=== PATIENT | male | born 1975 | race African-American/Black ===

== ENCOUNTER 2020-11-24 13:47 | Emergency (ER) | payer MEDICAID, SELFPAY ==
[2020-11-24 13:48] VITALS: BP 138/75; PULSE 90; RESP 16; TEMP 36.4; O2SAT 99; BMI 30.7
[2020-11-24] MEDS: Ondansetron ODT 4 MG Tablet PO (14:39)
[2020-11-24] MEDS: Ondansetron 4 MG/2 ML Vial IV (14:41)
[2020-11-24 14:43] LABS: Absolute Lymphocyte Count 1.14 X10^3/uL (0.83-4.51); Absolute Neutrophil Count 5.7 X10^3/uL (2.0-7.7); Basophil# 0.02 X10^3/uL; Basophil% 0.3 % (0-1); Hematocrit 41.4 % (40-54); Hemoglobin 14.4 g/dL (13.0-16.5); Lymphocyte # 1.14 X10^3/ul (0.83-4.51); Lymphocyte % 15.7 % (19-41); Mean Corp Hgb Conc 34.8 g/dL (32-36); Mean Corpuscular Hgb 32.3 pg (27.0-32.0); Mean Corpuscular Volume 92.8 fL (80-94); Mean Platelet Vol. 9.9 fl (6.2-12.0); Monocyte# 0.33 X10^3/uL; Monocyte% 4.6 % (0-10); NRBC Flagged by Analyzer 0 % (0-5); Neutrophil # 5.73 X10^3/uL (2.7-7.7); Platelet Count 257 K/mm3 (150-450); RBC Distribution Width CV 14.7 % (11.6-14.6); RBC Distribution Width SD 50.1 fl (35.1-43.9); Red Blood Count 4.46 M/mm3 (4.6-6.2); White Blood Count 7.3 K/mm3 (4.4-11.0)
--- NOTE | 2020-11-24 14:51 | EKG12_ITS ---
Test Reason : ABD PAIN Blood Pressure : / mmHG Vent. Rate : 062 BPM Atrial Rate : 062 BPM P-R Int : 162 ms QRS Dur : 096 ms QT Int : 420 ms P-R-T Axes : 009 016 -03 degrees QTc Int : 426 ms Normal sinus rhythm Normal ECG Confirmed by LIUDMILA GODOY, SEBLE ([id number]), supervising editor news reel EDWAR LOBO ([id number]) on 11/27/2020 1:32:48 PM Referred By: PL Confirmed By:SHONA NUR MD
--- NOTE | 2020-11-24 14:52 | EDS_ITS ---
HPI HPI - GI History of Present Illness Chief Complaint: Abd Pain Informant: patient and spouse/S.O. Narrative Narrative: Patient presents with primarily upper abdominal pain. He states that the pain is minimal. However, he keeps having problems with nausea and vomiting. He is moving his bowels and has passing gas. He does not have diarrhea. He has never had blood in the stool or vomited blood. He states it started after he came back from a green party last night. He did have several drinks. He cannot think of any foods he had that bothered him. He does not know if anyone else got ill. He felt fine when he went there. Nothing really makes his symptoms better or worse. He has tried to drink some fluids. Sometimes they stay down sometimes they do not. He does not have any dyspnea chest pain pressure or palpitations. Past medical history: Viral myocarditis suspected. Medications include Coumadin and multiple others. Patient does not know what medications he takes otherwise. No known drug allergies other than an intolerance to heparin. He does not know what this reaction was. Surgery is placement of a implantable defibrillator. No abdominal surgery Social does drink alcohol. [facility] Medical History (Updated 11/24/20 @ 19:[address] 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-sided heart failure Home Medications atorvastatin 40 mg PO DAILY 11/24/20 [History Last Taken Unknown] carvedilol 9.175 mg PO BID 11/24/20 [History Last Taken Unknown] digoxin 125 mcg PO DAILY 11/24/20 [History Last Taken Unknown] ferrous sulfate 325 mg PO DAILY 11/24/20 [History Last Taken Unknown] furosemide 20 mg PO DAILY 11/24/20 [History Last Taken Unknown] isosorbide dinitrate 10 mg PO DAILY 11/24/20 [History Last Taken Unknown] magnesium oxide 40 mg PO DAILY 11/24/20 [History Last Taken Unknown] ondansetron 4 mg PO TID PRN 3 Days #9 tab 11/24/20 [Rx Last Taken Unknown] promethazine 25 mg PO TID PRN #9 tab 11/24/20 [Rx Last Taken Unknown] sacubitril-valsartan [Entresto] 1 tab PO BID 11/24/20 [History Last Taken Unknown] spironolactone 25 mg PO DAILY 11/24/20 [History Last Taken Unknown] warfarin 7.5 mg PO DAILY 11/24/20 [History Last Taken Unknown] Allergy/AdvReac Type Severity Reaction Status Date / Time pollen extracts Allergy Shortness Verified 11/24/20 13:48 of breath Surgical History (Updated 11/24/20 @ 17:00 by Kevin Rachel) Hx of tonsillectomy Social History Smoking Status: Former smoker ROS ROS ED Constitutional Constitutional ED: Denies chills or fever(s) Cardiovascular Cardiovascular: Denies chest pain, palpitations or racing heartbeat Respiratory/Chest Respiratory/Chest: Denies cough, dyspnea or dyspnea on exertion Gastrointestinal Gastrointestinal: Reports abdominal pain, nausea and vomiting; Denies constipa tion, diarrhea or melena Genitourinary Genitourinary ED: Denies dysuria or hematuria Musculoskeletal Musculoskeletal: Denies back pain Integumentary Denies rash Neurologic Neurologic: Denies headache(s) or weakness Endocrine Endocrinology: Denies polydipsia or polyuria Hematologic/Lymphatic Hematologic/Lymphatic: Denies easy bruising Allergic/Immunologic Allergic/Immunologic ED: Denies urticaria EXAM Physical Exam Const Vital Signs: 11/24/20 13:48 Temperature 97.6 F L Temperature Source Temporal Pulse Rate 90 Respiratory Rate 16 Blood Pressure 138/75 H Blood Pressure Mean 96 Pulse Ox 99 Oxygen Delivery Method Room Air Positive well nourished and well developed General Appearance ED: well developed and NAD HEENT Reports moist mucous membranes normocephalic and atraumatic Eyes EOMs intact bilaterally Neck supple Resp normal respiratory effort and clear to auscultation bilaterally Auscultation: Negative for rales Cardio regular rate and regular rhythm GI non-distended and no masses GI Narrative: Patient has a no real objective indication of tenderness. Bowel sounds are slightly reduced from normal. Auscultation: hypoactive bowel sounds Palpation: soft Back/Spine no CVA tenderness Neuro Sensorium / Orientation: alert Psych mental status grossly normal Skin Lesions: no lesions Rashes: no rashes MDM MDM MDM Narrative Medical decision making narrative: Blood work shows normal white count hemoglobin. Creatinine is mildly elevated. Alk phos is just slightly elevated but he does not have tenderness noted notably at the right upper quadrant. INR is therapeutic at 3.0. Patient was still having some nausea. I have added Phenergan. Is he still having symptoms, has complex medical history, is on Coumadin I have done a CT of his abdomen. He does not feel as though he can drink. Because his creatinine is mildly elevated I am going to avoid contrast. I am concerned about giving IV fluids to this patient with his significant heart disease. Especially when he does not know what his ejection fraction or medications are. Patient CT showed findings more consistent with enteritis. I went back to talk to the patient. He was feeling better though. He has drank a little bit of water and had some ice cubes. His nausea has significantly decreased. His pain is almost gone. He feels much better. He thinks this is likely from eating and drinking things at the green party last night. He would like to go home. I think this is reasonable. We will write him for both Zofran and Phenergan so he has options. If he develops recurrence of pain, vomiting or any other findings are features I have encouraged him to come back. Lab Data Attestation: I reviewed the patient's lab results. Labs: Laboratory Results - last 24 hr 11/24/20 11/24/20 11/24/20 14:35 14:35 15:20 WBC 7.3 RBC 4.46 L Hgb 14.4 Hct 41.4 MCV 92.8 MCH 32.3 H MCHC 34.8 RDW Std Deviation 50.1 H RDW Coeff of John 14.7 H Plt Count 257 MPV 9.9 Immature Gran % (Auto) 0.400 Neut % (Auto) 79.0 H Lymph % (Auto) 15.7 L [place] % (Auto) 4.6 Eos % (Auto) 0.0 Baso % (Auto) 0.3 Absolute Neuts (auto) 5.7 Absolute Lymphs (auto) 1.14 Nucleated RBC % 0 PT INR Sodium Cancelled 135 L Potassium Cancelled 4.5 Chloride Cancelled 102 Carbon Dioxide Cancelled 24.0 Anion Gap Cancelled 9 BUN Cancelled 14 Creatinine Cancelled 1.41 H Estim Creat Clear Calc Cancelled 66.87 Est GFR (MDRD) Af Amer Cancelled 69 Est GFR (MDRD) Non-Af Cancelled 57 L BUN/Creatinine Ratio Cancelled 9.9 L Glucose Cancelled 94 Calcium Cancelled 9.4 Total Bilirubin 0.80 AST 26 ALT 40 Alkaline Phosphatase 133 H Troponin I High Sens 9 Total Protein 8.0 Albumin 4.3 Globulin 3.7 Albumin/Globulin Ratio 1.2 Lipase 173 Urine Color Urine Clarity Urine pH Ur Specific [place] Urine Protein Urine Glucose (UA) Urine Ketones Urine Occult Blood Urine Nitrite Urine Bilirubin Urine Urobilinogen Ur Leukocyte Esterase Urine RBC Urine WBC Ur Squamous Epith Cells Amorphous Sediment Urine Bacteria Urine Mucus 11/24/20 11/24/20 15:30 17:31 WBC RBC Hgb Hct MCV MCH MCHC RDW Std Deviation RDW Coeff of John Plt Count MPV Immature Gran % (Auto) Neut % (Auto) Lymph % (Auto) [place] % (Auto) Eos % (Auto) Baso % (Auto) Absolute Neuts (auto) Absolute Lymphs (auto) Nucleated RBC % PT 30.3 H INR 3.0 Sodium Potassium Chloride Carbon Dioxide Anion Gap BUN Creatinine Estim Creat Clear Calc Est GFR (MDRD) Af Amer Est GFR (MDRD) Non-Af BUN/Creatinine Ratio Glucose Calcium Total Bilirubin AST ALT Alkaline Phosphatase Troponin I High Sens Total Protein Albumin Globulin Albumin/Globulin Ratio Lipase Urine Color Yellow Urine Clarity Clear Urine pH 5.0 Ur Specific [place] 1.025 Urine Protein 30 H Urine Glucose (UA) Normal Urine Ketones 150 A* Urine Occult Blood 25 H Urine Nitrite Negative Urine Bilirubin Negative Urine Urobilinogen Normal Ur Leukocyte Esterase Negative Urine RBC 0-5 SEEN Urine WBC 0 SEEN Ur Squamous Epith Cells 5-10 SEEN Amorphous Sediment 3+ URATE Urine Bacteria 0 SEEN Urine Mucus 0 SEEN Radiography Diagnostic Testing: Radiology Impression Abdomen/Pelvis CT 11/24/20 16:14 IMPRESSION: Nondistended fluid-filled small bowel loops and subtle submucosal thickening majority of the colon suggests diffuse enteritis. There is associated induration of the mesenteric fat. No suspicious solid organ abnormality No free intraperitoneal fluid, air, or suspicious adenopathy Electronically Signed: Chun Valenzuela MD at 17:29 EDT , Service support , EKG Initial EKG: Comments: EKG done due to low cardiac history and upper abdominal discomfort. EKG read by me shows a normal sinus rhythm with overall rate of 62. No acute ST elevation or depression. No ectopy. MA interval, QRS duration and QTc are normal. Discharge Plan Triage Chief Complaint: Abd Pain ED Provider: Dedrick Perez Dx/Rx/DC Orders Clinical Impression: Nausea & vomiting Instructions: ED Vomiting (Adult), ED Abdominal Pain Unkn Cause Male... Prescriptions: New ondansetron 4 mg tablet,disintegrating 4 mg PO TID PRN (Reason: nausea and vomiting) 3 Days Qty: 9 RF: 0 promethazine 25 mg tablet 25 mg PO TID PRN (Reason: nausea and vomiting) Qty: 9 RF: 0 No Action isosorbide dinitrate 10 mg tablet 10 mg PO DAILY RF: 0 atorvastatin 40 mg tablet 40 mg PO DAILY RF: 0 carvedilol 6.25 mg tablet 9.175 mg PO BID RF: 0 spironolactone 25 mg tablet 25 mg PO DAILY RF: 0 magnesium oxide 400 mg (241.3 mg magnesium) tablet 40 mg PO DAILY RF: 0 ferrous sulfate 325 mg (65 mg iron) tablet 325 mg PO DAILY RF: 0 warfarin 5 mg tablet 7.5 mg PO DAILY RF: 0 digoxin 125 mcg (0.125 mg) tablet 125 mcg PO DAILY RF: 0 furosemide 20 mg tablet 20 mg PO DAILY RF: 0 Entresto 97-103 mg tablet 1 tab PO BID RF: 0 Primary Care Provider: Care Physician,No Primary Referrals: Cheri Gonzalez MD [STAFF PHYSICIAN] - 1-2 Days if not improving Care Physician,No Primary [Primary Care Provider] - Disposition Disposition: Home, Self Care
[2020-11-24 15:51] LABS: ALB/GLOB Ratio 1.2 RATIO (0.9-2.4); AST(SGOT) 26 U/L (15-37); Alanine Aminotransfer ALT/SGPT 40 U/L (16-61); Albumin, Serum 4.3 g/dL (3.2-5.0); Alkaline Phosphatase 133 U/L (45-117); Anion Gap 9 (5-15); BUN 14 mg/dL (7-18); BUN/Creat Ratio 9.9 RATIO (10-20); Calcium,Total 9.4 mg/dL (8.5-10.1); Chloride 102 mmol/L (98-107); Creatinine, Serum 1.41 mg/dL (0.70-1.30); EST Glomerular Filtration Rate 57 mL/min (>60); Est Glom Filt Rate - Afr Amer 69 mL/min (>60); Estimated Creatinine Clearance 66.87 ml/min; Globulin 3.7 g/dL (2.2-4.2); Glucose 94 mg/dL (74-106); Lipase 173 U/L (73-393); Potassium 4.5 mmol/L (3.5-5.1); Sodium Level 135 mmol/L (136-145); Troponin-I HS 9 pg/mL (3.0-78.0)
[2020-11-24 16:01] LABS: Prothrombin Time (Protime)PT. 30.3 SECONDS (11.7-14.9)
--- NOTE | 2020-11-24 16:14 | CT_ITS ---
STUDY: CT ABDOMEN AND PELVIS WITHOUT CONTRAST REASON FOR EXAM: Male, 45 years old. Diffuse abdominal pain RADIATION DOSAGE (If Supplied By Facility): CTDIvol = ( 10.62 ) mGy, DLP = ( 524.35 ) mGycm TECHNIQUE: Transaxial images were obtained from the dome of the diaphragm to the symphysis pubis without oral contrast, and without intravenous contrast. Sagittal and coronal images were reconstructed. Individualized dose optimization techniques were used for this CT. COMPARISON: None. FINDINGS: The visualized lung bases are unremarkable. The visualized portions of the heart are within normal limits. Normal liver. Normal gallbladder and extrahepatic biliary system. Normal spleen. Normal pancreas. Normal bilateral adrenal glands. Normal right kidney. Normal left kidney. Normal visualized stomach. Nondistended fluid-filled small bowel loops and a submucosal thickening in the majority of the colon suggests a diffuse enteritis. Scattered colonic diverticula without CT evidence of acute diverticulitis. There is nonspecific induration of the mesenteric fat. The appendix is not visualized. Normal abdominal aorta. Normal inferior vena cava. Normal retroperitoneum. Normal urinary bladder. There is some type of generator in the subcutaneous tissue in the left abdomen. No complications noted CT/Abdomen/Pelvis without Cont IMPRESSION: Nondistended fluid-filled small bowel loops and subtle submucosal thickening majority of the colon suggests diffuse enteritis. There is associated induration of the mesenteric fat. No suspicious solid organ abnormality No free intraperitoneal fluid, air, or suspicious adenopathy Electronically Signed: Chun Valenzuela MD at 17:29 EDT , Service support ,
[2020-11-24] MEDS: proMETHazine 25 MG/ML Syringe 12.5 MG IM (16:53)
[2020-11-24 17:41] LABS: Bacteria 0 SEEN /hpf (None Seen); Mucous, Urine 0 SEEN /hpf (<or=2+); White Blood Cells 0 SEEN /hpf (0-5)
[2020-11-24 17:44] LABS: Color, Urine Yellow (Yellow); Glucose, Dipstick Normal (Normal); Leukocyte Esterase-Dipstick Negative /ul (Negative); Nitrite-Dipstick Negative (Negative); Occult Blood-Urine 25 /ul (Negative); Protein-Dipstick 30 mg/dl (Negative); Specific Gravity, Urine 1.025 (1.002-1.030); Urine Bilirubin Dipstick Negative (Negative); Urine Clarity Clear (Clear); Urine Urobilinogen Normal (Normal)
[2020-11-24 17:49] LABS: Ketone-Dipstick 150 mg/dl (Negative)
[2020-11-24 17:51] LABS: Amorphous Sediment 3+ URATE; Red Blood Cells-Urine 0-5 SEEN /hpf (0-5); Squamous Epithelial Cells - UA 5-10 SEEN /hpf (0-5)
[2020-11-24 19:54] VITALS: BP 138/93; PULSE 95; RESP 15; O2SAT 97
[2020-11-24 20:04] VITALS: BP 138/93; PULSE 95; RESP 15; O2SAT 97
== END 2020-11-24 20:05 | disposition home or self-care (01) ==
PROVIDERS: Emergency Provider Emergency Medicine
DX: R11.2 Nausea with vomiting, unspecified (principal); Z95.810 Presence of automatic (implantable) cardiac defibrillator; Z87.891 Personal history of nicotine dependence; Z79.899 Other long term (current) drug therapy; Z79.01 Long term (current) use of anticoagulants
CPT/HCPCS: 74176; 80053; 81001; 83690; 84484; 85025; 85610; 93005; 96372; 96374; 99284; A4216; J2405

== ENCOUNTER 2025-01-24 18:49 | Emergency (ER) | payer MEDICAID, MEDICARE, SELFPAY ==
[2025-01-24 18:52] VITALS: BP 145/95; PULSE 83; RESP 18; TEMP 36.2; O2SAT 95; BMI 33.4
--- OUTSIDE RECORDS SUMMARY | 2025-01-24 20:08 | XMS RPT_ITS | CCD ---
Author Organization [facility] Care Team Providers Care Director Of Outreach Name Role Phone Maine Eiran Unavailable Unavailable None, No PCP Unavailable Unavailable [place] Z Unavailable Unavailable [facility] Unavailabl e Unavailable None, No PCP Unavailable Unavailable Unavailable Unavailable PHYSICIAN, NONE Primary Care Physician Unavailab NATE Shah DO Primary Care Physician NATE CARRINGTON DO Attending Unavailable NATE CARRINGTON DO Primary Care Unavailable BALJIT EDMONDS MD Attending Unavailable NATE CARRINGTON DO Primary Care Unavailable NATE CARRINGTON DO Attending Unavailable NATE CARRINGTON DO Primary Care Unavailable MARY JANE HWANG Attending Unavailmonico CARRINGTON DO NATE E Primary Care Unavailable BALJIT EDMONDS MD Attending Unavailable NATE CARRINGTON DO Primary Care Unavailable NATE CARRINGTON DO Attending Unavailable NATE CARRINGTON DO Primary Care Unavailable BALJIT EDMONDS MD Attending Unavailable NATE CARRINGTON DO Primary Care Unavailable NATE CARRINGTON DO Primary Care Unavailable BALJIT EDMONDS MD Attending Unavailable ZEB RODRIGUEZ NATE Arvin Primary Care Unavailable BALJIT EDMONDS MD Attending Unavailable BALJIT EDMONDS MD Attending Unavailable ZEB RODRIGUEZ NATE Arvin Primary Care Unavailable ZEB RODRIGUEZ NATE E Primary Care Unavailable JESUS CHAO MD Attending Unavail able ZEB RODRIGUEZ NATE Arvin Primary Care Unavailable KRYSTEN MCADAMS MD Attending Unavailable ZEB RODRIGUEZ NATE E Primary Care Unavailable ZEB RODRIGUEZ NATE Arvin Attending Unavailable BALJIT EDMONDS MD Attending Unavailable ZEB RODRIGUEZ NATE Arvin Primary Care Unavailable FLORESITA INMAN MD Attending Unavailable ZEB RODRIGUEZ NATE E Primary Care Unavailable Allergies Allergy Classification Reported Allergen(s) Allergy Type Date of Onset Reaction(s) Facility (16 sources) heparin; Translations: [heparin] Drug Allergy Low Platelet [facility] (16 sources) prasugrel; Translations: [prasugrel] Drug Allergy [facility] Medications Current Medications Medication Drug Class(es) Dates Sig (Normalized) Sig (Original) acetaminophen 325 mg oral capsule (20 sources) Start: 06-21-2021 acetaminophen 325 mg oral capsule Dose : 325 mg = 1 cap(s), Oral, q4h, PRN as needed for pain, # 20 cap(s), 0 Refill(s) Start Date: 06/21/21 Status: Ordered Medication Dispense Status: Completed Quantity: 20.0 Unit: cap(s) Total Allowed Fills: 1 Fills Dispensed: 0 Start: 09-12-2020 take 1-2 tablets by mouth every four hours as needed Acetaminophen 325 MG Oral Tablet TAKE 1 TO 2 TABLETS EVERY 4 HOURS NEEDED Quantity: 0 Refills: 0 Ordered: 12-Sep-2020 DO Start : 12-Sep-2020 Active apixaban 5 mg oral tablet (9 sources) Factor Xa Inhibitor Start: 06-07-2024 Eliquis 5 mg oral tablet Dose : 5 mg = 1 tab(s), Oral, BID, # 180 tab(s), 3 Refill(s), Pharmacy: [facility], 177, cm, 12/27/22 9:01:00 EDT, Height, 115.7, kg, 01/28/24 10:51:00 EDT, Dosing Weight Start Date: 06/07/24 Status: Ordered Medication Dispense Status: Completed Quantity: 180.0 Unit: tab(s) Total Allowed Fills: 4 Fills Dispensed: 0 Indications: Unspecified atrial fibrillation; Start: 02-21-2022 Eliquis 5 mg o ral tablet Dose : 5 mg = 1 tab(s), Oral, BID, # 180 tab(s), 3 Refill(s), Pharmacy: [facility], 177, cm, 02/21/22 10:01:00 EST, Height, 101.6, kg, 02/21/22 10:01:00 EST, Dosing Weight Start Date: 02/21/22 Status: Ordered atorvastatin 40 mg oral tablet (20 sources) HMG-CoA Reductase Inhibitor Start: 07-26-2024 take 1 tablet by mouth once daily atorvastatin 40 mg oral tablet 1 tab(s), Oral, qDay, # 90 tab(s), 3 Refill(s), Pharmacy: [facility], 177, cm, 12/27/22 9:01:00 EDT, Height, kg, 01/28/24 10:51:00 EDT, Dosing Weight Start Date: 07/26/24 Status: Ordered Medication Dispense Status: Completed Quantity: 90.0 Unit: tab(s) Total Allowed Fills: 4 Fills Dispensed: 0 Start: 03-25-2022 take 1 tablet by ximena th once daily atorvastatin 40 mg oral tablet 1 tab(s), Oral, qDay, # 90 tab(s), 3 Refill(s), Pharmacy: [facility], 177, cm, 02/21/22 10:01:00 EST, Height, kg, 02/21/22 10:01:00 EST, Dosing Weight Start Date: 03/25/22 Status: Ordered Start: 11-17-2019 take 1 tablet by [facility] once daily atorvastatin 40 mg oral tablet 1 tab(s), Oral, qDay, # 90 tab(s), 5 Refill(s), Pharmacy: [id number], 177.8, cm, 06/21/21 10:30:00 EDT, Height, kg, 06/21/21 10:30:00 EDT, Dosing Weight Start Date: 07/16/21 Status: Ordered azelastine hydrochloride 0.137 mg/actuat metered dose nasal spray (8 sources) Histamine-1 Receptor Antagonist Start: 08-09-2024 azelastine 137 mcg/inh (0.1%) nasal spray Dose = 2 spray(s), Intranasal, BID, # 30 mL, 4 Refill(s), Pharmacy: [facility], 177, cm, 08/09/24 15:03:00 EDT, Height, kg, 08/09/24 15:03:00 EDT, Dosing Weight Start Date: 08/09/24 Status: Ordered Medication Dispense Status: Completed Quantity: 30.0 Unit: mL Total Allowed Fills: 5 Fills Dispensed: 0 Start: 09-19-2022 azelastine 137 mcg/inh (0.1%) nasal spray Dose = 2 spray(s), Intranasal, BID, # 30 mL, 4 Refill(s), [id number] 177, cm, 09/19/22 11:13:00 EDT, Height Start Date: 09/19/22 Status: Ordered carvedilol 25 mg oral tablet (20 sources) alpha-Adrenergic Tonya, beta-Adrenergic Tonya Start: 06-07-2024 Coreg 25 mg oral tablet Dose : 25 mg = 1 tab(s), Oral, BIDM, # 180 tab(s), 3 Refill(s), Pharmacy: [facility], 177, cm, 12/27/22 9:01:00 EDT, Height, kg, 01/28/24 10:51:00 EDT, Dosing Weight Start Date: 06/07/24 Status: Ordered Medication Dispense Status: Completed Quantity: 180.0 Unit: tab(s) Total Allowed Fills: 4 Fills Dispensed: 0 Start: 12-27-2022 Coreg 25 mg or al tablet Dose : 25 mg = 1 tab(s), Oral, BIDM, # 180 tab(s), 8 Refill(s), Pharmacy: [facility], 177, cm, 12/27/22 9:01:00 EDT, Height, kg, 12/27/22 9:01:00 EDT, Dosing Weight Start Date: 12/27/22 Status: Ordered Start: 11-28-2021 take 1.5 tablets by mouth twice daily carvedilol 12.5 mg oral tablet 1.5 tab(s), Oral, BID, # 270 tab(s), 6 Refill(s), Pharmacy: [facility]/pharmacy #[id number], 177.8, cm, 11/28/21 9:11:00 EDT, Height, kg, 11/28/21 9:11:00 EDT, Dosing Weight Start Date: 11/28/21 Status: Ordered Start: 04-19-2020 take 1 tablet by ximena th twice daily Carvedilol 12.5 MG Oral Tablet Take 1 tablet twice daily Quantity: 0 Refills: 0 Ordered: 20-Feb-2021 DO Start : 19-Apr-2020 Active Start: 04-19-2020 take 1 tablet by ximena th twice daily Carvedilol 3.125 MG Oral Tablet Take 1 tablet twice daily Quantity: 0 Refills: 0 Ordered: 15-May-2020 DO Start : 19-Apr-2020 Active dapagliflozin 10 mg oral tablet (20 sources) Sodium-Glucose Cotransporter 2 Inhibitor Start: 07-26-2024 Farxiga 10 mg oral tablet Dose : 10 mg = 1 tab(s), Oral, qDay, # 90 tab(s), 3 Refill(s), Pharmacy: [facility], 177, cm, 12/27/22 9:01:00 EDT, Height, kg, 01/28/24 10:51:00 EDT, Dosing Weight Start Date: 07/26/24 Status: Ordered Medication Dispense Status: Completed Quantity: 90.0 Unit: tab(s) Total Allowed Fills: 4 Fills Dispensed: 0 Start: 04-30-2022 Farxiga 10 mg oral tablet Dose : 10 mg = 1 tab(s), Oral, qDay, # 90 tab(s), 11 Refill(s), Pharmacy: [facility], 177, cm, 04/16/22 10:43:00 EST, Height, kg, 04/16/22 10:43:00 EST, Dosing Weight Start Date: 04/30/22 Status: Ordered Start: 11-28-2021 Farxiga 10 mg oral tablet Dose : 10 mg = 1 tab(s), Oral, qDay, # 90 tab(s), 11 Refill(s), Pharmacy: [facility]/pharmacy #[id number], 177.8, cm, 11/28/21 9:11:00 EDT, Height Start Date: 11/28/21 Status: Ordered Start: 02-20-2021 take 1 tablet by ximena th once daily Farxiga 10 MG Oral Tablet Take 1 tablet daily Quantity: 30 Refills: 11 Ordered: 20-Feb-2021 Shi [place] MD Start : 20-Feb-2021 Active digoxin 0.125 mg oral tablet (20 sources) Cardiac Glycoside Start: 10-12-2020 take 1 tablet by mouth once daily digoxin 125 mcg (0.125 mg) oral tablet See Instructions, TAKE 1 TABLET BY MOUTH EVERY DAY, # 90 tab(s), 6 Refill(s), Pharmacy: [facility]/pharmacy #[id number], 177.8, cm, 08/29/20 11:11:00 EDT, Height, kg, 08/29/20 11:11:00 EDT, Dosing Weight Start Date: 10/12/20 Status: Ordered Start: 08-16-2019 take 1 tablet by ximena th once daily Digoxin 125 MCG Oral Tablet TAKE 1 TABLET BY MOUTH EVERY DAY Quantity: 30 Refills: 0 Ordered: 16-Aug-2019 DO Start : 16-Aug-2019 Active empagliflozin 10 mg oral tablet (3 sources) Sodium-Glucose Cotransporter 2 Inhibitor Start: 03-23-2021 Jardiance 10 mg oral tablet Dose : 10 mg = 1 tab(s), Oral, qAM, # 30 tab(s), 3 Refill(s), Pharmacy: [facility]/pharmacy #[id number], 177.8, cm, 12/08/20 10:31:00 EDT, Height, kg, 12/08/20 10:31:00 EDT, Dosing Weight Start Date: 03/23/21 Status: Ordered ferrous sulfate 325 mg delayed release oral tablet (20 sources) Start: 01-22-2025 ferrous sulfat e 325 mg (65 mg elemental iron) oral delayed release tablet Dose : 325 mg = 1 tab(s), Oral, TID, # 270 tab(s), 1 Refill(s), Pharmacy: [facility], 177.8, cm, 01/11/25 14:33:00 EDT, Height, kg, 01/11/25 14:33:00 EDT, Dosing Weight Start Date: 01/22/25 Status: Ordered Medication Dispense Status: Completed Quantity: 270.0 Unit: tab(s) Total Allowed Fills: 2 Fills Dispensed: 0 Start: 10-06-2024 ferrous sulfat e 325 mg (65 mg elemental iron) oral delayed release tablet Dose : 325 mg = 1 tab(s), Oral, TID, # 270 tab(s), 0 Refill(s), Pharmacy: [facility], 177, cm, 10/01/24 15:49:00 EDT, Height, kg, 10/01/24 15:49:00 EDT, Dosing Weight Start Date: 10/06/24 Status: Ordered Medication Dispense Status: Completed Quantity: 270.0 Unit: tab(s) Total Allowed Fills: 1 Fills Dispensed: 0 Start: 02-13-2022 ferrous sulfat e 325 mg (65 mg elemental iron) oral tablet Dose : 325 mg = 1 tab(s), Oral, TID, # 270 tab(s), 3 Refill(s), Pharmacy: [facility], 177, cm, 01/25/22 10:03:00 EDT, Height, kg, 01/25/22 10:03:00 EDT, Dosing Weight Start Date: 02/13/22 Status: Ordered Start: 08-22-2019 take 1 tablet by ximena th three times daily Ferrous Sulfate 325 (65 Fe) MG Oral Tablet TAKE 1 TABLET BY MOUTH THREE TIMES A DAY Quantity: 90 Refills: 0 Ordered: 22-Aug-2019 DO Start : 22-Aug-2019 Active fexofenadine hydrochloride 180 mg oral tablet (8 sources) Histamine-1 Receptor Antagonist Start: 08-09-2024 fexofenadine 180 mg oral tablet Dose : 180 mg = 1 tab(s), Oral, Daily, # 100 tab(s), 3 Refill(s), Pharmacy: [facility], Nasal congestion Environmental allergies, 177, cm, 08/09/24 15:03:00 EDT, Height, kg, 08/09/24 15:03:00 EDT, Dosing Weight Start Date: 08/09/24 Status: Ordered Medication Dispense Status: Completed Quantity: 100.0 Unit: tab(s) Total Allowed Fills: 4 Fills Dispensed: 0 Indications: Other allergy status, other than to drugs and biological substances; Nasal congestion; Start: 08-09-2022 fexofenadine 1 80 mg oral tablet Dose : 180 mg = 1 tab(s), Oral, Daily, # 100 tab(s), 3 Refill(s), Pharmacy: [facility]/pharmacy #[id number], Nasal congestion Environmental allergies, 177, cm, 08/09/22 16:29:00 EDT, Height Start Date: 08/09/22 Status: Ordered fluticasone propionate 0.05 mg/actuat metered dose nasal spray (11 sources) Corticosteroid Start: 08-09-2024 take 1 dose nasal route once daily in the morning Flonase 50 mcg/inh nasal spray Dose = 2 spray(s), Nostril, each, qAM, # 16 gram(s), 6 Refill(s), Pharmacy: [facility], 177, cm, 08/09/24 15:03:00 EDT, Height, kg, 08/09/24 15:03:00 EDT, Dosing Weight Start Date: 08/09/24 Status: Ordered Medication Dispense Status: Completed Quantity: 16.0 Unit: g Total Allowed Fills: 7 Fills Dispensed: 0 Start: 09-19-2022 take 1 dose nasal ro unga once daily in the morning Flonase 50 mcg/inh nasal spray Dose = 2 spray(s), Nostril, each, qAM, # 16 gram(s), 6 Refill(s), [id number] 177, cm, 09/19/22 11:13:00 EDT, Height Start Date: 09/19/22 Status: Ordered Start: 06-07-2022 take 1 dose nasal ro unga twice daily Flonase 50 mcg/inh nasal spray Dose = 1 spray(s), Nostril, each, BID, # 16 gram(s), 0 Refill(s), [id number], Rhinitis medicamentosa, 177, cm, 06/07/22 15:13:00 EST, Height Start Date: 06/07/22 Status: Ordered furosemide 20 mg oral tablet (20 sources) Loop Diuretic Start: 06-07-2024 furosemide 20 mg oral tablet Dose : 20 mg = 1 tab(s), Oral, qDay, # 90 tab(s), 3 Refill(s), Pharmacy: [facility], 177, cm, 12/27/22 9:01:00 EDT, Height, kg, 01/28/24 10:51:00 EDT, Dosing Weight Start Date: 06/07/24 Status: Ordered Medication Dispense Status: Completed Quantity: 90.0 Unit: tab(s) Total Allowed Fills: 4 Fills Dispensed: 0 Start: 12-16-2022 take 1 tablet by ximena th once daily as needed furosemide 20 mg oral tablet See Instructions, TAKE 1 TABLET BY MOUTH EVERY DAY NEEDED FOR WEIGHT GAIN, # 90 tab(s), 3 Refill(s), Pharmacy: [facility], 177, cm, 09/19/22 11:13:00 EDT, Height, kg, 09/19/22 11:13:00 EDT, Dosing Weight Start Date: 12/16/22 Status: Ordered Start: 11-28-2021 take 1 tablet by ximena th once daily as needed furosemide 20 mg oral tablet See Instructions, TAKE 1 TABLET BY MOUTH EVERY DAY NEEDED FOR WEIGHT GAIN, # 90 tab(s), 5 Refill(s), Pharmacy: [facility]/pharmacy #[id number], 177.8, cm, 11/28/21 9:11:00 EDT, Height, kg, 11/28/21 9:11:00 EDT, Dosing Weight Start Date: 11/28/21 Status: Ordered Start: 08-22-2019 take 1 tablet by ximena th once daily as needed Furosemide 20 MG Oral Tablet TAKE 1 TABLET BY MOUTH DAILY NEEDED Quantity: 30 Refills: 0 Ordered: 22-Aug-2019 DO Start : 22-Aug-2019 Active hydrALAZINE hydrochloride 25 mg oral tablet (20 sources) Arteriolar Vasodilator Start: 11-21-2020 take 2 tablets by mouth three times daily hydrALAZINE 25 mg oral tablet See Instructions, TAKE 2 TABLETS BY MOUTH 3 TIMES A DAY, # 540 tab(s), 3 Refill(s), Pharmacy: [id number], 177.8, cm, 08/29/20 11:11:00 EDT, Height, kg, 08/29/20 11:11:00 EDT, Dosing Weight Start Date: 11/21/20 Status: Ordered Start: 10-12-2019 take 1 tablet by ximena three times daily hydrALAZINE HCl - 25 MG Oral Tablet TAKE 1 TABLET 3 times daily Quantity: 0 Refills: 0 Ordered: 12-Oct-2019 DO Start : 12-Oct-2019 Active isosorbide dinitrate 10 mg oral tablet (20 sources) Nitrate Vasodilator Start: 08-28-2022 take 1 tablet by mouth once daily isosorbide dinitrate 10 mg oral tablet 1 tab(s), Oral, qDay, # 30 tab(s), 3 Refill(s), Pharmacy: [facility], 177, cm, 08/09/22 16:29:00 EDT, Height, kg, 08/09/22 16:29:00 EDT, Dosing Weight Start Date: 08/28/22 Status: Ordered Start: 11-20-2021 take 1 tablet by ximena th once daily isosorbide dinitrate 10 mg oral tablet 1 tab(s), Oral, qDay, # 30 tab(s), 6 Refill(s), Pharmacy: [id number], 177, cm, 10/18/21 14:59:00 EDT, Height, kg, 10/18/21 14:59:00 EDT, Dosing Weight Start Date: 11/20/21 Status: Ordered Start: 04-10-2021 take 1 tablet by ximena once daily isosorbide dinitrate 10 mg oral tablet See Instructions, TAKE 1 TABLET BY MOUTH EVERY DAY, # 30 tab(s), 6 Refill(s), Pharmacy: [id number], 177.8, cm, 12/08/20 10:31:00 EDT, Height, kg, 12/08/20 10:31:00 EDT, Dosing Weight Start Date: 04/10/21 Status: Ordered Start: 09-18-2020 take 1 tablet by ximena once daily isosorbide dinitrate 10 mg oral tablet See Instructions, TAKE 1 TABLET BY MOUTH EVERY DAY, # 30 tab(s), 6 Refill(s), Pharmacy: [id number], 177.8, cm, 08/29/20 11:11:00 EDT, Height, kg, 08/29/20 11:11:00 EDT, Dosing Weight Start Date: 09/18/20 Status: Ordered Start: 11-17-2019 take 1 tablet by ximena three times daily Isosorbide Dinitrate 10 MG Oral Tablet TAKE 1 TABLET 3 times daily Quantity: 0 Refills: 0 Ordered: 17-Nov-2019 DO Start : 17-Nov-2019 Active loperamide hydrochloride 2 mg oral tablet (5 sources) Opioid Agonist Start: 10-01-2024 take 1 tablet by mouth once Imodium A-D 2 mg oral tablet Dose : 2 mg = 1 tab(s), Oral, q6hr, Take 40 min before meals. Not to exceed 8 capsules, or 16 mg, in 24 hours, # 100 tab(s), 0 Refill(s), Pharmacy: [facility]/pharmacy #[id number], IBS -diarrhea, 177, cm, 10/01/24 15:49:00 EDT, Height, kg, 10/01/24 15:49:00 EDT, Dosing Weight Start Date: 10/01/24 Status: Ordered Medication Dispense Status: Completed Quantity: 100.0 Unit: tab(s) Total Allowed Fills: 1 Fills Dispensed: 0 Indications: Irritable bowel syndrome, unspecified; magnesium glycinate 100 mg oral tablet (1 source) Start: 01-11-2025 magnesium glyc inate 100 mg oral capsule Dose : 400 mg = 4 cap(s), Oral, qHS, # 120 cap(s), 1 Refill(s), Pharmacy: [facility], Irritable bowel syndrome with diarrhea Hypomagnesemia, 177.8, cm, 01/11/25 14:33:00 EDT, Height, kg, 01/11/25 14:33:00 EDT, Dosing Weight Start Date: 01/11/25 Status: Ordered Medication Dispense Status: Completed Quantity: 120.0 Unit: cap(s) Total Allowed Fills: 2 Fills Dispensed: 0 Indications: Irritable bowel syndrome with diarrhea; Hypomagnesemia; magnesium oxide 400 mg oral tablet (20 sources) Start: 02-13-2022 End: 02-04-2099 take 1 tablet by mouth once daily magnesium oxide 400 mg oral tablet See Instructions, 1 tab(s) Oral qDay 30 day(s), # 90 tab(s), 3 Refill(s), Pharmacy: [facility], 177.8, cm, 10/22/24 11:52:00 EDT, Height, kg, 10/22/24 11:52:00 EDT, Dosing Weight Start Date: 11/18/24 Status: Ordered Medication Dispense Status: Completed Quantity: 90.0 Unit: tab(s) Total Allowed Fills: 4 Fills Dispensed: 0 Start: 08-22-2019 End: 04-15-2021 take 1 tablet by mouth once daily Magnesium Oxide 400 MG Oral Tablet TAKE 1 TABLET BY MOUTH EVERY DAY Quantity: 30 Refills: 0 Ordered: 22-Aug-2019 DO Start : 22-Aug-2019 Active montelukast 10 mg oral tablet (8 sources) Leukotriene Receptor Antagonist Start: 08-09-2022 montelukast 10 mg or al tablet Dose : 10 mg = 1 tab(s), Oral, qDay, call for refills if working well!, # 90 tab(s), 0 Refill(s), Pharmacy: [facility]/pharmacy #[id number], 177, cm, 08/09/22 16:29:00 EDT, Height Start Date: 08/09/22 Status: Ordered Medication Dispense Status: Completed Quantity: 90.0 Unit: tab(s) Total Allowed Fills: 1 Fills Dispensed: 0 ondansetron 4 mg disintegrating oral tablet (8 sources) Serotonin-3 Receptor Antagonist Start: 01-11-2025 End: 01-31-2025 ondansetron 4 mg oral tablet, disintegrating Dose : 4 mg = 1 tab(s), Oral, q6h, PRN Nausea/Vomiting, # 20 tab(s), 0 Refill(s), 01/28/25 4:05:00 PM EDT Start Date: 01/23/25 Stop Date: 01/28/25 Status: Ordered Medication Dispense Status: Completed Quantity: 20.0 Unit: tab(s) Total Allowed Fills: 1 Fills Dispensed: 0 Start: 10-18-2024 End: 10-29-2024 take 1 tablet by mouth every six hours as needed for nausea Zofran ODT use ondansetron oral tablet, disintegrating Dose : 4 mg =, Oral, q6h, PRN as needed for nausea/vomiting, # 12 tab(s), 0 Refill(s) Start Date: 10/18/24 Stop Date: 10/21/24 Status: Ordered Medication Dispense Status: Completed Quantity: 12.0 Unit: tab(s) Total Allowed Fills: 1 Fills Dispensed: 0 rifAXIMin 550 mg oral tablet (6 sources) Rifamycin Antibacterial Start: 01-11-2025 End: 01-25-2025 Xifaxan 550 mg oral tablet Dose : 550 mg = 1 tab(s), Oral, TID, # 42 tab(s), 0 Refill(s), Pharmacy: [facility], Irritable bowel syndrome with diarrhea, 177.8, cm, 01/11/25 14:33:00 EDT, Height, kg, 01/11/25 14:33:00 EDT, Dosing Weight Start Date: 01/11/25 Stop Date: 01/25/25 Status: Ordered Medication Dispense Status: Completed Quantity: 42.0 Unit: tab(s) Total Allowed Fills: 1 Fills Dispensed: 0 Indications: Irritable bowel syndrome with diarrhea; Start: 10-01-2024 End: 10-15-2024 Xifaxan 550 mg oral tablet D ose : 550 mg = 1 tab(s), Oral, TID, # 42 tab(s), 0 Refill(s), Pharmacy: [facility], IBS -diarrhea, 177, cm, 10/01/24 15:49:00 EDT, Height, kg, 10/01/24 15:49:00 EDT, Dosing Weight Start Date: 10/01/24 Stop Date: 10/15/24 Status: Ordered Medication Dispense Status: Completed Quantity: 42.0 Unit: tab(s) Total Allowed Fills: 1 Fills Dispensed: 0 Indications: Irritable bowel syndrome, unspecified; sacubitril 97 mg / valsartan 103 mg oral tablet (20 sources) Angiotensin 2 Receptor Tonya Start: 11-18-2024 take 1 tablet by mouth twice daily Entresto 97 mg-103 mg oral tablet Dose = 1 tab(s), Oral, BID, # 180 tab(s), 3 Refill(s), Pharmacy: [facility], 177.8, cm, 10/22/24 11:52:00 EDT, Height, kg, 10/22/24 11:52:00 EDT, Dosing Weight Start Date: 11/18/24 Status: Ordered Medication Dispense Status: Completed Quantity: 180.0 Unit: tab(s) Total Allowed Fills: 4 Fills Dispensed: 0 Start: 12-25-2023 take 1 tablet by ximena th twice daily Entresto 97 mg-103 mg oral tablet Dose = 1 tab(s), Oral, BID, # 180 tab(s), 3 Refill(s), Pharmacy: [facility], 177, cm, 12/27/22 9:01:00 EDT, Height, kg, 12/27/22 9:01:00 EDT, Dosing Weight Start Date: 12/25/23 Status: Ordered Quantity: 180.0 Unit: tab(s) Repeat number: 4 Start: 12-16-2022 take 1 tablet by ximena th twice daily Entresto 97 mg-103 mg oral tablet Dose = 1 tab(s), Oral, BID, # 180 tab(s), 3 Refill(s), Pharmacy: [facility], 177, cm, 09/19/22 11:13:00 EDT, Height, kg, 09/19/22 11:13:00 EDT, Dosing Weight Start Date: 12/16/22 Status: Ordered Start: 11-28-2021 take 1 tablet by ximena th twice daily Entresto 97 mg-103 mg oral tablet Dose = 1 tab(s), Oral, BID, # 180 tab(s), 11 Refill(s), Pharmacy: [facility]/pharmacy #[id number], 177.8, cm, 11/28/21 9:11:00 EDT, Height, kg, 11/28/21 9:11:00 EDT, Dosing Weight Start Date: 11/28/21 Status: Ordered Start: 08-25-2019 take 1 tablet by ximena twice daily Entresto 97-103 MG Oral Tablet Take 1 tablet twice daily Quantity: 0 Refills: 0 Ordered: 25-Aug-2019 DO Start : 25-Aug-2019 Active spironolactone 25 mg oral tablet (20 sources) Aldosterone Antagonist Start: 06-07-2024 take 1 tablet by mouth once daily spironolactone 25 mg oral tablet 1 tab(s), Oral, qDay, # 90 tab(s), 3 Refill(s), Pharmacy: [facility], 177, cm, 12/27/22 9:01:00 EDT, Height, kg, 01/28/24 10:51:00 EDT, Dosing Weight Start Date: 06/07/24 Status: Ordered Medication Dispense Status: Completed Quantity: 90.0 Unit: tab(s) Total Allowed Fills: 4 Fills Dispensed: 0 Start: 02-08-2022 take 1 tablet by ximena th once daily spironolactone 25 mg oral tablet 1 tab(s), Oral, qDay, # 90 tab(s), 2 Refill(s), Pharmacy: [facility]/pharmacy #[id number], 177, cm, 01/25/22 10:03:00 EDT, Height, kg, 01/25/22 10:03:00 EDT, Dosing Weight Start Date: 02/08/22 Status: Ordered Start: 08-22-2019 take 1 tablet by ximena once daily Spironolactone 25 MG Oral Tablet TAKE 1 TABLET BY MOUTH EVERY DAY Quantity: 30 Refills: 0 Ordered: 22-Aug-2019 DO Start : 22-Aug-2019 Active sulfamethoxazole 800 mg / trimethoprim 160 mg oral tablet (1 source) Dihydrofolate Reductase Inhibitor Antibacterial, Sulfonamide Antimicrobial Start: 01-23-2025 End: 01-30-2025 take 1 tablet by mouth twice daily Bactrim DS 800 mg-160 mg oral tablet Dose = 1 tab(s), Oral, BID, X 7 day(s), # 14 tab(s), 0 Refill(s), 105.8 Start Date: 01/23/25 Stop Date: 01/30/25 Status: Ordered Medication Dispense Status: Completed Quantity: 14.0 Unit: tab(s) Total Allowed Fills: 1 Fills Dispensed: 0 Vitamin D3 50 mcg (2000 intl units) oral tablet (1 source) Start: 01-11-2025 take 1 tablet by mouth once, then take 1 tablet by mouth once daily Vitamin D3 50 mcg (2000 intl units) oral tablet Dose : 50 mcg = 1 tab(s), Oral, Daily, # 100 tab(s), 3 Refill(s), Pharmacy: [facility], Vitamin D insufficiency, 177.8, cm, 01/11/25 14:33:00 EDT, Height, kg, 01/11/25 14:33:00 EDT, Dosing Weight Start Date: 01/11/25 Status: Ordered Medication Dispense Status: Completed Quantity: 100.0 Unit: tab(s) Total Allowed Fills: 4 Fills Dispensed: 0 Indications: Vitamin D deficiency, unspecified; warfarin sodium 5 mg oral tablet (20 sources) Vitamin K Antagonist Start: 05-18-2021 warfarin 5 mg oral tablet Dose : 5 mg = 1 tab(s), Oral, qDay, # 90 tab(s), 5 Refill(s), Pharmacy: [facility]/pharmacy #[id number], 177.8, cm, 05/18/21 11:12:00 EST, Height, kg, 05/18/21 11:12:00 EST, Dosing Weight Start Date: 05/18/21 Status: Ordered Start: 01-19-2020 warfarin 7.5 m g oral tablet Dose : 7.5 mg = 1 tab(s), Oral, /Fri/Fri, 0 Refill(s) Start Date: 01/19/20 Status: Ordered Start: 11-17-2019 take 1.5 tablets by mouth once daily Warfarin Sodium 5 MG Oral Tablet TAKE 1.5 TABLETS BY MOUTH ONCE A DAY OR DIRECTED BY THE [facility]. Quantity: 135 Refills: 1 Ordered: 15-Aug-2021 Shi Grove MD Start : 17-Nov-2019 Active Start: 11-17-2019 warfarin 5 mg oral tablet Dose : 5 mg = 1 tab(s), Oral, Friday & Friday, 0 Refill(s) Start Date: 01/19/20 Status: Ordered Completed/Discontinued Medications Medication Drug Class(es) Dates Sig (Normalized) Sig (Original) aspirin 81 mg delayed release oral tablet (1 source) Platelet Aggregation Inhibitor, Nonsteroidal Anti-inflammatory Drug Aspirin 81 MG Oral Tablet Delayed Release Refills: 0 Active clotrimazole 10 mg/ml topical cream (9 sources) Azole Antifungal Start: 10-01-2024 End: 11-12-2024 apply 1 dose topically twice daily clotrimazole 1% topical cream Apply 1 giles, Topical, BID, Tinea Cruris, # 30 gram(s), 2 Refill(s), Pharmacy: [facility]/pharmacy #[id number], Cream, 177, cm, 10/01/24 15:49:00 EDT, Height, 108.2, kg, 10/01/24 15:49:00 EDT, Dosing Weight Start Date: 10/01/24 Stop Date: 11/12/24 Status: Ordered Medication Dispense Status: Completed Quantity: 30.0 Unit: g Total Allowed Fills: 3 Fills Dispensed: 0 Indications: Tinea cruris; Start: 02-21-2022 End: 03-07-2022 clotrimazole 1% topical crea m Apply 1 giles, Topical, BID, Tinea Cruris, # 30 gram(s), 0 Refill(s), Pharmacy: [facility]/pharmacy #[id number], Cream, 177, cm, 02/21/22 10:01:00 EST, Height, 101.6 Start Date: 02/21/22 Stop Date: 03/07/22 Status: Ordered dicyclomine hydrochloride 20 mg oral tablet (10 sources) Anticholinergic Start: 10-01-2024 End: 10-21-2024 dicyclomine 20 mg oral tablet Dose : 20 mg = 1 tab(s), Oral, QID, PRN As needed for abdominal discomfort, # 12 tab(s), 0 Refill(s) Start Date: 10/18/24 Stop Date: 10/21/24 Status: Ordered Medication Dispense Status: Completed Quantity: 12.0 Unit: tab(s) Total Allowed Fills: 1 Fills Dispensed: 0 promethazine hydrochloride 25 mg oral tablet (2 sources) Phenothiazine Start: 11-28-2020 End: 12-01-2020 promethazine 25 mg oral tablet Dose : 25 mg = 1 tab(s), Oral, q6h, # 12 tab(s), 0 Refill(s), Enteritis Start Date: 11/28/20 Stop Date: 12/01/20 Status: Ordered Start: 11-28-2020 End: 12-01-2020 promethazine 25 mg rectal contreras ppository Dose : 25 mg = 1 supp, Rectal, q6h, # 12 supp, 0 Refill(s), Enteritis Start Date: 11/28/20 Stop Date: 12/01/20 Status: Ordered rivaroxaban 15 mg oral tablet (1 source) Factor Xa Inhibitor Start: 08-22-2019 take 1 tablet by mouth twice daily at mealtime Xarelto 15 MG Oral Tablet TAKE 1 TABLET BY MOUTH TWICE A DAY WITH MEALS Quantity: 42 Refills: 0 Start : 22-Aug-2019 Active traMADol hydrochloride 50 mg oral tablet (20 sources) Opioid Agonist Start: 09-12-2020 End: 05-01-2021 take 1 tablet by mouth every six hours as needed for pain Ultram 50 MG Oral Tablet TAKE 1 TABLET EVERY 6 HOURS NEEDED FOR PAIN Quantity: 0 Refills: 0 Ordered: 12-Sep-2020 DO Start : 12-Sep-2020 Active Problems Active Problems Problem Classification Problem Date Documented Da te Episodic/Chronic Abdominal pain (9 sources) Lower abdominal pain; Translations: [Lower abdominal pain, unspecified] Onset: Episodic Cardiac dysrhythmias (20 sources) Paroxysmal atrial fibrillation; Translations: [Premature atrial contraction] 04-12-2021 Chronic Cardiac dysrhythmias (16 sources) Sinus tachycardia 09-01-2019 Episodic Coagulation and hemorrhagic disorders (20 sources) Heparin-induced thrombocytopenia; 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)] 12-10-2019 Chronic Coma; stupor; and brain damage (1 source) Drowsy; Translations: [Somnolence] Onset: 2 Episodic Conduction disorders (16 sources) Automatic implantable cardiac defibrillator in situ 12-08-2020 Chronic Congestive heart failure; nonhypertensive (20 sources) Heart failure with reduced ejection fraction; Translations: [Systolic heart failure, unspecified] Onset: 2 Chronic Coronary atherosclerosis and other heart disease (3 sources) Exercise-induced angina 12-10-2024 Chronic Diabetes mellitus without complication (5 sources) Type 2 diabetes mellitus 08-09-2024 Chronic Heart valve disorders (7 sources) Mitral valve regurgitation 09-01-2019 Chronic Nausea and vomiting (6 sources) Vomiting; Translations: [Vomiting, unspecified] Onset: 5 Episodic Nutritional deficiencies (1 source) Vitamin D deficiency 01-11-2025 Chronic Other aftercare (8 sources) Long-term current use of anticoagulant 05-10-2022 Episodic Other circulatory disease (15 sources) Low blood pressure 04-12-2021 Episodic Other diseases of kidney and ureters (1 source) Disorder of kidney and/or ureter; Translations: [Disorder of kidney and ureter, unspecified] Episodic Other gastrointestinal disorders (4 sources) Irritable bowel syndrome 10-01-2024 Chronic Other gastrointestinal disorders (1 source) Irritable bowel syndrome with diarrhea 01-11-2025 Chronic Other gastrointestinal disorders (5 sources) Diarrhea and vomiting 10-18-2024 Episodic Other nervous system disorders (3 sources) Carpal tunnel syndrome 12-10-2024 Chronic Other nutritional; endocrine; and metabolic disorders (1 source) Obesity; Translations: [Obesity, unspecified] Onset: 2 Chronic Other nutritional; endocrine; and metabolic disorders (5 sources) Severe obesity 08-09-2024 Chronic Other nutritional; endocrine; and metabolic disorders (1 source) Hypomagnesemia 01-11-2025 Chronic Other screening for suspected conditions (not mental disorders or infectious disease) (9 sources) Abnormal renal function 11-21-2021 Episodic Other skin disorders (9 sources) Hyperhidrosis 11-21-2021 Episodic Other upper respiratory disease (8 sources) Rhinitis 09-19-2022 Chronic Joanie-; endo-; and myocarditis; cardiomyopathy (except that caused by tuberculosis or sexually transmitted disease) (20 sources) Nonischemic congestive cardiomyopathy; Translations: [Other primary cardiomyopathies] Chronic Phlebitis; thrombophlebitis and thromboembolism (20 sources) Deep venous thrombosis; Translations: [Acute venous embolism and thrombosis of unspecified deep vessels of lower extremity] 08-25-2019 Episodic Pulmonary heart disease (20 sources) Pulmonary embolism; Translations: [Other pulmonary embolism and infarction] 08-25-2019 Episodic Screening and history of mental health and substance abuse codes (16 sources) Ex-smoker 10-15-2019 Episodic Skin and subcutaneous tissue infections (3 sources) Abscess of skin and/or subcutaneous tissue; Translations: [Cutaneous abscess, unspecified] Onset: 5 Episodic Sprains and strains (1 source) Sprain of foot; Translations: [Unspecified sprain of left foot, initial encounter] Onset: 2 Episodic Thyroid disorders (20 sources) Non-toxic multinodular goiter; Translations: [Nontoxic multinodular goiter] Chronic Unclassified (5 sources) Hypercoagulable state due to atrial fibrillation 08-09-2024 Past or Other Problems Problem Classification Problem Date Documented Da te Episodic/Chronic Unclassified (2 sources) Patient encounter status; Translations: [Encounter for pre-transplant evaluation for heart transplant] NEGATED: Highlighted row has not occurred!Residual codes; unclassified (20 sources) Disease Episodic Results Test Name Value Interpretation Reference Range Facility .Auto Diffon 01-23-2025 Basophil, Absolute 0.1 10 3/mcL Normal 0.0-0.3 [facility] Comment on above: Performed By: #### C DINORA PEREZ ANEU, MDW, BMP, GFR #### [address] [address] Basophils/100 WBC (Bld) 0.7 % Normal 0.0-2.[address] [facility] Comment on above: Performed By: #### C DINORA PEREZ ANEU, MDW, BMP, GFR #### [address] [address] Eosinophil, Absolute 0.0 10 3/mcL Normal 0.0-0.[address] [facility] Comment on above: Performed By: #### C BC, ADABBE, ANEU, MDW, BMP, GFR #### [address] [address] Eosinophils/100 WBC (Bld) 0.3 % Normal 0.0-6.[address] [facility] Comment on above: Performed By: #### C BC, ADIFF, ANEU, MDW, BMP, GFR #### [address] [address] Lymphocyte, Absolute 1.7 10 3/mcL Normal 0.9-4.[address] [facility] Comment on above: Performed By: #### C BC, ADABBE, ANEU, MDW, BMP, GFR #### [address] [address] Lymphocytes/100 WBC (Bld) 19.3 % Low 20.0-40.[address] [facility] Comment on above: Performed By: #### C BC, ADABBE, ANEU, MDW, BMP, GFR #### [address] [address] Monocyte, Absolute 0.8 10 3/mcL Normal 0.1-1.4 [facility] Comment on above: Performed By: #### C BC, ADIFF, ANEU, MDW, BMP, GFR #### [address] [address] Monocytes/100 WBC (Bld) 9.4 % Normal 2.0-13.[address] [facility] Comment on above: Performed By: #### C BC, ADIFF, ANEU, MDW, BMP, GFR #### [address] [address] Neutrophils/100 WBC (Bld) 70.3 % Normal 50.0-75.[address] [facility] Comment on above: Performed By: #### C BC, ADIFF, ANEU, MDW, BMP, GFR #### [address] [address] .GFRon 01-23-2025 Estimated Glomerular Filtration Rate 87 ml/min/1.73sqm Normal [facility] Comment on above: Result Comment: Stages of Chronic Kidney Disease (CKD) Stage Description eGFR(ml/min/1.73 sq.m.) CKD 1 Normal kidney function or >=90 normal kindney function with possible kidney damage (ex. Proteinuria) CKD 2 Kidney damage with mild loss 60-89 of kidney function CKD 3a Mild to moderate loss of kidney 45-59 function CKD 3b Moderate to severe loss of 30-44 of kindey function CKD 4 Severe loss of kidney function 15-29 CKD 5 Kidney failure <15 Note: (go live 2024) the eGFR calculation was updated to the 2020 CKD-EPI creatinine equation without a race factor to calculate the eGFR results. Performed By: #### C DINORA PEREZ ANEU, MDW, BMP, GFR #### [place] [address] .MDWon 01-23-2025 Monocyte Distribution Width 16.72 Normal 0.00-20.00 [facility] Comment on above: Result Comment: For ED adult patients suspected of sepsis, MDW<=20.0 does not rule out sepsis or risk of sepsis Performed By: #### C DINORA PEREZ ANEU, STEW, BMP, GFR #### [place] [address] .NEUABSon 01-23-2025 Neutrophil, Absolute 6.0 10 3/mcL Normal 2.3-8.[address] [facility] Comment on above: Performed By: #### C DINORA PEREZ ANEU, MDW, BMP, GFR #### [place] [address] BMPon 01-23-2025 BUN/Creatinine Ratio 7.7 ratio Low 10.0-22.[address] [facility] Comment on above: Performed By: #### C DINORA PEREZ ANEU, MDW, BMP, GFR #### [place] [address] Calcium [Mass/Vol] 10.5 mg/dL High 8.7-10.4 [facility] Comment on above: Performed By: #### C DINORA PEREZ ANEU, W, BMP, GFR #### [address] [address] Chloride [Moles/Vol] 96 mmol/L Low 98-[address] [facility] Comment on above: Performed By: #### C DINORA PEREZ ANEU, W, BMP, GFR #### [address] [address] CO2 [Moles/Vol] 23 mmol/L Normal 22-32 [facility] Comment on above: Performed By: #### C BC, DINORA, JADON, W, BMP, GFR #### [address] [address] Creatinine [Mass/Vol] 1.04 mg/dL Normal 0.60-1.[address] [facility] Comment on above: Result Comment: Test ing performed on [employer] analyzer using enzymatic creatinine methodology. Performed By: #### C CHRIS, DINORA, JADON, W, BMP, GFR #### [address] [address] Electrolyte Balance 13.0 mEq/L Normal 4.0-15.0 [facility] Comment on above: Performed By: #### C CHRIS, DINORA, JADON, W, BMP, GFR #### [address] [address] Glucose [Mass/Vol] 148 mg/dL High 70-110 [facility] Comment on above: Performed By: #### C BC, DINORA, JADON, MDW, BMP, GFR #### [address] [address] Potassium [Moles/Vol] 3.5 mmol/L Normal 3.5-5.[address] [facility] Comment on above: Performed By: #### C BC, DINORA, JADON, MDW, BMP, GFR #### [address] [address] Sodium [Moles/Vol] 132 mmol/L Low 136-145 [facility] Comment on above: Performed By: #### C BC, DINORA, JADON, MDW, BMP, GFR #### [address] [address] Urea nitrogen [Mass/Vol] 8.0 mg/dL Normal 8.0-22.[address] [facility] Comment on above: Performed By: #### C BC, DINORA, JADON, MDW, BMP, GFR #### [address] [address] CBCon 01-23-2025 Erythrocyte distribution width (RBC) [Ratio] 14.1 % Normal 11.5-15.[address] [facility] Comment on above: Performed By: #### C BC, DINORA, ANEU, MDW, BMP, GFR #### [place] [address] Hematocrit (Bld) [Volume fraction] 47.1 % Normal 40.0-52.0 [facility] Comment on above: Performed By: #### C BC, DINORA, ANEU, MDW, BMP, GFR #### [place] [id number] Hgb 16.3 G/dL Normal 13.0-17.5 [facility] Comment on above: Performed By: #### C BC, DINORA, ANEU, MDW, BMP, GFR #### [place] [id number] MCH (RBC) [Entitic mass] 32.6 pg Normal 27.0-33.[address] [facility] Comment on above: Performed By: #### C BC, DINORA, ANEU, MDW, BMP, GFR #### [place] [id number] MCHC 34.5 G/dL Normal 32.0-36.0 [facility] Comment on above: Performed By: #### C BC, DINORA, ANEU, MDW, BMP, GFR #### [place] [id number] MCV (RBC) [Entitic vol] 94.7 fL Normal 81.0-100.[address] [facility] Comment on above: Performed By: #### C BC, DINORA, ANEU, MDW, BMP, GFR #### [place] [id number] Platelet 266 10 3/mcL Normal 150-450 [facility] Comment on above: Performed By: #### C DINORA PEREZ ANEU, MDW, BMP, GFR #### [address] [address] Platelet mean volume (Bld) [Entitic vol] 8.4 fL Normal 6.4-10.[address] [facility] Comment on above: Performed By: #### C DINORA PEREZ ANEU, MDW, BMP, GFR #### [place] [address] RBC 4.98 10 6/mcL Normal 4.50-6.00 [facility] Comment on above: Performed By: #### C DINORA PEREZ ANEU, MDW, BMP, GFR #### [address] [address] WBC 8.6 10 3/mcL Normal 4.5-10.8 [facility] Comment on above: Performed By: #### C DINORA PEREZ ANEU, MDW, BMP, GFR #### [place] [address] LABORATORYOrdered By: SYSTEM SYSTEM on 01-23-2025 Basophils (Bld) [#/Vol] 0.1 103/mcL Normal 0.0 - 0.3 10^3/mcL Workflow SS Basophils/100 WBC (Bld) 0.7 % Normal 0.0 - 2.5 % Workflow SS Calcium [Mass/Vol] 10.5 mg/dL High 8.7 - 10. 4 mg/dL ADM SS Chloride [Moles/Vol] 96 mmol/L Low 98 - 110 mEq/L ADM SS CO2 [Moles/Vol] 23 mmol/L Normal 22 - 32 mEq/L ADM SS Creatinine [Mass/Vol] 1.04 mg/dL Normal 0.60 - 1.40 mg/dL ADM SS Comment on above: Interpretive Data: T esting performed on [employer] analyzer using enzymatic creatinine methodology. Electrolyte Balance 13.0 mEq/L Normal 4.0 - 15 .0 mEq/L ADM SS Eosinophils (Bld) [#/Vol] 0.0 103/mcL Normal 0.0 - 0.7 10^3/mcL AH Workflow SS Eosinophils/100 WBC (Bld) 0.3 % Normal 0.0 - 6.0 % AH Workflow SS Erythrocyte distribution width (RBC) [Ratio] 14.1 % Normal 11.5 - 15.5 % AH Workflow SS GLOMERULAR FILTRATION RATE/1.73 SQ M.PREDICTED:ARVRAT: PT:SER/PLAS/BLD:QN: CREATININE-BASED FORMULA (CKD-EPI 2020) 87 ml/min/1.73sqm Invalid Interpretation Code ADM SS Comment on above: Interpretive Data: Stages of Chronic Kidney Disease (CKD) Stage Description eGFR(ml/min/1.73 sq.m.) CKD 1 Normal kidney function or >=90 normal kindney function with possible kidney damage (ex. Proteinuria) CKD 2 Kidney damage with mild loss 60-89 of kidney function CKD 3a Mild to moderate loss of kidney 45-59 function CKD 3b Moderate to severe loss of 30-44 of kindey function CKD 4 Severe loss of kidney function 15-29 CKD 5 Kidney failure <15 Note: (go live 2024) the eGFR calculation was updated to the 2020 CKD-EPI creatinine equation without a race factor to calculate the eGFR results. Glucose [Mass/Vol] 148 mg/dL High 70 - 110 mg/dL ADM SS Hematocrit (Bld) [Volume fraction] 47.1 % Normal 40.0 - 52.0 % AH Workflow SS Hemoglobin (Bld) [Mass/Vol] 16.3 G/dL Normal 13.0 - 17.5 G/dL AH Workflow SS Lymphocytes (Bld) [#/Vol] 1.7 103/mcL Normal 0.9 - 4.3 10^3/mcL AH Workflow SS Lymphocytes/100 WBC (Bld) 19.3 % Low 20.0 - 40.0 % AH Workflow SS MCH (RBC) [Entitic mass] 32.6 pg Normal 27.0 - 33.0 pg AH Workflow SS MCHC 34.5 G/dL Normal 32.0 - 36.0 G/dL AH Workflow SS MCV (RBC) [Entitic vol] 94.7 fL Normal 81.0 - 100.0 fL AH Workflow SS Monocyte distribution width Auto (Bld) [Entitic vol] 16.72 1 Normal 0.00 - 20.00 Workflow SS Comment on above: Result Comment: For ED adult patients suspected of sepsis, MDW<=20.0 does not rule out sepsis or risk of sepsis Monocytes (Bld) [#/Vol] 0.8 103/mcL Normal 0.1 - 1.4 10^3/mcL AH Workflow SS Monocytes/100 WBC (Bld) 9.4 % Normal 2.0 - 13.0 % AH Workflow SS Neutrophils (Bld) [#/Vol] 6.0 103/mcL Normal 2.3 - 8.1 10^3/mcL AH Workflow SS Neutrophils/100 WBC (Bld) 70.3 % Normal 50.0 - 75.0 % AH Workflow SS Platelet mean volume (Bld) [Entitic vol] 8.4 fL Normal 6.4 - 10.5 fL AH Workflow SS Platelets (Bld) [#/Vol] 266 103/mcL Normal 150 - 450 10^3/mcL AH Workflow SS Potassium [Moles/Vol] 3.5 mmol/L Normal 3.5 - 5.0 mEq/L AH ADM SS RBC (Bld) [#/Vol] 4.98 106/mcL Normal 4.50 - 6.00 10^6/mcL AH Workflow SS Sodium [Moles/Vol] 132 mmol/L Low 136 - 145 mEq/L AH ADM SS Urea nitrogen [Mass/Vol] 8.0 mg/dL Normal 8.0 - 22.0 mg/dL AH ADM SS Urea nitrogen/Creatinine [Mass ratio] 7.7 ratio Low 10.0 - 22.0 ratio AH ADM SS WBC (Bld) [#/Vol] 8.6 103/mcL Normal 4.5 - 10.8 10^3/mcL AH Workflow SS XR CHEST 1 VIEWon 01-23-2025 XR CHEST 1 VIEW ORIGINAL HISTORY: Chest pain COMPARISON: 28 November 2020 FINDINGS: An electronic device is unchanged. The lungs are clear. The pulmonary vasculature is unremarkable in appearance. IMPRESSION: Clear lungs. Interpreted by: Nasim Titus MD Preliminary Report By: Nasim Titus MD Electronically signed By Nasim Titus MD Dictated Date: 01/23/2025 3:46:09 PM Prelim Date: 01/23/2025 3:46:39 PM Sign Date: 01/23/2025 3:46:39 PM Ordering Provider: FLORESITA INMAN [facility] [id number] 12-31-2024 Vitamin B6 Lvl 5.5 UG/L Normal 3.4-65.2 [facility] Comment on above: Result Comment: This test was developed and its performance characteristics determined by [facility]. It has not been cleared or approved by the Food and Drug Administration. Deficiency: <3.4 Marginal: 3.4 - 5.1 Adequate: >5.1 Performed At: [address] [id number] Azam Sol MD Ph:[phone] Performed By: #### P SA, [id number], VIDH, FERR, MG, [id number], FES #### [address] [address] #### FOL #### [place] [address] B1WBon 12-28-2024 Vitamin B1 Whl Bld 97.7 nmol/L Normal 66.5-200.0 [facility] Comment on above: Result Comment: This test was developed and its performance characteristics determined by [facility]. It has not been cleared or approved by the Food and Drug Administration. Performed At: [address] [id number] Azam Sol MD Ph:[phone] Performed By: #### P SA, [id number], VIDH, FERR, MG, [id number], FES #### [address] [address] #### FOL #### [place] [address] .Auto Diffon 12-22-2024 Basophil, Absolute 0.1 10 3/mcL Normal 0.0-0.3 [facility] Comment on above: Performed By: #### P SA, [id number], VIDH, FERR, MG, [id number], FES #### [address] [address] #### FOL #### [place] [address] Basophils/100 WBC (Bld) 1.1 % Normal 0.0-2.5 [facility] Comment on above: Performed By: #### P SA, [id number], VIDH, FERR, MG, [id number], FES #### [place] [address] #### FOL #### [address] [address] Eosinophil, Absolute 0.1 10 3/mcL Normal 0.0-0.7 [facility] Comment on above: Performed By: #### P SA, [id number], VIDH, FERR, MG, [id number], FES #### [place] [address] #### FOL #### [address] [address] Eosinophils/100 WBC (Bld) 1.7 % Normal 0.0-6.0 [facility] Comment on above: Performed By: #### P SA, [id number], VIDH, FERR, MG, 459449, FES #### [place] [address] #### FOL #### [address] [address] Lymphocyte, Absolute 1.5 10 3/mcL Normal 0.9-4.3 [facility] Comment on above: Performed By: #### P SA, [id number], VIDH, FERR, MG, 400775, FES #### [place] [address] #### FOL #### [address] [address] Lymphocytes/100 WBC (Bld) 23.2 % Normal 20.0-40.0 [facility] Comment on above: Performed By: #### P SA, [id number], VIDH, FERR, MG, 319651, FES #### [place] [address] #### FOL #### [address] [address] Monocyte, Absolute 0.5 10 3/mcL Normal 0.1-1.4 [facility] Comment on above: Performed By: #### P SA, [id number], VIDH, FERR, MG, [id number], FES #### [address] [address] #### FOL #### [address] [address] Monocytes/100 WBC (Bld) 8.1 % Normal 2.0-13.0 [facility] Comment on above: Performed By: #### P SA, [id number], VIDH, FERR, MG, [id number], FES #### [address] [address] #### FOL #### [address] [address] Neutrophils/100 WBC (Bld) 65.9 % Normal 50.0-75.0 [facility] Comment on above: Performed By: #### P SA, [id number], VIDH, FERR, MG, 426737, FES #### [address] [address] #### FOL #### [place] [id number] .GFRon 12-22-2024 Estimated Glomerular Filtration Rate 79 ml/min/1.73sqm Normal [facility] Comment on above: Result Comment: Stages of Chronic Kidney Disease (CKD) Stage Description eGFR(ml/min/1.73 sq.m.) CKD 1 Normal kidney function or >=90 normal kindney function with possible kidney damage (ex. Proteinuria) CKD 2 Kidney damage with mild loss 60-89 of kidney function CKD 3a Mild to moderate loss of kidney 45-59 function CKD 3b Moderate to severe loss of 30-44 of kindey function CKD 4 Severe loss of kidney function 15-29 CKD 5 Kidney failure <15 Note: (go live 2024) the eGFR calculation was updated to the 2020 CKD-EPI creatinine equation without a race factor to calculate the eGFR results. Performed By: #### P SA, [id number], VIDH, FERR, MG, [id number], FES #### [address] [address] #### FOL #### [address] [address] .NEUABSon 12-22-2024 Neutrophil, Absolute 4.4 10 3/mcL Normal 2.3-8.1 [facility] Comment on above: Performed By: #### P SA, [id number], VIDH, FERR, MG, 958335, FES #### [address] [address] #### FOL #### [facility] [address] [place] [address] CBCon 12-22-2024 Erythrocyte distribution width (RBC) [Ratio] 14.8 % Normal 11.5-15.5 [facility] Comment on above: Performed By: #### C MP, CBC, GFR, PBNP, ANEU, ADIFF #### [address] [address] Hematocrit (Bld) [Volume fraction] 41.8 % Normal 40.0-52.0 [facility] Comment on above: Performed By: #### C MP, CBC, GFR, PBNP, ANEU, ADIFF #### [address] [address] Hgb 14.4 G/dL Normal 13.0-17.5 [facility] Comment on above: Performed By: #### C MP, CBC, GFR, PBNP, ANEU, ADIFF #### [address] [address] MCH (RBC) [Entitic mass] 33.0 pg Normal 27.0-33.0 [facility] Comment on above: Performed By: #### C MP, CBC, GFR, PBNP, ANEU, ADIFF #### [address] [address] MCHC 34.5 G/dL Normal 32.0-36.0 [facility] Comment on above: Performed By: #### C MP, CBC, GFR, PBNP, ANEU, ADIFF #### [address] [address] MCV (RBC) [Entitic vol] 95.6 fL Normal 81.0-100.0 [facility] Comment on above: Performed By: #### C MP, CBC, GFR, PBNP, ANEU, ADIFF #### [address] [address] Platelet 220 10 3/mcL Normal 150-450 [facility] Comment on above: Performed By: #### C MP, CBC, GFR, PBNP, ANEU, ADIFF #### [address] [address] Platelet mean volume (Bld) [Entitic vol] 9.0 fL Normal 6.4-10.5 [facility] Comment on above: Performed By: #### C MP, CBC, GFR, PBNP, ANEU, ADIFF #### [address] [address] RBC 4.37 10 6/mcL Low 4.50-6.00 [facility] Comment on above: Performed By: #### C MP, CBC, GFR, PBNP, ANEU, ADIFF #### [address] [address] WBC 6.6 10 3/mcL Normal 4.5-10.8 [facility] Comment on above: Performed By: #### C MP, CBC, GFR, PBNP, ANEU, ADIFF #### [address] [address] CMPon 12-22-2024 Albumin Level 3.6 G/dL Normal 3.5-5.0 [facility] Comment on above: Performed By: #### P SA, [id number], VIDH, FERR, MG, 824580, FES #### [address] [address] #### FOL #### [address] [address] Albumin/Globulin [Mass ratio] 0.9 {ratio} Low 1.1-2.5 [facility] Comment on above: Performed By: #### P SA, [id number], VIDH, FERR, MG, 177439, FES #### [place] [address] #### FOL #### [place] [address] ALP [Catalytic activity/Vol] 164 U/L High 40-135 [facility] Comment on above: Performed By: #### P SA, 392308, VIDH, FERR, MG, 349290, FES #### [place] [address] #### FOL #### [place] [address] ALT [Catalytic activity/Vol] 54 U/L Normal 16-63 [facility] Comment on above: Performed By: #### P SA, 799101, VIDH, FERR, MG, 747924, FES #### [place] [address] #### FOL #### [place] [address] AST [Catalytic activity/Vol] 29 U/L Normal 10-40 [facility] Comment on above: Performed By: #### P SA, 504688, VIDH, FERR, MG, 241688, FES #### [place] [address] #### FOL #### [place] [address] Bili Total 0.9 mg/dL Normal 0.2-1.0 [facility] Comment on above: Result Comment: Use of this assay is not recommended for patients undergoing treatment with eltrombopag due to the potential for falsely elevated results. Performed By: #### P SA, 860851, VIDH, FERR, MG, 875412, FES #### [place] [address] #### FOL #### [place] [address] BUN/Creatinine Ratio 12 ratio Normal 7-27 [facility] Comment on above: Performed By: #### P SA, 199847, VIDH, FERR, MG, 330499, FES #### [place] [address] #### FOL #### [place] [address] Calcium [Mass/Vol] 9.1 mg/dL Normal 8.4-10.2 [facility] Comment on above: Performed By: #### P SA, 362470, VIDH, FERR, MG, 285522, FES #### [place] [address] #### FOL #### [place] [address] Chloride [Moles/Vol] 101 mmol/L Normal 98-107 [facility] Comment on above: Performed By: #### P SA, 362966, VIDH, FERR, MG, 921055, FES #### [place] [address] #### FOL #### [place] [address] CO2 [Moles/Vol] 28 mmol/L Normal 22-29 [facility] Comment on above: Performed By: #### P SA, 114075, VIDH, FERR, MG, 301193, FES #### [place] [address] #### FOL #### [place] [address] Creatinine [Mass/Vol] 1.13 mg/dL Normal 0.67-1.17 [facility] Comment on above: Performed By: #### P SA, 207538, VIDH, FERR, MG, 620831, FES #### [place] [address] #### FOL #### [place] [address] Electrolyte Balance 8.0 mEq/L Normal 4.0-15.0 [facility] Comment on above: Performed By: #### P SA, 969635, VIDH, FERR, MG, 923059, FES #### [place] [address] #### FOL #### [address] [address] Globulin 4.0 G/dL Normal 2.7-4.4 [facility] Comment on above: Performed By: #### P SA, 278236, VIDH, FERR, MG, 998882, FES #### [place] [address] #### FOL #### [place] [address] Glucose [Mass/Vol] 125 mg/dL High 70-105 [facility] Comment on above: Performed By: #### P SA, 851912, VIDH, FERR, MG, 419091, FES #### [place] [address] #### FOL #### [place] [address] Potassium [Moles/Vol] 3.8 mmol/L Normal 3.5-5.1 [facility] Comment on above: Performed By: #### P SA, 191359, VIDH, FERR, MG, 486783, FES #### [place] [address] #### FOL #### [place] [address] Sodium [Moles/Vol] 137 mmol/L Normal 136-145 [facility] Comment on above: Performed By: #### P SA, 161369, VIDH, FERR, MG, 918279, FES #### [place] [address] #### FOL #### [place] [id number] Total Protein 7.6 G/dL Normal 6.4-8.2 [facility] Comment on above: Performed By: #### P SA, 034097, VIDH, FERR, MG, 800445, FES #### [place] [address] #### FOL #### [address] [address] Urea nitrogen [Mass/Vol] 14 mg/dL Normal 7-18 [facility] Comment on above: Performed By: #### P SA, 275793, VIDH, FERR, MG, 435476, FES #### [address] [address] #### FOL #### [address] [address] Karen 12-22-2024 Ferritin [Mass/Vol] 360.0 ng/mL Normal 26.0-388.0 [facility] Comment on above: Performed By: #### P SA, 282604, VIDH, FERR, MG, 159443, FES #### [address] [address] #### FOL #### [id number] [place] [address] 12-22-2024 Iron [Mass/Vol] 73 ug/dL Normal 65-175 [facility] Comment on above: Performed By: #### P SA, 246422, VIDH, FERR, MG, 922870, FES #### [address] [address] #### FOL #### [address] [address] Iron Sat 27 % Normal [facility] Comment on above: Performed By: #### P SA, 670648, VIDH, FERR, MG, 760502, FES #### [address] [address] #### FOL #### [address] [address] TIBC 272 mcg/dL Normal 250-450 [facility] Comment on above: Performed By: #### P SA, 637520, VIDH, FERR, MG, 895633, FES #### [address] [address] #### FOL #### [id number] [place] [address] 12-22-2024 Folate 11.68 ng/mL Normal 5.38-24.00 [facility] Comment on above: Performed By: #### P SA, [id number], VICATHIE, JONATHAN, MG, 767968, FES #### [facility] [address] [place], [place] [address] #### FOL #### [facility] [address] [place] [address] LABORATORYOrdered By: SYSTEM SYSTEM on 12-22-2024 25-hydroxyvitamin D3 [Mass/Vol] 17.7 ng/mL Invalid Interpretation Code AO ADM SS Comment on above: Interpretive Data: I nterpretive Values Based on Total 25(OH) Vitamin D: Deficient <20 ng/mL Insufficient 20 - <30 ng/mL Sufficient 30-100 ng/mL Albumin BCP dye [Mass/Vol] 3.6 G/dL Normal 3.5 - 5.0 G/dL AO ADM SS Albumin/Globulin [Mass ratio] 0.9 {ratio} Low 1.1 - 2.5 ratio AO ADM SS ALP [Catalytic activity/Vol] 164 U/L High 40 - 135 U/L AO ADM SS ALT With P-5'-P [Catalytic activity/Vol] 54 U/L Normal 16 - 63 U/L AO ADM SS AST With P-5'-P [Catalytic activity/Vol] 29 U/L Normal 10 - 40 U/L AO ADM SS Basophils (Bld) [#/Vol] 0.1 103/mcL Normal 0.0 - 0.3 10^3/mcL AO Workflow SS Basophils/100 WBC (Bld) 1.1 % Normal 0.0 - 2.5 % AO Workflow SS Bilirubin [Mass/Vol] 0.9 mg/dL Normal 0.2 - 1.0 mg/dL AO ADM SS Comment on above: Interpretive Data: U se of this assay is not recommended for patients undergoing treatment with eltrombopag due to the potential for falsely elevated results. Calcium [Mass/Vol] 9.1 mg/dL Normal 8.4 - 10. 2 mg/dL AO ADM SS Chloride [Moles/Vol] 101 mmol/L Normal 98 - 107 mmol/L AO ADM SS CO2 [Moles/Vol] 28 mmol/L Normal 22 - 29 mmol/L AO ADM SS Creatinine [Mass/Vol] 1.13 mg/dL Normal 0.67 - 1.17 mg/dL AO ADM SS Electrolyte Balance 8.0 mEq/L Normal 4.0 - 15 .0 mEq/L AO ADM SS Eosinophil, Absolute 0.1 103/mcL Normal 0.0 - 0.7 10^3/mcL AO Workflow SS Eosinophils/100 WBC (Bld) 1.7 % Normal 0.0 - 6.0 % AO Workflow SS Erythrocyte distribution width (RBC) [Ratio] 14.8 % Normal 11.5 - 15.5 % AO Workflow SS Estimated Glomerular Filtration Rate 79 ml/min/1.73sqm Invalid Interpretation Code AO Chemistry S Comment on above: Interpretive Data: Stages of Chronic Kidney Disease (CKD) Stage Description eGFR(ml/min/1.73 sq.m.) CKD 1 Normal kidney function or >=90 normal kindney function with possible kidney damage (ex. Proteinuria) CKD 2 Kidney damage with mild loss 60-89 of kidney function CKD 3a Mild to moderate loss of kidney 45-59 function CKD 3b Moderate to severe loss of 30-44 of kindey function CKD 4 Severe loss of kidney function 15-29 CKD 5 Kidney failure <15 Note: (go live 2024) the eGFR calculation was updated to the 2020 CKD-EPI creatinine equation without a race factor to calculate the eGFR results. Ferritin [Mass/Vol] 360.0 ng/mL Normal 26.0 - 388.0 ng/mL AO ADM SS Folate [Mass/Vol] 11.68 ng/mL Normal 5.38 - 24.00 ng/mL AH ADM SS Globulin 4.0 G/dL Normal 2.7 - 4.4 G/dL AO ADM SS Glucose [Mass/Vol] 125 mg/dL High 70 - 105 mg/dL AO ADM SS Hematocrit (Bld) [Volume fraction] 41.8 % Normal 40.0 - 52.0 % AO Workflow SS Hemoglobin (Bld) [Mass/Vol] 14.4 G/dL Normal 13.0 - 17.5 G/dL AO Workflow SS Iron [Mass/Vol] 73 ug/dL Normal 65 - 175 mcg/dL AO ADM SS Iron binding capacity [Mass/Vol] 272 mcg/dL Normal 250 - 450 mcg/dL AO ADM SS Iron Sat 27 % Invalid Interpretation Code AO ADM SS Lymphocytes (Bld) [#/Vol] 1.5 103/mcL Normal 0.9 - 4.3 10^3/mcL AO Workflow SS Lymphocytes/100 WBC (Bld) 23.2 % Normal 20.0 - 40.0 % AO Workflow SS Magnesium [Mass/Vol] 1.6 mg/dL Low 1.8 - 2.4 mg/dL AO ADM SS MCH (RBC) [Entitic mass] 33.0 pg Normal 27.0 - 33.0 pg AO Workflow SS MCHC 34.5 G/dL Normal 32.0 - 36.0 G/dL AO Workflow SS MCV (RBC) [Entitic vol] 95.6 fL Normal 81.0 - 100.0 fL AO Workflow SS Monocytes (Bld) [#/Vol] 0.5 103/mcL Normal 0.1 - 1.4 10^3/mcL AO Workflow SS Monocytes/100 WBC (Bld) 8.1 % Normal 2.0 - 13.0 % AO Workflow SS Natriuretic peptide.B prohormone N-Terminal [Mass/Vol] 117 pg/mL Normal 0 - 125 pg/mL AO ADM SS Comment on above: Interpretive Data: N T-proBNP results of less than 300 pg/mL effectively rules out acute congestive heart failure with 99% negative predictive value. Neutrophils (Bld) [#/Vol] 4.4 103/mcL Normal 2.3 - 8.1 10^3/mcL AO Workflow SS Neutrophils/100 WBC (Bld) 65.9 % Normal 50.0 - 75.0 % AO Workflow SS Platelet mean volume (Bld) [Entitic vol] 9.0 fL Normal 6.4 - 10.5 fL AO Workflow SS Platelets (Bld) [#/Vol] 220 103/mcL Normal 150 - 450 10^3/mcL AO Workflow SS Potassium [Moles/Vol] 3.8 mmol/L Normal 3.5 - 5.1 mmol/L AO ADM SS Prostate specific Ag [Mass/Vol] 0.50 ng/mL Normal 0.00 - 4.00 ng/mL AO ADM SS Protein [Mass/Vol] 7.6 G/dL Normal 6.4 - 8.2 G/dL AO ADM SS RBC (Bld) [#/Vol] 4.37 106/mcL Low 4.50 - 6.00 10^6/mcL AO Workflow SS Sodium [Moles/Vol] 137 mmol/L Normal 136 - 145 mmol/L AO ADM SS Urea nitrogen [Mass/Vol] 14 mg/dL Normal 7 - 18 mg/dL AO ADM SS Urea nitrogen/Creatinine [Mass ratio] 12 ratio Normal 7 - 27 ratio AO ADM SS WBC (Bld) [#/Vol] 6.6 103/mcL Normal 4.5 - 10.8 10^3/mcL AO Workflow SS MGon 12-22-2024 Magnesium [Mass/Vol] 1.6 mg/dL Low 1.8-2.4 [facility] Comment on above: Performed By: #### P SA, 197831, VIDH, FERR, MG, 164914, FES #### [place] [address] #### FOL #### [place] [address] PBNPon 12-22-2024 Natriuretic peptide B (Bld) [Mass/Vol] 117 pg/mL Normal 0-125 [facility] Comment on above: Result Comment: NT-p roBNP results of less than 300 pg/mL effectively rules out acute congestive heart failure with 99% negative predictive value. Performed By: #### P SA, 301492, VIDH, FERR, MG, 795861, FES #### [place] [address] #### FOL #### [place] [address] PSAon 12-22-2024 Prostate Specific Antigen 0.50 ng/mL Normal 0.00-4.00 [facility] Comment on above: Performed By: #### P SA, 982595, VIDH, FERR, MG, 392789, FES #### [place] [address] #### FOL #### [place] [address] VIDHon 12-22-2024 Vit. D 25-Hydroxy 17.7 ng/mL Normal [facility] Comment on above: Result Comment: Inte rpretive Values Based on Total 25(OH) Vitamin D: Deficient <20 ng/mL Insufficient 20 - <30 ng/mL Sufficient 30-100 ng/mL Performed By: #### P SA, [id number], VIDH, FERR, MG, 249810, FES #### [place] [address] #### FOL #### [address] [address] .Auto Diffon 10-22-2024 Basophil, Absolute 0.1 10 3/mcL Normal 0.0-0.3 [facility] Comment on above: Performed By: #### P SA, 320398, VIDH, FERR, MG, 598042, FES #### [place] [address] #### FOL #### [place] [address] Basophils/100 WBC (Bld) 1.0 % Normal 0.0-2.5 [facility] Comment on above: Performed By: #### P SA, 700931, VIDH, FERR, MG, 500151, FES #### [place] [address] #### FOL #### [place] [address] Eosinophil, Absolute 0.1 10 3/mcL Normal 0.0-0.7 [facility] Comment on above: Performed By: #### P SA, 731182, VIDH, FERR, MG, 129870, FES #### [place] [address] #### FOL #### [place] [address] Eosinophils/100 WBC (Bld) 1.0 % Normal 0.0-6.0 [facility] Comment on above: Performed By: #### P SA, 348639, VIDH, FERR, MG, 303072, FES #### [place] [address] #### FOL #### [place] [address] Lymphocyte, Absolute 1.7 10 3/mcL Normal 0.9-4.3 [facility] Comment on above: Performed By: #### P SA, 740369, VIDH, FERR, MG, 403665, FES #### [address] [address] #### FOL #### [address] [address] Lymphocytes/100 WBC (Bld) 24.5 % Normal 20.0-40.0 [facility] Comment on above: Performed By: #### P SA, 740036, VIDH, FERR, MG, 834426, FES #### [place] [address] #### FOL #### [address] [address] Monocyte, Absolute 0.8 10 3/mcL Normal 0.1-1.4 [facility] Comment on above: Performed By: #### P SA, 025484, VIDH, FERR, MG, 989718, FES #### [place] [address] #### FOL #### [address] [address] Monocytes/100 WBC (Bld) 11.6 % Normal 2.0-13.0 [facility] Comment on above: Performed By: #### P SA, 311076, VIDH, FERR, MG, 029818, FES #### [place] [address] #### FOL #### [address] [address] Neutrophils/100 WBC (Bld) 61.9 % Normal 50.0-75.0 [facility] Comment on above: Performed By: #### P SA, 246021, VIDH, FERR, MG, 688181, FES #### [place] [address] #### FOL #### [address] [address] .GFRon 10-22-2024 Estimated Glomerular Filtration Rate 75 ml/min/1.73sqm Normal [facility] Comment on above: Result Comment: Stages of Chronic Kidney Disease (CKD) Stage Description eGFR(ml/min/1.73 sq.m.) CKD 1 Normal kidney function or >=90 normal kindney function with possible kidney damage (ex. Proteinuria) CKD 2 Kidney damage with mild loss 60-89 of kidney function CKD 3a Mild to moderate loss of kidney 45-59 function CKD 3b Moderate to severe loss of 30-44 of kindey function CKD 4 Severe loss of kidney function 15-29 CKD 5 Kidney failure <15 Note: (go live 2024) the eGFR calculation was updated to the 2020 CKD-EPI creatinine equation without a race factor to calculate the eGFR results. Performed By: #### P SA, 361444, VIDH, FERR, MG, 082900, FES #### [place] [address] #### FOL #### [place] [address] .MDWon 10-22-2024 Monocyte Distribution Width 18.34 Normal 0.00-20.00 [facility] Comment on above: Result Comment: For ED adult patients suspected of sepsis, MDW<=20.0 does not rule out sepsis or risk of sepsis Performed By: #### P SA, 939964, VIDH, FERR, MG, 452770, FES #### [address] [address] #### FOL #### [place] [address] .NEUABSon 10-22-2024 Neutrophil, Absolute 4.4 10 3/mcL Normal 2.3-8.1 [facility] Comment on above: Performed By: #### P SA, 405802, VIDH, FERR, MG, 189538, FES #### [place] [address] #### FOL #### [place] [address] CBCon 10-22-2024 Erythrocyte distribution width (RBC) [Ratio] 14.9 % Normal 11.5-15.5 [facility] Comment on above: Performed By: #### P SA, 143557, VIDH, FERR, MG, 921958, FES #### [place] [address] #### FOL #### [address] [address] Hematocrit (Bld) [Volume fraction] 45.9 % Normal 40.0-52.0 [facility] Comment on above: Performed By: #### P SA, 262253, VIDH, FERR, MG, 352592, FES #### [place] [address] #### FOL #### [place] [address] Hgb 15.7 G/dL Normal 13.0-17.5 [facility] Comment on above: Performed By: #### P SA, 276640, VIDH, FERR, MG, 716341, FES #### [place] [address] #### FOL #### [place] [address] MCH (RBC) [Entitic mass] 32.8 pg Normal 27.0-33.0 [facility] Comment on above: Performed By: #### P SA, 209259, VIDH, FERR, MG, 925291, FES #### [place] [address] #### FOL #### [place] [address] MCHC 34.1 G/dL Normal 32.0-36.0 [facility] Comment on above: Performed By: #### P SA, 138926, VIDH, FERR, MG, 432801, FES #### [place] [address] #### FOL #### [place] [address] MCV (RBC) [Entitic vol] 96.2 fL Normal 81.0-100.0 [facility] Comment on above: Performed By: #### P SA, 614790, VIDH, FERR, MG, 605405, FES #### [place] [address] #### FOL #### [address] [address] Platelet 244 10 3/mcL Normal 150-450 [facility] Comment on above: Performed By: #### P SA, 886986, VIDH, FERR, MG, 949143, FES #### [place] [address] #### FOL #### [place] [address] Platelet mean volume (Bld) [Entitic vol] 7.9 fL Normal 6.4-10.5 [facility] Comment on above: Performed By: #### P SA, 805887, VIDH, FERR, MG, 283105, FES #### [place] [address] #### FOL #### [place] [address] RBC 4.77 10 6/mcL Normal 4.50-6.00 [facility] Comment on above: Performed By: #### P SA, 246768, VIDH, FERR, MG, 496763, FES #### [place] [address] #### FOL #### [place] [address] WBC 7.0 10 3/mcL Normal 4.5-10.8 [facility] Comment on above: Performed By: #### P SA, 540678, VIDH, FERR, MG, 556159, FES #### [place] [address] #### FOL #### [place] [address] CMPon 10-22-2024 Albumin Level 4.0 G/dL Normal 3.5-5.0 [facility] Comment on above: Performed By: #### P SA, 487537, VIDH, FERR, MG, 240443, FES #### [place] [address] #### FOL #### [place] [address] Albumin/Globulin [Mass ratio] 1.0 {ratio} Low 1.1-2.5 [facility] Comment on above: Performed By: #### P SA, 967626, VIDH, FERR, MG, 139170, FES #### [place] [address] #### FOL #### [place] [address] ALP [Catalytic activity/Vol] 146 U/L High 40-135 [facility] Comment on above: Performed By: #### P SA, 706989, VIDH, FERR, MG, 265192, FES #### [place] [address] #### FOL #### [place] [address] ALT [Catalytic activity/Vol] 41 U/L Normal 16-63 [facility] Comment on above: Performed By: #### P SA, 943925, VIDH, FERR, MG, 541229, FES #### [place] [address] #### FOL #### [place] [address] AST [Catalytic activity/Vol] 25 U/L Normal 10-40 [facility] Comment on above: Performed By: #### P SA, 012900, VIDH, FERR, MG, 992075, FES #### [place] [address] #### FOL #### [place] [address] Bili Total 0.8 mg/dL Normal 0.2-1.0 [facility] Comment on above: Result Comment: Use of this assay is not recommended for patients undergoing treatment with eltrombopag due to the potential for falsely elevated results. Performed By: #### P SA, 410062, VIDH, FERR, MG, 528319, FES #### [place] [address] #### FOL #### [address] [address] BUN/Creatinine Ratio 12 ratio Normal 7-27 [facility] Comment on above: Performed By: #### P SA, 489771, VIDH, FERR, MG, 352776, FES #### [place] [address] #### FOL #### [place] [address] Calcium [Mass/Vol] 9.2 mg/dL Normal 8.4-10.2 [facility] Comment on above: Performed By: #### P SA, 773494, VIDH, FERR, MG, 297560, FES #### [place] [address] #### FOL #### [place] [address] Chloride [Moles/Vol] 99 mmol/L Normal 98-107 [facility] Comment on above: Performed By: #### P SA, 115371, VIDH, FERR, MG, 220004, FES #### [place] [address] #### FOL #### [place] [address] CO2 [Moles/Vol] 27 mmol/L Normal 22-29 [facility] Comment on above: Performed By: #### P SA, 195025, VIDH, FERR, MG, 963067, FES #### [place] [address] #### FOL #### [place] [address] Creatinine [Mass/Vol] 1.18 mg/dL High 0.67-1.17 [facility] Comment on above: Performed By: #### P SA, 636768, VIDH, FERR, MG, 796315, FES #### [place] [address] #### FOL #### [place] [address] Electrolyte Balance 11.0 mEq/L Normal 4.0-15.0 [facility] Comment on above: Performed By: #### P SA, 361438, VIDH, FERR, MG, 985346, FES #### [place] [address] #### FOL #### [place] [address] Globulin 4.0 G/dL Normal 2.7-4.4 [facility] Comment on above: Performed By: #### P SA, 892508, VIDH, FERR, MG, 513235, FES #### [place] [address] #### FOL #### [place] [address] Glucose [Mass/Vol] 149 mg/dL High 70-105 [facility] Comment on above: Performed By: #### P SA, 456734, VIDH, FERR, MG, 406160, FES #### [place] [address] #### FOL #### [place] [address] Potassium [Moles/Vol] 4.0 mmol/L Normal 3.5-5.1 [facility] Comment on above: Performed By: #### P SA, 799137, VIDH, FERR, MG, 509086, FES #### [place] [address] #### FOL #### [place] [address] Sodium [Moles/Vol] 137 mmol/L Normal 136-145 [facility] Comment on above: Performed By: #### P SA, 401560, VIDH, FERR, MG, 033172, FES #### [address] [address] #### FOL #### [place] [address] Total Protein 8.0 G/dL Normal 6.4-8.2 [facility] Comment on above: Performed By: #### P SA, 215829, VIDH, FERR, MG, 957121, FES #### [place] [address] #### FOL #### [place] [address] Urea nitrogen [Mass/Vol] 14 mg/dL Normal 7-18 [facility] Comment on above: Performed By: #### P SA, 387484, VIDH, FERR, MG, 308029, FES #### [place] [address] #### FOL #### [place] [address] LABORATORYOrdered By: SYSTEM SYSTEM on 10-22-2024 Albumin BCP dye [Mass/Vol] 4.0 G/dL Normal 3.5 - 5.0 G/dL AO ADM SS Albumin/Globulin [Mass ratio] 1.0 {ratio} Low 1.1 - 2.5 ratio AO ADM SS ALP [Catalytic activity/Vol] 146 U/L High 40 - 135 U/L AO ADM SS ALT With P-5'-P [Catalytic activity/Vol] 41 U/L Normal 16 - 63 U/L AO ADM SS AST With P-5'-P [Catalytic activity/Vol] 25 U/L Normal 10 - 40 U/L AO ADM SS Basophils (Bld) [#/Vol] 0.1 103/mcL Normal 0.0 - 0.3 10^3/mcL AO Workflow SS Basophils/100 WBC (Bld) 1.0 % Normal 0.0 - 2.5 % AO Workflow SS Bilirubin [Mass/Vol] 0.8 mg/dL Normal 0.2 - 1.0 mg/dL AO ADM SS Comment on above: Interpretive Data: U se of this assay is not recommended for patients undergoing treatment with eltrombopag due to the potential for falsely elevated results. Calcium [Mass/Vol] 9.2 mg/dL Normal 8.4 - 10. 2 mg/dL AO ADM SS Chloride [Moles/Vol] 99 mmol/L Normal 98 - 107 mmol/L AO ADM SS CO2 [Moles/Vol] 27 mmol/L Normal 22 - 29 mmol/L AO ADM SS Creatinine [Mass/Vol] 1.18 mg/dL High 0.67 - 1.17 mg/dL AO ADM SS Electrolyte Balance 11.0 mEq/L Normal 4.0 - 15 .0 mEq/L AO ADM SS Eosinophil, Absolute 0.1 103/mcL Normal 0.0 - 0.7 10^3/mcL AO Workflow SS Eosinophils/100 WBC (Bld) 1.0 % Normal 0.0 - 6.0 % AO Workflow SS Erythrocyte distribution width (RBC) [Ratio] 14.9 % Normal 11.5 - 15.5 % AO Workflow SS Estimated Glomerular Filtration Rate 75 ml/min/1.73sqm Invalid Interpretation Code AO Chemistry S Comment on above: Interpretive Data: Stages of Chronic Kidney Disease (CKD) Stage Description eGFR(ml/min/1.73 sq.m.) CKD 1 Normal kidney function or >=90 normal kindney function with possible kidney damage (ex. Proteinuria) CKD 2 Kidney damage with mild loss 60-89 of kidney function CKD 3a Mild to moderate loss of kidney 45-59 function CKD 3b Moderate to severe loss of 30-44 of kindey function CKD 4 Severe loss of kidney function 15-29 CKD 5 Kidney failure <15 Note: (go live 2024) the eGFR calculation was updated to the 2020 CKD-EPI creatinine equation without a race factor to calculate the eGFR results. Globulin 4.0 G/dL Normal 2.7 - 4.4 G/dL AO ADM SS Glucose [Mass/Vol] 149 mg/dL High 70 - 105 mg/dL AO ADM SS Hematocrit (Bld) [Volume fraction] 45.9 % Normal 40.0 - 52.0 % AO Workflow SS Hemoglobin (Bld) [Mass/Vol] 15.7 G/dL Normal 13.0 - 17.5 G/dL AO Workflow SS Lymphocytes (Bld) [#/Vol] 1.7 103/mcL Normal 0.9 - 4.3 10^3/mcL AO Workflow SS Lymphocytes/100 WBC (Bld) 24.5 % Normal 20.0 - 40.0 % AO Workflow SS MCH (RBC) [Entitic mass] 32.8 pg Normal 27.0 - 33.0 pg AO Workflow SS MCHC 34.1 G/dL Normal 32.0 - 36.0 G/dL AO Workflow SS MCV (RBC) [Entitic vol] 96.2 fL Normal 81.0 - 100.0 fL AO Workflow SS Monocyte distribution width Auto (Bld) [Entitic vol] 18.34 1 Normal 0.00 - 20.00 AO Workflow SS Comment on above: Result Comment: For ED adult patients suspected of sepsis, MDW<=20.0 does not rule out sepsis or risk of sepsis Monocytes (Bld) [#/Vol] 0.8 103/mcL Normal 0.1 - 1.4 10^3/mcL AO Workflow SS Monocytes/100 WBC (Bld) 11.6 % Normal 2.0 - 13.0 % AO Workflow SS Neutrophils (Bld) [#/Vol] 4.4 103/mcL Normal 2.3 - 8.1 10^3/mcL AO Workflow SS Neutrophils/100 WBC (Bld) 61.9 % Normal 50.0 - 75.0 % AO Workflow SS Platelet mean volume (Bld) [Entitic vol] 7.9 fL Normal 6.4 - 10.5 fL AO Workflow SS Platelets (Bld) [#/Vol] 244 103/mcL Normal 150 - 450 10^3/mcL AO Workflow SS Potassium [Moles/Vol] 4.0 mmol/L Normal 3.5 - 5.1 mmol/L AO ADM SS Protein [Mass/Vol] 8.0 G/dL Normal 6.4 - 8.2 G/dL AO ADM SS RBC (Bld) [#/Vol] 4.77 106/mcL Normal 4.50 - 6.00 10^6/mcL AO Workflow SS Sodium [Moles/Vol] 137 mmol/L Normal 136 - 145 mmol/L AO ADM SS Urea nitrogen [Mass/Vol] 14 mg/dL Normal 7 - 18 mg/dL AO ADM SS Urea nitrogen/Creatinine [Mass ratio] 12 ratio Normal 7 - 27 ratio AO ADM SS WBC (Bld) [#/Vol] 7.0 103/mcL Normal 4.5 - 10.8 10^3/mcL AO Workflow SS .Auto Diffon 10-18-2024 Basophil, Absolute 0.0 10 3/mcL Normal 0.0-0.3 [facility] Comment on above: Performed By: #### P SA, [id number], VIDH, FERR, MG, 943301, FES #### [address] [address] #### FOL #### [address] [address] Basophils/100 WBC (Bld) 0.7 % Normal 0.0-2.5 [facility] Comment on above: Performed By: #### P SA, [id number], VIDH, FERR, MG, 038235, FES #### [place] [address] #### FOL #### [address] [address] Eosinophil, Absolute 0.1 10 3/mcL Normal 0.0-0.7 [facility] Comment on above: Performed By: #### P SA, [id number], VIDH, FERR, MG, 061819, FES #### [place] [address] #### FOL #### [address] [address] Eosinophils/100 WBC (Bld) 1.8 % Normal 0.0-6.0 [facility] Comment on above: Performed By: #### P SA, 332161, VIDH, FERR, MG, 234116, FES #### [place] [address] #### FOL #### [address] [address] Lymphocyte, Absolute 1.4 10 3/mcL Normal 0.9-4.3 [facility] Comment on above: Performed By: #### P SA, [id number], VIDH, FERR, MG, 351437, FES #### [address] [address] #### FOL #### [address] [address] Lymphocytes/100 WBC (Bld) 19.9 % Low 20.0-40.0 [facility] Comment on above: Performed By: #### P SA, 815981, VIDH, FERR, MG, 306369, FES #### [address] [address] #### FOL #### [address] [address] Monocyte, Absolute 0.5 10 3/mcL Normal 0.1-1.4 [facility] Comment on above: Performed By: #### P SA, 078138, VIDH, FERR, MG, 555419, FES #### [place] [address] #### FOL #### [place] [address] Monocytes/100 WBC (Bld) 7.9 % Normal 2.0-13.0 [facility] Comment on above: Performed By: #### P SA, 161573, VIDH, FERR, MG, 116601, FES #### [address] [address] #### FOL #### [place] [address] Neutrophils/100 WBC (Bld) 69.7 % Normal 50.0-75.0 [facility] Comment on above: Performed By: #### P SA, 102355, VIDH, FERR, MG, 413648, FES #### [place] [address] #### FOL #### [place] [address] .GFRon 10-18-2024 Estimated Glomerular Filtration Rate 79 ml/min/1.73sqm Normal [facility] Comment on above: Result Comment: Stages of Chronic Kidney Disease (CKD) Stage Description eGFR(ml/min/1.73 sq.m.) CKD 1 Normal kidney function or >=90 normal kindney function with possible kidney damage (ex. Proteinuria) CKD 2 Kidney damage with mild loss 60-89 of kidney function CKD 3a Mild to moderate loss of kidney 45-59 function CKD 3b Moderate to severe loss of 30-44 of kindey function CKD 4 Severe loss of kidney function 15-29 CKD 5 Kidney failure <15 Note: (go live 2024) the eGFR calculation was updated to the 2020 CKD-EPI creatinine equation without a race factor to calculate the eGFR results. Performed By: #### P SA, [id number], VIDH, FERR, MG, 208743, FES #### [place] [address] #### FOL #### [place] [address] .MDWon 10-18-2024 Monocyte Distribution Width 18.08 Normal 0.00-20.00 [facility] Comment on above: Result Comment: For ED adult patients suspected of sepsis, MDW<=20.0 does not rule out sepsis or risk of sepsis Performed By: #### P SA, [id number], VIDH, FERR, MG, 790570, FES #### [place] [address] #### FOL #### [place] [address] .NEUABSon 10-18-2024 Neutrophil, Absolute 4.8 10 3/mcL Normal 2.3-8.1 [facility] Comment on above: Performed By: #### P SA, 315646, VIDH, FERR, MG, 266579, FES #### [place] [address] #### FOL #### [place] [address] BMPon 10-18-2024 Calcium [Mass/Vol] 9.6 mg/dL Normal 8.4-10.2 [facility] Comment on above: Performed By: #### P SA, 750492, VIDH, FERR, MG, 307532, FES #### [place] [address] #### FOL #### [place] [address] BUN/Creatinine Ratio 7 ratio Normal 7-27 [facility] Comment on above: Performed By: #### P SA, 072719, VIDH, FERR, MG, 421295, FES #### [place] [address] #### FOL #### [address] [address] Chloride [Moles/Vol] 100 mmol/L Normal 98-107 [facility] Comment on above: Performed By: #### P SA, 399032, VIDH, FERR, MG, 911424, FES #### [place] [address] #### FOL #### [address] [address] CO2 [Moles/Vol] 31 mmol/L High 22-29 [facility] Comment on above: Performed By: #### P SA, 083210, VIDH, FERR, MG, 546758, FES #### [place] [address] #### FOL #### [place] [address] Creatinine [Mass/Vol] 1.13 mg/dL Normal 0.67-1.17 [facility] Comment on above: Performed By: #### P SA, [id number], VIDH, FERR, MG, 605711, FES #### [place] [address] #### FOL #### [place] [address] Electrolyte Balance 7.0 mEq/L Normal 4.0-15.0 [facility] Comment on above: Performed By: #### P SA, 818837, VIDH, FERR, MG, 876026, FES #### [place] [address] #### FOL #### [place] [id number] Glucose [Mass/Vol] 136 mg/dL High 70-105 [facility] Comment on above: Performed By: #### P SA, 140301, VIDH, FERR, MG, 463228, FES #### [place] [address] #### FOL #### [place] [address] Potassium [Moles/Vol] 4.2 mmol/L Normal 3.5-5.1 [facility] Comment on above: Performed By: #### P SA, 044259, VIDH, FERR, MG, 499913, FES #### [place] [address] #### FOL #### [place] [address] Sodium [Moles/Vol] 138 mmol/L Normal 136-145 [facility] Comment on above: Performed By: #### P SA, 413352, VIDH, FERR, MG, 797642, FES #### [place] [address] #### FOL #### [place] [address] Urea nitrogen [Mass/Vol] 8 mg/dL Normal 7-18 [facility] Comment on above: Performed By: #### P SA, 523230, VIDH, FERR, MG, 865557, FES #### [place] [address] #### FOL #### [address] 10[address]18-2024 Erythrocyte distribution width (RBC) [Ratio] 15.3 % Normal 11.5-15.5 [facility] Comment on above: Performed By: #### P SA, 074420, VIDH, FERR, MG, 057115, FES #### [place] [address] #### FOL #### [place] [address] Hematocrit (Bld) [Volume fraction] 42.1 % Normal 40.0-52.0 [facility] Comment on above: Performed By: #### P SA, 852572, VIDH, FERR, MG, 698953, FES #### [place] [address] #### FOL #### [place] [address] Hgb 14.5 G/dL Normal 13.0-17.5 [facility] Comment on above: Performed By: #### P SA, 627408, VIDH, FERR, MG, 011172, FES #### [place] [address] #### FOL #### [place] [address] MCH (RBC) [Entitic mass] 33.1 pg High 27.0-33.0 [facility] Comment on above: Performed By: #### P SA, 960094, VIDH, FERR, MG, 822977, FES #### [place] [address] #### FOL #### [place] [address] MCHC 34.4 G/dL Normal 32.0-36.0 [facility] Comment on above: Performed By: #### P SA, 868466, VIDH, FERR, MG, 184907, FES #### [place] [address] #### FOL #### [place] [address] MCV (RBC) [Entitic vol] 96.2 fL Normal 81.0-100.0 [facility] Comment on above: Performed By: #### P SA, 650601, VIDH, FERR, MG, 803133, FES #### [place] [address] #### FOL #### [place] [address] Platelet 224 10 3/mcL Normal 150-450 [facility] Comment on above: Performed By: #### P SA, 788244, VIDH, FERR, MG, 303490, FES #### [address] [address] #### FOL #### [place] [address] Platelet mean volume (Bld) [Entitic vol] 8.1 fL Normal 6.4-10.5 [facility] Comment on above: Performed By: #### P SA, 192059, VIDH, FERR, MG, 996283, FES #### [place] [address] #### FOL #### [place] [address] RBC 4.38 10 6/mcL Low 4.50-6.00 [facility] Comment on above: Performed By: #### P SA, 397745, VIDH, FERR, MG, 959461, FES #### [place] [address] #### FOL #### [place] [address] WBC 6.8 10 3/mcL Normal 4.5-10.8 [facility] Comment on above: Performed By: #### P SA, 412967, VIDH, FERR, MG, 566856, FES #### [place] [address] #### FOL #### [place] [address] CT ABD/PELVIS W/ IV CONTRAST ONLYon 10-18-2024 CT ABD/PELVIS W/ IV CONTRAST ONLY ORIGINAL EXAMINATION: CT OF THE ABDOMEN AND PELVIS WITH CONTRAST10/18/2024 2:21 pm TECHNIQUE: CT of the abdomen and pelvis was performed with the administration of intravenous contrast. Multiplanar reformatted images are provided for review. Automated exposure control, iterative reconstruction, and/or weight based adjustment of the mA/kV was utilized to reduce the radiation dose to as low as reasonably achievable. COMPARISON: None HISTORY: ORDERING SYSTEM PROVIDED HISTORY: Reason for Exam: Abdominal pain, acute, nonlocalized. no hx of cancer. Abdominal pain, acute, nonlocalized FINDINGS: The included lung bases are clear. There is no visible pleural or pericardial effusion. The heart is normal in size. Subcentimeter hepatic cysts noted. The spleen, adrenal glands, and pancreas are within normal limits. No filling defects seen in the gallbladder. The kidneys enhance symmetrically. A small hiatal hernia noted. The large and small bowel demonstrate no obstruction. Scattered colonic diverticula noted. No free intraperitoneal fluid or gas is identified. The aorta is normal in caliber. There is mild atherosclerosis of the larger arteries. There is no lymphadenopathy. No filling defects seen in the urinary bladder. There is no fracture or aggressive osseous lesion. Degenerative changes are present in the spine. Small fat containing hernia noted near the umbilicus. A a partially visualized precordial defibrillator seen. IMPRESSION: 1. No acute inflammatory changes 2. Small hiatal hernia. 3. Diverticulosis. No evidence of diverticulitis. 4. Subcentimeter hepatic cysts. 5. Small fat-containing umbilical hernia. Interpreted by: Eyad Wang MD Preliminary Report By: Eyad Wang MD Electronically signed By Eyad Wang MD Dictated Date: 10/18/2024 2:35:08 PM Prelim Date: 10/18/2024 2:42:29 PM Sign Date: 10/18/2024 2:42:29 PM Ordering Provider: KRYSTEN Jernigan [facility] LABORATORYOrdered By: Adrian Mcclellan on 10-18-2024 Appearance (U) Clear (10/18/24 2:16 PM) Normal Clear AO Auto Urine SS Bilirubin Ql (U) Negative (10/18/24 2:16 PM) Normal Negative AO Auto Urine SS Color (U) Yellow (10/18/24 2:16 PM) Normal AO Auto Urine SS Glucose Test strip (U) [Mass/Vol] >=1000 mg/dL Invalid Interpretation Code Negative AO Auto Urine SS Hemoglobin Auto test strip (U) [Mass/Vol] Negative (10/18/24 2:16 PM) Normal Negative AO Auto Urine SS Ketones Ql (U) Negative Normal Negative AO Auto Ur ine SS UA Leuk Est Negative (10/18/24 2:16 PM) Normal Negative AO Auto Urine SS UA Nitrite Negative (10/18/24 2:16 PM) Normal Negative AO Auto Urine SS UA pH 6.5 (10/18/24 2:16 PM) Normal 5.0 - 8.0 AO Auto Urine SS UA Protein Negative Normal Negative AO Auto Urine SS UA Spec Grav 1.015 (10/18/24 2:16 PM) Normal 1.015-1.02 5 AO Auto Urine SS UA Specimen Type Void (10/18/24 2:16 PM) Normal AO Auto Urine SS UA Urobilinogen 0.2 E.U./dL Normal 0.2-1.0 AO Auto Urine SS LABORATORYOrdered By: SYSTEM SYSTEM on 10-18-2024 Calcium [Mass/Vol] 9.6 mg/dL Normal 8.4 - 10. 2 mg/dL AO ADM SS Chloride [Moles/Vol] 100 mmol/L Normal 98 - 107 mmol/L AO ADM SS CO2 [Moles/Vol] 31 mmol/L High 22 - 29 mmol/L AO ADM SS Creatinine [Mass/Vol] 1.13 mg/dL Normal 0.67 - 1.17 mg/dL AO ADM SS Electrolyte Balance 7.0 mEq/L Normal 4.0 - 15 .0 mEq/L AO ADM SS Estimated Glomerular Filtration Rate 79 ml/min/1.73sqm Invalid Interpretation Code AO Chemistry S Comment on above: Interpretive Data: Stages of Chronic Kidney Disease (CKD) Stage Description eGFR(ml/min/1.73 sq.m.) CKD 1 Normal kidney function or >=90 normal kindney function with possible kidney damage (ex. Proteinuria) CKD 2 Kidney damage with mild loss 60-89 of kidney function CKD 3a Mild to moderate loss of kidney 45-59 function CKD 3b Moderate to severe loss of 30-44 of kindey function CKD 4 Severe loss of kidney function 15-29 CKD 5 Kidney failure <15 Note: (go live 2024) the eGFR calculation was updated to the 2020 CKD-EPI creatinine equation without a race factor to calculate the eGFR results. Glucose [Mass/Vol] 136 mg/dL High 70 - 105 mg/dL AO ADM SS Lipase [Catalytic activity/Vol] 19 U/L Normal 16 - 77 U/L AO ADM SS Potassium [Moles/Vol] 4.2 mmol/L Normal 3.5 - 5.1 mmol/L AO ADM SS Sodium [Moles/Vol] 138 mmol/L Normal 136 - 145 mmol/L AO ADM SS Urea nitrogen [Mass/Vol] 8 mg/dL Normal 7 - 18 mg/dL AO ADM SS Urea nitrogen/Creatinine [Mass ratio] 7 ratio Normal 7 - 27 ratio AO ADM SS Basophils (Bld) [#/Vol] 0.0 103/mcL Normal 0.0 - 0.3 10^3/mcL AO Workflow SS Basophils/100 WBC (Bld) 0.7 % Normal 0.0 - 2.5 % AO Workflow SS Eosinophil, Absolute 0.1 103/mcL Normal 0.0 - 0.7 10^3/mcL AO Workflow SS Eosinophils/100 WBC (Bld) 1.8 % Normal 0.0 - 6.0 % AO Workflow SS Erythrocyte distribution width (RBC) [Ratio] 15.3 % Normal 11.5 - 15.5 % AO Workflow SS Hematocrit (Bld) [Volume fraction] 42.1 % Normal 40.0 - 52.0 % AO Workflow SS Hemoglobin (Bld) [Mass/Vol] 14.5 G/dL Normal 13.0 - 17.5 G/dL AO Workflow SS Lymphocytes (Bld) [#/Vol] 1.4 103/mcL Normal 0.9 - 4.3 10^3/mcL AO Workflow SS Lymphocytes/100 WBC (Bld) 19.9 % Low 20.0 - 40.0 % AO Workflow SS MCH (RBC) [Entitic mass] 33.1 pg High 27.0 - 33.0 pg AO Workflow SS MCHC 34.4 G/dL Normal 32.0 - 36.0 G/dL AO Workflow SS MCV (RBC) [Entitic vol] 96.2 fL Normal 81.0 - 100.0 fL AO Workflow SS Monocyte distribution width Auto (Bld) [Entitic vol] 18.08 1 Normal 0.00 - 20.00 AO Workflow SS Comment on above: Result Comment: For ED adult patients suspected of sepsis, MDW<=20.0 does not rule out sepsis or risk of sepsis Monocytes (Bld) [#/Vol] 0.5 103/mcL Normal 0.1 - 1.4 10^3/mcL AO Workflow SS Monocytes/100 WBC (Bld) 7.9 % Normal 2.0 - 13.0 % AO Workflow SS Neutrophils (Bld) [#/Vol] 4.8 103/mcL Normal 2.3 - 8.1 10^3/mcL AO Workflow SS Neutrophils/100 WBC (Bld) 69.7 % Normal 50.0 - 75.0 % AO Workflow SS Platelet mean volume (Bld) [Entitic vol] 8.1 fL Normal 6.4 - 10.5 fL AO Workflow SS Platelets (Bld) [#/Vol] 224 103/mcL Normal 150 - 450 10^3/mcL AO Workflow SS RBC (Bld) [#/Vol] 4.38 106/mcL Low 4.50 - 6.00 10^6/mcL AO Workflow SS WBC (Bld) [#/Vol] 6.8 103/mcL Normal 4.5 - 10.8 10^3/mcL AO Workflow SS LIPon 10-18-2024 Lipase Level 19 U/L Normal 16-77 [facility] Comment on above: Performed By: #### P SA, [id number], VIDH, FERR, MG, 128207, FES #### [place] [address] #### FOL #### [address] 10-18-2024 Color (U) Yellow Normal [facility] Comment on above: Performed By: #### U A #### [address] [address] Glucose (U) [Mass/Vol] mg/dL Abnormal Negative [facility] Comment on above: Performed By: #### U A #### [address] [address] Ketones Ql (U) Negative Normal Negative [facility] Comment on above: Performed By: #### U A #### [address] [address] UA Appear Clear Normal Clear [facility] Comment on above: Performed By: #### U A #### [place] [address] UA Blood Negative Normal Negative [facility] Comment on above: Performed By: #### U A #### [address] [address] UA Leuk Est Negative Normal Negative [facility] Comment on above: Performed By: #### U A #### [address] [address] UA Nitrite Negative Normal Negative [facility] Comment on above: Performed By: #### U A #### [address] [address] UA pH 6.5 Normal 5.0 - 8.0 [facility] Comment on above: Performed By: #### U A #### [place] [address] UA Protein Negative Normal Negative [facility] Comment on above: Performed By: #### U A #### [place] [address] UA Spec Grav 1.015 Normal 1.015-1.02 5 [facility] Comment on above: Performed By: #### U A #### [place] [address] UA Specimen Type Void Normal [facility] Comment on above: Performed By: #### U A #### [place] [address] UA Urobilinogen 0.2 E.U./dL Normal 0.2-1.0 [facility] Comment on above: Performed By: #### U A #### [place] [address] Urobilinogen (U) [Mass/Vol] Negative Normal Negative [facility] Comment on above: Performed By: #### U A #### [address] [address] .Auto Diffon 06-18-2024 Basophil, Absolute 0.1 10 3/mcL Normal 0.0-0.2 [facility] Comment on above: Performed By: #### P SA, [id number], VIDH, FERR, MG, 767780, FES #### [place] [address] #### FOL #### [facility] [address] [place] [address] Basophils/100 WBC (Bld) 1.1 % Normal 0.0-2.5 [facility] Comment on above: Performed By: #### P SA, 479684, VIDH, FERR, MG, 499656, FES #### [address] [address] #### FOL #### [address] [address] Eosinophil, Absolute 0.1 10 3/mcL Normal 0.0-0.7 [facility] Comment on above: Performed By: #### P SA, 155385, VIDH, FERR, MG, 234247, FES #### [address] [address] #### FOL #### [address] [address] Eosinophils/100 WBC (Bld) 2.4 % Normal 0.0-7.0 [facility] Comment on above: Performed By: #### P SA, 341377, VIDH, FERR, MG, 124589, FES #### [address] [address] #### FOL #### [address] [address] Lymphocyte, Absolute 1.6 10 3/mcL Normal 0.9-4.3 [facility] Comment on above: Performed By: #### P SA, 159641, VIDH, FERR, MG, 557641, FES #### [place] [address] #### FOL #### [address] [address] Lymphocytes/100 WBC (Bld) 30.9 % Normal 20.0-40.0 [facility] Comment on above: Performed By: #### P SA, 680404, VIDH, FERR, MG, 294988, FES #### [address] [address] #### FOL #### [address] [address] Monocyte, Absolute 0.6 10 3/mcL Normal 0.1-1.4 [facility] Comment on above: Performed By: #### P SA, 266100, VIDH, FERR, MG, 010110, FES #### [address] [address] #### FOL #### [address] [address] Monocytes/100 WBC (Bld) 11.2 % Normal 2.0-13.0 [facility] Comment on above: Performed By: #### P SA, 095879, VIDH, FERR, MG, 493146, FES #### [address] [address] #### FOL #### [address] [address] Neutrophils/100 WBC (Bld) 54.4 % Normal 50.0-75.0 [facility] Comment on above: Performed By: #### P SA, 486535, VIDH, FERR, MG, 227912, FES #### [address] [address] #### FOL #### [address] [address] .GFRon 06-18-2024 Estimated Glomerular Filtration Rate 63 ml/min/1.73sqm Normal [facility] Comment on above: Result Comment: Stages of Chronic Kidney Disease (CKD) Stage Description eGFR(ml/min/1.73 sq.m.) CKD 1 Normal kidney function or >=90 normal kindney function with possible kidney damage (ex. Proteinuria) CKD 2 Kidney damage with mild loss 60-89 of kidney function CKD 3a Mild to moderate loss of kidney 45-59 function CKD 3b Moderate to severe loss of 30-44 of kindey function CKD 4 Severe loss of kidney function 15-29 CKD 5 Kidney failure <15 Note: (go live 2024) the eGFR calculation was updated to the 2020 CKD-EPI creatinine equation without a race factor to calculate the eGFR results. Performed By: #### P SA, 480472, VIDH, FERR, MG, 548828, FES #### [place] [address] #### FOL #### [address] [address] .NEUABSon 06-18-2024 Neutrophil, Absolute 2.9 10 3/mcL Normal 2.3-8.1 [facility] Comment on above: Performed By: #### P SA, 784147, VIDH, FERR, MG, 749801, FES #### [place] [address] #### FOL #### [place] [address] CBCon 06-18-2024 Erythrocyte distribution width (RBC) [Ratio] 15.0 % Normal 11.5-15.5 [facility] Comment on above: Performed By: #### P SA, 910821, VIDH, FERR, MG, 999767, FES #### [place] [address] #### FOL #### [place] [address] Hematocrit (Bld) [Volume fraction] 42.7 % Normal 40.0-52.0 [facility] Comment on above: Performed By: #### P SA, 741827, VIDH, FERR, MG, 867325, FES #### [place] [address] #### FOL #### [place] [address] Hgb 14.8 G/dL Normal 13.0-17.5 [facility] Comment on above: Performed By: #### P SA, 962556, VIDH, FERR, MG, 948980, FES #### [place] [address] #### FOL #### [place] [address] MCH (RBC) [Entitic mass] 33.6 pg High 27.0-33.0 [facility] Comment on above: Performed By: #### P SA, 493774, VIDH, FERR, MG, 233802, FES #### [place] [address] #### FOL #### [place] [address] MCHC 34.6 G/dL Normal 32.0-36.0 [facility] Comment on above: Performed By: #### P SA, 971381, VIDH, FERR, MG, 146859, FES #### [place] [address] #### FOL #### [place] [address] MCV (RBC) [Entitic vol] 97.1 fL Normal 81.0-100.0 [facility] Comment on above: Performed By: #### P SA, 578742, VIDH, FERR, MG, 718990, FES #### [place] [address] #### FOL #### [place] [address] Platelet 254 10 3/mcL Normal 150-450 [facility] Comment on above: Performed By: #### P SA, 612554, VIDH, FERR, MG, 983008, FES #### [place] [address] #### FOL #### [place] [address] Platelet mean volume (Bld) [Entitic vol] 8.5 fL Normal 6.4-10.5 [facility] Comment on above: Performed By: #### P SA, 539313, VIDH, FERR, MG, 543363, FES #### [place] [address] #### FOL #### [place] [address] RBC 4.40 10 6/mcL Low 4.50-6.00 [facility] Comment on above: Performed By: #### P SA, 947924, VIDH, FERR, MG, 497600, FES #### [address] [address] #### FOL #### [place] [address] WBC 5.3 10 3/mcL Normal 4.5-10.8 [facility] Comment on above: Performed By: #### P SA, 458665, VIDH, FERR, MG, 391578, FES #### [place] [address] #### FOL #### [place] [address] CMPon 06-18-2024 Albumin Level 4.1 G/dL Normal 3.5-5.0 [facility] Comment on above: Performed By: #### P SA, 982300, VIDH, FERR, MG, 991211, FES #### [place] [address] #### FOL #### [place] [address] Albumin/Globulin [Mass ratio] 1.1 {ratio} Normal 1.1-2.5 [facility] Comment on above: Performed By: #### P SA, 775368, VIDH, FERR, MG, 294896, FES #### [place] [address] #### FOL #### [place] [address] ALP [Catalytic activity/Vol] 167 U/L High 40-135 [facility] Comment on above: Performed By: #### P SA, 266630, VIDH, FERR, MG, 719736, FES #### [place] [address] #### FOL #### [place] [address] ALT [Catalytic activity/Vol] 39 U/L Normal 16-63 [facility] Comment on above: Performed By: #### P SA, 385677, VIDH, FERR, MG, 005086, FES #### [place] [address] #### FOL #### [place] [address] AST [Catalytic activity/Vol] 29 U/L Normal 10-40 [facility] Comment on above: Performed By: #### P SA, 828316, VIDH, FERR, MG, 032528, FES #### [place] [address] #### FOL #### [place] [address] Bili Total 0.8 mg/dL Normal 0.2-1.0 [facility] Comment on above: Result Comment: Use of this assay is not recommended for patients undergoing treatment with eltrombopag due to the potential for falsely elevated results. Performed By: #### P SA, 360435, VIDH, FERR, MG, 863368, FES #### [place] [address] #### FOL #### [place] [address] BUN/Creatinine Ratio 5 ratio Low 7-27 [facility] Comment on above: Performed By: #### P SA, 064292, VIDH, FERR, MG, 697615, FES #### [place] [address] #### FOL #### [place] [address] Calcium [Mass/Vol] 9.1 mg/dL Normal 8.4-10.2 [facility] Comment on above: Performed By: #### P SA, [id number], VIDH, FERR, MG, 215825, FES #### [place] [address] #### FOL #### [place] [address] Chloride [Moles/Vol] 98 mmol/L Normal 98-107 [facility] Comment on above: Performed By: #### P SA, [id number], VIDH, FERR, MG, [id number], FES #### [place] [address] #### FOL #### [place] [address] CO2 [Moles/Vol] 33 mmol/L High 22-29 [facility] Comment on above: Performed By: #### P SA, [id number], VIDH, FERR, MG, [id number], FES #### [place] [address] #### FOL #### [place] [address] Creatinine [Mass/Vol] 1.36 mg/dL High 0.70-1.30 [facility] Comment on above: Result Comment: Test ing performed on Siemens Dimension EXL analyzer using a modified kinetic Nettie technique. Performed By: #### P SA, [id number], VIDH, FERR, MG, [id number], FES #### [place] [address] #### FOL #### [place] [address] Electrolyte Balance 5.0 mEq/L Normal 4.0-15.0 [facility] Comment on above: Performed By: #### P SA, [id number], VIDH, FERR, MG, 540505, FES #### [place] [address] #### FOL #### [place] [place] [address] Globulin 3.8 G/dL Normal 1.5-3.8 [facility] Comment on above: Performed By: #### P SA, [id number], VIDH, FERR, MG, [id number], FES #### [place] [address] #### FOL #### [place] [address] Glucose [Mass/Vol] 202 mg/dL High 70-105 [facility] Comment on above: Performed By: #### P SA, [id number], VIDH, FERR, MG, [id number], FES #### [place] [address] #### FOL #### [place] [address] Potassium [Moles/Vol] 3.8 mmol/L Normal 3.5-5.1 [facility] Comment on above: Performed By: #### P SA, [id number], VIDH, FERR, MG, 887829, FES #### [place] [address] #### FOL #### [place] [address] Sodium [Moles/Vol] 136 mmol/L Normal 136-145 [facility] Comment on above: Performed By: #### P SA, [id number], VIDH, FERR, MG, 700555, FES #### [place] [address] #### FOL #### [place] [address] Total Protein 7.9 G/dL Normal 6.4-8.2 [facility] Comment on above: Performed By: #### P SA, [id number], VIDH, FERR, MG, 445311, FES #### [place] [address] #### FOL #### [place] [address] Urea nitrogen [Mass/Vol] 7 mg/dL Normal 7-18 [facility] Comment on above: Performed By: #### P SA, [id number], VIDH, FERR, MG, 341145, FES #### [place] [address] #### FOL #### [place] [address] LIPIDon 06-18-2024 Cholesterol [Mass/Vol] 119 mg/dL Normal 0-200 [facility] Comment on above: Result Comment: Chol esterol Reference Interval: Less than 200 Desirable 200-239 Borderline high risk 240 and above High risk Performed By: #### P SA, [id number], VIDH, FERR, MG, 664621, FES #### [place] [address] #### FOL #### [address] [address] Cholesterol in HDL [Mass/Vol] 37 mg/dL Low 40-60 [facility] Comment on above: Performed By: #### P SA, [id number], VIDH, FERR, MG, 349915, FES #### [place] [address] #### FOL #### [place] [address] Cholesterol in LDL [Mass/Vol] 55 mg/dL Normal 0-130 [facility] Comment on above: Performed By: #### P SA, [id number], VIDH, FERR, MG, 560468, FES #### [place] [address] #### FOL #### [place] [address] Triglyceride [Mass/Vol] 137 mg/dL Normal 0-150 [facility] Comment on above: Result Comment: Trig lyceride Reference Interval: Less than 150 Normal 150-199 Borderline high risk 200-499 High risk 500 or higher Very high risk Performed By: #### P SA, [id number], VIDH, FERR, MG, 732836, FES #### [place] [address] #### FOL #### [address] [address] PBNPon 06-18-2024 Natriuretic peptide B (Bld) [Mass/Vol] 53 pg/mL Normal 0-125 [facility] Comment on above: Result Comment: NT-p roBNP results of less than 300 pg/mL effectively rules out acute congestive heart failure with 99% negative predictive value. Performed By: #### P SA, [id number], VIDH, FERR, MG, 141127, FES #### [place] [id number] #### FOL #### [address] [address] Direct LDLon 11-29-2022 LDL Cholesterol Direct 62 mg/dL Normal <100 [facility] ([place]) Comment on above: Result Comment: <100 mg/dL, Optimal 100-129 mg/dL, Near optimal/above optimal 130-159 mg/dL, Borderline high 160-189 mg/dL, High >189 mg/dL, Very high Secondary prevention optimal LDL Cholesterol levels are recommended to be < 70 mg/dL Performed By: [place] [address] Technology Lab Teacher: Chester Marshall III, M.D. CLIA#: [id number] Performed By: #### F T4, VIDH, LIPID, CMP, TSH, PSA, CBC, ADIFF, ANEU, GFR #### [place] [address] #### LDLDCT #### [facility] [address] [place], [place] [address] VLDL Cholesterol See Below Normal [facility] ([place]) Comment on above: Result Comment: Test not indicated. Performed By: [place] [address] Technology Lab Teacher: Chester Marshall III, M.D. CLIA#: [id number] Performed By: #### F T4, VIDH, LIPID, CMP, TSH, PSA, CBC, ADIFF, ANEU, GFR #### [place] [address] #### LDLDCT #### [facility] [address] [place], [place] [address] .Auto Diffon 11-28-2022 Basophil, Absolute 0.0 10 3/mcL Normal 0.0-0.2 [facility] ([place]) Comment on above: Performed By: #### F T4, VIDH, LIPID, CMP, TSH, PSA, CBC, ADIFF, ANEU, GFR #### [place] [address] #### LDLDCT #### [facility] [address] [place], [place] [address] Basophils/100 WBC (Bld) 1.1 % Normal 0.0-2.5 [facility] ([place]) Comment on above: Performed By: #### F T4, VIDH, LIPID, CMP, TSH, PSA, CBC, ADIFF, ANEU, GFR #### [place] [address] #### LDLDCT #### [facility] [address] [place], [place] [address] Eosinophil, Absolute 0.3 10 3/mcL Normal 0.0-0.4 [facility] ([place]) Comment on above: Performed By: #### F T4, VIDH, LIPID, CMP, TSH, PSA, CBC, ADIFF, ANEU, GFR #### [place] [address] #### LDLDCT #### [facility] [address] [place], [place] [address] Eosinophils/100 WBC (Bld) 6.5 % Normal 0.0-7.0 [facility] ([place]) Comment on above: Performed By: #### F T4, VIDH, LIPID, CMP, TSH, PSA, CBC, ADIFF, ANEU, GFR #### [place] [address] #### LDLDCT #### [facility] [address] [place], [place] [address] Lymphocyte, Absolute 1.3 10 3/mcL Normal 0.8-3.9 [facility] ([place]) Comment on above: Performed By: #### F T4, VIDH, LIPID, CMP, TSH, PSA, CBC, ADIFF, ANEU, GFR #### [place] [address] #### LDLDCT #### [facility] [address] [place], [place] [address] Lymphocytes/100 WBC (Bld) 30.1 % Normal 10.0-50.0 [facility] ([place]) Comment on above: Performed By: #### F T4, VIDH, LIPID, CMP, TSH, PSA, CBC, ADIFF, ANEU, GFR #### [facility] [address] [place], [place] [address] #### LDLDCT #### [facility] [address] [place], [place] [address] Monocyte, Absolute 0.5 10 3/mcL Normal 0.2-1.0 [facility] ([place]) Comment on above: Performed By: #### F T4, VIDH, LIPID, CMP, TSH, PSA, CBC, ADIFF, ANEU, GFR #### [place] [address] #### LDLDCT #### [facility] [address] [place], [place] [address] Monocytes/100 WBC (Bld) 10.9 % Normal 1.7-13.0 [facility] ([place]) Comment on above: Performed By: #### F T4, VIDH, LIPID, CMP, TSH, PSA, CBC, ADIFF, ANEU, GFR #### [place] [address] #### LDLDCT #### [facility] [address] [place], [place] [address] Neutrophils/100 WBC (Bld) 51.4 % Normal 37.0-80.0 [facility] ([place]) Comment on above: Performed By: #### F T4, VIDH, LIPID, CMP, TSH, PSA, CBC, ADIFF, ANEU, GFR #### [place] [address] #### LDLDCT #### [facility] [address] [place], [place] [address] .GFRon 11-28-2022 GFR 65 ml/min/1.73sqm Normal [facility] ([place]) Comment on above: Result Comment: GFR Population mean for , Non- Americans Ages 20-29 = 116 mL/min/1.73 sq.m. Ages 30-39 = 107 mL/min/1.73 sq.m. Ages 40-49 = 99 mL/min/1.73 sq.m. Ages 50-59 = 93 mL/min/1.73 sq.m. Ages 60-69 = 85 mL/min/1.73 sq.m. Ages 70+ = 75 mL/min/1.73 sq.m. Chronic Kidney Disease: Less than 60 mL/min/1.73 square meters End Stage Renal Disease: Less than 15 mL/min/1.73 square meters Performed By: #### F T4, VIDH, LIPID, CMP, TSH, PSA, CBC, ADIFF, ANEU, GFR #### [place] [address] #### LDLDCT #### [facility] [address] [place], [place] [address] GFR Non- 53 ml/min/1.73sqm Normal [facility] ([place]) Comment on above: Result Comment: GFR Population mean for , Non- Americans Ages 20-29 = 116 mL/min/1.73 sq.m. Ages 30-39 = 107 mL/min/1.73 sq.m. Ages 40-49 = 99 mL/min/1.73 sq.m. Ages 50-59 = 93 mL/min/1.73 sq.m. Ages 60-69 = 85 mL/min/1.73 sq.m. Ages 70+ = 75 mL/min/1.73 sq.m. Chronic Kidney Disease: Less than 60 mL/min/1.73 square meters End Stage Renal Disease: Less than 15 mL/min/1.73 square meters Performed By: #### F T4, VIDH, LIPID, CMP, TSH, PSA, CBC, ADIFF, ANEU, GFR #### [place] [address] #### LDLDCT #### [facility] [address] [place], [place] [address] .NEUABSon 11-28-2022 Neutrophil, Absolute 2.2 10 3/mcL Low 2.9-6.2 [facility] ([place]) Comment on above: Performed By: #### F T4, VIDH, LIPID, CMP, TSH, PSA, CBC, ADIFF, ANEU, GFR #### [place] [address] #### LDLDCT #### [facility] [address] [place], [place] [address] CBCon 11-28-2022 Erythrocyte distribution width (RBC) [Ratio] 14.8 % High 11.5-14.5 [facility] ([place]) Comment on above: Performed By: #### F T4, VIDH, LIPID, CMP, TSH, PSA, CBC, ADIFF, ANEU, GFR #### [place] [address] #### LDLDCT #### [facility] [address] [place], [place] [address] Hematocrit (Bld) [Volume fraction] 41.2 % Low 42.0-52.0 [facility] ([place]) Comment on above: Performed By: #### F T4, VIDH, LIPID, CMP, TSH, PSA, CBC, ADIFF, ANEU, GFR #### [place] [address] #### LDLDCT #### [facility] [address] [place] [id number] Hgb 13.8 G/dL Low 14.0-18.0 [facility] ([place]) Comment on above: Performed By: #### F T4, VIDH, LIPID, CMP, TSH, PSA, CBC, ADIFF, ANEU, GFR #### [place] [address] #### LDLDCT #### [facility] [address] [place], [place] [address] MCH (RBC) [Entitic mass] 32.9 pg High 27.0-31.2 [facility] ([place]) Comment on above: Performed By: #### F T4, VIDH, LIPID, CMP, TSH, PSA, CBC, ADIFF, ANEU, GFR #### [place] [address] #### LDLDCT #### [facility] [address] [place], [place] [address] MCHC 33.6 G/dL Normal 31.8-35.4 [facility] ([place] Comment on above: Performed By: #### F T4, VIDH, LIPID, CMP, TSH, PSA, CBC, ADIFF, ANEU, GFR #### [place] [address] #### LDLDCT #### [facility] [address] [place], [place] [address] MCV (RBC) [Entitic vol] 97.8 fL High 80.0-94.0 [facility] ([place]) Comment on above: Performed By: #### F T4, VIDH, LIPID, CMP, TSH, PSA, CBC, ADIFF, ANEU, GFR #### [place] [address] #### LDLDCT #### [facility] [address] [place], [place] [address] Platelet 205 10 3/mcL Normal 130-400 [facility] ([place]) Comment on above: Performed By: #### F T4, VIDH, LIPID, CMP, TSH, PSA, CBC, ADIFF, ANEU, GFR #### [place] [address] #### LDLDCT #### [facility] [address] [place], [place] [address] Platelet mean volume (Bld) [Entitic vol] 9.0 fL Normal 7.4-10.4 [facility] ([place]) Comment on above: Performed By: #### F T4, VIDH, LIPID, CMP, TSH, PSA, CBC, ADIFF, ANEU, GFR #### [place] [address] #### LDLDCT #### [facility] [address] [place], [place] [address] RBC 4.21 10 6/mcL Normal 4.04-6.13 [facility] ([place]) Comment on above: Performed By: #### F T4, VIDH, LIPID, CMP, TSH, PSA, CBC, ADIFF, ANEU, GFR #### [place] [address] #### LDLDCT #### [facility] [address] [place], [place] [address] WBC 4.3 10 3/mcL Low 4.6-10.8 [facility] ([place]) Comment on above: Performed By: #### F T4, VIDH, LIPID, CMP, TSH, PSA, CBC, ADIFF, ANEU, GFR #### [place] [address] #### LDLDCT #### [facility] [address] [place], [place] [address] CMPon 11-28-2022 Albumin Level 3.8 G/dL Normal 3.5-5.0 [facility] ([place] Comment on above: Performed By: #### F T4, VIDH, LIPID, CMP, TSH, PSA, CBC, ADIFF, ANEU, GFR #### [place] [address] #### LDLDCT #### [facility] [address] [place], [place] [address] Albumin/Globulin [Mass ratio] 1.1 {ratio} Normal 1.1-2.5 [facility] ([place]) Comment on above: Performed By: #### F T4, VIDH, LIPID, CMP, TSH, PSA, CBC, ADIFF, ANEU, GFR #### [place] [address] #### LDLDCT #### [facility] [address] [place], [place] [address] ALP [Catalytic activity/Vol] 130 U/L Normal 40-135 [facility] ([place]) Comment on above: Performed By: #### F T4, VIDH, LIPID, CMP, TSH, PSA, CBC, ADIFF, ANEU, GFR #### [place] [address] #### LDLDCT #### [facility] [address] [place], [place] [address] ALT [Catalytic activity/Vol] 44 U/L Normal 16-63 [facility] ([place] Comment on above: Performed By: #### F T4, VIDH, LIPID, CMP, TSH, PSA, CBC, ADIFF, ANEU, GFR #### [place] [address] #### LDLDCT #### [facility] [address] [place], [place] [address] AST [Catalytic activity/Vol] 28 U/L Normal 10-40 [facility] ([place]) Comment on above: Performed By: #### F T4, VIDH, LIPID, CMP, TSH, PSA, CBC, ADIFF, ANEU, GFR #### [place] [address] #### LDLDCT #### [facility] [address] [place], [place] [address] Bili Total 0.8 mg/dL Normal 0.2-1.0 [facility] ([place]) Comment on above: Result Comment: Use of this assay is not recommended for patients undergoing treatment with eltrombopag due to the potential for falsely elevated results. Performed By: #### F T4, VIDH, LIPID, CMP, TSH, PSA, CBC, ADIFF, ANEU, GFR #### [place] [address] #### LDLDCT #### [facility] [address] [place], [place] [address] BUN/Creatinine Ratio 9 ratio Normal 7-27 [facility] ([place] Comment on above: Performed By: #### F T4, VIDH, LIPID, CMP, TSH, PSA, CBC, ADIFF, ANEU, GFR #### [place] [address] #### LDLDCT #### [facility] [address] [place], [place] [address] Calcium [Mass/Vol] 8.8 mg/dL Normal 8.4-10.2 [facility] ([place]) Comment on above: Performed By: #### F T4, VIDH, LIPID, CMP, TSH, PSA, CBC, ADIFF, ANEU, GFR #### [place] [address] #### LDLDCT #### [facility] [address] [place], [place] [address] Chloride [Moles/Vol] 100 mmol/L Normal 98-107 [facility] ([place]) Comment on above: Performed By: #### F T4, VIDH, LIPID, CMP, TSH, PSA, CBC, ADIFF, ANEU, GFR #### [place] [address] #### LDLDCT #### [facility] [address] [place], [place] [address] CO2 [Moles/Vol] 27 mmol/L Normal 22-29 [facility] ([place]) Comment on above: Performed By: #### F T4, VIDH, LIPID, CMP, TSH, PSA, CBC, ADIFF, ANEU, GFR #### [place] [address] #### LDLDCT #### [facility] [address] [place], [place] [address] Creatinine [Mass/Vol] 1.41 mg/dL High 0.70-1.30 [facility] ([place]) Comment on above: Performed By: #### F T4, VIDH, LIPID, CMP, TSH, PSA, CBC, ADIFF, ANEU, GFR #### [place] [address] #### LDLDCT #### [facility] [address] [place], [place] [address] Electrolyte Balance 12.0 mEq/L Normal 4.0-15.0 [facility] ([place]) Comment on above: Performed By: #### F T4, VIDH, LIPID, CMP, TSH, PSA, CBC, ADIFF, ANEU, GFR #### [place] [address] #### LDLDCT #### [facility] [address] [place], [place] [address] Globulin 3.5 G/dL Normal [facility] ([place]) Comment on above: Performed By: #### F T4, VIDH, LIPID, CMP, TSH, PSA, CBC, ADIFF, ANEU, GFR #### [place] [address] #### LDLDCT #### [facility] [address] [place], [place] [address] Glucose [Mass/Vol] 123 mg/dL High 70-105 [facility] ([place]) Comment on above: Performed By: #### F T4, VIDH, LIPID, CMP, TSH, PSA, CBC, ADIFF, ANEU, GFR #### [place] [address] #### LDLDCT #### [facility] [address] [place], [place] [address] Potassium [Moles/Vol] 4.4 mmol/L Normal 3.5-5.1 [facility] ([place]) Comment on above: Performed By: #### F T4, VIDH, LIPID, CMP, TSH, PSA, CBC, ADIFF, ANEU, GFR #### [place] [address] #### LDLDCT #### [facility] [address] [place] [address] Sodium [Moles/Vol] 139 mmol/L Normal 136-145 [facility] ([place]) Comment on above: Performed By: #### F T4, VIDH, LIPID, CMP, TSH, PSA, CBC, ADIFF, ANEU, GFR #### [place] [address] #### LDLDCT #### [facility] [address] [place] [address] Total Protein 7.3 G/dL Normal 6.4-8.2 [facility] ([place]) Comment on above: Performed By: #### F T4, VIDH, LIPID, CMP, TSH, PSA, CBC, ADIFF, ANEU, GFR #### [place] [address] #### LDLDCT #### [facility] [address] [place], [place] [address] Urea nitrogen [Mass/Vol] 12 mg/dL Normal 7-18 [facility] ([place]) Comment on above: Performed By: #### F T4, VIDH, LIPID, CMP, TSH, PSA, CBC, ADIFF, ANEU, GFR #### [place] [address] #### LDLDCT #### [facility] [address] [place], [place] [address] FT4on 11-28-2022 Free T4 [Mass/Vol] 1.15 ng/dL Normal 0.76-1.46 [facility] ([place]) Comment on above: Performed By: #### F T4, VIDH, LIPID, CMP, TSH, PSA, CBC, ADIFF, ANEU, GFR #### [place] [address] #### LDLDCT #### [facility] [address] [place], [place] [address] HFPon 11-28-2022 Bili Indirect 0.6 mg/dL Normal [facility] ([place] Comment on above: Performed By: #### F T4, VIDH, LIPID, CMP, TSH, PSA, CBC, ADIFF, ANEU, GFR #### [place] [address] #### LDLDCT #### [facility] [address] [place], [place] [address] Albumin Level 3.8 G/dL Normal 3.5-5.0 [facility] ([place]) Comment on above: Performed By: #### F T4, VIDH, LIPID, CMP, TSH, PSA, CBC, ADIFF, ANEU, GFR #### [place] [address] #### LDLDCT #### [facility] [address] [place], [place] [address] Albumin/Globulin [Mass ratio] 1.1 {ratio} Normal 1.1-2.5 [facility] ([place]) Comment on above: Performed By: #### F T4, VIDH, LIPID, CMP, TSH, PSA, CBC, ADIFF, ANEU, GFR #### [place] [address] #### LDLDCT #### [facility] [address] [place], [place] [address] ALP [Catalytic activity/Vol] 130 U/L Normal 40-135 [facility] ([place]) Comment on above: Performed By: #### F T4, VIDH, LIPID, CMP, TSH, PSA, CBC, ADIFF, ANEU, GFR #### [place] [address] #### LDLDCT #### [facility] [address] [place], [place] [address] ALT [Catalytic activity/Vol] 45 U/L Normal 16-63 [facility] ([place]) Comment on above: Performed By: #### F T4, VIDH, LIPID, CMP, TSH, PSA, CBC, ADIFF, ANEU, GFR #### [place] [address] #### LDLDCT #### [facility] [address] [place], [place] [address] AST [Catalytic activity/Vol] 29 U/L Normal 10-40 [facility] ([place]) Comment on above: Performed By: #### F T4, VIDH, LIPID, CMP, TSH, PSA, CBC, ADIFF, ANEU, GFR #### [place] [address] #### LDLDCT #### [facility] [address] [place], [place] [address] Bili Direct 0.2 mg/dL Normal 0.0-0.2 [facility] ([place]) Comment on above: Result Comment: Use of this assay is not recommended for patients undergoing treatment with eltrombopag due to the potential for falsely elevated results. Performed By: #### F T4, VIDH, LIPID, CMP, TSH, PSA, CBC, ADIFF, ANEU, GFR #### [place] [address] #### LDLDCT #### [facility] [address] [place], [place] [address] Bili Total 0.8 mg/dL Normal 0.2-1.0 [facility] ([place]) Comment on above: Result Comment: Use of this assay is not recommended for patients undergoing treatment with eltrombopag due to the potential for falsely elevated results. Performed By: #### F T4, VIDH, LIPID, CMP, TSH, PSA, CBC, ADIFF, ANEU, GFR #### [address] [address] #### LDLDCT #### [facility] [address] [place], [place] [address] Globulin 3.6 G/dL Normal [facility] ([place]) Comment on above: Performed By: #### F T4, VIDH, LIPID, CMP, TSH, PSA, CBC, ADIFF, ANEU, GFR #### [address] [address] #### LDLDCT #### [facility] [address] [place], [place] [address] Total Protein 7.4 G/dL Normal 6.4-8.2 [facility] ([place]) Comment on above: Performed By: #### F T4, VIDH, LIPID, CMP, TSH, PSA, CBC, ADIFF, ANEU, GFR #### [place] [address] #### LDLDCT #### [facility] [address] [place], [place] [address] LABORATORYOrdered By: Yvette Cummins on 11-28-2022 Albumin DL <= 20 mg/L (U) [Mass/Vol] 416 mcg/dL Invalid Interpretation Code AO ADM SS Albumin/Creatinine DL <= 20 mg/L (U) [Mass ratio] 5 mcg/mg Invalid Interpretation Code 0 - 30 mcg/mg AO ADM SS Creatinine (U) [Mass/Vol] 80.7 mg/dL Invalid Interpretation Code 39.0 - 259.0 mg/dL AO ADM SS Cholesterol [Mass/Vol] 108 mg/dL Invalid Interpretation Code 0 - 200 mg/dL AO ADM SS Comment on above: Interpretive Data: C holesterol Reference Interval: Less than 200 Desirable 200-239 Borderline high risk 240 and above High risk Cholesterol in HDL [Mass/Vol] 38 mg/dL Invalid Interpretation Code 40 - 60 mg/dL AO ADM SS Cholesterol in LDL [Mass/Vol] 50 mg/dL Invalid Interpretation Code 0 - 130 mg/dL AO ADM SS Triglyceride [Mass/Vol] 102 mg/dL Invalid Interpretation Code 0 - 150 mg/dL AO ADM SS Comment on above: Interpretive Data: T riglyceride Reference Interval: Less than 150 Normal 150-199 Borderline high risk 200-499 High risk 500 or higher Very high risk LABORATORYOrdered By: SYSTEM SYSTEM on 11-28-2022 25-hydroxyvitamin D3 [Mass/Vol] 14.0 ng/mL Invalid Interpretation Code AO ADM SS Comment on above: Interpretive Data: I nterpretive Values Based on Total 25(OH) Vitamin D: Deficient <20 ng/mL Insufficient 20 - <30 ng/mL Sufficient 30-100 ng/mL Albumin BCP dye [Mass/Vol] 3.8 G/dL Invalid Interpretation Code 3.5 - 5.0 G/dL AO ADM SS Albumin/Globulin [Mass ratio] 1.1 {ratio} Invalid Interpretation Code 1.1 - 2.5 ratio AO ADM SS ALP [Catalytic activity/Vol] 130 U/L Invalid Interpretation Code 40 - 135 U/L AO ADM SS ALT With P-5'-P [Catalytic activity/Vol] 44 U/L Invalid Interpretation Code 16 - 63 U/L AO ADM SS AST With P-5'-P [Catalytic activity/Vol] 28 U/L Invalid Interpretation Code 10 - 40 U/L AO ADM SS Basophil, Absolute 0.0 103/mcL Invalid Interpretation Code 0.0 - 0.2 10^3/mcL AO Workflow SS Basophils/100 WBC (Bld) 1.1 % Invalid Interpretation Code 0.0 - 2.5 % AO Workflow SS Bilirubin [Mass/Vol] 0.8 mg/dL Invalid Interpretation Code 0.2 - 1.0 mg/dL AO ADM SS Comment on above: Interpretive Data: U se of this assay is not recommended for patients undergoing treatment with eltrombopag due to the potential for falsely elevated results. Calcium [Mass/Vol] 8.8 mg/dL Invalid Interpretation Code 8.4 - 10.2 mg/dL AO ADM SS Chloride [Moles/Vol] 100 mmol/L Invalid Interpretation Code 98 - 107 mmol/L AO ADM SS CO2 [Moles/Vol] 27 mmol/L Invalid Interpretation Code 22 - 29 mmol/L AO ADM SS Creatinine [Mass/Vol] 1.41 mg/dL Invalid Interpretation Code 0.70 - 1.30 mg/dL AO ADM SS Electrolyte Balance 12.0 mEq/L Invalid Interpretation Code 4.0 - 15.0 mEq/L AO ADM SS Eosinophil, Absolute 0.3 103/mcL Invalid Interpretation Code 0.0 - 0.4 10^3/mcL AO Workflow SS Eosinophils/100 WBC (Bld) 6.5 % Invalid Interpretation Code 0.0 - 7.0 % AO Workflow SS Erythrocyte distribution width (RBC) [Ratio] 14.8 % Invalid Interpretation Code 11.5 - 14.5 % AO Workflow SS Free T4 [Mass/Vol] 1.15 ng/dL Invalid Interpretation Code 0.76 - 1.46 ng/dL AO ADM SS GFR/1.73 sq M.predicted among blacks MDRD (S/P/Bld) [Vol rate/Area] 65 ml/min/1.73sqm Invalid Interpretation Code AO Chemistry S Comment on above: Interpretive Data: GFR Population mean for , Non- Americans Ages 20-29 = 116 mL/min/1.73 sq.m. Ages 30-39 = 107 mL/min/1.73 sq.m. Ages 40-49 = 99 mL/min/1.73 sq.m. Ages 50-59 = 93 mL/min/1.73 sq.m. Ages 60-69 = 85 mL/min/1.73 sq.m. Ages 70+ = 75 mL/min/1.73 sq.m. Chronic Kidney Disease: Less than 60 mL/min/1.73 square meters End Stage Renal Disease: Less than 15 mL/min/1.73 square meters GFR/1.73 sq M.predicted among non-blacks MDRD (S/P/Bld) [Vol rate/Area] 53 ml/min/1.73sqm Invalid Interpretation Code AO Chemistry S Comment on above: Interpretive Data: GFR Population mean for , Non- Americans Ages 20-29 = 116 mL/min/1.73 sq.m. Ages 30-39 = 107 mL/min/1.73 sq.m. Ages 40-49 = 99 mL/min/1.73 sq.m. Ages 50-59 = 93 mL/min/1.73 sq.m. Ages 60-69 = 85 mL/min/1.73 sq.m. Ages 70+ = 75 mL/min/1.73 sq.m. Chronic Kidney Disease: Less than 60 mL/min/1.73 square meters End Stage Renal Disease: Less than 15 mL/min/1.73 square meters Globulin 3.5 G/dL Invalid Interpretation Code AO ADM SS Glucose [Mass/Vol] 123 mg/dL Invalid Interpretation Code 70 - 105 mg/dL AO ADM SS Hematocrit (Bld) [Volume fraction] 41.2 % Invalid Interpretation Code 42.0 - 52.0 % AO Workflow SS Hemoglobin (Bld) [Mass/Vol] 13.8 G/dL Invalid Interpretation Code 14.0 - 18.0 G/dL AO Workflow SS Lymphocyte, Absolute 1.3 103/mcL Invalid Interpretation Code 0.8 - 3.9 10^3/mcL AO Workflow SS Lymphocytes/100 WBC (Bld) 30.1 % Invalid Interpretation Code 10.0 - 50.0 % AO Workflow SS MCH (RBC) [Entitic mass] 32.9 pg Invalid Interpretation Code 27.0 - 31.2 pg AO Workflow SS MCHC 33.6 G/dL Invalid Interpretation Code 31.8 - 35.4 G/dL AO Workflow SS MCV (RBC) [Entitic vol] 97.8 fL Invalid Interpretation Code 80.0 - 94.0 fL AO Workflow SS Monocyte, Absolute 0.5 103/mcL Invalid Interpretation Code 0.2 - 1.0 10^3/mcL AO Workflow SS Monocytes/100 WBC (Bld) 10.9 % Invalid Interpretation Code 1.7 - 13.0 % AO Workflow SS Neutrophil, Absolute 2.2 103/mcL Invalid Interpretation Code 2.9 - 6.2 10^3/mcL AO Workflow SS Neutrophils/100 WBC (Bld) 51.4 % Invalid Interpretation Code 37.0 - 80.0 % AO Workflow SS Platelet mean volume (Bld) [Entitic vol] 9.0 fL Invalid Interpretation Code 7.4 - 10.4 fL AO Workflow SS Platelets (Bld) [#/Vol] 205 103/mcL Invalid Interpretation Code 130 - 400 10^3/mcL AO Workflow SS Potassium [Moles/Vol] 4.4 mmol/L Invalid Interpretation Code 3.5 - 5.1 mmol/L AO ADM SS Prostate specific Ag [Mass/Vol] 0.53 ng/mL Invalid Interpretation Code 0.00 - 4.00 ng/mL AO ADM SS Protein [Mass/Vol] 7.3 G/dL Invalid Interpretation Code 6.4 - 8.2 G/dL AO ADM SS RBC (Bld) [#/Vol] 4.21 106/mcL Invalid Interpretation Code 4.04 - 6.13 10^6/mcL AO Workflow SS Sodium [Moles/Vol] 139 mmol/L Invalid Interpretation Code 136 - 145 mmol/L AO ADM SS TSH Qn 1.00 m[IU]/L Invalid Interpretation Code 0.36 - 3.74 mcIU/mL AO ADM SS Urea nitrogen [Mass/Vol] 12 mg/dL Invalid Interpretation Code 7 - 18 mg/dL AO ADM SS Urea nitrogen/Creatinine [Mass ratio] 9 ratio Invalid Interpretation Code 7 - 27 ratio AO ADM SS WBC (Bld) [#/Vol] 4.3 103/mcL Invalid Interpretation Code 4.6 - 10.8 10^3/mcL AO Workflow SS LIPIDon 11-28-2022 Cholesterol [Mass/Vol] 108 mg/dL Normal 0-200 [facility] ([place] Comment on above: Result Comment: Chol esterol Reference Interval: Less than 200 Desirable 200-239 Borderline high risk 240 and above High risk Performed By: #### F T4, VIDH, LIPID, CMP, TSH, PSA, CBC, ADIFF, ANEU, GFR #### [place] [address] #### LDLDCT #### [facility] [address] [place], [place] [address] Cholesterol in HDL [Mass/Vol] 38 mg/dL Low 40-60 [facility] ([place] Comment on above: Performed By: #### F T4, VIDH, LIPID, CMP, TSH, PSA, CBC, ADIFF, ANEU, GFR #### [place] [address] #### LDLDCT #### [facility] [address] [place], [place] [address] Cholesterol in LDL [Mass/Vol] 50 mg/dL Normal 0-130 [facility] ([place] Comment on above: Performed By: #### F T4, VIDH, LIPID, CMP, TSH, PSA, CBC, ADIFF, ANEU, GFR #### [place] [address] #### LDLDCT #### [facility] [address] [place], [place] [address] Triglyceride [Mass/Vol] 102 mg/dL Normal 0-150 [facility] ([place]) Comment on above: Result Comment: Trig lyceride Reference Interval: Less than 150 Normal 150-199 Borderline high risk 200-499 High risk 500 or higher Very high risk Performed By: #### F T4, VIDH, LIPID, CMP, TSH, PSA, CBC, ADIFF, ANEU, GFR #### [place] [address] #### LDLDCT #### [facility] [address] [place], [place] [address] MALBRon 11-28-2022 U Creatinine 80.7 mg/dL Normal 39.0-259.0 [facility] ([place]) Comment on above: Performed By: #### F T4, VIDH, LIPID, CMP, TSH, PSA, CBC, ADIFF, ANEU, GFR #### [place] [address] #### LDLDCT #### [facility] [address] [place], [place] [address] U Microalb 416 mcg/dL Normal [facility] ([place] Comment on above: Performed By: #### F T4, VIDH, LIPID, CMP, TSH, PSA, CBC, ADIFF, ANEU, GFR #### [place] [address] #### LDLDCT #### [facility] [address] [place], [place] [address] U Ratio Alb/Cre 5 mcg/mg Normal 0-30 [facility] ([place]) Comment on above: Performed By: #### F T4, VIDH, LIPID, CMP, TSH, PSA, CBC, ADIFF, ANEU, GFR #### [place] [address] #### LDLDCT #### [facility] [address] [place], [place] [address] PBNPon 11-28-2022 Natriuretic peptide B (Bld) [Mass/Vol] 55 pg/mL Normal 0-125 [facility] ([place]) Comment on above: Result Comment: NT-p roBNP results of less than 300 pg/mL effectively rules out acute congestive heart failure with 99% negative predictive value. Performed By: #### F T4, VIDH, LIPID, CMP, TSH, PSA, CBC, ADIFF, ANEU, GFR #### [place] [address] #### LDLDCT #### [facility] [address] [place], [place] [address] PSAon 11-28-2022 Prostate Specific Antigen 0.53 ng/mL Normal 0.00-4.00 [facility] ([place] Comment on above: Performed By: #### F T4, VIDH, LIPID, CMP, TSH, PSA, CBC, ADIFF, ANEU, GFR #### [place] [address] #### LDLDCT #### [facility] [address] [place], [place] [address] TSHon 11-28-2022 TSH Qn 1.00 m[IU]/L Normal 0.36-3.74 [facility] ([place]) Comment on above: Performed By: #### F T4, VIDH, LIPID, CMP, TSH, PSA, CBC, ADIFF, ANEU, GFR #### [place] [address] #### LDLDCT #### [facility] [address] [place] [address] VIDHon 11-28-2022 Vit. D 25-Hydroxy 14.0 ng/mL Normal [facility] ([place] Comment on above: Result Comment: Inte rpretive Values Based on Total 25(OH) Vitamin D: Deficient <20 ng/mL Insufficient 20 - <30 ng/mL Sufficient 30-100 ng/mL Performed By: #### F T4, VIDH, LIPID, CMP, TSH, PSA, CBC, ADIFF, ANEU, GFR #### [place] [address] #### LDLDCT #### [facility] [address] [place], [place] [address] .GFRon 03-08-2022 GFR 73 ml/min/1.73sqm Normal [facility] ([place]) Comment on above: Result Comment: GFR Population mean for , Non- Americans Ages 20-29 = 116 mL/min/1.73 sq.m. Ages 30-39 = 107 mL/min/1.73 sq.m. Ages 40-49 = 99 mL/min/1.73 sq.m. Ages 50-59 = 93 mL/min/1.73 sq.m. Ages 60-69 = 85 mL/min/1.73 sq.m. Ages 70+ = 75 mL/min/1.73 sq.m. Chronic Kidney Disease: Less than 60 mL/min/1.73 square meters End Stage Renal Disease: Less than 15 mL/min/1.73 square meters Performed By: #### F T4, VIDH, LIPID, CMP, TSH, PSA, CBC, ADIFF, ANEU, GFR #### [address] [address] #### LDLDCT #### [facility] [address] [place], [place] [address] GFR Non- 60 ml/min/1.73sqm Normal [facility] ([place]) Comment on above: Result Comment: GFR Population mean for , Non- Americans Ages 20-29 = 116 mL/min/1.73 sq.m. Ages 30-39 = 107 mL/min/1.73 sq.m. Ages 40-49 = 99 mL/min/1.73 sq.m. Ages 50-59 = 93 mL/min/1.73 sq.m. Ages 60-69 = 85 mL/min/1.73 sq.m. Ages 70+ = 75 mL/min/1.73 sq.m. Chronic Kidney Disease: Less than 60 mL/min/1.73 square meters End Stage Renal Disease: Less than 15 mL/min/1.73 square meters Performed By: #### F T4, VIDH, LIPID, CMP, TSH, PSA, CBC, ADIFF, ANEU, GFR #### [address] [address] #### LDLDCT #### [facility] [address] [place], [place] [address] [facility]-2022 BUN/Creatinine Ratio 11 ratio Normal 10-31 [facility] ([place] Comment on above: Performed By: #### F T4, VIDH, LIPID, CMP, TSH, PSA, CBC, ADIFF, ANEU, GFR #### [place] [address] #### LDLDCT #### [facility] [address] [place], [place] [address] Calcium [Mass/Vol] 9.6 mg/dL Normal 8.4-10.2 [facility] ([place]) Comment on above: Performed By: #### F T4, VIDH, LIPID, CMP, TSH, PSA, CBC, ADIFF, ANEU, GFR #### [place] [address] #### LDLDCT #### [facility] [address] [place], [place] [address] Chloride [Moles/Vol] 102 mmol/L Normal 98-107 [facility] ([place] Comment on above: Performed By: #### F T4, VIDH, LIPID, CMP, TSH, PSA, CBC, ADIFF, ANEU, GFR #### [place] [address] #### LDLDCT #### [facility] [address] [place], [place] [address] CO2 [Moles/Vol] 31 mmol/L High 22-29 [facility] ([place] Comment on above: Performed By: #### F T4, VIDH, LIPID, CMP, TSH, PSA, CBC, ADIFF, ANEU, GFR #### [place] [address] #### LDLDCT #### [facility] [address] [place], [place] [address] Creatinine [Mass/Vol] 1.28 mg/dL Normal 0.70-1.30 [facility] ([place]) Comment on above: Performed By: #### F T4, VIDH, LIPID, CMP, TSH, PSA, CBC, ADIFF, ANEU, GFR #### [place] [address] #### LDLDCT #### [facility] [address] [place], [place] [address] Electrolyte Balance 8.0 mEq/L Normal 4.0-15.0 [facility] ([place]) Comment on above: Performed By: #### F T4, VIDH, LIPID, CMP, TSH, PSA, CBC, ADIFF, ANEU, GFR #### [place] [address] #### LDLDCT #### [facility] [address] [place], [place] [address] Glucose [Mass/Vol] 156 mg/dL High 70-105 [facility] ([place] Comment on above: Performed By: #### F T4, VIDH, LIPID, CMP, TSH, PSA, CBC, ADIFF, ANEU, GFR #### [place] [address] #### LDLDCT #### [facility] [address] [place] [address] Potassium [Moles/Vol] 4.0 mmol/L Normal 3.5-5.1 [facility] ([place]) Comment on above: Performed By: #### F T4, VIDH, LIPID, CMP, TSH, PSA, CBC, ADIFF, ANEU, GFR #### [place] [address] #### LDLDCT #### [facility] [address] [place], [place] [address] Sodium [Moles/Vol] 141 mmol/L Normal 136-145 [facility] ([place] Comment on above: Performed By: #### F T4, VIDH, LIPID, CMP, TSH, PSA, CBC, ADIFF, ANEU, GFR #### [place] [address] #### LDLDCT #### [facility] [address] [place], [place] [address] Urea nitrogen [Mass/Vol] 14 mg/dL Normal 7-18 [facility] ([place] Comment on above: Performed By: #### F T4, VIDH, LIPID, CMP, TSH, PSA, CBC, ADIFF, ANEU, GFR #### [facility] [address] [place] [address] #### LDLDCT #### [facility] [address] [place], [place] [address] LABORATORYOrdered By: Teresa Elder on 03-08-2022 Calcium [Mass/Vol] 9.6 mg/dL Invalid Interpretation Code 8.4 - 10.2 mg/dL AO ADM SS Chloride [Moles/Vol] 102 mmol/L Invalid Interpretation Code 98 - 107 mmol/L AO ADM SS CO2 [Moles/Vol] 31 mmol/L Invalid Interpretation Code 22 - 29 mmol/L AO ADM SS Creatinine [Mass/Vol] 1.28 mg/dL Invalid Interpretation Code 0.70 - 1.30 mg/dL AO ADM SS Electrolyte Balance 8.0 mEq/L Invalid Interpretation Code 4.0 - 15.0 mEq/L AO ADM SS Glucose [Mass/Vol] 156 mg/dL Invalid Interpretation Code 70 - 105 mg/dL AO ADM SS Potassium [Moles/Vol] 4.0 mmol/L Invalid Interpretation Code 3.5 - 5.1 mmol/L AO ADM SS Sodium [Moles/Vol] 141 mmol/L Invalid Interpretation Code 136 - 145 mmol/L AO ADM SS Urea nitrogen [Mass/Vol] 14 mg/dL Invalid Interpretation Code 7 - 18 mg/dL AO ADM SS Urea nitrogen/Creatinine [Mass ratio] 11 ratio Invalid Interpretation Code 7 - 27 ratio AO ADM SS LABORATORYOrdered By: SYSTEM SYSTEM on 03-08-2022 GFR 73 ml/min/1.73sqm Invalid Interpretation Code AO Chemistry S GFR Non- 60 ml/min/1.73sqm Invalid Interpretation Code AO Chemistry S Anticoagulation Monitoring S michellon 11-23-2021 Anticoagulation Monitoring Service Today's INR [id number] IO INR2.1 Target INR range2-3 SourceAMS History of Present Illness Patient identification verified with 2 patient identifiers. Anticoagulation Monitoring Service: [facility]. Enrollment/Re-enrollment date: October 03, 2022. The patient is being seen as a follow-up for anticoagulation monitoring. Patient had CBC on November 06, 2019: HANDH 15.6/45.8 Patient referred to [facility] by Eddie Whitlock MD Target INR 2-3. Monitoring practitioner Shi Grove MD. Date Warfarin Begun: October 31, 2019. INR monitoring is per [facility] protocol. 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 The patient is currently taking warfarin Tablet strength and color: 5 mg(Manati) Interval History: Patient was last seen: November 07, 2021. Previous INR was 2.7. Incoming total weekly dose 40 mg. Today's Clinic INR: [facility] INR 2.1. Since last visit, the patient reports no bleeding. The patient did not experience clinically relevant bleeding. The patient did not experience other minor bleeding. Since last visit, the patient has not experienced a thrombotic event. The patient reports no change in medication. He reports no change in alcohol consumption. He reports no change in Vitamin K consumption. The patient has taken Warfarin as directed. Management: The patient's INR is within target range. Will maintain dose. Next follow up appointment in 4 week(s). Outgoing total weekly dose 40 mg. Patient instructed to call in interim with questions, concerns and changes. Discussion/Summary You are currently taking Warfarin. Your tablet strength and color: 5 mg(Manati) Next Appointment: Tuesday, December 21, 2021. Time: 11: 15 am. Location: [facility], . Your INR today is within range . You will continue to take your dose as instructed above. Visit information Please call in interim with questions, concerns and changes. Do tell your provider when you get sick, hurt, or get a cut that will not stop bleeding. If you have any bleeding, trauma, falls and/or other medical concerns, call your doctor or seek medical attention right away. Results/Data Coumadin Printed in Appendix #1 below. *Diagnosis/Problems 1. DVT (deep venous thrombosis) (453.40) (I82.409) Signatures Electronically signed by : Tere Hernandez R.N.; Nov 23 2021 11:18AM EST (Author) Appendix #1 Coumadin Patient: SEBLE MALONE; : 1975; [id number] [id number] 02:[id number] 02:[id number] 11:[id number] 12:02PM IO PT/INR PT + INR, Plasma PT/INR (POC) Recorded INR Coagulation Screen Current Dose New Dose Recheck in Patient Notified Comments IO [id number] PT, INR Target INR [id number] Normal [facility] Today's INRon 11-23-2021 Today's INR 2-3 Anticoagulati on [facility] Work Phone: Today's INR [facility] Anticoagulati on [facility] Work Phone: Anticoagulation Monitoring S erviceon 11-07-2021 Anticoagulation Monitoring Service Today's INR [id number] IO INR2.7 Target INR range2-3 SourceAMS History of Present Illness Patient identification verified with 2 patient identifiers. Anticoagulation Monitoring Service: [facility]. Enrollment/Re-enrollment date: October 03, 2022. The patient is being seen as a follow-up for anticoagulation monitoring. Patient had CBC on November 06, 2019: HANDH 15.6/45.8 Patient referred to [facility] by Eddie Whitlock MD Target INR 2-3. Monitoring practitioner Shi Grove MD. Date Warfarin Begun: October 31, 2019. INR monitoring is per [facility] protocol. 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 The patient is currently taking warfarin Tablet strength and color: 5 mg(Manati) Interval History: Patient was last seen: October 31, 2021. Previous INR was 1.8. TWD of warfarin was maintained at time of last appointment. Incoming total weekly dose 40 mg. Today's Clinic INR: [facility] INR 2.7. Since last visit, the patient reports no bleeding. The patient did not experience clinically relevant bleeding. The patient did not experience other minor bleeding. Since last visit, the patient has not experienced a thrombotic event. The patient reports no change in medication. He reports no change in alcohol consumption. He reports no change in Vitamin K consumption. The patient has taken Warfarin as directed. Management: The patient's INR is within target range. Will maintain dose. Next follow up appointment in 2 week(s). Outgoing total weekly dose 40 mg. Patient instructed to call in interim with questions, concerns and changes. Discussion/Summary You are currently taking Warfarin. Your tablet strength and color: 5 mg(Manati) Next Appointment: Tuesday, November 23, 2021. Time: 11: 15 am. Location: [facility], . Your INR today is within range . You will continue to take your dose as instructed above. Visit information Please call in interim with questions, concerns and changes. Do tell your provider when you get sick, hurt, or get a cut that will not stop bleeding. If you have any bleeding, trauma, falls and/or other medical concerns, call your doctor or seek medical attention right away. Results/Data Coumadin Printed in Appendix #1 below. *Diagnosis/Problems 1. 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 DVT (deep venous thrombosis) (453.40) (I82.409) Signatures Electronically signed by : Chen Lutz R.N.; Nov 07 2021 2:16PM EST (Author) Appendix #1 Coumadin Patient: SEBLE MALONE; : 1975; [id number] [id number] 02:[id number] 11:[id number] 12:[id number] 11:22AM IO PT/INR PT + INR, Plasma PT/INR (POC) Recorded INR Coagulation Screen Current Dose New Dose Recheck in Patient Notified Comments IO [id number] PT, INR Target INR [id number] Normal [facility] Today's INRon 11-07-2021 Today's INR [facility] Anticoagulati on [facility] Work Phone: Today's INR 2-3 Anticoagulati on [facility] Work Phone: Anticoagulation Monitoring S erviceon 10-31-2021 Anticoagulation Monitoring Service Today's INR [id number] IO INR1.8 Target INR range2-3 [facility] History of Present Illness Patient identification verified with 2 patient identifiers. Anticoagulation Monitoring Service: [facility]. Enrollment/Re-enrollment date: October 03, 2022. The patient is being seen as a follow-up for anticoagulation monitoring. Patient had CBC on November 06, 2019: HANDH 15.6/45.8 Patient referred to [facility] by Eddie Whitlock MD Target INR 2-3. Monitoring practitioner Shi Grove MD. Date Warfarin Begun: October 31, 2019. INR monitoring is per [facility] protocol. 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 The patient is currently taking warfarin Tablet strength and color: 5 mg(Manati) Interval History: Patient was last seen: September 28, 2021. Previous INR was 2.5. Incoming total weekly dose 40 mg. Today's Clinic INR: [facility] INR 1.8. Since last visit, the patient reports no bleeding. The patient did not experience clinically relevant bleeding. The patient did not experience other minor bleeding. Since last visit, the patient has not experienced a thrombotic event. The patient reports no change in medication. He reports no change in alcohol consumption. He reports no change in Vitamin K consumption. The patient did not take Warfarin as directed. He reports a dose was missed since last visit. Patient reports that he is unsure as to whether or not he took his dose of warfarin two evenings ago; this could be contributing to depression in INR. Management: The patient's INR is subtherapeutic. Will maintain dose. Next follow up appointment in 1 week(s). Outgoing total weekly dose 40 mg. Patient instructed to call in interim with questions, concerns and changes. Patient educated on signs of bleeding/clotting. Patient educated on compliance with dosing, follow up appointments, and prescribed plan of care. Discussion/Summary You are currently taking Warfarin. Your tablet strength and color: 5 mg(Manati) Next Appointment: Sunday, November 07, 2021. Time: 2: 15 pm. Location: [facility], . Your INR today is lower than your target range, you may be at risk for forming blood clots. Maintain your dose as you were taking it. Visit information Please call in interim with questions, concerns and changes. Do tell your provider when you get sick, hurt, or get a cut that will not stop bleeding. It is important to check your INR on a regular basis and keep your appointments. Knowing your INR number is the only way of knowing if you're taking the amount of warfarin that is correct for you. If you have any bleeding, trauma, falls and/or other medical concerns, call your doctor or seek medical attention right away. Results/Data Coumadin Printed in Appendix #1 below. *Diagnosis/Problems 1. 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 DVT (deep venous thrombosis) (453.40) (I82.409) Signatures Electronically signed by : Chen Lutz R.N.; Oct 31 2021 2:47PM EST (Author) Appendix #1 Coumadin Patient: SEBLE MALONE; : 1975; [id number] 02:[id number] 11:[id number] 12:[id number] 11:[id number] 11:27AM IO PT/INR PT + INR, Plasma PT/INR (POC) Recorded INR Coagulation Screen Current Dose New Dose Recheck in Patient Notified Comments IO [id number] PT, INR Target INR [id number] Normal [facility] Today's INRon 10-31-2021 Today's INR [facility] Anticoagulati on [facility] Work Phone: Today's INR 2-3 Anticoagulati on [facility] Work Phone: Anticoagulation Monitoring S erviceon 10-26-2021 Anticoagulation Monitoring Service No report was sent Normal [facility] Anticoagulation Monitoring S erviceon 09-28-2021 Anticoagulation Monitoring Service Today's INR [id number] IO INR2.5 Target INR range2-3 [facility] History of Present Illness Patient identification verified with 2 patient identifiers. Anticoagulation Monitoring Service: [facility]. Enrollment/Re-enrollment date: October 13, 2021. Re-enrollment fax was sent to Shi Grove MD The patient is being seen as a follow-up for anticoagulation monitoring. Patient had CBC on November 06, 2019: HANDH 15.6/45.8 Patient referred to [facility] by Eddie Whitlock MD Target INR 2-3. Monitoring practitioner Shi Grove MD. Date Warfarin Begun: October 31, 2019. INR monitoring is per [facility] protocol. 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 The patient is currently taking warfarin Tablet strength and color: 5 mg(Manati) Interval History: Patient was last seen: August 24, 2021. Previous INR was 2.5. Incoming total weekly dose 40 mg. Today's Clinic INR: [facility] INR 2.5. Since last visit, the patient reports no bleeding. The patient did not experience clinically relevant bleeding. The patient did not experience other minor bleeding. Since last visit, the patient has not experienced a thrombotic event. The patient reports no change in medication. He reports no change in alcohol consumption. He reports no change in Vitamin K consumption. The patient has taken Warfarin as directed. Management: The patient's INR is within target range. Will maintain dose. Next follow up appointment in 4 week(s). Outgoing total weekly dose 40 mg. Patient instructed to call in interim with questions, concerns and changes. Patient educated on signs of bleeding/clotting. Discussion/Summary You are currently taking Warfarin. Your tablet strength and color: 5 mg(Manati) Next Appointment: Tuesday, October 26, 2021. Time: 11: 30 am. Location: [facility], [address] [place] [address]. Your INR today is within range . You will continue to take your dose as instructed above. Visit information Please call in interim with questions, concerns and changes. Do tell your provider when you get sick, hurt, or get a cut that will not stop bleeding. It is important to check your INR on a regular basis and keep your appointments. Knowing your INR number is the only way of knowing if you're taking the amount of warfarin that is correct for you. If you have any bleeding, trauma, falls and/or other medical concerns, call your doctor or seek medical attention right away. Results/Data Coumadin Printed in Appendix #1 below. *Diagnosis/Problems 1. 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 DVT (deep venous thrombosis) (453.40) (I82.409) Signatures Electronically signed by : Chen Lutz R.N.; Sep 28 2021 11:49AM EST (Author) Appendix #1 Coumadin Patient: SEBLE MALONE; : 1975; [id number] [id number] 12:[id number] 11:[id number] 11:[id number] 11:02AM IO PT/INR PT + INR, Plasma PT/INR (POC) Recorded INR Coagulation Screen Current Dose New Dose Recheck in Patient Notified Comments IO INR2.52.52.42.62.5 PT, INR Target INR [id number] Normal [facility] LABORATORYOrdered By: Yvette Cummins on 09-28-2021 Albumin BCP dye [Mass/Vol] 4.0 G/dL Invalid Interpretation Code 3.5 - 5.0 G/dL AO ADM SS Albumin/Globulin [Mass ratio] 1.2 {ratio} Invalid Interpretation Code 1.1 - 2.5 ratio AO ADM SS ALP [Catalytic activity/Vol] 137 U/L Invalid Interpretation Code 40 - 135 U/L AO ADM SS ALT With P-5'-P [Catalytic activity/Vol] 37 U/L Invalid Interpretation Code 16 - 63 U/L AO ADM SS AST With P-5'-P [Catalytic activity/Vol] 25 U/L Invalid Interpretation Code 10 - 40 U/L AO ADM SS Bilirubin [Mass/Vol] 0.8 mg/dL Invalid Interpretation Code 0.2 - 1.0 mg/dL AO ADM SS Calcium [Mass/Vol] 8.9 mg/dL Invalid Interpretation Code 8.4 - 10.2 mg/dL AO ADM SS Chloride [Moles/Vol] 101 mmol/L Invalid Interpretation Code 98 - 107 mmol/L AO ADM SS CO2 [Moles/Vol] 27 mmol/L Invalid Interpretation Code 22 - 29 mmol/L AO ADM SS Creatinine [Mass/Vol] 1.25 mg/dL Invalid Interpretation Code 0.70 - 1.30 mg/dL AO ADM SS Electrolyte Balance 9.0 mEq/L Invalid Interpretation Code 4.0 - 15.0 mEq/L AO ADM SS Globulin 3.2 G/dL Invalid Interpretation Code AO ADM SS Glucose [Mass/Vol] 101 mg/dL Invalid Interpretation Code 70 - 105 mg/dL AO ADM SS Lactate [Moles/Vol] 1.1 mmol/L Invalid Interpretation Code 0.4 - 2.0 mmol/L AO ADM SS Potassium [Moles/Vol] 3.8 mmol/L Invalid Interpretation Code 3.5 - 5.1 mmol/L AO ADM SS Protein [Mass/Vol] 7.2 G/dL Invalid Interpretation Code 6.4 - 8.2 G/dL AO ADM SS Sodium [Moles/Vol] 137 mmol/L Invalid Interpretation Code 136 - 145 mmol/L AO ADM SS Urea nitrogen [Mass/Vol] 14 mg/dL Invalid Interpretation Code 7 - 18 mg/dL AO ADM SS Urea nitrogen/Creatinine [Mass ratio] 11 ratio Invalid Interpretation Code 7 - 27 ratio AO ADM SS LABORATORYOrdered By: SYSTEM SYSTEM on 09-28-2021 GFR 75 ml/min/1.73sqm Invalid Interpretation Code AO Chemistry S GFR Non- 62 ml/min/1.73sqm Invalid Interpretation Code AO Chemistry S Today's INRon 09-28-2021 Today's INR AMS Anticoagulati on Monitoring [facility] Work Phone: Today's INR 2-3 Anticoagulati on Monitoring [facility] Work Phone: Anticoagulation Monitoring S erviceon 09-20-2021 Anticoagulation Monitoring Service No report was sent Normal Touchwo rks LABORATORYOrdered By: SYSTEM SYSTEM on 09-07-2021 Basophils (Bld) [#/Vol] 0.1 103/mcL Invalid Interpretation Code 0.0 - 0.3 10^3/mcL AH Workflow SS Basophils/100 WBC (Bld) 1.2 % Invalid Interpretation Code 0.0 - 2.5 % AH Workflow SS Eosinophil, Absolute 0.2 103/mcL Invalid Interpretation Code 0.0 - 0.7 10^3/mcL AH Workflow SS Eosinophils/100 WBC (Bld) 4.5 % Invalid Interpretation Code 0.0 - 6.0 % AH Workflow SS Erythrocyte distribution width (RBC) [Ratio] 15.3 % Invalid Interpretation Code 11.5 - 15.5 % AH Workflow SS Hematocrit (Bld) [Volume fraction] 40.2 % Invalid Interpretation Code 40.0 - 52.0 % AH Workflow SS Hgb 13.4 G/dL Invalid Interpretation Code 13.0 - 17.5 G/dL AH Workflow SS Lymphocyte, Absolute 1.5 103/mcL Invalid Interpretation Code 0.9 - 4.3 10^3/mcL AH Workflow SS Lymphocytes/100 WBC (Bld) 34.3 % Invalid Interpretation Code 20.0 - 40.0 % AH Workflow SS MCH (RBC) [Entitic mass] 33.0 pg Invalid Interpretation Code 27.0 - 33.0 pg AH Workflow SS MCHC 33.4 G/dL Invalid Interpretation Code 32.0 - 36.0 G/dL AH Workflow SS MCV (RBC) [Entitic vol] 98.8 fL Invalid Interpretation Code 81.0 - 100.0 fL AH Workflow SS Monocyte distribution width Auto (Bld) [Entitic vol] Not Performed 1 *NA* (09/07/21 10:10 AM) Invalid Interpretation Code 0.00 - 20.00 Hematology S Comment on above: Result Comment: MDW testing performed only on adult ER patients between the ages of 18-89 years. Monocyte, Absolute 0.4 103/mcL Invalid Interpretation Code 0.1 - 1.4 10^3/mcL AH Workflow SS Monocytes/100 WBC (Bld) 8.4 % Invalid Interpretation Code 2.0 - 13.0 % AH Workflow SS Neutrophil, Absolute 2.3 103/mcL Invalid Interpretation Code 2.3 - 8.1 10^3/mcL AH Workflow SS Neutrophils/100 WBC (Bld) 51.6 % Invalid Interpretation Code 50.0 - 75.0 % AH Workflow SS Platelet 208 103/mcL Invalid Interpretation Code 150 - 450 10^3/mcL AH Workflow SS Platelet mean volume (Bld) [Entitic vol] 8.1 fL Invalid Interpretation Code 6.4 - 10.5 fL AH Workflow SS RBC 4.07 106/mcL Invalid Interpretation Code 4.50 - 6.00 10^6/mcL AH Workflow SS WBC 4.4 103/mcL Invalid Interpretation Code 4.5 - 10.8 10^3/mcL AH Workflow SS Office Visit (Cardiology)on 08-28-2021 Follow-up visit Diagnoses/Problems Assessed HFrEF (heart failure with reduced ejection fraction) (428.20) (I50.20) Cardiomyopathy, dilated, nonischemic (425.4) (I42.0) Patient Instructions To reach Dr. Grove's office please call [phone] ([facility]). . Call [phone] to schedule an appointment. You may also contact the HF RNs at [email or web address] (Please include your name and date of ) Thank you for coming to your appointment today. If you have any questions or need cardiac medication refills, please call the Heart Failure Office at [phone] option [phone]. You may also contact the HF RNs at [email or web address] 1. Dr. Grove is in contact with your doctor at [facility] and testing includes: Echocardiogram, Stress Test, and Blood work 2. Please contact our office if you are having trouble at [facility] getting testing completed. Chief Complaint SEBLE MALONE is being seen for a 5 month follow-up of heart failure and a routine medication evaluation. History of Present Illness 45 year old male here for heart failure follow-up. PM/SHx: NICM, DVT, HIT, PE Social Hx: Former smoker quit 6 months ago, denies ETOH, illicit drug use Family Hx: Mother- CHF Interval Hx: Currently denies chest pain, palpitations, shortness of breath, orthopnea, PND. No edema noted in BLE. Patient denies headaches, dizziness or recent falls. Paitent states dyspnea on exertion when walking up his apartment stairs. Hospitalizations: Last hospitalization in October 2019 for advanced therapies workout. Medication adherence: Take as prescribed Diet adherence: Follows regular diet Exercise: Workout 1 hour at the gym 3-4 times a week, and walks. 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) Pulmonary embolism (415.19) (I26.99) Past Medical History Problems DVT (deep venous thrombosis) (453.40) (I82.409) History of Encounter for pre-transplant evaluation for heart transplant (V72.83) (Z01.818) Resolved Date: 20 Feb 2021 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) Current Meds Medication NameInstruction Acetaminophen 325 MG Oral TabletTAKE 1 TO 2 TABLETS EVERY 4 HOURS NEEDED Atorvastatin Calcium 40 MG Oral TabletTAKE 1 TABLET Bedtime Carvedilol 12.5 MG Oral TabletTake 1 tablet twice daily Digoxin 125 MCG Oral TabletTAKE 1 TABLET BY MOUTH EVERY DAY Entresto 97-103 MG Oral TabletTake 1 tablet twice daily Farxiga 10 MG Oral TabletTake 1 tablet daily Ferrous Sulfate 325 (65 Fe) MG Oral TabletTAKE 1 TABLET BY MOUTH THREE TIMES A DAY Furosemide 20 MG Oral TabletTAKE 1 TABLET BY MOUTH DAILY NEEDED hydrALAZINE HCl - 25 MG Oral TabletTAKE 1 TABLET 3 times daily Isosorbide Dinitrate 10 MG Oral TabletTAKE 1 TABLET 3 times daily Magnesium Oxide 400 MG Oral TabletTAKE 1 TABLET BY MOUTH EVERY DAY Spironolactone 25 MG Oral TabletTAKE 1 TABLET BY MOUTH EVERY DAY Ultram 50 MG Oral TabletTAKE 1 TABLET EVERY 6 HOURS NEEDED FOR PAIN Warfarin Sodium 5 MG Oral TabletTAKE 1.5 TABLETS BY MOUTH ONCE A DAY OR DIRECTED BY THE COUMADIN CLINIC. Allergies NoKnown No Known Allergies Updated By: Christy Swartz; 11/18/2019 8:28:06 AM Family History Mother Family history of cardiac pacemaker (V17.49) (Z82.49) Social History Problems Does not use illicit drugs (V49.89) (Z78.9) Former smoker (V15.82) (Z87.891) Started smoking Black AND Milds around age 16 - 18 (socially). Quit May 2019. No alcohol use Review of Systems Constitutional: as noted in HPI. Cardiovascular: as noted in HPI. Respiratory: as noted in HPI. Neurological: as noted in HPI. Vitals Vital Signs Recorded: [id number] 01:37PM Ixsunmikdvk19.2 F Heart Rate73 Pfruddbp473, RUE, Sitting Muelxdory82, RUE, Sitting Blood Pressure Cuff SizeLarge Height5 ft 10 in Anwgks975 lb 6 oz BMI Oqvunrpfxs71.05 kg/m2 BSA Calculated2.19 Tobacco Useb) No Fall Screeninga) No falls within the last year O2 Zhypwwhjeo84 Physical Exam No JVD RRR No LE edema Impressions 45 year old AA man, from [facility]. 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 He has not been hospitalized since I last saw him. He is describing HUBBARD several times per week, and dyspnea when leaning down. He looks euvolemic today, but bendopnea testing is positive on my exam. Medical history: -- Tobacco and marijuana smoker -- last use August 2019, has had clean tox screens monthly from [facility] -- +HIT (+PF4) -- Modest iron deficiency anemia -- Bilateral PEs (08/2019) on warfarin Cardiac history: -- Non-ischemic cardiomyopathy, suspi (more content not included)... Normal Soundl.ly Tobacco Screening.on 022 Fall risk assessment a) No falls within the last year [facility] [address] Work Phone: Tobacco use status [facility] b) No [facility] [address] Work Phone: Tobacco Screening. Large MG-[facility] [address] Work Phone: Anticoagulation Monitoring S shanice 08-24-2021 Anticoagulation Monitoring Service Today's INR [id number] IO INR2.5 Target INR range2-3 SourceAMS History of Present Illness Patient identification verified with 2 patient identifiers. Anticoagulation Monitoring Service: [facility]. Enrollment/Re-enrollment date: October 13, 2021. The patient is being seen as a follow-up for anticoagulation monitoring. Patient had CBC on November 06, 2019: HANDH 15.6/45.8 Patient referred to [facility] by Eddie Whitlock MD Target INR 2-3. Monitoring practitioner Shi Grove MD. Date Warfarin Begun: October 31, 2019. INR monitoring is per [facility] protocol. 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 The patient is currently taking warfarin Tablet strength and color: 5 mg(Manati) Interval History: Patient was last seen: August 10, 2021. Previous INR was 2.4. Incoming total weekly dose 40 mg. Today's Clinic INR: [facility] INR 2.5. Since last visit, the patient reports no bleeding. The patient did not experience clinically relevant bleeding. The patient did not experience other minor bleeding. Since last visit, the patient has not experienced a thrombotic event. The patient reports no change in medication. He reports no change in alcohol consumption. He reports no change in Vitamin K consumption. The patient has taken Warfarin as directed. Management: The patient's INR is within target range. Will maintain dose. Next follow up appointment in 4 week(s). Outgoing total weekly dose 40 mg. Patient instructed to call in interim with questions, concerns and changes. Patient educated on signs of bleeding/clotting. Patient educated on compliance with dosing, follow up appointments, and prescribed plan of care. Discussion/Summary You are currently taking Warfarin. Your tablet strength and color: 5 mg(Manati) Next Appointment: September. Time: 11: 30 am. Location: [facility], . Your INR today is within range . You will continue to take your dose as instructed above. Visit information Please call in interim with questions, concerns and changes. Do tell your provider when you get sick, hurt, or get a cut that will not stop bleeding. It is important to check your INR on a regular basis and keep your appointments. Knowing your INR number is the only way of knowing if you're taking the amount of warfarin that is correct for you. If you have any bleeding, trauma, falls and/or other medical concerns, call your doctor or seek medical attention right away. Results/Data Coumadin Printed in Appendix #1 below. *Diagnosis/Problems 1. 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 DVT (deep venous thrombosis) (453.40) (I82.409) Signatures Electronically signed by : Chen Lutz R.N.; Aug 24 2021 12:04PM EST (Author) Appendix #1 Coumadin Patient: SEBLE MALONE; : 1975; [id number] 12:[id number] 11:[id number] 11:[id number] 11:[id number] 03:33PM IO PT/INR PT + INR, Plasma PT/INR (POC) Recorded INR Coagulation Screen Current Dose New Dose Recheck in Patient Notified Comments IO [id number] PT, INR Target INR [id number] Normal Touchworks Today's INRon 08-24-2021 Today's INR AMS Anticoagulati on [facility] Work Phone: Today's INR 2-3 [facility]tico[facility] Monitoring S erviceon 08-22-2021 Anticoagulation Monitoring Service No report was sent Normal Touchwo rks Anticoagulation Monitoring S erviceon 08-10-2021 Anticoagulation Monitoring Service Today's INR [id number] IO INR2.4 Target INR range2-3 SourceAMS History of Present Illness Patient identification verified with 2 patient identifiers. Anticoagulation Monitoring Service: [facility]. Enrollment/Re-enrollment date: October 12, 2023. The patient is being seen as a follow-up for anticoagulation monitoring. Patient had CBC on November 06, 2019: HANDH 15.6/45.8 Patient referred to [facility] by Eddie Whitlock MD Target INR 2-3. Monitoring practitioner Shi Grove MD. Date Warfarin Begun: October 31, 2019. INR monitoring is per [facility] protocol. 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 The patient is currently taking warfarin Tablet strength and color: 5 mg(Manati) Interval History: Patient was last seen: July 27, 2021. Previous INR was 2.6. Incoming total weekly dose 40 mg. Today's Clinic INR: [facility] INR 2.4. Since last visit, the patient reports no bleeding. The patient did not experience clinically relevant bleeding. The patient did not experience other minor bleeding. Since last visit, the patient has not experienced a thrombotic event. The patient reports no change in medication. He reports no change in alcohol consumption. He reports no change in Vitamin K consumption. The patient has taken Warfarin as directed. Management: The patient's INR is within target range. Will maintain dose. Next follow up appointment in 2 week(s). Outgoing total weekly dose 40 mg. Patient instructed to call in interim with questions, concerns and changes. Discussion/Summary You are currently taking Warfarin. Your tablet strength and color: 5 mg(Manati) Next Appointment: Tuesday, August 24, 2021. Time: 11: 30 am. Location: [facility], . Your INR today is within range . You will continue to take your dose as instructed above. Visit information Please call in interim with questions, concerns and changes. Do tell your provider when you get sick, hurt, or get a cut that will not stop bleeding. If you have any bleeding, trauma, falls and/or other medical concerns, call your doctor or seek medical attention right away. Results/Data Coumadin Printed in Appendix #1 below. *Diagnosis/Problems 1. 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 DVT (deep venous thrombosis) (453.40) (I82.409) Signatures Electronically signed by : Chen Lutz R.N.; Aug 10 2021 11:25AM EST (Author) Appendix #1 Coumadin Patient: SEBLE MALONE; : 1975; [id number] 11:[id number] 11:[id number] 11:[id number] 03:[id number] 11:33AM IO PT/INR PT + INR, Plasma PT/INR (POC) Recorded INR Coagulation Screen Current Dose New Dose Recheck in Patient Notified Comments IO [id number] PT, INR Target INR [id number] Normal Soundl.ly Today's INRon 08-10-2021 Today's INR AMS Anticoagulati on [facility] Work Phone: Today's INR 2-3 Anticoagulati on [facility] Work Phone: Anticoagulation Monitoring S erviceon 07-27-2021 Anticoagulation Monitoring Service Today's INR [id number] IO INR2.6 Target INR range2-3 SourceAMS History of Present Illness Patient identification verified with 2 patient identifiers. Anticoagulation Monitoring Service: [facility]. Enrollment/Re-enrollment date: October 12, 2023. The patient is being seen as a follow-up for anticoagulation monitoring. Patient had CBC on November 06, 2019: HANDH 15.6/45.8 Patient referred to [facility] by Eddie Whitlock MD Target INR 2-3. Monitoring practitioner Shi Grove MD. Date Warfarin Begun: October 31, 2019. INR monitoring is per [facility] protocol. 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 The patient is currently taking warfarin Tablet strength and color: 5 mg(Manati) Interval History: Patient was last seen: July 20, 2021. Previous INR was 1.9. Incoming total weekly dose 40 mg. Today's Clinic INR: [facility] INR 2.6. Since last visit, the patient reports no bleeding. The patient did not experience clinically relevant bleeding. The patient did not experience other minor bleeding. Since last visit, the patient has not experienced a thrombotic event. The patient reports a change in medication. The patient stopped or started OTC and/or herbal medication. Patient reports that he has been taking OTC allergy medications and Tylenol PM. He reports no change in alcohol consumption. He reports no change in Vitamin K consumption. The patient has taken Warfarin as directed. Management: The patient's INR is within target range. Will maintain dose. Next follow up appointment in 2 week(s). Outgoing total weekly dose 40 mg. Patient instructed to call in interim with questions, concerns and changes. Patient educated on interactions between medications and warfarin. Patient educated on affects of alcohol consumption while taking warfarin. Patient educated on signs of bleeding/clotting. Patient educated on compliance with dosing, follow up appointments, and prescribed plan of care. Discussion/Summary You are currently taking Warfarin. Your tablet strength and color: 5 mg(Manati) Next Appointment: August 10, 2021. Time: 11: 15 am. Location: [facility], . Your INR today is within range . You will continue to take your dose as instructed above. Visit information Please call in interim with questions, concerns and changes. Do tell your provider when you get sick, hurt, or get a cut that will not stop bleeding. Taking a new medication may change your INR. Please inform your provider of any medication changes. Your INR may change because of how much alcohol you drink. It is important to check your INR on a regular basis and keep your appointments. Knowing your INR number is the only way of knowing if you're taking the amount of warfarin that is correct for you. If you have any bleeding, trauma, falls and/or other medical concerns, call your doctor or seek medical attention right away. Results/Data Coumadin Printed in Appendix #1 below. *Diagnosis/Problems 1. DVT (deep venous thrombosis) (453.40) (I82.409) Signatures Electronically signed by : Nate Modi R.N.; Jul 27 2021 11:30AM EST (Author) Appendix #1 Coumadin Patient: SEBLE MALONE; : 1975; [id number] 11:[id number] 11:[id number] 03:[id number] 11:[id number] 11:[id number] 08:18AM IO PT/INR PT + INR, Plasma PT/INR (POC) Recorded INR Coagulation Screen Current Dose New Dose Recheck in Patient Notified Comments IO INR2.62.51.91.55 PT, INR2.3 Target INR [id number] Normal Touchworks Today's INRon 07-27-2021 Today's INR [facility]MS Anticoagulati on [facility] Work Phone: Today's INR 2-3 Anticoagulati on [facility] Work Phone: Anticoagulation Monitoring S erviceon 07-20-2021 Anticoagulation Monitoring Service Today's INR [id number] IO INR2.5 Target INR range2-3 SourceAdditional Facility History of Present Illness Patient identification verified with 2 patient identifiers. Anticoagulation Monitoring Service: [facility]. Enrollment/Re-enrollment date: October 12, 2023. The patient is being seen as a follow-up for anticoagulation monitoring. Patient had CBC on November 06, 2019: HANDH 15.6/45.8 Patient referred to [facility] by Eddie Whitlock MD Target INR 2-3. Monitoring practitioner Shi Grove MD. Date Warfarin Begun: October 31, 2019. INR monitoring is per [facility] protocol. 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 The patient is currently taking warfarin Tablet strength and color: 5 mg(Manati) Interval History: Patient was last seen: July 11, 2021. Previous INR was 1.9. Incoming total weekly dose 40 mg. Today's Clinic INR: [facility] INR 2.5. Since last visit, the patient reports no bleeding. The patient did not experience clinically relevant bleeding. The patient did not experience other minor bleeding. Since last visit, the patient has not experienced a thrombotic event. The patient reports a change in medication. The patient stopped or started OTC and/or herbal medication. Patient reports that he has been taking OTC allergy medications and Tylenol PM. He reports no change in alcohol consumption. He reports no change in Vitamin K consumption. The patient has taken Warfarin as directed. Management: The patient's INR is within target range. Will maintain dose. Next follow up appointment in 1 week(s). Outgoing total weekly dose 40 mg. Patient instructed to call in interim with questions, concerns and changes. Patient educated on interactions between medications and warfarin. Patient educated on affects of alcohol consumption while taking warfarin. Patient educated on signs of bleeding/clotting. Patient educated on compliance with dosing, follow up appointments, and prescribed plan of care. Discussion/Summary You are currently taking Warfarin. Your tablet strength and color: 5 mg(Manati) Next Appointment: July 27, 2021. Time: 11: 15 am. Location: [facility], . Visit information Please call in interim with questions, concerns and changes. Do tell your provider when you get sick, hurt, or get a cut that will not stop bleeding. Taking a new medication may change your INR. Please inform your provider of any medication changes. Your INR may change because of how much alcohol you drink. It is important to check your INR on a regular basis and keep your appointments. Knowing your INR number is the only way of knowing if you're taking the amount of warfarin that is correct for you. If you have any bleeding, trauma, falls and/or other medical concerns, call your doctor or seek medical attention right away. Results/Data Coumadin Printed in Appendix #1 below. *Diagnosis/Problems 1. DVT (deep venous thrombosis) (453.40) (I82.409) Signatures Electronically signed by : Nate Modi R.N.; Jul 20 2021 11:06AM EST (Author) Electronically signed by : Nate Modi R.N.; Jul 20 2021 11:08AM EST (Author) Appendix #1 Coumadin Patient: SEBLE MALONE; : 1975; [id number] 11:[id number] 03:[id number] 11:[id number] 11:[id number] 11:09AM IO PT/INR PT + INR, Plasma PT/INR (POC) Recorded INR Coagulation Screen Current Dose New Dose Recheck in Patient Notified Comments IO INR2.51.91.553 PT, INR Target INR [id number] Normal Touchworks Today's INRon 07-20-2021 Today's INR Additional Facility Anti coagulation [facility] Work Phone: Today's INR 2-3 Anticoagulati on [facility] Work Phone: Anticoagulation Monitoring S liameon 07-11-2021 Anticoagulation Monitoring Service Today's INR [id number] IO INR1.9 Target INR range2-3 SourceAMS History of Present Illness Patient identification verified with 2 patient identifiers. Anticoagulation Monitoring Service: [facility]. Enrollment/Re-enrollment date: October 12, 2023. The patient is being seen as a follow-up for anticoagulation monitoring. Patient had CBC on November 06, 2019: HANDH 15.6/45.8 Patient referred to [facility] by Eddie Whitlock MD Target INR 2-3. Monitoring practitioner Shi Grove MD. Date Warfarin Begun: October 31, 2019. INR monitoring is per [facility] protocol. 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 The patient is currently taking warfarin Tablet strength and color: 5 mg(Manati) Interval History: Patient was last seen: July 06, 2021. Previous INR was 1.5. Incoming total weekly dose 37.5 mg. Today's Clinic INR: [facility] INR 1.9. Since last visit, the patient reports no bleeding. The patient did not experience clinically relevant bleeding. The patient did not experience other minor bleeding. Since last visit, the patient has not experienced a thrombotic event. The patient reports a change in medication. The patient stopped or started OTC and/or herbal medication. Patient reports that he has been taking OTC allergy medications and Tylenol PM. He reports no change in alcohol consumption. He reports no change in Vitamin K consumption. The patient has taken Warfarin as directed. See above notations. Management: The patient's INR is subtherapeutic. Will increase dose per protocol by approximately 5%. Next follow up appointment in 1 week(s). Outgoing total weekly dose 40 mg. Patient instructed to call in interim with questions, concerns and changes. Patient educated on interactions between medications and warfarin. Patient educated on affects of alcohol consumption while taking warfarin. Patient educated on signs of bleeding/clotting. Patient educated on compliance with dosing, follow up appointments, and prescribed plan of care. Discussion/Summary You are currently taking Warfarin. Your tablet strength and color: 5 mg(Manati) Next Appointment: July 20, 2021. Time: 11: 00 am. Location: [facility], . Your INR today is lower than your target range, you may be at risk for forming blood clots. Change your dosing as instructed above. Visit information Please call in interim with questions, concerns and changes. Do tell your provider when you get sick, hurt, or get a cut that will not stop bleeding. Taking a new medication may change your INR. Please inform your provider of any medication changes. Your INR may change because of how much alcohol you drink. It is important to check your INR on a regular basis and keep your appointments. Knowing your INR number is the only way of knowing if you're taking the amount of warfarin that is correct for you. If you have any bleeding, trauma, falls and/or other medical concerns, call your doctor or seek medical attention right away. Results/Data Coumadin Printed in Appendix #1 below. *Diagnosis/Problems 1. DVT (deep venous thrombosis) (453.40) (I82.409) Signatures Electronically signed by : Nate Modi R.N.; Jul 11 2021 3:40PM EST (Author) Electronically signed by : Nate Modi R.N.; Jul 11 2021 3:41PM EST (Author) Appendix #1 Coumadin Patient: SEBLE MALONE; : 1975; [id number] 03:[id number] 11:[id number] 11:[id number] 11:[id number] 11:28AM IO PT/INR PT + INR, Plasma PT/INR (POC) Recorded INR Coagulation Screen Current Dose New Dose Recheck in Patient Notified Comments IO INR1.91.5532.3 PT, INR Target INR [id number] Normal Soundl.ly Today's INRon 07-11-2021 Today's INR AMS Anticoagulati on [facility] Work Phone: Today's INR 2-[facility]: [facility] S shanice 07-06-2021 Anticoagulation Monitoring Service Today's INR [id number] IO INR1.5 Target INR range2-3 SourceAMS History of Present Illness Patient identification verified with 2 patient identifiers. Anticoagulation Monitoring Service: [facility]. Enrollment/Re-enrollment date: October 12, 2023. The patient is being seen as a follow-up for anticoagulation monitoring. Patient had CBC on November 06, 2019: [facility] 15.6/45.8 Patient referred to [facility] by Eddie Whitlock MD Target INR 2-3. Monitoring practitioner Shi Grove MD. Date Warfarin Begun: October 31, 2019. INR monitoring is per [facility] protocol. 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 The patient is currently taking warfarin Tablet strength and color: 5 mg(Manati) Interval History: Patient was last seen: July 03, 2021. Previous INR was 5. Two doses of warfarin were held and TWD was maintained at time of last appointment per orders received directly from Dr. Grove. Incoming total weekly dose 37.5 mg. Today's Clinic INR: [facility] INR 1.5. Since last visit, the patient reports no bleeding. The patient did not experience clinically relevant bleeding. The patient did not experience other minor bleeding. Since last visit, the patient has not experienced a thrombotic event. The patient reports a change in medication. The patient stopped or started OTC and/or herbal medication. Patient reports that he has been taking OTC allergy medications and Tylenol PM. He reports a change in alcohol consumption. Previously supratherapeutic INR thought to be results of alcohol consumption on evening prior to POCT appointment. He reports no change in Vitamin K consumption. The patient has taken Warfarin as directed. See above notations. Management: The patient's INR is subtherapeutic. Will maintain dose. Next follow up appointment in 3-5 day(s). Outgoing total weekly dose 37.5 mg. Patient instructed to call in interim with questions, concerns and changes. Patient educated on interactions between medications and warfarin. Patient educated on affects of alcohol consumption while taking warfarin. Patient educated on signs of bleeding/clotting. Patient educated on compliance with dosing, follow up appointments, and prescribed plan of care. Discussion/Summary You are currently taking Warfarin. Your tablet strength and color: 5 mg(Manati) Next Appointment: Sunday, July 11, 2021. Time: 3: 30 pm. Location: [facility], . Your INR today is lower than your target range, you may be at risk for forming blood clots. Maintain your dose as you were taking it. Visit information Please call in interim with questions, concerns and changes. Do tell your provider when you get sick, hurt, or get a cut that will not stop bleeding. Taking a new medication may change your INR. Please inform your provider of any medication changes. Your INR may change because of how much alcohol you drink. It is important to check your INR on a regular basis and keep your appointments. Knowing your INR number is the only way of knowing if you're taking the amount of warfarin that is correct for you. If you have any bleeding, trauma, falls and/or other medical concerns, call your doctor or seek medical attention right away. Results/Data Coumadin Printed in Appendix #1 below. *Diagnosis/Problems 1. DVT (deep venous thrombosis) (453.40) (I82.409) Signatures Electronically signed by : Chen Lutz R.N.; Jul 06 2021 11:36AM EST (Author) Appendix #1 Coumadin Patient: SEBLE MALONE; : 1975; [id number] 11:[id number] 11:[id number] 11:[id number] 11:[id number] 11:05AM IO PT/INR PT + INR, Plasma PT/INR (POC) Recorded INR Coagulation Screen Current Dose New Dose Recheck in Patient Notified Comments IO [id number] PT, INR Target INR -56-24-32-32-3 Normal Touchworks Today's INRon 07-06-2021 Today's INR AMS Anticoagulati on [facility] Work Phone: Today's INR 2-3 Anticoagulati on [facility] Work Phone: Anticoagulation Monitoring S erviceon 07-03-2021 Anticoagulation Monitoring Service Today's INR [id number] IO INR5 Target INR range2-3 SourceAMS History of Present Illness Patient identification verified with 2 patient identifiers. Anticoagulation Monitoring Service: [facility]. Enrollment/Re-enrollment date: October 11, 2021. The patient is being seen as a follow-up for anticoagulation monitoring. Patient had CBC on November 06, 2019: [facility] 15.6/45.8 Patient referred to [facility] by Eddie Whitlock MD Target INR 2-3. Monitoring practitioner Shi Grove MD. Date Warfarin Begun: October 31, 2019. INR monitoring is per [facility] protocol. 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 The patient is currently taking warfarin Tablet strength and color: 5 mg(Manati) Interval History: Patient was last seen: June 19, 2021. Previous INR was 3. Incoming total weekly dose 37.5 mg. Today's Clinic INR: [facility] INR 5.0. Since last visit, the patient reports no bleeding. The patient did not experience clinically relevant bleeding. The patient did not experience other minor bleeding. Since last visit, the patient has not experienced a thrombotic event. The patient reports no change in medication. He reports a change in alcohol consumption. Pt had mixed drinks last night. He stated he typically does not drink alcohol during the week. He reports no change in Vitamin K consumption. The patient has taken Warfarin as directed. Management: The patient's INR is supratherapeutic. The INR is greater than 5, Dr. Grove was contacted and discussed plan. Hold 2 doses. Will maintain current dose. Dr. Grove notified of INR result via [employer]. He agrees with dosing and POC. Next follow up appointment in 3 day(s). Outgoing total weekly dose 37.5 mg. Patient instructed to call in interim with questions, concerns and changes. Patient educated on interactions between medications and warfarin. Patient educated on signs of bleeding/clotting. Discussion/Summary You are currently taking Warfarin. Your tablet strength and color: 5 mg(Manati) Next Appointment: July 06, 2021. Time: 11: 15 am. Location: [facility], . Your INR today is higher than your target range, you may be at risk for bleeding. Please hold Coumadin/Warfarin dose(s) for 2 day(s). Maintain your dose as you were taking it. Visit information Please call in interim with questions, concerns and changes. Do tell your provider when you get sick, hurt, or get a cut that will not stop bleeding. Taking a new medication may change your INR. Please inform your provider of any medication changes. If you have any bleeding, trauma, falls and/or other medical concerns, call your doctor or seek medical attention right away. Results/Data Coumadin Printed in Appendix #1 below. *Diagnosis/Problems 1. 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 DVT (deep venous thrombosis) (453.40) (I82.409) Signatures Electronically signed by : Sheri Avitia R.N.; Jul 03 2021 11:31AM EST (Author) Appendix #1 Coumadin Patient: SEBLE MALONE; : 1975; [id number] 11:[id number] 11:[id number] 11:[id number] 11:[id number] 11:23AM IO PT/INR PT + INR, Plasma PT/INR (POC) Recorded INR Coagulation Screen Current Dose New Dose Recheck in Patient Notified Comments IO [id number] PT, INR Target INR -50-18-32-32-3 Normal Touchapstrata Today's INRon 07-03-2021 Today's INR 2-3 [facility] Work Phone: Today's INR AMS [facility] Work Phone: Anticoagulation Monitoring S erviceon 06-19-2021 Anticoagulation Monitoring Service Today's INR [id number] IO INR3 Target INR range2-3 SourceAMS History of Present Illness Patient identification verified with 2 patient identifiers. Anticoagulation Monitoring Service: [facility]. Enrollment/Re-enrollment date: October 11, 2021. The patient is being seen as a follow-up for anticoagulation monitoring. Patient had CBC on November 06, 2019: [facility] 15.6/45.8 Patient referred to [facility] by Eddie Whitlock MD Target INR 2-3. Monitoring practitioner Shi Grove MD. Date Warfarin Begun: October 31, 2019. INR monitoring is per [facility] protocol. 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 The patient is currently taking warfarin Tablet strength and color: 5 mg(Manati) Interval History: Patient was last seen: June 05, 2021. Previous INR was 2.3. Incoming total weekly dose 37.5 mg. Today's Clinic INR: [facility] INR 3. Since last visit, the patient reports no bleeding. The patient did not experience clinically relevant bleeding. The patient did not experience other minor bleeding. Since last visit, the patient has not experienced a thrombotic event. The patient reports no change in medication. He reports no change in alcohol consumption. He reports no change in Vitamin K consumption. The patient has taken Warfarin as directed. Management: The patient's INR is within target range. Will maintain dose. Next follow up appointment in 2 week(s). Outgoing total weekly dose 37.5 mg. Patient instructed to call in interim with questions, concerns and changes. Patient educated on interactions between medications and warfarin. Patient educated on signs of bleeding/clotting. Discussion/Summary You are currently taking Warfarin. Your tablet strength and color: 5 mg(Manati) Next Appointment: July 03, 2021. Time: 11: 15 am. Location: [facility], . Your INR today is within range . You will continue to take your dose as instructed above. Visit information Please call in interim with questions, concerns and changes. Do tell your provider when you get sick, hurt, or get a cut that will not stop bleeding. Taking a new medication may change your INR. Please inform your provider of any medication changes. If you have any bleeding, trauma, falls and/or other medical concerns, call your doctor or seek medical attention right away. Results/Data Coumadin Printed in Appendix #1 below. *Diagnosis/Problems 1. DVT (deep venous thrombosis) (453.40) (I82.409) Signatures Electronically signed by : Nate Modi R.N.; Jun 19 2021 11:13AM EST (Author) Appendix #1 Coumadin Patient: SEBLE MALONE; : 1975; [id number] 11:[id number] 11:[id number] 11:[id number] 11:[id number] 11:05AM IO PT/INR PT + INR, Plasma PT/INR (POC) Recorded INR Coagulation Screen Current Dose New Dose Recheck in Patient Notified Comments IO INR32.32.91.84 PT, INR Target INR [id number] Normal Touchworks Today's INRon 06-19-2021 Today's INR AMS Anticoagulati on [facility] Work Phone: Today's INR 2-3 Anticoagulati on [facility] Work Phone: Anticoagulation Monitoring S erviceon 06-05-2021 Anticoagulation Monitoring Service Today's INR [id number] IO INR2.3 Target INR range2-3 SourceAMS History of Present Illness Patient identification verified with 2 patient identifiers. Anticoagulation Monitoring Service: [facility]. Enrollment/Re-enrollment date: October 11, 2021. The patient is being seen as a follow-up for anticoagulation monitoring. Patient had CBC on November 06, 2019: [facility] 15.6/45.8 Patient referred to [facility] by Eddie Whitlock MD Target INR 2-3. Monitoring practitioner Shi Grove MD. Date Warfarin Begun: October 31, 2019. INR monitoring is per [facility] protocol. 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 The patient is currently taking warfarin Tablet strength and color: 5 mg(Manati) Interval History: Patient was last seen: May 29, 2021. Previous INR was 2.9. Incoming total weekly dose 37.5 mg. Today's Clinic INR: [facility] INR 2.3. Since last visit, the patient reports no bleeding. The patient did not experience clinically relevant bleeding. The patient did not experience other minor bleeding. Since last visit, the patient has not experienced a thrombotic event. The patient reports no change in medication. He reports no change in alcohol consumption. He reports no change in Vitamin K consumption. The patient has taken Warfarin as directed. Management: The patient's INR is within target range. Will maintain dose. Next follow up appointment in 2 week(s). Outgoing total weekly dose 37.5 mg. Patient instructed to call in interim with questions, concerns and changes. Patient educated on interactions between medications and warfarin. Patient educated on signs of bleeding/clotting. Discussion/Summary You are currently taking Warfarin. Your tablet strength and color: 5 mg(Manati) Next Appointment: Saturday, June 19, 2021. Time: 11: 00 am. Location: [facility], . Your INR today is within range . You will continue to take your dose as instructed above. Visit information Please call in interim with questions, concerns and changes. Do tell your provider when you get sick, hurt, or get a cut that will not stop bleeding. Taking a new medication may change your INR. Please inform your provider of any medication changes. If you have any bleeding, trauma, falls and/or other medical concerns, call your doctor or seek medical attention right away. Results/Data Coumadin Printed in Appendix #1 below. *Diagnosis/Problems 1. DVT (deep venous thrombosis) (453.40) (I82.409) Signatures Electronically signed by : Tere Hernandez R.N.; Jun 05 2021 11:30AM EST (Author) Appendix #1 Coumadin Patient: SEBLE MALONE; : 1975; [id number] 11:[id number] 11:[id number] 11:[id number] 11:[id number] 11:16AM IO PT/INR PT + INR, Plasma PT/INR (POC) Recorded INR Coagulation Screen Current Dose New Dose Recheck in Patient Notified Comments IO INR2.32.91.842.8 PT, INR Target INR -14-99-32-32-3 Normal Soundl.ly Today's INRon 06-05-2021 Today's INR 2-3 Anticoagulati on [facility] Work Phone: Today's INR AMS Anticoagulati on [facility] Work Phone: Anticoagulation Monitoring S erviceon 05-29-2021 Anticoagulation Monitoring Service Today's INR [id number] IO INR2.9 Target INR range2-3 SourceAMS History of Present Illness Patient identification verified with 2 patient identifiers. Anticoagulation Monitoring Service: [facility]. Enrollment/Re-enrollment date: October 11, 2021. The patient is being seen as a follow-up for anticoagulation monitoring. Patient had CBC on November 06, 2019: [facility] 15.6/45.8 Patient referred to [facility] by Eddie Whitlock MD Target INR 2-3. Monitoring practitioner Shi Grove MD. Date Warfarin Begun: October 31, 2019. INR monitoring is per [facility] protocol. 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 The patient is currently taking warfarin Tablet strength and color: 5 mg(Manati) Interval History: Patient was last seen: May 22, 2021. Previous INR was 1.8. Incoming total weekly dose 37.5 mg. Today's Clinic INR: [facility] INR 2.9. Since last visit, the patient reports no bleeding. The patient did not experience clinically relevant bleeding. The patient did not experience other minor bleeding. Since last visit, the patient has not experienced a thrombotic event. The patient reports no change in medication. Pt started taking Farxiga this past week 2weeks ago. He reports no change in alcohol consumption. He reports no change in Vitamin K consumption. The patient has taken Warfarin as directed. Management: The patient's INR is within target range. Will maintain dose. Next follow up appointment in 1 week(s). Outgoing total weekly dose 37.5 mg. Patient instructed to call in interim with questions, concerns and changes. Patient educated on interactions between medications and warfarin. Patient educated on signs of bleeding/clotting. Discussion/Summary You are currently taking Warfarin. Your tablet strength and color: 5 mg(Manati) Next Appointment: June 05, 2021. Time: 11: 15 am. Location: [facility], . Your INR today is within range . You will continue to take your dose as instructed above. Visit information Please call in interim with questions, concerns and changes. Do tell your provider when you get sick, hurt, or get a cut that will not stop bleeding. Taking a new medication may change your INR. Please inform your provider of any medication changes. If you have any bleeding, trauma, falls and/or other medical concerns, call your doctor or seek medical attention right away. Results/Data Coumadin Printed in Appendix #1 below. *Diagnosis/Problems 1. Cardiomyopathy, dilated, nonischemic (425.4) (I42.0) Signatures Electronically signed by : Nate Modi R.N.; May 29 2021 11:07AM EST (Author) Appendix #1 Coumadin Patient: SEBLE MALONE; : 1975; [id number] 11:[id number] 11:[id number] 11:[id number] 11:[id number] 10:18AM IO PT/INR PT + INR, Plasma PT/INR (POC) Recorded INR Coagulation Screen Current Dose New Dose Recheck in Patient Notified Comments IO INR2.91.842.82.4 PT, INR Target INR [id number] Normal Touchworks Today's INRon 05-29-2021 Today's INR AMS Anticoagulati on [facility] Work Phone: Today's INR 2-3 Anticoagulati on [facility] Work Phone: Anticoagulation Monitoring S erviceon 05-22-2021 Anticoagulation Monitoring Service Today's INR [id number] IO INR1.8 Target INR range2-3 SourceAMS History of Present Illness Patient identification verified with 2 patient identifiers. Anticoagulation Monitoring Service: [facility]. Enrollment/Re-enrollment date: October 11, 2021. The patient is being seen as a follow-up for anticoagulation monitoring. Patient had CBC on November 06, 2019: [facility] 15.6/45.8 Patient referred to [facility] by Eddie Whitlock MD Target INR 2-3. Monitoring practitioner Shi Grove MD. Date Warfarin Begun: October 31, 2019. INR monitoring is per [facility] protocol. 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 The patient is currently taking warfarin Tablet strength and color: 5 mg(Manati) Interval History: Patient was last seen: May 15, 2021. Previous INR was 4. Incoming total weekly dose 35 mg. Today's Clinic INR: [facility] INR 1.8. Since last visit, the patient reports no bleeding. The patient did not experience clinically relevant bleeding. The patient did not experience other minor bleeding. Since last visit, the patient has not experienced a thrombotic event. The patient reports no change in medication. Pt started taking Farxiga this past week. He reports no change in alcohol consumption. He reports no change in Vitamin K consumption. The patient has taken Warfarin as directed. Management: The patient's INR is subtherapeutic. Will increase dose per protocol by approximately 5%. Next follow up appointment in 1 week(s). Outgoing total weekly dose 37.5 mg. Patient instructed to call in interim with questions, concerns and changes. Patient educated on interactions between medications and warfarin. Patient educated on signs of bleeding/clotting. Discussion/Summary You are currently taking Warfarin. Your tablet strength and color: 5 mg(Manati) Next Appointment: Saturday, May 29, 2021. Time: 11: 00 am. Location: [facility], . Your INR today is lower than your target range, you may be at risk for forming blood clots. Change your dosing as instructed above. Visit information Please call in interim with questions, concerns and changes. Do tell your provider when you get sick, hurt, or get a cut that will not stop bleeding. Taking a new medication may change your INR. Please inform your provider of any medication changes. If you have any bleeding, trauma, falls and/or other medical concerns, call your doctor or seek medical attention right away. Results/Data Coumadin Printed in Appendix #1 below. *Diagnosis/Problems 1. DVT (deep venous thrombosis) (453.40) (I82.409) Signatures Electronically signed by : Tere Hernandez R.N.; May 22 2021 11:28AM EST (Author) Appendix #1 Coumadin Patient: SEBLE MALONE; : 1975; [id number] 11:[id number] 11:[id number] 11:[id number] 10:[id number] 09:33AM IO PT/INR PT + INR, Plasma PT/INR (POC) Recorded INR Coagulation Screen Current Dose New Dose Recheck in Patient Notified Comments IO INR1.842.82.41.8 PT, INR Target INR [id number] Normal Touchworks Today's INRon 05-22-2021 Today's INR 2-3 Anticoagulati on [facility] Work Phone: Today's INR AMS [facility] Monitoring S shanice 05-15-2021 Anticoagulation Monitoring Service Today's INR [id number] IO INR4 Target INR range2-3 SourceAMS History of Present Illness Patient identification verified with 2 patient identifiers. Anticoagulation Monitoring Service: [facility]. Enrollment/Re-enrollment date: October 11, 2021. The patient is being seen as a follow-up for anticoagulation monitoring. Patient had CBC on November 06, 2019: HANDH 15.6/45.8 Patient referred to [facility] by Eddie Whitlock MD Target INR 2-3. Monitoring practitioner Shi Grove MD. Date Warfarin Begun: October 31, 2019. INR monitoring is per [facility] protocol. 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 The patient is currently taking warfarin Tablet strength and color: 5 mg(Manati) Interval History: Patient was last seen: April 27, 2021. Previous INR was 2.8. Incoming total weekly dose 37.5 mg. Today's Clinic INR: [facility] INR 4.0. Since last visit, the patient reports no bleeding. The patient did not experience clinically relevant bleeding. The patient did not experience other minor bleeding. Since last visit, the patient has not experienced a thrombotic event. The patient reports a change in medication. Pt started taking Farxiga this past week. He reports no change in alcohol consumption. He reports no change in Vitamin K consumption. Pt states his salad intake has decreased this past week. The patient has taken Warfarin as directed. Management: The patient's INR is supratherapeutic. Hold 2 doses. Will decrease dose per protocol by approximately Next follow up appointment in 2 week(s). Outgoing total weekly dose 37.5 mg. Patient instructed to call in interim with questions, concerns and changes. Patient educated on interactions between medications and warfarin. Patient educated on signs of bleeding/clotting. Discussion/Summary You are currently taking Warfarin. Your tablet strength and color: 5 mg(Manati) Next Appointment: May 22, 2021. Time: 11: 00 am. Location: [facility], . Your INR today is higher than your target range, you may be at risk for bleeding. Please hold Coumadin/Warfarin dose(s) for 2 day(s). Change your dosing as instructed above. Visit information Please call in interim with questions, concerns and changes. Do tell your provider when you get sick, hurt, or get a cut that will not stop bleeding. Taking a new medication may change your INR. Please inform your provider of any medication changes. If you have any bleeding, trauma, falls and/or other medical concerns, call your doctor or seek medical attention right away. Results/Data Coumadin Printed in Appendix #1 below. *Diagnosis/Problems 1. DVT (deep venous thrombosis) (453.40) (I82.409) Signatures Electronically signed by : Nate Modi R.N.; May 15 2021 11:17AM EST (Author) Appendix #1 Coumadin Patient: ESBLE MALONE; : 1975; [id number] 11:[id number] 11:[id number] 10:[id number] 09:[id number] 01:30PM IO PT/INR PT + INR, Plasma PT/INR (POC) Recorded INR Coagulation Screen Current Dose New Dose Recheck in Patient Notified Comments IO INR42.82.41.84.2 PT, INR Target INR [id number] Normal Touchworks Today's INRon 05-15-2021 Today's INR AMS Anticoagulati on Monitoring Service[facility] Work Phone: Today's INR 2-3 Anticoagulati on [facility] Work Phone: Anticoagulation Monitoring S erviceon 04-27-2021 Anticoagulation Monitoring Service Today's INR [id number] IO INR2.8 Target INR range2-3 SourceAMS History of Present Illness Patient identification verified with 2 patient identifiers. Anticoagulation Monitoring Service: [facility]. Enrollment/Re-enrollment date: October 11, 2021. The patient is being seen as a follow-up for anticoagulation monitoring. Patient had CBC on November 06, 2019: HANDH 15.6/45.8 Patient referred to [facility] by Eddie Whitlock MD Target INR 2-3. Monitoring practitioner Shi Grove MD. Date Warfarin Begun: October 31, 2019. INR monitoring is per [facility] protocol. 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 The patient is currently taking warfarin Tablet strength and color: 5 mg(Manati) Interval History: Patient was last seen: April 17, 2021. Previous INR was 2.4. Incoming total weekly dose 37.5 mg. Today's Clinic INR: [facility] INR 2.8. Since last visit, the patient reports no bleeding. The patient did not experience clinically relevant bleeding. The patient did not experience other minor bleeding. Since last visit, the patient has not experienced a thrombotic event. The patient reports a change in medication. Patient reports that he will begin taking Farxiga 10mg/daily; He has not yet heard back doctor when he should start. He reports no change in alcohol consumption. He reports no change in Vitamin K consumption. The patient has taken Warfarin as directed. Management: The patient's INR is within target range. Will maintain dose. Next follow up appointment in 2 week(s). Outgoing total weekly dose 37.5 mg. Patient instructed to call in interim with questions, concerns and changes. Patient educated on interactions between medications and warfarin. Patient educated on signs of bleeding/clotting. Discussion/Summary You are currently taking Warfarin. Your tablet strength and color: 5 mg(Manati) Next Appointment: May 15, 2021. Time: 11: 00 am. Location: [facility], . Your INR today is within range . You will continue to take your dose as instructed above. Visit information Please call in interim with questions, concerns and changes. Do tell your provider when you get sick, hurt, or get a cut that will not stop bleeding. Taking a new medication may change your INR. Please inform your provider of any medication changes. If you have any bleeding, trauma, falls and/or other medical concerns, call your doctor or seek medical attention right away. Results/Data Coumadin Printed in Appendix #1 below. *Diagnosis/Problems 1. DVT (deep venous thrombosis) (453.40) (I82.409) Signatures Electronically signed by : Sheri Avitia R.N.; Apr 27 2021 11:21AM EST (Author) Appendix #1 Coumadin Patient: SEBLE MALONE; : 1975; [id number] 11:[id number] 10:[id number] 09:[id number] 01:[id number] 11:09AM IO PT/INR PT + INR, Plasma PT/INR (POC) Recorded INR Coagulation Screen Current Dose New Dose Recheck in Patient Notified Comments IO INR2.82.41.84.23.1 PT, INR Target INR -[id number] Normal Touchworks Today's INRon 04-27-2021 Today's INR 2-3 Anticoagulati on Monitoring [facility] Work Phone: Today's INR AMS Anticoagulati on [facility] Work Phone: Anticoagulation Monitoring S erviceon 04-17-2021 Anticoagulation Monitoring Service Today's INR [id number] IO INR2.4 Target INR range2-3 SourceAMS History of Present Illness Patient identification verified with 2 patient identifiers. Anticoagulation Monitoring Service: [facility]. Enrollment/Re-enrollment date: October 13, 2021. The patient is being seen as a follow-up for anticoagulation monitoring. Patient had CBC on November 06, 2019: HANDH 15.6/45.8 Patient referred to [facility] by Eddie Whitlock MD Target INR 2-3. Monitoring practitioner Shi Grove MD. Date Warfarin Begun: October 31, 2019. INR monitoring is per [facility] protocol. 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 The patient is currently taking warfarin Tablet strength and color: 5 mg(Manati) Interval History: Patient was last seen: June 09, 2021. Previous INR was 1.8. TWD of warfarin was maintained at time of last appointment. Incoming total weekly dose 37.5 mg. Today's Clinic INR: [facility] INR 2.4. Since last visit, the patient reports no bleeding. The patient did not experience clinically relevant bleeding. The patient did not experience other minor bleeding. Since last visit, the patient has not experienced a thrombotic event. The patient reports a change in medication. Patient reports that he will begin taking Farxiga 10mg/daily sometime this week; patient reports that he just received this medication and will be reaching out to his physician to discuss when to start. He reports no change in alcohol consumption. He reports no change in Vitamin K consumption. The patient has taken Warfarin as directed. Management: The patient's INR is within target range. Will maintain dose. Next follow up appointment in 7-10 day(s). Outgoing total weekly dose 37.5 mg. Patient instructed to call in interim with questions, concerns and changes. Patient educated on interactions between medications and warfarin. Patient educated on signs of bleeding/clotting. Discussion/Summary You are currently taking Warfarin. Your tablet strength and color: 5 mg(Manati) Next Appointment: Tuesday, April 27, 2021. Time: 11: 15 am. Location: [facility], . Your INR today is within range . You will continue to take your dose as instructed above. Visit information Please call in interim with questions, concerns and changes. Do tell your provider when you get sick, hurt, or get a cut that will not stop bleeding. Taking a new medication may change your INR. Please inform your provider of any medication changes. If you have any bleeding, trauma, falls and/or other medical concerns, call your doctor or seek medical attention right away. Results/Data Coumadin Printed in Appendix #1 below. *Diagnosis/Problems 1. Pulmonary embolism (415.19) (I26.99) 2. 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 DVT (deep venous thrombosis) (453.40) (I82.409) Signatures Electronically signed by : Chen Lutz R.N.; Apr 17 2021 10:24AM EST (Author) Appendix #1 Coumadin Patient: SEBLE MALONE; : 1975; [id number] 10:[id number] 09:[id number] 01:[id number] 11:[id number] 02:04PM IO PT/INR PT + INR, Plasma PT/INR (POC) Recorded INR Coagulation Screen Current Dose New Dose Recheck in Patient Notified Comments IO INR2.41.84.23.13 PT, INR Target INR [id number] Normal Soundl.ly Today's INRon 04-17-2021 Today's INR AMS Anticoagulati on Monitoring [facility] [employer] Phone: Today's INR 2-3 Anticoagulati on [facility] Work Phone: Anticoagulation Monitoring S shanice 04-11-2021 Anticoagulation Monitoring Service Today's INR 11Apr2021 IO INR1.8 Target INR range2-3 SourceAMS History of Present Illness Patient identification verified with 2 patient identifiers. Anticoagulation Monitoring Service: [facility]. Enrollment/Re-enrollment date: October 13, 2021. The patient is being seen as a follow-up for anticoagulation monitoring. Patient had CBC on November 06, 2019: HANDH 15.6/45.8 Patient referred to [facility] by Eddie Whitlock MD Target INR 2-3. Monitoring practitioner Shi Grove MD. Date Warfarin Begun: October 31, 2019. INR monitoring is per [facility] protocol. 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 The patient is currently taking warfarin Tablet strength and color: 5 mg(Manati) Interval History: Patient was last seen: April 03, 2021. Previous INR was 4.2. Two doses of warfarin were held and TWD was reduced at time of last appointment. Incoming total weekly dose 37.5 mg. Today's Clinic INR: [facility] INR 1.8. Since last visit, the patient reports no bleeding. The patient did not experience clinically relevant bleeding. The patient did not experience other minor bleeding. Since last visit, the patient has not experienced a thrombotic event. The patient reports no change in medication. He reports no change in alcohol consumption. He reports no change in Vitamin K consumption. The patient has taken Warfarin as directed. Patient has taken six doses of warfarin since resuming therapy s/p dose hold for recently supratherapeutic INR. Management: The patient's INR is subtherapeutic. Will maintain dose. Next follow up appointment in 1 week(s). Outgoing total weekly dose 37.5 mg. Patient instructed to call in interim with questions, concerns and changes. Patient educated on signs of bleeding/clotting. Discussion/Summary You are currently taking Warfarin. Your tablet strength and color: 5 mg(Manati) Next Appointment: Saturday, April 17, 2021. Time: 10: 15 am. Location: [facility], . Your INR today is lower than your target range, you may be at risk for forming blood clots. Maintain your dose as you were taking it. Visit information Please call in interim with questions, concerns and changes. Do tell your provider when you get sick, hurt, or get a cut that will not stop bleeding. If you have any bleeding, trauma, falls and/or other medical concerns, call your doctor or seek medical attention right away. Results/Data Coumadin Printed in Appendix #1 below. *Diagnosis/Problems 1. 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 DVT (deep venous thrombosis) (453.40) (I82.409) Signatures Electronically signed by : Chen Lutz R.N.; Apr 11 2021 9:36AM EST (Author) Appendix #1 Coumadin Patient: SEBLE MALONE; : 1975; [id number] 09:[id number] 01:[id number] 11:[id number] 02:[id number] 11:20AM IO PT/INR PT + INR, Plasma PT/INR (POC) Recorded INR Coagulation Screen Current Dose New Dose Recheck in Patient Notified Comments IO INR1.84.23.132.8 PT, INR Target INR -23-41-32-32-3 Normal Soundl.ly Today's INRon 04-11-2021 Today's INR AMS Anticoagulati on [facility] Work Phone: Today's INR 2-3 Anticoagulati on [facility] Work Phone: Anticoagulation Monitoring S erviceon 04-10-2021 Anticoagulation Monitoring Service No report was sent Normal Touchwo rks Anticoagulation Monitoring S erviceon 04-03-2021 Anticoagulation Monitoring Service Today's INR [id number] IO INR4.2 Target INR range2-3 SourceAMS History of Present Illness Patient identification verified with 2 patient identifiers. Anticoagulation Monitoring Service: [facility]. Enrollment/Re-enrollment date: October 13, 2021. The patient is being seen as a follow-up for anticoagulation monitoring. Patient had CBC on November 06, 2019: HANDH 15.6/45.8 Patient referred to [facility] by Eddie Whitlock MD Target INR 2-3. Monitoring practitioner Shi Grove MD. Date Warfarin Begun: October 31, 2019. INR monitoring is per [facility] protocol. 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 The patient is currently taking warfarin Tablet strength and color: 5 mg(Manati) Interval History: Patient was last seen: March 21, 2021. Previous INR was 3.1. TWD of warfarin was maintained at time of last appointment. Incoming total weekly dose 42.5 mg. Today's Clinic INR: [facility] INR 4.2. Since last visit, the patient reports no bleeding. The patient did not experience clinically relevant bleeding. The patient did not experience other minor bleeding. Since last visit, the patient has not experienced a thrombotic event. The patient reports a change in medication. The patient stopped or started OTC and/or herbal medication. Patient reports that he has been taking ibuprofen/PRN; advised patient to switch to acetaminophen. He reports no change in alcohol consumption. He reports no change in Vitamin K consumption. The patient has taken Warfarin as directed. Management: The patient's INR is supratherapeutic. Hold 2 doses. Will decrease dose per protocol by approximately 15%. Next follow up appointment in 1 week(s). Outgoing total weekly dose 37.5 mg. Patient instructed to call in interim with questions, concerns and changes. Patient educated on interactions between medications and warfarin. Patient educated on signs of bleeding/clotting. Patient educated on compliance with dosing, follow up appointments, and prescribed plan of care. Discussion/Summary You are currently taking Warfarin. Your tablet strength and color: 5 mg(Manati) Please do not take any warfarin today, Friday, April 03, 2021, or tomorrow, Friday, April 04, 2021. Next Appointment: Saturday, April 10, 2021. Time: 11: 00 am. Location: [facility], . Your INR today is higher than your target range, you may be at risk for bleeding. Please hold Coumadin/Warfarin dose(s) for 2 day(s). Change your dosing as instructed above. Visit information Please call in interim with questions, concerns and changes. Do tell your provider when you get sick, hurt, or get a cut that will not stop bleeding. Taking a new medication may change your INR. Please inform your provider of any medication changes. It is important to check your INR on a regular basis and keep your appointments. Knowing your INR number is the only way of knowing if you're taking the amount of warfarin that is correct for you. If you have any bleeding, trauma, falls and/or other medical concerns, call your doctor or seek medical attention right away. Results/Data Coumadin Printed in Appendix #1 below. *Diagnosis/Problems 1. Pulmonary embolism (415.19) (I26.99) 2. 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 DVT (deep venous thrombosis) (453.40) (I82.409) Signatures Electronically signed by : Chen Lutz R.N.; Apr 03 2021 1:35PM EST (Author) Appendix #1 Coumadin Patient: SEBLE MALONE; : 1975; [id number] 01:[id number] 11:[id number] 02:[id number] 11:[id number] 11:57AM IO PT/INR PT + INR, Plasma PT/INR (POC) Recorded INR Coagulation Screen Current Dose New Dose Recheck in Patient Notified Comments IO INR4.23.132.83.1 PT, INR Target INR [id number] Normal Soundl.ly Today's INRon 04-03-2021 Today's INR AMS Anticoagulati on Monitoring [facility] Work Phone: Today's INR 2-3 Anticoagulati on [facility] Work Phone: Anticoagulation Monitoring S erviceon 03-21-2021 Anticoagulation Monitoring Service Today's INR [id number] IO INR3.1 Target INR range2-3 SourceAMS History of Present Illness Patient identification verified with 2 patient identifiers. Anticoagulation Monitoring Service: [facility]. Enrollment/Re-enrollment date: October 13, 2021. The patient is being seen as a follow-up for anticoagulation monitoring. Target INR 2-3. Monitoring practitioner Shi Grove MD. Date Warfarin Begun: October 31, 2019. INR monitoring is per [facility] protocol. 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 The patient is currently taking warfarin Tablet strength and color: 5 mg(Manati) Interval History: Patient was last seen: February 21, 2021. Previous INR was 3.0. Incoming total weekly dose 42.5 mg. Today's Clinic INR: [facility] INR 3.1. Since last visit, the patient reports no bleeding. The patient did not experience clinically relevant bleeding. The patient did not experience other minor bleeding. Since last visit, the patient has not experienced a thrombotic event. The patient reports no change in medication. He reports no change in alcohol consumption. He reports changes in Vitamin K consumption. LESS BUT WILL RETURN TO USUAL CONSUMPTION. The patient has taken Warfarin as directed. Management: The patient's INR is supratherapeutic. Will maintain current dose. The patient is not currently being bridged. Next follow up appointment in 1 week(s). Outgoing total weekly dose 42.5 mg. Patient instructed to call in interim with questions, concerns and changes. Discussion/Summary You are currently taking Warfarin. Your tablet strength and color: 5 mg(Manati) Next Appointment: Sunday, April 04, 2021. Time: 10: 30 am. Location: [facility], . Your INR today is higher than your target range, you may be at risk for bleeding. Maintain your dose as you were taking it. Visit information Please call in interim with questions, concerns and changes. Do tell your provider when you get sick, hurt, or get a cut that will not stop bleeding. If you have any bleeding, trauma, falls and/or other medical concerns, call your doctor or seek medical attention right away. Results/Data Coumadin Printed in Appendix #1 below. *Diagnosis/Problems 1. DVT (deep venous thrombosis) (453.40) (I82.409) Signatures Electronically signed by : Mary Jane Jeffers R.N.; Mar 21 2021 11:14AM EST (Author) Appendix #1 Coumadin Patient: SEBLE MALONE; : 1975; [id number] 11:[id number] 02:[id number] 11:[id number] 11:[id number] 11:22AM IO PT/INR PT + INR, Plasma PT/INR (POC) Recorded INR Coagulation Screen Current Dose New Dose Recheck in Patient Notified Comments IO INR3.132.83.12.4 PT, INR Target INR -52-66-32-32-3 Normal Touchworks Today's INRon 03-21-2021 Today's INR AMS Anticoagulati on Monitoring [facility] Work Phone: Today's INR 2-3 Anticoagulati on [facility] Work Phone: Anticoagulation Monitoring S erviceon 02-21-2021 Anticoagulation Monitoring Service Today's INR 21Feb2021 IO INR3 Target INR range2-3 SourceAMS History of Present Illness Patient identification verified with 2 patient identifiers. Anticoagulation Monitoring Service: [facility]. Enrollment/Re-enrollment date: October 13, 2021. The patient is being seen as a follow-up for anticoagulation monitoring. Target INR 2-3. Monitoring practitioner Shi Grove MD. Date Warfarin Begun: October 31, 2019. INR monitoring is per [facility] protocol. 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 The patient is currently taking warfarin Tablet strength and color: 5 mg(Manati) Interval History: Patient was last seen: January 23, 2021. Previous INR was 2.8. Incoming total weekly dose 42.5 mg. Today's Clinic INR: [facility] INR 3. Since last visit, the patient reports no bleeding. The patient did not experience clinically relevant bleeding. The patient did not experience other minor bleeding. Since last visit, the patient has not experienced a thrombotic event. The patient reports no change in medication. He reports no change in alcohol consumption. He reports no change in Vitamin K consumption. The patient has taken Warfarin as directed. Management: The patient's INR is within target range. Will maintain dose. The patient is not currently being bridged. Next follow up appointment in 4 week(s). Outgoing total weekly dose 42.5 mg. Patient instructed to call in interim with questions, concerns and changes. Discussion/Summary You are currently taking Warfarin. Your tablet strength and color: 5 mg(Manati) Next Appointment: Sunday, March 21, 2021. Time: 11: 15 am. Location: [facility], . Your INR today is within range . You will continue to take your dose as instructed above. Visit information Please call in interim with questions, concerns and changes. Do tell your provider when you get sick, hurt, or get a cut that will not stop bleeding. If you have any bleeding, trauma, falls and/or other medical concerns, call your doctor or seek medical attention right away. Results/Data Coumadin Printed in Appendix #1 below. *Diagnosis/Problems 1. DVT (deep venous thrombosis) (453.40) (I82.409) Signatures Electronically signed by : Inessa Lewis R.N.; Feb 21 2021 2:07PM EST (Author) Appendix #1 Coumadin Patient: SEBLE MALONE; : 1975; [id number] 02:[id number] 11:[id number] 11:[id number] 11:[id number] 11:01AM IO PT/INR PT + INR, Plasma PT/INR (POC) Recorded INR Coagulation Screen Current Dose New Dose Recheck in Patient Notified Comments IO INR32.83.12.42.8 PT, INR Target INR [id number] Normal [facility] Touchworks Today's INRon 02-21-2021 Today's INR 2-3 Anticoagulati on Monitoring Service[facility] Work Phone: Today's INR AMS [facility]: Office Visit (Cardiology)on 02-20-2021 Follow-up visit Diagnoses/Problems Assessed HFrEF (heart failure with reduced ejection fraction) (428.20) (I50.20) Cardiomyopathy, dilated, nonischemic (425.4) (I42.0) Orders HFrEF (heart failure with reduced ejection fraction) Start: Farxiga 10 MG Oral Tablet; Take 1 tablet daily Cardiac Rehab Referral Evaluation and Treatment Evaluate AND Treat Status: Active - Retrospective By Protocol Authorization Requested for: 20Feb2021 Agreement : I agree to have my patient participate in the phase III outpatient cardiac rehabilitation program after completion of the phase II program. Consent : I consent to have my patient participate in the cardiac rehabilitation program. I will continue regular medical care of my patient throughout his/her participation in the program. Individualized Treatment Plan and Exercise Prescription : Defer the patients ITP and exercise prescription to be developed by the staff for your review and approval I authorize the Cardiac Rehabilitation Department to : Current lab values are helpful in order to assess the lipid status and individualize diet therapy. A venous blood sample will be drawn and lipids analyzed at the laboratory I authorize the Cardiac Rehabilitation Department to : Schedule a symptom limited graded exercise test with 12 lead ECG prior to starting cardiac rehabilitation and at discharge, if needed. Patient Instructions To reach Dr. Grove's office please call [phone] ([facility]). . Call [phone] to schedule an appointment. You may also contact the HF RNs at (Please include your name and date of ) To find out where to receive Covid Vaccination please visit [email or web address] 1. Start Farxiga 10mg Daily 2. Schedule locally for Cardiac Rehab 3. Follow-up 6 months. 4. Schedule appointment with Dr. Edmonds in 1-2 weeks to discuss how you are feeling on Farxiga. Chief Complaint SEBLE MALONE is being seen for a 5 month follow-up of heart failure and a routine medication evaluation. History of Present Illness 45 year old male here for heart failure follow-up. PM/SHx: NICM, DVT, HIT, PE Social Hx: Former smoker quit 6 months ago, denies ETOH, illicit drug use Family Hx: Mother- CHF Interval Hx: denies fatigue, chest pain, palpitations, shortness of breath, dyspnea on exertion, orthopnea, PND. No edema noted in BLE. Denies headaches, dizziness, falls. Hospitalizations: Last hospitalization in October 2019 for advanced therapies workout. Medication adherence: Take as prescribed Diet adherence: Follows regular diet Exercise: Workout 1 hour at the gym 3-4 times a week, and walks. 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) Current Meds Medication NameInstruction Acetaminophen 325 MG Oral TabletTAKE 1 TO 2 TABLETS EVERY 4 HOURS NEEDED Atorvastatin Calcium 40 MG Oral TabletTAKE 1 TABLET Bedtime Carvedilol 12.5 MG Oral TabletTake 1 tablet twice daily Digoxin 125 MCG Oral TabletTAKE 1 TABLET BY MOUTH EVERY DAY Entresto 97-103 MG Oral TabletTake 1 tablet twice daily Ferrous Sulfate 325 (65 Fe) MG Oral TabletTAKE 1 TABLET BY MOUTH THREE TIMES A DAY Furosemide 20 MG Oral TabletTAKE 1 TABLET BY MOUTH DAILY NEEDED hydrALAZINE HCl - 25 MG Oral TabletTAKE 1 TABLET 3 times daily Isosorbide Dinitrate 10 MG Oral TabletTAKE 1 TABLET 3 times daily Magnesium Oxide 400 MG Oral TabletTAKE 1 TABLET BY MOUTH EVERY DAY Spironolactone 25 MG Oral TabletTAKE 1 TABLET BY MOUTH EVERY DAY Ultram 50 MG Oral TabletTAKE 1 TABLET EVERY 6 HOURS NEEDED FOR PAIN Warfarin Sodium 5 MG Oral TabletTAKE 1.5 TABLETS BY MOUTH ONCE A DAY OR DIRECTED BY THE COUMADIN CLINIC. Allergies NoKnown No Known Allergies Updated By: Christy Swartz; 11/18/2019 8:28:06 AM Family History Mother Family history of cardiac pacemaker (V17.49) (Z82.49) Social History Problems Does not use illicit drugs (V49.89) (Z78.9) Former smoker (V15.82) (Z87.891) Started smoking Black AND Milds around age 16 - 18 (socially). Quit May 2019. No alcohol use Review of Systems Constitutional: as noted in HPI. Cardiovascular: as noted in HPI. Respiratory: as noted in HPI. Neurological: as noted in HPI. Vitals Vital Signs Recorded: 20Feb2021 01:34PM Temper (more content not included)... Normal Sound[employer]ly Tobacco Screening.on 021 Fall risk assessment a) No falls within the last year [facility] Work Phone: Tobacco use status [facility] b) No [facility] Work Phone: Anticoagulation Monitoring S shanice 01-23-2021 Anticoagulation Monitoring Service Today's INR [id number] IO INR2.8 Target INR range2-3 SourceAMS History of Present Illness Patient identification verified with 2 patient identifiers. Anticoagulation Monitoring Service: [facility]. Enrollment/Re-enrollment date: October 13, 2021. The patient is being seen as a follow-up for anticoagulation monitoring. Target INR 2-3. Monitoring practitioner Shi Grove MD. Date Warfarin Begun: October 31, 2019. INR monitoring is per [facility] protocol. 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 The patient is currently taking warfarin Tablet strength and color: 5 mg(Manati) Interval History: Patient was last seen: January 16, 2021. Previous INR was 3.1. Incoming total weekly dose 42.5 mg. Today's Clinic INR: [facility] INR 2.8. Since last visit, the patient reports no bleeding. The patient did not experience clinically relevant bleeding. The patient did not experience other minor bleeding. Since last visit, the patient has not experienced a thrombotic event. The patient reports no change in medication. He reports no change in alcohol consumption. He reports no change in Vitamin K consumption. The patient has taken Warfarin as directed. Management: The patient's INR is within target range. Will maintain dose. The patient is not currently being bridged. Next follow up appointment in 4 week(s). Outgoing total weekly dose 42.5 mg. Patient instructed to call in interim with questions, concerns and changes. Patient educated on interactions between medications and warfarin. Patient educated on dietary consistency in vitamin k consumption. Patient educated on affects of alcohol consumption while taking warfarin. Patient educated on signs of bleeding/clotting. Patient educated on compliance with dosing, follow up appointments, and prescribed plan of care. Discussion/Summary You are currently taking Warfarin. Your tablet strength and color: 5 mg(Manati) Next Appointment: February 20, 2021. Time: 11: 00 am. Location: [facility], . Your INR today is within range . You will continue to take your dose as instructed above. Visit information Please call in interim with questions, concerns and changes. Do tell your provider when you get sick, hurt, or get a cut that will not stop bleeding. Taking a new medication may change your INR. Please inform your provider of any medication changes. Your INR may change because of how much Vitamin K you eat. Your INR may change because of how much alcohol you drink. It is important to check your INR on a regular basis and keep your appointments. Knowing your INR number is the only way of knowing if you're taking the amount of warfarin that is correct for you. If you have any bleeding, trauma, falls and/or other medical concerns, call your doctor or seek medical attention right away. Results/Data Coumadin Printed in Appendix #1 below. *Diagnosis/Problems 1. Pulmonary embolism (415.19) (I26.99) 2. DVT (deep venous thrombosis) (453.40) (I82.409) Signatures Electronically signed by : Shawna Martell R.N.; Jan 23 2021 11:26AM EST (Author) Appendix #1 Coumadin Patient: SEBLE MALONE; : 1975; [id number] 11:[id number] 11:[id number] 11:[id number] 11:[id number] 10:[id number] 08:18AM IO PT/INR PT + INR, Plasma PT/INR (POC) Recorded INR Coagulation Screen Current Dose New Dose Recheck in Patient Notified Comments IO INR2.83.12.42.82.6 PT, INR2.3 Target INR [id number] Normal Touchworks Today's INRon 01-23-2021 Today's INR 2-3 [facility] [address] [place] Work Phone: Today's INR [facility] [address] [address] [place] Work Phone: Anticoagulation Monitoring S erviceon 01-16-2021 Anticoagulation Monitoring Service Today's INR [id number] IO INR3.1 Target INR range2-3 SourceAMS History of Present Illness Patient identification verified with 2 patient identifiers. Anticoagulation Monitoring Service: [facility]. Enrollment/Re-enrollment date: October 13, 2021. The patient is being seen as a follow-up for anticoagulation monitoring. Patient had CBC on November 06, 2019: [facility] 15.6/45.8 Patient referred to [facility] by Eddie Whitlock MD Target INR 2-3. Monitoring practitioner Shi Grove MD. Date Warfarin Begun: October 31, 2019. INR monitoring is per [facility] protocol. 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 The patient is currently taking warfarin Tablet strength and color: 5 mg(Manati) Interval History: Patient was last seen: December 15, 2020. Previous INR was 2.4. Incoming total weekly dose 42.5 mg. Today's Clinic INR: [facility] INR 3.1. Since last visit, the patient reports no bleeding. The patient did not experience clinically relevant bleeding. The patient did not experience other minor bleeding. Since last visit, the patient has not experienced a thrombotic event. The patient reports no change in medication. He reports no change in alcohol consumption. He reports no change in Vitamin K consumption. The patient did not take Warfarin as directed. He took an extra tablet by mistake. PT TOOK 7.5MG ON A 5MG DAY. Management: The patient's INR is supratherapeutic. Will maintain current dose. Next follow up appointment in 1 week(s). IF THERAPEUTIC AT NEXT VISIT PT MAY RTC IN 4 WEEKS. Outgoing total weekly dose 42.5 mg. Patient instructed to call in interim with questions, concerns and changes. Patient educated on compliance with dosing, follow up appointments, and prescribed plan of care. Discussion/Summary You are currently taking Warfarin. Your tablet strength and color: 5 mg(Manati) Next Appointment: Saturday, January 23, 2021. Time: 11: 00 am. Location: [facility], . Your INR today is higher than your target range, you may be at risk for bleeding. Maintain your dose as you were taking it. Visit information Please call in interim with questions, concerns and changes. Do tell your provider when you get sick, hurt, or get a cut that will not stop bleeding. If you have any bleeding, trauma, falls and/or other medical concerns, call your doctor or seek medical attention right away. Results/Data Coumadin Printed in Appendix #1 below. *Diagnosis/Problems 1. Pulmonary embolism (415.19) (I26.99) 2. DVT (deep venous thrombosis) (453.40) (I82.409) Signatures Electronically signed by : Devorah Burgos R.N.; Jan 16 2021 12:02PM EST (Author) Appendix #1 Coumadin Patient: SEBLE MALONE; : 1975; [id number] 11:[id number] 11:[id number] 11:[id number] 10:[id number] 10:[id number] 08:18AM IO PT/INR PT + INR, Plasma PT/INR (POC) Recorded INR Coagulation Screen Current Dose New Dose Recheck in Patient Notified Comments IO INR3.12.42.82.62 PT, INR2.3 Target INR [id number] Normal [employer] Today's INRon 01-16-2021 Today's INR [facility] Anticoagulati on [facility] Work Phone: Today's INR 2-3 Anticoagulati on [facility] Work Phone: Anticoagulation Monitoring S erviceon 12-15-2020 Anticoagulation Monitoring Service Today's INR [id number] IO INR2.4 Target INR range2-3 SourceAMS History of Present Illness Patient identification verified with 2 patient identifiers. Anticoagulation Monitoring Service: [facility]. Enrollment/Re-enrollment date: October 13, 2021. The patient is being seen as a follow-up for anticoagulation monitoring. Patient had CBC on November 06, 2019: HANDH 15.6/45.8 Patient referred to [facility] by Eddie Whitlock MD Target INR 2-3. Monitoring practitioner Shi Grove MD. Date Warfarin Begun: October 31, 2019. INR monitoring is per [facility] protocol. 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 The patient is currently taking warfarin Tablet strength and color: 5 mg(Manati) Interval History: Patient was last seen: November 10, 2020. Previous INR was 2.8. Incoming total weekly dose 42.5 mg. Today's Clinic INR: [facility] INR 2.4. Since last visit, the patient reports no bleeding. The patient did not experience clinically relevant bleeding. The patient did not experience other minor bleeding. Since last visit, the patient has not experienced a thrombotic event. Patient was evaluated at the end of November at the [facility] for nausea and vomiting and dehydration. Patient reports that he was given a PRN anti-nausea medication and discharged home. Patient states that several days later patient was re-evaluated in [facility] for same symptoms and give IV hydration and discharged home. The patient reports a change in medication. Patient reports that his dose of Coreg was doubled approximately 10 days ago. He reports no change in alcohol consumption. He reports no change in Vitamin K consumption. The patient has taken Warfarin as directed. Management: The patient's INR is within target range. Will maintain dose. Next follow up appointment in 4 week(s). Outgoing total weekly dose 42.5 mg. Patient instructed to call in interim with questions, concerns and changes. Patient educated on interactions between medications and warfarin. Patient educated on signs of bleeding/clotting. Patient educated on compliance with dosing, follow up appointments, and prescribed plan of care. Discussion/Summary You are currently taking Warfarin. Your tablet strength and color: 5 mg(Manati) Next Appointment: Tuesday, January 12, 2021. Time: 11: 15 am. Location: [facility], . Your INR today is within range . You will continue to take your dose as instructed above. Visit information Please call in interim with questions, concerns and changes. Do tell your provider when you get sick, hurt, or get a cut that will not stop bleeding. Taking a new medication may change your INR. Please inform your provider of any medication changes. It is important to check your INR on a regular basis and keep your appointments. Knowing your INR number is the only way of knowing if you're taking the amount of warfarin that is correct for you. If you have any bleeding, trauma, falls and/or other medical concerns, call your doctor or seek medical attention right away. Results/Data Coumadin Printed in Appendix #1 below. *Diagnosis/Problems 1. 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 DVT (deep venous thrombosis) (453.40) (I82.409) Signatures Electronically signed by : Chen Lutz R.N.; Dec 15 2020 11:29AM EST (Author) Appendix #1 Coumadin Patient: SEBLE MALONE; : 1975; [id number] 11:[id number] 11:[id number] 10:[id number] 10:08PH57Itq4056 10:52AM IO PT/INR PT + INR, Plasma PT/INR (POC) Recorded INR Coagulation Screen Current Dose New Dose Recheck in Patient Notified Comments IO INR2.42.82.622.9 PT, INR Target INR [id number] Normal [facility] Touchworks Today's INRon 12-15-2020 Today's INR [facility] Anticoagulati on [facility] Work Phone: Today's INR 2-3 Anticoagulati on [facility] Work Phone: 12 Lead EKGon 11-24-2020 12 Lead EKG [facility] Cardiovascular Services [address] [place] [address] 12 Lead EKG 11/24/20 1458 MR#: [id number] Acct: [id number] Name: JESSIE MALONE Rep #: [id number] : 1975 45 From: Minna Ornelas MD Attending Dr: Status: DEP ER Ordering Dr: Dedrick Perez MD Date: 11/24/20 Location: ED Sex: M AA Admitted: Test Reason : ABD PAIN Blood Pressure : / mmHG Vent. Rate : 062 BPM Atrial Rate : 062 BPM P-R Int : 162 ms QRS Dur : 096 ms QT Int : 420 ms P-R-T Axes : 009 016 -03 degrees QTc Int : 426 ms Normal sinus rhythm Normal ECG Confirmed by LIUDMILA GODOY, SEBLE ([id number]), art editor EDWAR LOBO ([id number]) on 11/27/2020 1:32:48 PM Referred By: PL Confirmed By:SHONA ORNELAS MD 11/27/20 1332 Date Minna Ornelas MD CC: Dr. Dedrick Perez MD; No Primary Care Physician Signed Normal [facility] Abdomen/Pelvis without Conto n 11-24-2020 Abdomen/Pelvis without Cont [facility] Imaging Services [address] [place] [address] Abdomen/Pelvis without Cont MR#: [id number] Acct: [id number] Name: JESSIE MALONE Rep #: [id number] : 1975 M 45 From: Monster Valenzuela MD PCP: Care Physician,No Primary Status: REG ER Study: Abdomen/Pelvis without Cont Date of Exam: 11/06 Exam# [id number] Ordering Dr: Dedrick Perez MD STUDY: CT ABDOMEN AND PELVIS WITHOUT CONTRAST REASON FOR EXAM: Male, 45 years old. Diffuse abdominal pain RADIATION DOSAGE (If Supplied By Facility): CTDIvol = ( 10.62 ) mGy, DLP = ( 524.35 ) mGycm TECHNIQUE: Transaxial images were obtained from the dome of the diaphragm to the symphysis pubis without oral contrast, and without intravenous contrast. Sagittal and coronal images were reconstructed. Individualized dose optimization techniques were used for this CT. COMPARISON: None. FINDINGS: The visualized lung bases are unremarkable. The visualized portions of the heart are within normal limits. Normal liver. Normal gallbladder and extrahepatic biliary system. Normal spleen. Normal pancreas. Normal bilateral adrenal glands. Normal right kidney. Normal left kidney. Normal visualized stomach. Nondistended fluid-filled small bowel loops and a submucosal thickening in the majority of the colon suggests a diffuse enteritis. Scattered colonic diverticula without CT evidence of acute diverticulitis. There is nonspecific induration of the mesenteric fat. The appendix is not visualized. Normal abdominal aorta. Normal inferior vena cava. Normal retroperitoneum. Normal urinary bladder. There is some type of generator in the subcutaneous tissue in the left abdomen. No complications noted CT/Abdomen/Pelvis without Cont IMPRESSION: Nondistended fluid-filled small bowel loops and subtle submucosal thickening majority of the colon suggests diffuse enteritis. There is associated induration of the mesenteric fat. No suspicious solid organ abnormality No free intraperitoneal fluid, air, or suspicious adenopathy Electronically Signed: Chun Valenzuela MD at 17:29 EDT , Service support , CC: Dr. Dedrick Perez MD; No Primary Care Physician Manager Storage: Signed Normal [facility] Basic Metabolic Profile (BMP )on 11-24-2020 BUN Normal 10-22 [facility] Comment on above: Result Comment: This specimen has been REJECTED due to Laboratory criteria: Hemolyzed. ED STAFF has been notified of need of recollection. 11/24/201457 Be Alexander Performed By: #### L 100.0100, L500.2500 #### [facility] Laboratory [address] [place], [address] Order Comment: REDRA W. PREVIOUS SPECIMEN REJECTED DUE TO SPECIMEN BEING HEMOLYZED. 11/24/201457 Be Alexander. Result Comment: DUPL ICATE ORDER. SEE C234 Performed By: #### L 500.2500 #### [facility] [address] [place], [address] BUN/CRE Normal - [facility] Comment on above: Result Comment: This specimen has been REJECTED due to Laboratory criteria: Hemolyzed. ED STAFF has been notified of need of recollection. 11/24/201457 Be Alexander Performed By: #### L 100.0100, L500.2500 #### [facility] [address] [place], [address] Order Comment: REDRA W. PREVIOUS SPECIMEN REJECTED DUE TO SPECIMEN BEING HEMOLYZED. 11/24/208 Be R Stoner. Result Comment: DUPL ICATE ORDER. SEE C234 Performed By: #### L 500.2500 #### [facility] [address] [place], [address] CA,Total Normal 8.5-10.1 [facility] Comment on above: Result Comment: This specimen has been REJECTED due to Laboratory criteria: Hemolyzed. ED STAFF has been notified of need of recollection. 11/24/201457 Be R Stoner Performed By: #### L 100.0100, L500.2500 #### [facility] [address] [place], [address] Order Comment: REDRA W. PREVIOUS SPECIMEN REJECTED DUE TO SPECIMEN BEING HEMOLYZED. 11/24/20 1458 Be R Stoner. Result Comment: DUPL ICATE ORDER. SEE C234 Performed By: #### L 500.2500 #### [facility] [address] [place], [address] CL Normal 98-107 [facility] Comment on above: Result Comment: This specimen has been REJECTED due to Laboratory criteria: Hemolyzed. ED STAFF has been notified of need of recollection. 11/24/201457 Be R Stoner Performed By: #### L 100.0100, L500.2500 #### [facility] [address] [place], [address] Order Comment: REDRA W. PREVIOUS SPECIMEN REJECTED DUE TO SPECIMEN BEING HEMOLYZED. 11/24/20 1458 Be R Stoner. Result Comment: DUPL ICATE ORDER. SEE C234 Performed By: #### L 500.2500 #### [facility] [address] [place], [address] CO2 Normal 21.0-32.0 [facility] Comment on above: Result Comment: This specimen has been REJECTED due to Laboratory criteria: Hemolyzed. ED STAFF has been notified of need of recollection. 11/24/20 1458 Be R Stoner Performed By: #### L 100.0100, L500.2500 #### [facility] [address] [place], [address] Order Comment: REDRA W. PREVIOUS SPECIMEN REJECTED DUE TO SPECIMEN BEING HEMOLYZED. 11/24/20 1458 Be R Stoner. Result Comment: DUPL ICATE ORDER. SEE C234 Performed By: #### L 500.2500 #### [facility] [address] [place], [address] CREAT,SERUM Normal 0.70-1.30 [facility] Comment on above: Result Comment: This specimen has been REJECTED due to Laboratory criteria: Hemolyzed. ED STAFF has been notified of need of recollection. 11/24/201457 Be R Stoner Performed By: #### L 100.0100, L500.2500 #### [facility] [place], [address] Order Comment: REDRA W. PREVIOUS SPECIMEN REJECTED DUE TO SPECIMEN BEING HEMOLYZED. 11/24/20 1458 Be R Stoner. Result Comment: DUPL ICATE ORDER. SEE C234 Performed By: #### L 500.2500 #### [facility] [place], [address] EST GFR Normal >60 [facility] Comment on above: Result Comment: This specimen has been REJECTED due to Laboratory criteria: Hemolyzed. ED STAFF has been notified of need of recollection. 11/24/208 Be R Stoner Performed By: #### L 100.0100, L500.2500 #### [facility] [address] [place], [address] Order Comment: REDRA W. PREVIOUS SPECIMEN REJECTED DUE TO SPECIMEN BEING HEMOLYZED. 11/24/20 1458 Be R Stoner. Result Comment: DUPL ICATE ORDER. SEE C234 Performed By: #### L 500.2500 #### [facility] [address] [place], [address] EST GFR - AA Normal >60 [facility] Comment on above: Result Comment: This specimen has been REJECTED due to Laboratory criteria: Hemolyzed. ED STAFF has been notified of need of recollection. 11/24/20 1458 Be R Stoner Performed By: #### L 100.0100, L500.2500 #### [facility] [address] [place], [address] Order Comment: REDRA W. PREVIOUS SPECIMEN REJECTED DUE TO SPECIMEN BEING HEMOLYZED. 11/24/20 1458 Be R Stoner. Result Comment: DUPL ICATE ORDER. SEE C234 Performed By: #### L 500.2500 #### [facility] [address] [place], [address] GAP Normal 5-15 [facility] Comment on above: Result Comment: This specimen has been REJECTED due to Laboratory criteria: Hemolyzed. ED STAFF has been notified of need of recollection. 11/24/20 1458 Be R Stoner Performed By: #### L 100.0100, L500.2500 #### [facility] [address] [place], [address] Order Comment: REDRA W. PREVIOUS SPECIMEN REJECTED DUE TO SPECIMEN BEING HEMOLYZED. 11/24/20 1458 Be R Stoner. Result Comment: DUPL ICATE ORDER. SEE C234 Performed By: #### L 500.2500 #### [facility] [address] [place], [address] GLU Normal 74-106 [facility] Comment on above: Result Comment: This specimen has been REJECTED due to Laboratory criteria: Hemolyzed. ED STAFF has been notified of need of recollection. 11/24/20 1458 Be R Stoner Performed By: #### L 100.0100, L500.2500 #### [facility] [address] [place], [address] Order Comment: REDRA W. PREVIOUS SPECIMEN REJECTED DUE TO SPECIMEN BEING HEMOLYZED. 11/24/20 1458 Be Lunsfordr. Result Comment: DUPL ICATE ORDER. SEE C234 Performed By: #### L 500.2500 #### [facility] [address] [place], [address] Potassium Normal 3.5-5.1 [facility] Comment on above: Result Comment: This specimen has been REJECTED due to Laboratory criteria: Hemolyzed. ED STAFF has been notified of need of recollection. 11/24/208 Be Lunsfordr Performed By: #### L 100.0100, L500.2500 #### [facility] [address] [place], [address] Order Comment: REDRA W. PREVIOUS SPECIMEN REJECTED DUE TO SPECIMEN BEING HEMOLYZED. 11/24/20 1458 Be Lunsfordr. Result Comment: [facility]. SEE C234 Performed By: #### L 500.2500 #### [facility] [address] [place], [address] Basic Metabolic Profile (BMP) Normal 136-145 [facility] Comment on above: Result Comment: This specimen has been REJECTED due to Laboratory criteria: Hemolyzed. ED STAFF has been notified of need of recollection. 11/24/201457 Be Lunsfordr Performed By: #### L 100.0100, L500.2500 #### [facility] [address] [place], [address] Order Comment: REDRA W. PREVIOUS SPECIMEN REJECTED DUE TO SPECIMEN BEING HEMOLYZED. 11/24/20 1458 Be Lunsfordr. Result Comment: DUPL ICATE ORDER. SEE C234 Performed By: #### L 500.2500 #### [facility] [address] [place], [address] CBC W/Diff, Automatedon 08-2 0-2020 Absolute Lymph 1.14 X10 3/uL Normal 0.83-4.51 [facility] Comment on above: Performed By: #### L 100.0100, L500.2500 #### [facility] [address] [place], [address] Absolute Neut 5.7 X10 3/uL Normal 2.0-7.7 [facility] Comment on above: Performed By: #### L 100.0100, L500.2500 #### [facility] [address] [place], [address] Basophils/100 WBC (Bld) 0.3 % Normal 0-1 [facility] Comment on above: Performed By: #### L 100.0100, L500.2500 #### [facility] [address] [place], [address] Eosinophils/100 WBC (Bld) 0.0 % Normal 0-5 [facility] Comment on above: Performed By: #### L 100.0100, L500.2500 #### [facility] [address] [place], [address] Erythrocyte distribution width (RBC) [Ratio] 14.7 % High 11.6-14.6 [facility] Comment on above: Performed By: #### L 100.0100, L500.2500 #### [facility] [address] [place], [address] Hematocrit (Bld) [Volume fraction] 41.4 % Normal 40-54 [facility] Comment on above: Performed By: #### L 100.0100, L500.2500 #### [facility] [address] [place], [address] Hemoglobin (Bld) [Mass/Vol] 14.4 g/dL Normal 13.0-16.5 [facility] Comment on above: Performed By: #### L 100.0100, L500.2500 #### [facility] [address] [place], [address] IG% 0.400 Normal 0.0-0.9 [facility] Comment on above: Result Comment: IG% - Immature Granulocytes (promyelocytes, myelocytes and metamyelocytes) > 1% indicates that a LEFT SHIFT is Present. Performed By: #### L 100.0100, L500.2500 #### [facility] [address] [place], [address] Lymphocytes/100 WBC (Bld) 15.7 % Low 19-41 [facility] Comment on above: Performed By: #### L 100.0100, L500.2500 #### [facility] [address] [place], [address] MCH (RBC) [Entitic mass] 32.3 pg High 27.0-32.0 [facility] Comment on above: Performed By: #### L 100.0100, L500.2500 #### [facility] [address] [place], [address] MCHC (RBC) [Mass/Vol] 34.8 g/dL Normal 32-36 [facility] Comment on above: Performed By: #### L 100.0100, L500.2500 #### [facility] [address] [place], [address] MCV (RBC) [Entitic vol] 92.8 fL Normal 80-94 [facility] Comment on above: Performed By: #### L 100.0100, L500.2500 #### [facility] [address] [place], [address] Monocytes/100 WBC (Bld) 4.6 % Normal 0-10 [facility] Comment on above: Performed By: #### L 100.0100, L500.2500 #### [facility] [address] [place], [address] Neutrophils/100 WBC (Bld) 79.0 % High 47-70 [facility] Comment on above: Performed By: #### L 100.0100, L500.2500 #### [facility] [address] [place], [address] Nucleated RBC (Bld) [#/Vol] 0 10*3/uL Normal 0-5 [facility] Comment on above: Performed By: #### L 100.0100, L500.2500 #### [facility] [address] [place], [address] Platelet mean volume (Bld) [Entitic vol] 9.9 fL Normal 6.2-12.0 [facility] Comment on above: Performed By: #### L 100.0100, L500.2500 #### [facility] [address] [place], [address] Platelets (Bld) [#/Vol] 257 10*3/uL Normal 150-450 [facility] Comment on above: Performed By: #### L 100.0100, L500.2500 #### [facility] [address] [place], [address] RBC (Bld) [#/Vol] 4.46 10*6/uL Low 4.6-6.2 [facility] Comment on above: Performed By: #### L 100.0100, L500.2500 #### [facility] [address] [place], [address] RDW SD 50.1 fl High 35.1-43.9 [facility] Comment on above: Performed By: #### L 100.0100, L500.2500 #### [facility] [address] [place], [address] WBC (Bld) [#/Vol] 7.3 10*3/uL Normal 4.4-11.0 [facility] Comment on above: Performed By: #### L 100.0100, L500.2500 #### [facility] [address] [place], [address] Comprehensive Metabolic Prof ilon 11-24-2020 Albumin [Mass/Vol] 4.3 g/dL Normal 3.2-5.0 [facility] Comment on above: Performed By: #### L 501.2450, L500.4050, L501.4020 #### [facility] [address] [place], [address] Albumin/Globulin [Mass ratio] 1.2 {ratio} Normal 0.9-2.4 [facility] Comment on above: Performed By: #### L 501.2450, L500.4050, L501.4020 #### [facility] [address] [place], [address] ALK P 133 U/L High 45-117 [facility] Comment on above: Performed By: #### L 501.2450, L500.4050, L501.4020 #### [facility] [address] [place], [address] ALT [Catalytic activity/Vol] 40 U/L Normal 16-61 [facility] Comment on above: Performed By: #### L 501.2450, L500.4050, L501.4020 #### [facility] [address] [place], [address] AST [Catalytic activity/Vol] 26 U/L Normal 15-37 [facility] Comment on above: Result Comment: Slig ht Hemolysis, Result may be falsely increased. Performed By: #### L 501.2450, L500.4050, L501.4020 #### [facility] [address] [place], [address] Bilirubin [Mass/Vol] 0.80 mg/dL Normal 0.20-1.00 [facility] Comment on above: Result Comment: For patients on eltrombopag therapy, use of Dimension [place] TBIL is not recommended. Performed By: #### L 501.2450, L500.4050, L501.4020 #### [facility] [address] [place], [address] BUN/CRE 9.9 RATIO Low 10-20 [facility] Comment on above: Performed By: #### L 501.2450, L500.4050, L501.4020 #### [facility] [address] [place], [address] CA,Total 9.4 mg/dL Normal 8.5-10.1 [facility] Comment on above: Performed By: #### L 501.2450, L500.4050, L501.4020 #### [facility] [address] [place], [address] Chloride [Moles/Vol] 102 mmol/L Normal 98-107 [facility] Comment on above: Performed By: #### L 501.2450, L500.4050, L501.4020 #### [facility] [address] [place], [address] CO2 [Moles/Vol] 24.0 mmol/L Normal 21.0-32.0 [facility] Comment on above: Performed By: #### L 501.2450, L500.4050, L501.4020 #### [facility] [address] [place], [address] Creatinine [Mass/Vol] 1.41 mg/dL High 0.70-1.30 [facility] Comment on above: Result Comment: The validity of the calculated GFR GFRAA in patients over 70 years has not been determined. Clinical correlation is essential. Performed By: #### L 501.2450, L500.4050, L501.4020 #### [facility] [address] [place], [address] ECRCL 66.87 ml/min Normal [facility] Comment on above: Performed By: #### L 501.2450, L500.4050, L501.4020 #### [facility] [address] [place], [address] EST GFR - AA 69 mL/min Normal >60 [facility] Comment on above: Result Comment: Afri can Finnish GFR Calc Performed By: #### L 501.2450, L500.4050, L501.4020 #### [facility] [address] [place], [address] GAP 9 Normal 5-15 [facility] Comment on above: Performed By: #### L 501.2450, L500.4050, L501.4020 #### [facility] [address] [place], [address] GFR/1.73 sq M.predicted among non-blacks MDRD (S/P/Bld) [Vol rate/Area] 57 mL/min/{1.73_m2} Low >60 [facility] Comment on above: Result Comment: Non- GFR Calc Performed By: #### L 501.2450, L500.4050, L501.4020 #### [facility] [address] [place], [address] Globulin (S) [Mass/Vol] 3.7 g/dL Normal 2.2-4.2 [facility] Comment on above: Performed By: #### L 501.2450, L500.4050, L501.4020 #### [facility] [address] [place], [address] Glucose [Mass/Vol] 94 mg/dL Normal 74-106 [facility] Comment on above: Result Comment: Palak correa note revised GLUCOSE reference range effective 2017. Performed By: #### L 501.2450, L500.4050, L501.4020 #### [facility] [address] [place], [address] Potassium [Moles/Vol] 4.5 mmol/L Normal 3.5-5.1 [facility] Comment on above: Result Comment: Slig ht Hemolysis, Result may be falsely increased. Performed By: #### L 501.2450, L500.4050, L501.4020 #### [facility] [address] [place], [address] Sodium [Moles/Vol] 135 mmol/L Low 136-145 [facility] Comment on above: Performed By: #### L 501.2450, L500.4050, L501.4020 #### [facility] [address] [place], [address] T PROT 8.0 g/dL Normal 6.4-8.2 [facility] Comment on above: Performed By: #### L 501.2450, L500.4050, L501.4020 #### [facility] [address] [place], [address] Urea nitrogen [Mass/Vol] 14 mg/dL Normal 7-18 [facility] Comment on above: Performed By: #### L 501.2450, L500.4050, L501.4020 #### [facility] [address] [place], [address] Emergency Department Summary on 11-24-2020 Emergency Department Summary [facility] Medical Records Department [address] [place] [address] Emergency Department Summary 11/24/20 MR#: [id number] Acct: [id number] Name: JESSIE MALONE Rep #: [id number] : 1975 45 From: Dedrick Perez MD PCP: Care Physician,No Primary Status:REG ER Location: ED HPI HPI - GI History of Present Illness Chief Complaint: Abd Pain Informant: patient and spouse/S.O. Narrative Narrative: Patient presents with primarily upper abdominal pain. He states that the pain is minimal. However, he keeps having problems with nausea and vomiting. He is moving his bowels and has passing gas. He does not have diarrhea. He has never had blood in the stool or vomited blood. He states it started after he came back from a constitution party last night. He did have several drinks. He cannot think of any foods he had that bothered him. He does not know if anyone else got ill. He felt fine when he went there. Nothing really makes his symptoms better or worse. He has tried to drink some fluids. Sometimes they stay down sometimes they do not. He does not have any dyspnea chest pain pressure or palpitations. Past medical history: Viral myocarditis suspected. Medications include Coumadin and multiple others. Patient does not know what medications he takes otherwise. No known drug allergies other than an intolerance to heparin. He does not know what this reaction was. Surgery is placement of a implantable defibrillator. No abdominal surgery Social does drink alcohol. [facility] Medical History (Updated 11/24/20 @ 19:[address] 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 Left-sided heart failure Home Medications atorvastatin 40 mg PO DAILY 11/24/20 [History Last Taken Unknown] carvedilol 9.175 mg PO BID 11/24/20 [History Last Taken Unknown] digoxin 125 mcg PO DAILY 11/24/20 [History Last Taken Unknown] ferrous sulfate 325 mg PO DAILY 11/24/20 [History Last Taken Unknown] furosemide 20 mg PO DAILY 11/24/20 [History Last Taken Unknown] isosorbide dinitrate 10 mg PO DAILY 11/24/20 [History Last Taken Unknown] magnesium oxide 40 mg PO DAILY 11/24/20 [History Last Taken Unknown] ondansetron 4 mg PO TID PRN 3 Days #9 tab 11/24/20 [Rx Last Taken Unknown] promethazine 25 mg PO TID PRN #9 tab 11/24/20 [Rx Last Taken Unknown] sacubitril-valsartan [Entresto] 1 tab PO BID 11/24/20 [History Last Taken Unknown] spironolactone 25 mg PO DAILY 11/24/20 [History Last Taken Unknown] warfarin 7.5 mg PO DAILY 11/24/20 [History Last Taken Unknown] Allergy/AdvReac Type Severity Reaction Status Date / Time pollen extracts Allergy Shortness Verified 11/24/20 13:48 of breath Surgical History (Updated 11/24/20 @ 17:00 by Kevin Rachel) Hx of tonsillectomy Social History Smoking Status: Former smoker ROS ROS ED Constitutional Constitutional ED: Denies chills or fever(s) Cardiovascular Cardiovascular: Denies chest pain, palpitations or racing heartbeat Respiratory/Chest Respiratory/Chest: Denies cough, dyspnea or dyspnea on exertion Gastrointestinal Gastrointestinal: Reports abdominal pain, nausea and vomiting; Denies constipation, diarrhea or melena Genitourinary Genitourinary ED: Denies dysuria or hematuria Musculoskeletal Musculoskeletal: Denies back pain Integumentary Denies rash Neurologic Neurologic: Denies headache(s) or weakness Endocrine Endocrinology: Denies polydipsia or polyuria Hematologic/Lymphatic Hematologic/Lymphatic: Denies easy bruising Allergic/Immunologic Allergic/Immunologic ED: Denies urticaria EXAM Physical Exam Const Vital Signs: 11/24/20 13:48 Temperature 97.6 F L Temperature Source Temporal Pulse Rate 90 Respiratory Rate 16 Blood Pressure 138/75 H Blood Pressure Mean 96 Pulse Ox 99 Oxygen Delivery Method Room Air Positive well nourished and well developed General Appearance ED: well developed and NAD HEENT Reports moist mucous membranes normocephalic and atraumatic Eyes EOMs intact bilaterally Neck supple Resp normal respiratory effort and clear to auscultation bilaterally Auscultation: Negative for rales Cardio regular rate and regular rhythm GI non-distended and no masses GI Narrative: Patient has a no real objective indication of tenderness. Bowel sounds are slightly reduced from normal. Auscultation: hypoactive bowel sounds Palpation: soft Back/Spine no CVA tenderness Neuro Sensorium / Orientation: alert Psych mental status grossly normal Skin Lesions: no lesions Rashes: no rashes MDM MDM MDM Narrative Medical decision making narrative: Blood work shows normal white count hemoglobin. Creatinine is mildly elevated. Alk phos is just slightly elevated but he does not have tenderness noted notably at the right upper quad (more content not included)... Normal [facility] L501.4020on 11-24-2020 TROPONIN-I HS 9 pg/mL Normal 3.0-78.0 [facility] Comment on above: Performed By: #### L 100.0100, L500.2500 #### [facility] [address] [place], [address] Lipaseon 11-24-2020 Lipase [Catalytic activity/Vol] 173 U/L Normal 73-393 [facility] Comment on above: Performed By: #### L 501.2450, L500.4050, L501.4020 #### [facility] [address] [place], [address] Prothrombin Time w/INRon INR Coag (PPP) [Relative time] 3.0 {INR} Normal [facility] Comment on above: Performed By: #### L 300.3900 #### [facility] [address] [place], [address] PT Coag (PPP) [Time] 30.3 s High 11.7-14.9 [facility] Comment on above: Performed By: #### L 300.3900 #### [facility] [address] [place], [address] Urinalysis, Completeon 11-24 AMORPHOUS 3+ URATE Normal [facility] Comment on above: Order Comment: COLLE CTOR TO SPECIFY Performed By: #### L 400.0001 #### [facility] [address] [place], [address] EPI,SQUAMOUS 5-10 SEEN Normal 0-5 [facility] Comment on above: Order Comment: COLLE CTOR TO SPECIFY Performed By: #### L 400.0001 #### [facility] [address] [place], [address] RBC 0-5 SEEN Normal 0-5 [facility] Comment on above: Order Comment: COLLE CTOR TO SPECIFY Performed By: #### L 400.0001 #### [facility] [address] [place], [address] BACTERIA 0 SEEN Normal None Seen [facility] Comment on above: Order Comment: COLLE CTOR TO SPECIFY Performed By: #### L 400.0001 #### [facility] [address] [place], [address] Mucus Ql (Urine sed) 0 SEEN Normal [facility] Comment on above: Order Comment: COLLE CTOR TO SPECIFY Performed By: #### L 400.0001 #### [facility] [address] [place], [place], [id number] WBC 0 SEEN Normal 0-5 [facility] Comment on above: Order Comment: COLLE CTOR TO SPECIFY Performed By: #### L 400.0001 #### [facility] [address] [place], [place], [id number] Today's INRon 11-10-2020 Today's INR AMS Anticoagulati on [employer] Work Phone: Today's INR 2-3 Anticoagulati on [employer] Work Phone: Today's INRon 10-13-2020 Today's INR AMS Anticoagulati on [employer] Work Phone: Today's INR 2-3 Anticoagulati on [employer] Work Phone: Today's INRon 09-15-2020 Today's INR 2-3 Anticoagulati on [employer] Work Phone: Today's INR AMS Anticoagulati on [employer] Work Phone: Tobacco Screening.on 021 Fall risk assessment a) No falls within the last year [facility] [address] Work Phone: Tobacco use status CPHS b) No [facility] [address] Work Phone: Today's INRon 08-17-2020 Today's INR AMS JJ-Znvpqlgm-U [facility] [address] Work Phone: Today's INR 2-3 SX-Aawioniq-M [facility] [address] Work Phone: LABORATORYOrdered By: Varun Arias on 06-09-2020 Albumin BCP dye [Mass/Vol] 3.9 G/dL Invalid Interpretation Code 3.5 - 5.0 G/dL AO ADM SS Albumin/Globulin [Mass ratio] 1.1 {ratio} Invalid Interpretation Code 1.1 - 2.5 ratio AO ADM SS ALP [Catalytic activity/Vol] 122 U/L Invalid Interpretation Code 40 - 135 U/L AO ADM SS ALT With P-5'-P [Catalytic activity/Vol] 37 U/L Invalid Interpretation Code 16 - 63 U/L AO ADM SS AST With P-5'-P [Catalytic activity/Vol] 26 U/L Invalid Interpretation Code 10 - 40 U/L AO ADM SS Bilirubin [Mass/Vol] 0.6 mg/dL Invalid Interpretation Code 0.2 - 1.0 mg/dL AO ADM SS Calcium [Mass/Vol] 8.8 mg/dL Invalid Interpretation Code 8.4 - 10.2 mg/dL AO ADM SS Chloride [Moles/Vol] 101 mmol/L Invalid Interpretation Code 98 - 107 mmol/L AO ADM SS CO2 [Moles/Vol] 28 mmol/L Invalid Interpretation Code 22 - 29 mmol/L AO ADM SS Creatinine [Mass/Vol] 1.34 mg/dL Invalid Interpretation Code 0.70 - 1.30 mg/dL AO ADM SS Electrolyte Balance 11.0 mEq/L Invalid Interpretation Code AO ADM SS Globulin 3.6 G/dL Invalid Interpretation Code AO ADM SS Glucose [Mass/Vol] 129 mg/dL Invalid Interpretation Code 70 - 105 mg/dL AO ADM SS Potassium [Moles/Vol] 3.7 mmol/L Invalid Interpretation Code 3.5 - 5.1 mmol/L AO ADM SS Protein [Mass/Vol] 7.5 G/dL Invalid Interpretation Code 6.4 - 8.2 G/dL AO ADM SS Sodium [Moles/Vol] 140 mmol/L Invalid Interpretation Code 136 - 145 mmol/L AO ADM SS Urea nitrogen [Mass/Vol] 10 mg/dL Invalid Interpretation Code 7 - 18 mg/dL AO ADM SS Urea nitrogen/Creatinine [Mass ratio] 7 ratio Invalid Interpretation Code 7 - 27 ratio AO ADM SS LABORATORYOrdered By: IVÁN REID CONTRIBUTOR_SYSTEM on 06-09-2020 Cotinine ng/mL Invalid Interpretation Code <2ng/mL AO Sendouts SS Comment on above: Result Comment: Perf ormed By: [facility] [employer] [address] [place] [address] Technology Lab Teacher: Chester Marshall III, M.D. CLIA#: [id number] Phone#: Nicotine Lvl ng/mL Invalid Interpretation Code <2ng/mL AO Sendouts SS Comment on above: Result Comment: Perf ormed By: [place] [id number] [place] [id number] Technology Lab Teacher: Chester Marshall III, M.D. CLIA#: [id number] Phone#: Nornicotine Absent Invalid Interpretation Code AB AO Sendouts SS Comment on above: Result Comment: (NOT E) WHILE USING A TOBACCO PRODUCT: Peak Nicotine concentration: 30 ng/mL to 50 ng/mL Peak Cotinine concentration: 200 ng/mL to 800 ng/mL (Higher Cotinine values may be seen in subjects with high cytochrome P450 2D6 activity.) TOBACCO USER AFTER TWO WKS OF COMPLETE ABSTINENCE: Nicotine concentration: <2.0 ng/mL Cotinine concentration: <2.0 ng/mL NONTOBACCO USER WITH PASSIVE EXPOSURE: Nicotine concentration: <2.0 ng/mL Cotinine concentration: <8.0 ng/mL NONTOBACCO USER WITH NO PASSIVE EXPOSURE: Nicotine concentration: <2.0 ng/mL Cotinine concentration: <2.0 ng/mL The presence of nornicotine indicates tobacco or nicotine exposure while its absence does not rule out the exposure. To discriminate if a patient on nicotine replacement therapy is actively using a tobacco product, the presence of anabasine in URINE indicates recent tobacco use. Anabasine is a tobacco alkaloid not present in nicotine replacement products. This test was developed and its performance characteristics determined by [facility] [place]. It has not been cleared or approved by the FDA. [facility] is authorized under CLIA to perform high-complexity testing. This test is used for clinical purposes. It should not be regarded as investigational or for research. Performed By: [place] [id number] [place] [id number] [employer] Lab Teacher: Chester Marshall III, M.D. CLIA#: [id number] Phone#: LABORATORYOrdered By: SYSTEM SYSTEM on 06-09-2020 GFR 70 ml/min/1.73sqm Invalid Interpretation Code AO Chemistry S GFR Non- 57 ml/min/1.73sqm Invalid Interpretation Code AO Chemistry S LABORATORYOrdered By: Varun Arias on 05-12-2020 Albumin Level 4.0 G/dL Invalid Interpretation Code 3.5 - 5.0 G/dL AO Chemistry S Albumin/Globulin [Mass ratio] 1.1 {ratio} Invalid Interpretation Code 1.1 - 2.5 ratio AO Chemistry S Alk Phos 138 1 Invalid Interpretation Code 40 - 135 U/L AO Chemistry S ALT [Catalytic activity/Vol] 34 U/L Invalid Interpretation Code 16 - 63 U/L AO Chemistry S Amphetamines Screen Ql (U) Negative (05/12/20 12:46 PM) Invalid Interpretation Code AO Manual Urine SS AST [Catalytic activity/Vol] 26 U/L Invalid Interpretation Code 10 - 40 U/L AO Chemistry S Barbiturates Screen Ql (U) Negative (05/12/20 12:46 PM) Invalid Interpretation Code AO Manual Urine SS Benzodiazepines Ql (U) Negative (05/12/20 12:46 PM) Invalid Interpretation Code AO Manual Urine SS Benzoylecgonine Screen Ql (U) Negative (05/12/20 12:46 PM) Invalid Interpretation Code AO Manual Urine SS Bili Total 0.7 mg/dL Invalid Interpretation Code 0.2 - 1.0 mg/dL AO Chemistry S BUN/Creatinine Ratio 8 ratio Invalid Interpretation Code 7 - 27 ratio AO Chemistry S Calcium [Mass/Vol] 9.6 mg/dL Invalid Interpretation Code 8.4 - 10.2 mg/dL AO Chemistry S Cannabinoids tested Screen Nom (U) Negative (05/12/20 12:46 PM) Invalid Interpretation Code AO Manual Urine SS Chloride [Moles/Vol] 103 mmol/L Invalid Interpretation Code 98 - 107 mmol/L AO Chemistry S CO2 [Moles/Vol] 30 mmol/L Invalid Interpretation Code 22 - 29 mmol/L AO Chemistry S Creatinine [Mass/Vol] 1.32 mg/dL Invalid Interpretation Code 0.70 - 1.30 mg/dL AO Chemistry S Electrolyte Balance 9.0 mEq/L Invalid Interpretation Code AO Chemistry S Globulin 3.8 G/dL Invalid Interpretation Code AO Chemistry S Glucose [Mass/Vol] 103 mg/dL Invalid Interpretation Code 70 - 105 mg/dL AO Chemistry S Methadone Screen Ql (U) Negative (05/12/20 12:46 PM) Invalid Interpretation Code AO Manual Urine SS Opiates Screen Ql (U) Negative (05/12/20 12:46 PM) Invalid Interpretation Code AO Manual Urine SS Phencyclidine Ql (U) Negative (05/12/20 12:46 PM) Invalid Interpretation Code AO Manual Urine SS Potassium [Moles/Vol] 4.1 mmol/L Invalid Interpretation Code 3.5 - 5.1 mmol/L AO Chemistry S Sodium [Moles/Vol] 142 mmol/L Invalid Interpretation Code 136 - 145 mmol/L AO Chemistry S Total Protein 7.8 G/dL Invalid Interpretation Code 6.4 - 8.2 G/dL AO Chemistry S Tricyclic antidepressants Screen Ql (U) Negative (05/12/20 12:46 PM) Invalid Interpretation Code AO Manual Urine SS Urea nitrogen [Mass/Vol] 11 mg/dL Invalid Interpretation Code 7 - 18 mg/dL AO Chemistry S LABORATORYOrdered By: SYSTEM SYSTEM on 05-12-2020 GFR 71 ml/min/1.73sqm Invalid Interpretation Code AO Chemistry S GFR Non- 58 ml/min/1.73sqm Invalid Interpretation Code AO Chemistry S LABORATORYOrdered By: Yvette Cummins on 04-20-2020 Albumin BCP dye [Mass/Vol] 3.9 G/dL Invalid Interpretation Code 3.5 - 5.0 G/dL AO ADM SS Albumin/Globulin [Mass ratio] 1.1 {ratio} Invalid Interpretation Code 1.1 - 2.5 ratio AO ADM SS ALP [Catalytic activity/Vol] 124 U/L Invalid Interpretation Code 40 - 135 U/L AO ADM SS ALT With P-5'-P [Catalytic activity/Vol] 38 U/L Invalid Interpretation Code 16 - 63 U/L AO ADM SS AST With P-5'-P [Catalytic activity/Vol] 24 U/L Invalid Interpretation Code 10 - 40 U/L AO ADM SS Bilirubin [Mass/Vol] 0.5 mg/dL Invalid Interpretation Code 0.2 - 1.0 mg/dL AO ADM SS Calcium [Mass/Vol] 9.1 mg/dL Invalid Interpretation Code 8.4 - 10.2 mg/dL AO ADM SS Chloride [Moles/Vol] 104 mmol/L Invalid Interpretation Code 98 - 107 mmol/L AO ADM SS CO2 [Moles/Vol] 26 mmol/L Invalid Interpretation Code 22 - 29 mmol/L AO ADM SS Creatinine [Mass/Vol] 1.55 mg/dL Invalid Interpretation Code 0.70 - 1.30 mg/dL AO ADM SS Electrolyte Balance 11.0 mEq/L Invalid Interpretation Code AO ADM SS Globulin 3.5 G/dL Invalid Interpretation Code AO ADM SS Glucose [Mass/Vol] 139 mg/dL Invalid Interpretation Code 70 - 105 mg/dL AO ADM SS Potassium [Moles/Vol] 3.7 mmol/L Invalid Interpretation Code 3.5 - 5.1 mmol/L AO ADM SS Protein [Mass/Vol] 7.4 G/dL Invalid Interpretation Code 6.4 - 8.2 G/dL AO ADM SS Sodium [Moles/Vol] 141 mmol/L Invalid Interpretation Code 136 - 145 mmol/L AO ADM SS Urea nitrogen [Mass/Vol] 16 mg/dL Invalid Interpretation Code 7 - 18 mg/dL AO ADM SS Urea nitrogen/Creatinine [Mass ratio] 10 ratio Invalid Interpretation Code 7 - 27 ratio AO ADM SS LABORATORYOrdered By: Varun Arias on 04-20-2020 Amphetamines Screen Ql (U) Negative (04/20/20 11:34 AM) Invalid Interpretation Code AO Manual Urine SS Barbiturates Screen Ql (U) Negative (04/20/20 11:34 AM) Invalid Interpretation Code AO Manual Urine SS Benzodiazepines Ql (U) Negative (04/20/20 11:34 AM) Invalid Interpretation Code AO Manual Urine SS Benzoylecgonine Screen Ql (U) Negative (04/20/20 11:34 AM) Invalid Interpretation Code AO Manual Urine SS Cannabinoids tested Screen Nom (U) Negative (04/20/20 11:34 AM) Invalid Interpretation Code AO Manual Urine SS Methadone Screen Ql (U) Negative (04/20/20 11:34 AM) Invalid Interpretation Code AO Manual Urine SS Opiates Screen Ql (U) Negative (04/20/20 11:34 AM) Invalid Interpretation Code AO Manual Urine SS Phencyclidine Ql (U) Negative (04/20/20 11:34 AM) Invalid Interpretation Code AO Manual Urine SS Tricyclic antidepressants Screen Ql (U) Positive (04/20/20 11:34 AM) Invalid Interpretation Code AO Manual Urine SS LABORATORYOrdered By: IVÁN REID CONTRIBUTOR_SYSTEM on 04-20-2020 Cotinine ng/mL Invalid Interpretation Code <2ng/mL AO Sendouts SS Comment on above: Result Comment: Perf ormed By: [facility] [address] [place] [address] Technology Lab Teacher: Chester Marshall III, M.D. CLIA#: [id number] Phone#: Nicotine Lvl ng/mL Invalid Interpretation Code <2ng/mL AO Sendouts SS Comment on above: Result Comment: Perf ormed By: [facility] [address] [place] [id number] Technology Lab Teacher: Chester Marshall III, M.D. CLIA#: [id number] Phone#: Nornicotine Absent Invalid Interpretation Code AB AO Sendouts SS Comment on above: Result Comment: (NOT E) WHILE USING A TOBACCO PRODUCT: Peak Nicotine concentration: 30 ng/mL to 50 ng/mL Peak Cotinine concentration: 200 ng/mL to 800 ng/mL (Higher Cotinine values may be seen in subjects with high cytochrome P450 2D6 activity.) TOBACCO USER AFTER TWO WKS OF COMPLETE ABSTINENCE: Nicotine concentration: <2.0 ng/mL Cotinine concentration: <2.0 ng/mL NONTOBACCO USER WITH PASSIVE EXPOSURE: Nicotine concentration: <2.0 ng/mL Cotinine concentration: <8.0 ng/mL NONTOBACCO USER WITH NO PASSIVE EXPOSURE: Nicotine concentration: <2.0 ng/mL Cotinine concentration: <2.0 ng/mL The presence of nornicotine indicates tobacco or nicotine exposure while its absence does not rule out the exposure. To discriminate if a patient on nicotine replacement therapy is actively using a tobacco product, the presence of anabasine in URINE indicates recent tobacco use. Anabasine is a tobacco alkaloid not present in nicotine replacement products. This test was developed and its performance characteristics determined by [facility] [place]. It has not been cleared or approved by the FDA. [facility] is authorized under CLIA to perform high-complexity testing. This test is used for clinical purposes. It should not be regarded as investigational or for research. Performed By: [facility] [employer] [address] [place] [address] Technology Lab Teacher: Chester Marshall III, M.D. CLIA#: [id number] Phone#: LABORATORYOrdered By: SYSTEM SYSTEM on 04-20-2020 GFR 59 ml/min/1.73sqm Invalid Interpretation Code AO Chemistry S GFR Non- 49 ml/min/1.73sqm Invalid Interpretation Code AO Chemistry S LABORATORYOrdered By: Kami Youngblood on 03-10-2020 Amphetamines Screen Ql (U) Negative (03/10/20 11:28 AM) Invalid Interpretation Code AO Manual Urine SS Barbiturates Screen Ql (U) Negative (03/10/20 11:28 AM) Invalid Interpretation Code AO Manual Urine SS Benzodiazepines Ql (U) Negative (03/10/20 11:28 AM) Invalid Interpretation Code AO Manual Urine SS Benzoylecgonine Screen Ql (U) Negative (03/10/20 11:28 AM) Invalid Interpretation Code AO Manual Urine SS Cannabinoids tested Screen Nom (U) Negative (03/10/20 11:28 AM) Invalid Interpretation Code AO Manual Urine SS Methadone Screen Ql (U) Negative (03/10/20 11:28 AM) Invalid Interpretation Code AO Manual Urine SS Opiates Screen Ql (U) Negative (03/10/20 11:28 AM) Invalid Interpretation Code AO Manual Urine SS Phencyclidine Ql (U) Negative (03/10/20 11:28 AM) Invalid Interpretation Code AO Manual Urine SS Tricyclic antidepressants Screen Ql (U) Negative (03/10/20 11:28 AM) Invalid Interpretation Code AO Manual Urine SS LABORATORYOrdered By: IVÁN REID CONTRIBUTOR_SYSTEM on 03-10-2020 Cotinine ng/mL Invalid Interpretation Code <2ng/mL AO Sendouts SS Comment on above: Result Comment: Perf ormed By: [facility] [place] [address] Technology Lab Teacher: Chester Marshall III, M.D. CLIA#: [id number] Phone#: Nicotine Lvl ng/mL Invalid Interpretation Code <2ng/mL AO Sendouts SS Comment on above: Result Comment: Perf ormed By: [facility] [place] [address] Technology Lab Teacher: Chester Marshall III, M.D. CLIA#: [id number] Phone#: Nornicotine Absent Invalid Interpretation Code AB AO Sendouts SS Comment on above: Result Comment: (NOT E) WHILE USING A TOBACCO PRODUCT: Peak Nicotine concentration: 30 ng/mL to 50 ng/mL Peak Cotinine concentration: 200 ng/mL to 800 ng/mL (Higher Cotinine values may be seen in subjects with high cytochrome P450 2D6 activity.) TOBACCO USER AFTER TWO WKS OF COMPLETE ABSTINENCE: Nicotine concentration: <2.0 ng/mL Cotinine concentration: <2.0 ng/mL NONTOBACCO USER WITH PASSIVE EXPOSURE: Nicotine concentration: <2.0 ng/mL Cotinine concentration: <8.0 ng/mL NONTOBACCO USER WITH NO PASSIVE EXPOSURE: Nicotine concentration: <2.0 ng/mL Cotinine concentration: <2.0 ng/mL The presence of nornicotine indicates tobacco or nicotine exposure while its absence does not rule out the exposure. To discriminate if a patient on nicotine replacement therapy is actively using a tobacco product, the presence of anabasine in URINE indicates recent tobacco use. Anabasine is a tobacco alkaloid not present in nicotine replacement products. This test was developed and its performance characteristics determined by [facility] [place]. It has not been cleared or approved by the FDA. [facility] is authorized under CLIA to perform high-complexity testing. This test is used for clinical purposes. It should not be regarded as investigational or for research. Performed By: [facility] [address] [place] [address] Technology Lab Teacher: Chester Marshall III, M.D. IA#: [id number] Phone#: Clinical Event Note-IR Thyro id FNAon 02-14-2020 Clinical Event Note-IR Thyroid FNA Clinical Event: Clinical Event Note: TopicIR Thyroid FNA Details Limited ultrasound of the thyroid was performed for the purposes of procedure planning. 2 nodules were identified within the right thyroid lobe, including the previously demonstrated slightly larger thyroid nodule at the periphery the right thyroid lobe previously classified as TIRADS 4. The nodules are stable in size compared to prior thyroid ultrasound dated 10/28/2019. We discussed with the patient the risks and benefits of sampling these lesions and the likelihood of benign etiology. The patient reports he was comfortable with surveillance ultrasound examinations. Ordering provider was directly emailed with update. Electronic Signatures: Isiah Jamil (Resident)) (Signed 14-Feb-2020 17:01) Authored: Clinical Event Note Last Updated: 14-Feb-2020 17:01 by Isiah Jamil ( (Resident)) Normal [facility] Otheron 02-14-2020 Interpreted by: CLAU STOVER04/15/19 19:26MRN: [id number] Name: SEBLE MALONE STUDY:SOFT TISS H/N; 02/14/2020 1:35 pm INDICATION:FNA of 1.2 cm TIRADE 4 , pt is on anticoiagulation. COMPARISON:Thyroid ultrasound 10/28/2019 ORDERING CLINICIAN:CLEVE ESCOTO TECHNIQUE:Multiple multiplanar static quezada scale, color and spectral waveformsonographic images of the pelvis were obtained. Limited thyroidultrasound was performed. FINDINGS:Limited ultrasound of the thyroid was performed for the purposes ofprocedure planning. 2 nodules were identified within the right thyroid lobe, includingthe previously demonstrated slightly larger thyroid nodule at theperiphery the right thyroid lobe previously classified as TIRADS 4.Upon further evaluation, the posterior located nodule is consistentwith TI-RAD 2, the laterally located nodule is consistent with aTI-RAD 3. Both nodules are stable in size compared to prior thyroidultrasound dated 10/28/2019. We discussed with the patient the risks and benefits of samplingthese lesions and the high likelihood of benign etiology. The patientreports he was comfortable with surveillance ultrasound examinations. IMPRESSION:1. Limited thyroid ultrasound of the right thyroid lobe demonstratesa TI-RAD 2, and TI-RAD 3 nodules. Given the size is less than 2.5 cm,follow-up examination is suggested. I personally reviewed the images/study and I agree with the findingsas stated. This study was interpreted at [facility], [place], [place].Electronically signed by: CLAU ARVIZU 02/14/20 19:26 Normal RW-Aeeqxfmtfo-OZ C [facility] [address] [place] Work Phone: Comment on above: ORDER REVISED TO A U LTRASOUND SOFT TISSUE HEAD AND NECK BY RADIOLOGIST; Original Order Number: [id number] ULTRASOUND SOFT TISSUE HEAD AND NECKon 02-14-2020 ULTRASOUND SOFT TISSUE HEAD AND NECK Patient Name: SEBLE MALONE STUDY: SOFT TISS H/N; 02/14/2020 1:35 pm INDICATION: FNA of 1.2 cm TIRADE 4 , pt is on anticoiagulation. COMPARISON: Thyroid ultrasound 10/28/2019 ACCESSION NUMBER(S): [id number] ORDERING CLINICIAN: CLEVE ESCOTO TECHNIQUE: Multiple multiplanar static quezada scale, color and spectral waveform sonographic images of the pelvis were obtained. Limited thyroid ultrasound was performed. FINDINGS: Limited ultrasound of the thyroid was performed for the purposes of procedure planning. 2 nodules were identified within the right thyroid lobe, including the previously demonstrated slightly larger thyroid nodule at the periphery the right thyroid lobe previously classified as TIRADS 4. Upon further evaluation, the posterior located nodule is consistent with TI-RAD 2, the laterally located nodule is consistent with a TI-RAD 3. Both nodules are stable in size compared to prior thyroid ultrasound dated 10/28/2019. We discussed with the patient the risks and benefits of sampling these lesions and the high likelihood of benign etiology. The patient reports he was comfortable with surveillance ultrasound examinations. IMPRESSION: 1. Limited thyroid ultrasound of the right thyroid lobe demonstrates a TI-RAD 2, and TI-RAD 3 nodules. Given the size is less than 2.5 cm, follow-up examination is suggested. I personally reviewed the images/study and I agree with the findings as stated. This study was interpreted at [facility], [place], [place]. Electronically signed by: CLAU ARVIZU MD [facility] Digoxin Level, Serumon 08-21 Digoxin [Mass/Vol] ng/mL below low threshold See Below CJ-Wvzsvanlih-PN C [employer] Work Phone: Comment on above: Reference Range: 0.8 0 - 2.00 Ordering Provider: Itzel TELEPX1 Hematologyon 08-21-2019 Hematocrit (Bld) [Volume fraction] 38.5 % below low threshold See Below CL-Yycfjnfzqw-VD [employer] Work Phone: Comment on above: Reference Range: 41. 0 - 52.0 Ordering Provider: Teena SORIA [address]859 Hemoglobin (Bld) [Mass/Vol] 12.8 g/dL below low threshold See Below PG-Otnjzbntvb-UX C [employer] Work Phone: Comment on above: Reference Range: 13. 5 - 17.5 Ordering Provider: A RAMONAJACOB ZHENGSORIA [address]132 MCV (RBC) [Entitic vol] 88 fL 80 - 100 VX-Fufczyunmv-NR C [facility] Work Phone: Comment on above: Ordering Provider: A RAMON ZHENGARLAND [address] Platelets (Bld) [#/Vol] 114 {x10E9/L} below low threshold 150 - 450 XG-Xurvohzqnh-SW C [facility] Work Phone: Comment on above: Ordering Provider: A RAMON ZHENGARLAND [address]498 RBC (Bld) [#/Vol] 4.37 {x10E12/L} below low threshold See Below DE-Tkoqoqgimh-WA C [facility] Work Phone: Comment on above: Reference Range: 4.5 0 - 5.90 Ordering Provider: A RAMON ZHENGARLAND [address]382 WBC (Bld) [#/Vol] 0.0 {/100_WBC} 0.0-0.0 MG- Cardiology-CM C [facility] Work Phone: Comment on above: Ordering Provider: A RAMON ZHENGARLAND [address]225 WBC (Bld) [#/Vol] 5.7 {x10E9/L} 4.4 - 11.3 MG-C ardiology-CM C [facility] Work Phone: Comment on above: Ordering Provider: A RAMON SORIA 73172 Magnesium, Serumon 0 Magnesium [Mass/Vol] 1.66 mg/dL See Below LU-Vtjvmnkzcz-OB C [facility] Work Phone: Comment on above: Reference Range: 1.6 0 - 2.40 Ordering Provider: A RAMON SORIA 85328 Otheron 08-21-2019 Erythrocyte distribution width (RBC) [Ratio] 15.0 % above high threshold See Below GV-Iuihuuclix-IX C [facility] Work Phone: Comment on above: Reference Range: 11. 5 - 14.5 Ordering Provider: A RAMON ZHENGARLAND [address]604 MCHC (RBC) [Mass/Vol] 33.2 g/dL See Below DK-Zshwupylkb-QF [facility] Work Phone: Comment on above: Reference Range: 32. 0 - 36.0 Ordering Provider: A RAMON ZHENGARLAND 15914 Renal Function Panelon 08-20 Albumin BCP dye [Mass/Vol] 2.9 g/dL below low threshold 3.4 - 5.0 QZ-Hqafteqvlk-WI [facility] Work Phone: Comment on above: Ordering Provider: A RAMON ZHENGARLAND 35855 Anion gap [Moles/Vol] 13 mmol/L 10 - 20 FI-Drlpgecqhe-GS C [facility] Work Phone: Comment on above: Ordering Provider: A RAMON ZHENGARLAND 74206 Calcium [Mass/Vol] 8.5 mg/dL below low threshold 8.6 - 10.6 GZ-Nwwkaoezgx-WF C [facility] Work Phone: Comment on above: Ordering Provider: A RAMON ZHENGARLAND 17635 Chloride [Moles/Vol] 106 mmol/L 98 - 107 ZM-Lxoqkplvgv-UO C [facility] Work Phone: Comment on above: Ordering Provider: A RAMON ZHENGARLAND 18767 CO2 [Moles/Vol] 20 mmol/L below low threshold 21 - 32 ED-Ptyxlzjnyu-RR C [facility] Work Phone: Comment on above: Ordering Provider: A RAMON ZHENGARLAND 71994 Creatinine [Mass/Vol] 1.03 mg/dL See Below ID-Dcwoggefrh-GX C [facility] Work Phone: Comment on above: Reference Range: 0.5 0 - 1.30 Ordering Provider: A RAMON ZHENGARLAND 67035 Glucose [Mass/Vol] 104 mg/dL above high threshold 74 - 99 XG-Wkrunvankn-EP C [facility] Work Phone: Comment on above: Ordering Provider: A RAMON ZHENGARLAND [address]707 Phosphate [Mass/Vol] 3.8 mg/dL 2.5 - 4.9 DA-Ypsoozziwq-AL C [facility] Work Phone: Comment on above: The performance duane acteristics of phosphorus testing in heparinized plasma have been validated by the individual laboratory site where testing is performed. Testing on heparinized plasma is not approved by the FDA; however, such approval is not necessary. Ordering Provider: A RAMON SORIA 19931 Potassium [Moles/Vol] 4.0 mmol/L 3.5 - 5.3 LQ-Dfodyvokro-LF C [facility] Work Phone: Comment on above: Ordering Provider: A RAMON SORIA 64925 Sodium [Moles/Vol] 135 mmol/L below low threshold 136 - 145 SC-Pmzxxvddzk-UD C [facility] Work Phone: Comment on above: Ordering Provider: A RAMON SORIA 46367 Urea nitrogen [Mass/Vol] 14 mg/dL 6 - 23 OL-Omrixrcksn-UU C [facility] Work Phone: Comment on above: Ordering Provider: A RAMON SORIA 04443 Renal Function Panel >60 >60 LR-Bdjawkbkqb-OO C [facility] Work Phone: Comment on above: CALCULATIONS OF MARY MATED GFR ARE PERFORMED USING THE MDRD STUDY EQUATION FOR THE IDMS-TRACEABLE CREATININE METHODS. CLIN CHEM 2007;53:766-72 Ordering Provider: Teena RAMON NAIDULAND [address] Hematologyon 08-20-2019 Hematocrit (Bld) [Volume fraction] 36.4 % below low threshold See Below LN-Ovzkpvphji-CZ C [facility] Work Phone: Comment on above: Reference Range: 41. 0 - 52.0 Ordering Provider: Hardy FLANAGAN 33371 Hemoglobin (Bld) [Mass/Vol] 12.0 g/dL below low threshold See Below UF-Juwyupmoms-HK C [facility] Work Phone: Comment on above: Reference Range: 13. 5 - 17.5 Ordering Provider: Hardy FLANAGAN 12618 MCV (RBC) [Entitic vol] 88 fL 80 - 100 PH-Kkedorgonf-UD C [facility] Work Phone: Comment on above: Ordering Provider: Hardy FLANAGAN 96084 Platelets (Bld) [#/Vol] 93 {x10E9/L} below low threshold 150 - 450 BV-Acrfzfmslp-HG C [facility] Work Phone: Comment on above: Ordering Provider: Hardy FLANAGAN 12425 RBC (Bld) [#/Vol] 4.15 {x10E12/L} below low threshold See Below QK-Hmanpvpexy-MZ C [facility] Work Phone: Comment on above: Reference Range: 4.5 0 - 5.90 Ordering Provider: Hardy FLANAGAN 86327 WBC (Bld) [#/Vol] 0.0 {/100_WBC} 0.0-0.0 MG- Cardiology-CM C [facility] Work Phone: Comment on above: Ordering Provider: Hardy FLANAGAN 69583 WBC (Bld) [#/Vol] 5.9 {x10E9/L} 4.4 - 11.3 MG-C ardiology-CM C [facility] Work Phone: Comment on above: Ordering Provider: Hardy FLANAGAN 21540 Hematocrit (Bld) [Volume fraction] 29.0 % below low threshold See Below XG-Iezeyiaqfp-MB C [facility] Work Phone: Comment on above: Reference Range: 41. 0 - 52.0 Hemoglobin (Bld) [Mass/Vol] 9.9 g/dL below low threshold See Below AO-Dptirflhsf-YX C [facility] Work Phone: Comment on above: Reference Range: 13. 5 - 17.5 Hematocrit (Bld) [Volume fraction] 31.0 % below low threshold See Below XD-Dnpvlxqcsb-CJ C [facility] Work Phone: Comment on above: Reference Range: 41. 0 - 52.0 Hemoglobin (Bld) [Mass/Vol] 10.5 g/dL below low threshold See Below ID-Ejokgguuqm-GG C [facility] Work Phone: Comment on above: Reference Range: 13. 5 - 17.5 INR Coag (PPP) [Relative time] 1.4 {INR} above high threshold 0.9 - 1.1 UO-Cpcvacmfrr-RN C [facility] Work Phone: PT Coag (PPP) [Time] 15.4 {sec} above high threshold 9.7 - 12.7 YE-Yrpgoxoozz-CS C [facility] Work Phone: Hematocrit (Bld) [Volume fraction] 31.2 % below low threshold See Below DF-Ufdarviuos-RJ C [facility] Work Phone: Comment on above: Reference Range: 41. 0 - 52.0 Ordering Provider: Elías BOWEN 45969 Hemoglobin (Bld) [Mass/Vol] 11.1 g/dL below low threshold See Below UB-Pwtfsafhsc-ZF C [facility] Work Phone: Comment on above: Reference Range: 13. 5 - 17.5 Ordering Provider: Elías BOWEN 57010 MCV (RBC) [Entitic vol] 84 fL 80 - 100 QW-Hvtqnwlxmm-WF C [facility] Work Phone: Comment on above: Ordering Provider: Elías MARTINEZAB 36935 Platelets (Bld) [#/Vol] 88 {x10E9/L} below low threshold 150 - 450 DO-Nwnrpmaqkj-HX C [facility] Work Phone: Comment on above: Ordering Provider: Elías MARTINEZAB 97348 RBC (Bld) [#/Vol] 3.72 {x10E12/L} below low threshold See Below UM-Rbvhpwypnv-TU C [facility] Work Phone: Comment on above: Reference Range: 4.5 0 - 5.90 Ordering Provider: Elías BOWEN [address]365 WBC (Bld) [#/Vol] 0.0 {/100_WBC} 0.0-0.0 MG- Cardiology-CM [facility] Work Phone: Comment on above: Ordering Provider: Elías BOWEN 74633 WBC (Bld) [#/Vol] 6.9 {x10E9/L} 4.4 - 11.3 MG-C ardiology-CM [facility] Work Phone: Comment on above: Ordering Provider: Elías BOWEN 74930 Hematocrit (Bld) [Volume fraction] 35.0 % below low threshold See Below KI-Gppdtxldyg-YQ [facility] Work Phone: Comment on above: Reference Range: 41. 0 - 52.0 Hemoglobin (Bld) [Mass/Vol] 11.9 g/dL below low threshold See Below JT-Rwjcmqggpr-BB [facility] Work Phone: Comment on above: Reference Range: 13. 5 - 17.5 Heparin assay, UFHon 05-15-2 020 Heparin unfractionated Chromogenic method Qn (PPP) 0.4 {IU/mL} GE-Taljngctdc-YP [facility] Work Phone: Comment on above: The therapeutic refe rence range for UFH may be either 0.3-0.6 IU/mL or 0.3-0.7 IU/mL based on the clinical setting for anticoagulant therapy and the associated nomogram used. For heparin dosing guidelines based on clinical scenario and Heparin Assay results, please refer to local Pharmacy and the [facility] Guidelines for Anticoagulation therapy available on the [facility] intranet at:[email or web address]://[email or web address]/Pharmacy/Pages/[place]_ ospitals_Guidelines_for_Anticoagu.aspx Ordering Provider: Terri BURKETT 23278 Heparin unfractionated Chromogenic method Qn (PPP) 0.7 {IU/mL} IS-Ggryshebly-FB [facility] Work Phone: Comment on above: The therapeutic refe rence range for UFH may be either 0.3-0.6 IU/mL or 0.3-0.7 IU/mL based on the clinical setting for anticoagulant therapy and the associated nomogram used. For heparin dosing guidelines based on clinical scenario and Heparin Assay results, please refer to local Pharmacy and the [facility] Guidelines for Anticoagulation therapy available on the [facility] intranet at:https://[facility].org/Pharmacy/Pages/[place]_ ospitals_Guidelines_for_Anticoagu.aspx Ordering Provider: Terri BURKETT 49074 Heparin unfractionated Chromogenic method Qn (PPP) <0.1 FV-Qwubprjjkm-MS [facility] Work Phone: Comment on above: The therapeutic refe rence range for UFH may be either 0.3-0.6 IU/mL or 0.3-0.7 IU/mL based on the clinical setting for anticoagulant therapy and the associated nomogram used. For heparin dosing guidelines based on clinical scenario and Heparin Assay results, please refer to local Pharmacy and [facility] Guidelines for Anticoagulation therapy available on the [facility] intranet at:https://[facility].[email or web address]/Pharmacy/Pages/[place]_ ospitals_Guidelines_for_Anticoagu.aspx Ordering Provider: Terri BURKETT 07704 Magnesium, Serumon 0 Magnesium [Mass/Vol] 2.06 mg/dL See Below CE-Ordifsaskt-FZ [facility] Work Phone: Comment on above: Reference Range: 1.6 0 - 2.40 Ordering Provider: Hardy FLANAGAN 40450 Magnesium [Mass/Vol] 1.59 mg/dL below low threshold See Below SO-Vpsrqzmtis-OD [facility] Work Phone: Comment on above: Reference Range: 1.6 0 - 2.40 Ordering Provider: Elías BOWEN 78785 Metabolic Panelon 08-20-2019 Anion gap [Moles/Vol] 10 mmol/L 10 - 20 PD-Hvdxrbhass-NK [facility] Work Phone: Comment on above: Ordering Provider: Hardy FLANAGAN 47369 Calcium [Mass/Vol] 7.8 mg/dL below low threshold 8.6 - 10.6 MH-Bydnlvwqxg-ST [facility] [employer] Work Phone: Comment on above: Ordering Provider: Hardy MARIE MASHA 55110 Chloride [Moles/Vol] 104 mmol/L 98 - 107 AM-Kughrpxslc-LG [facility] Work Phone: Comment on above: Ordering Provider: Hardy MARIE HITCHCOCKUM 03864 CO2 [Moles/Vol] 22 mmol/L 21 - 32 MG-Cardio logy-CM [facility] Work Phone: Comment on above: Ordering Provider: Hardy ADRIANLALIT FLANAGAN 65502 Creatinine [Mass/Vol] 0.97 mg/dL See Below NK-Dhhnwtpeaa-KF [facility] Work Phone: Comment on above: Reference Range: 0.5 0 - 1.30 Ordering Provider: Hardy FLANAGAN 22313 Glucose [Mass/Vol] 118 mg/dL above high threshold 74 - 99 GX-Zwsiwckjus-WL [facility] Work Phone: Comment on above: Ordering Provider: Hardy MARIE MASHA 54487 Potassium [Moles/Vol] 4.4 mmol/L 3.5 - 5.3 GB-Hfxmgxhxsg-ES [facility] Work Phone: Comment on above: Ordering Provider: Hardy MARIE MASHA 34781 Sodium [Moles/Vol] 132 mmol/L below low threshold 136 - 145 RG-Foqjmtvnit-BM [facility] Work Phone: Comment on above: Ordering Provider: Hardy MARIE MASHA 69542 Urea nitrogen [Mass/Vol] 13 mg/dL 6 - 23 BR-Tlmniqrcbt-QE [facility] Work Phone: Comment on above: Ordering Provider: Hardy HITCHCOCKUM 68267 Calcium.ionized (Bld) [Moles/Vol] 1.07 mmol/L below low threshold See Below BS-Qtjphtrfit-FT [facility] Work Phone: Comment on above: Reference Range: 1.1 0 - 1.33 Chloride [Moles/Vol] 109 mmol/L above high threshold 98 - 107 BJ-Apscbjodfh-UM [facility] Work Phone: Glucose [Mass/Vol] 124 mg/dL above high threshold 74 - 99 ZY-Lzddljzery-OQ [facility] Work Phone: Lactate [Moles/Vol] 1.3 mmol/L 0.4 - 2.0 MG-Ca rdiology-CM [facility] Work Phone: Potassium [Moles/Vol] 3.3 mmol/L below low threshold 3.5 - 5.3 NZ-Rvoowihmnj-EP [facility] Work Phone: Sodium [Moles/Vol] 134 mmol/L below low threshold 136 - 145 NK-Zjhzafahxg-EB [facility] Work Phone: Calcium.ionized (Bld) [Moles/Vol] 1.21 mmol/L See Below MG-Cardiology- CM [facility] Work Phone: Comment on above: Reference Range: 1.1 0 - 1.33 Chloride [Moles/Vol] 104 mmol/L 98 - 107 PX-Egjmsmipre-NP [facility] Work Phone: Glucose [Mass/Vol] 102 mg/dL above high threshold 74 - 99 CG-Pwijabwlxn-QE [facility] Work Phone: Lactate [Moles/Vol] 1.4 mmol/L 0.4 - 2.0 MG-Ca rdiology-CM [facility] Work Phone: Potassium [Moles/Vol] 4.0 mmol/L 3.5 - 5.3 PW-Osuhzszjcm-ZJ [facility] Work Phone: Sodium [Moles/Vol] 133 mmol/L below low threshold 136 - 145 PB-Sinwtiyylw-JY [facility] Work Phone: Calcium.ionized (Bld) [Moles/Vol] 1.18 mmol/L See Below MG-Cardiology- CM [facility] Work Phone: Comment on above: Reference Range: 1.1 0 - 1.33 Chloride [Moles/Vol] 102 mmol/L 98 - 107 RJ-Asyvnqmkzb-UL [facility] Work Phone: Glucose [Mass/Vol] 122 mg/dL above high threshold 74 - 99 RY-Yakefinxro-QG [facility] Work Phone: Lactate [Moles/Vol] 1.7 mmol/L 0.4 - 2.0 MG-Ca rdiology-CM [facility] Work Phone: Potassium [Moles/Vol] 4.2 mmol/L 3.5 - 5.3 GG-Rvvjrviobk-NL [facility] Work Phone: Sodium [Moles/Vol] 130 mmol/L below low threshold 136 - 145 HJ-Qxvccyplsl-FJ [facility] Work Phone: Otheron 08-20-2019 Erythrocyte distribution width (RBC) [Ratio] 15.1 % above high threshold See Below OY-Wmfjxlisuu-CA [facility] Work Phone: Comment on above: Reference Range: 11. 5 - 14.5 Ordering Provider: Hardy FLANAGAN 64018 MCHC (RBC) [Mass/Vol] 33.0 g/dL See Below DF-Wggmwslfxn-IU [facility] Work Phone: Comment on above: Reference Range: 32. 0 - 36.0 Ordering Provider: Hardy FLANAGAN 12442 >60 >60 MG-Cardiology- CM [facility] Work Phone: Comment on above: Ordering Provider: Hardy FLANAGAN 84151 CALCULATIONS OF MARY MATED GFR ARE PERFORMED USING THE MDRD STUDY EQUATION FOR THE IDMS-TRACEABLE CREATININE METHODS. CLIN CHEM 2007;53:766-72 Anion gap (Bld) [Moles/Vol] 8 mmol/L below low threshold 10 - 25 NV-Wvuculaons-BD [facility] Work Phone: CO2 (BldMV) [Partial pressure] 33 {mmHg} MG-Cardiology -CM [facility] Work Phone: Oxygen (BldMV) [Partial pressure] 37 {mmHg} MG-Cardiology -CM [facility] Work Phone: pH (BldMV) 7.39 1 MG-Cardiology- CM [facility] Work Phone: 20.0 mmol/L MG-Cardiology -CM [facility] Work Phone: 72 % MG-Cardiology- CM [facility] Work Phone: -4.3 mmol/L MG-Cardiology -CM [facility] Work Phone: Interpreted by: BHARGAVI KEATING08/20/19 10:47MRN: [id number] Name: SEBLE MALONE STUDY:CHEST 1 VIEW; 08/20/2019 7:33 am INDICATION:[place]. COMPARISON:08/19/2019 ORDERING CLINICIAN:ROMY HERRERA FINDINGS:AP supine portable chest in comparison to the previous exam on08/19/2019 reveals stable cardiomegaly with slightly prominentbilateral perihilar shadows. There is a right IJ [place]-Donna catheterwith its tip in the proximal right pulmonary artery. Aortic balloonpump was removed. There are patchy densities in the right suprahilar,left middle lung field and left lung base. Both costophrenic anglesare sharp. IMPRESSION:1. Patchy densities in the right suprahilar, left middle lung fieldand left lung base, suggesting pulmonary infarcts or small pneumonicconsolidations.2 . Stable cardiomegaly and interval removal of aortic balloon pump.Electronically signed by: NATASHA KEATING 08/20/19 10:47 Normal ZT-Vtsueoppgn-UG [facility] Work Phone: Comment on above: Ordering Provider: Valencia HERRERA 02366 Anion gap (Bld) [Moles/Vol] 8 mmol/L below low threshold 10 - 25 PW-Tzencmkxsb-WH [facility] Work Phone: CO2 (BldMV) [Partial pressure] 38 {mmHg} MG-Cardiology -CM [facility] Work Phone: Oxygen (BldMV) [Partial pressure] 34 {mmHg} MG-Cardiology -CM [facility] Work Phone: pH (BldMV) 7.42 1 MG-Cardiology- CM [facility] Work Phone: 24.6 mmol/L MG-Cardiology -CM [facility] Work Phone: 72 % MG-Cardiology- CM [facility] Work Phone: 0.2 mmol/L MG-Cardiology- CM [facility] Work Phone: Erythrocyte distribution width (RBC) [Ratio] 14.5 % See Below PD-Pivslxjbau-GT [facility] Work Phone: Comment on above: Reference Range: 11. 5 - 14.5 Ordering Provider: Elías Rodriguez304 MCHC (RBC) [Mass/Vol] 35.6 g/dL See Below MU-Kdjqgiqvfi-QS [facility] Work Phone: Comment on above: Reference Range: 32. 0 - 36.0 Ordering Provider: Elías Rodriguez Anion gap (Bld) [Moles/Vol] 9 mmol/L below low threshold 10 - 25 FC-Mxvrhpjwwd-XC [facility] Work Phone: CO2 (BldMV) [Partial pressure] 36 {mmHg} MG-Cardiology -CM [facility] Work Phone: Oxygen (BldMV) [Partial pressure] 35 {mmHg} MG-Cardiology -CM [facility] Work Phone: pH (BldMV) 7.42 1 MG-Cardiology- CM [facility] Work Phone: -0.8 mmol/L MG-Cardiology -CM [facility] Work Phone: 70 % MG-Cardiology- CM [facility] Work Phone: 23.4 mmol/L MG-Cardiology -CM [facility] Work Phone: Renal Function Panelon 08-19 Albumin BCP dye [Mass/Vol] 2.6 g/dL below low threshold 3.4 - 5.0 FY-Jrluxngagy-MD [facility] Work Phone: Comment on above: Ordering Provider: T RACY ANDRÉS 05314 Anion gap [Moles/Vol] 10 mmol/L 10 - 20 LV-Qbdhtexjsa-LT [facility] Work Phone: Comment on above: Ordering Provider: T RACY ANDRÉS 83674 Calcium [Mass/Vol] 7.7 mg/dL below low threshold 8.6 - 10.6 RK-Rhpjhielra-XT [facility] Work Phone: Comment on above: Ordering Provider: T RACY ANDRÉS 37047 Chloride [Moles/Vol] 103 mmol/L 98 - 107 NG-Whfjdqiqmk-JZ [facility] Work Phone: Comment on above: Ordering Provider: T RACY ANDRÉS 74016 CO2 [Moles/Vol] 25 mmol/L 21 - 32 MG-Cardio logy-CM [facility] Work Phone: Comment on above: Ordering Provider: Elías RACY ANDRÉS 50630 Creatinine [Mass/Vol] 0.94 mg/dL See Below LR-Mxmjccedvf-XE [facility] Work Phone: Comment on above: Reference Range: 0.5 0 - 1.30 Ordering Provider: Elías RACY ANDRÉS 16752 Glucose [Mass/Vol] 99 mg/dL 74 - 99 MG-Car diology-CM [facility] Work Phone: Comment on above: Ordering Provider: Elías RACY ANDRÉS 74026 Phosphate [Mass/Vol] 2.8 mg/dL 2.5 - 4.9 ZJ-Ezpprizbim-HB [facility] Work Phone: Comment on above: The performance duane acteristics of phosphorus testing in heparinized plasma have been validated by the individual laboratory site where testing is performed. Testing on heparinized plasma is not approved by the FDA; however, such approval is not necessary. Ordering Provider: Elías LAZARO ANDRÉS Michael Potassium [Moles/Vol] 4.1 mmol/L 3.5 - 5.3 JH-Iooorgszhn-KY [facility] Work Phone: Comment on above: Ordering Provider: Elías BOWEN 49586 Sodium [Moles/Vol] 134 mmol/L below low threshold 136 - 145 KM-Cahjdpdcuh-DZ [facility] Work Phone: Comment on above: Ordering Provider: Elías BOWEN 76125 Urea nitrogen [Mass/Vol] 13 mg/dL 6 - 23 SN-Qgztytoecw-MG [facility] Work Phone: Comment on above: Ordering Provider: Elías BOWEN 36291 Renal Function Panel >60 >60 YT-Aqfvqrkzqd-EY [facility] Work Phone: Comment on above: Ordering Provider: Elías BOWEN Michael CALCULATIONS OF MARY MATED GFR ARE PERFORMED USING THE MDRD STUDY EQUATION FOR THE IDMS-TRACEABLE CREATININE METHODS. CLIN CHEM 2007;53:766-72 Coronavirus 2019 by PCRon Coronavirus 2019 by PCR NOT DETECTED See Below IC-Ombmkghlgg-EE [facility] Work Phone: Comment on above: SOURCE: Nasal, Nasop haryngealReference Range: Not DetectedThis assay is designed to detect the ORF1ab and/or S genes of SARS-CoV-2 via nucleic acid amplification. A Not Detected result does not preclude 2019-nCoV infection since the adequacy of sample collection and/or low viral burden may result in presence of viral nucleic acids below the clinical sensitivity of this test method. Fact sheet for providers: www.fda.gov/media/028726/downloadFact sheet for patients: www.fda.gov/media/232921/downloadThis test has received FDA Emergency Use Authorization (EUA) and has been verified by [facility] ([facility]). This test is only authorized for the duration of time that circumstances exist to justify the authorization of the emergency use of in vitro diagnostic tests for the detection of SARS-CoV-2 virus and/or diagnosis of COVID-19 infection under section 564(b)(1) of the Act, 21 U.S.C. 360bbb-3(b)(1), unless the authorization is terminated or revoked sooner. [facility] is certified under CLIA-88 as qualified to perform high complexity testing. Testing is performed in the [facility] laboratories located at [address] [place] [address].COVID CALLED TO VANESSA LORD NP, 08/19/2019 14:06 COVID CALLED TO VANESSA LORD NP, 08/19/2019 14:06 Digoxin Level, Serumon 08-18 Digoxin [Mass/Vol] 0.28 ng/mL below low threshold See Below KV-Vaqfrkwwot-PW [facility] Work Phone: Comment on above: Reference Range: 0.8 0 - 2.00 Ordering Provider: Terri BURKETT 34077 Hematologyon 08-19-2019 Hematocrit (Bld) [Volume fraction] 33.0 % below low threshold See Below MB-Fandwvbirj-UT [facility] Work Phone: Comment on above: Reference Range: 41. 0 - 52.0 Hemoglobin (Bld) [Mass/Vol] 11.2 g/dL below low threshold See Below OO-Ascvzvowln-TI [facility] Work Phone: Comment on above: Reference Range: 13. 5 - 17.5 Hematocrit (Bld) [Volume fraction] 32.0 % below low threshold See Below DK-Ptjzkdbmcw-PH [facility] Work Phone: Comment on above: Reference Range: 41. 0 - 52.0 Hemoglobin (Bld) [Mass/Vol] 10.9 g/dL below low threshold See Below TG-Yikxjndsmp-MX [facility] Work Phone: Comment on above: Reference Range: 13. 5 - 17.5 Hematocrit (Bld) [Volume fraction] 29.0 % below low threshold See Below XQ-Iwwsbuqvbc-LX [facility] Work Phone: Comment on above: Reference Range: 41. 0 - 52.0 Hemoglobin (Bld) [Mass/Vol] 9.9 g/dL below low threshold See Below JF-Cgicjmxomz-ED [facility] Work Phone: Comment on above: Reference Range: 13. 5 - 17.5 ABO group Nom (Bld) O MG-Ca rdiology-CM [facility] Work Phone: Comment on above: Ordering Provider: Terri BURKETT 06925 Blood group antibody screen Ql Negative MG-Cardiology -CM [facility] Work Phone: Comment on above: Ordering Provider: Terri BURKETT 64214 Hematocrit (Bld) [Volume fraction] 36.7 % below low threshold See Below UJ-Wrglceokii-PU [facility] Work Phone: Comment on above: Reference Range: 41. 0 - 52.0 Ordering Provider: Elías BOWEN 45675 Hemoglobin (Bld) [Mass/Vol] 11.1 g/dL below low threshold See Below MP-Kdmudsjfet-ZP [facility] Work Phone: Comment on above: Reference Range: 13. 5 - 17.5 Ordering Provider: Elías BOWEN 35560 MCV (RBC) [Entitic vol] 99 fL 80 - 100 AL-Qghwhrceil-XX [facility] Work Phone: Comment on above: Ordering Provider: Elías BOWEN 63108 Platelets (Bld) [#/Vol] 91 {x10E9/L} below low threshold 150 - 450 BO-Xlyvcsmqyd-PS [facility] Work Phone: Comment on above: Ordering Provider: Elías BOWEN 40185 RBC (Bld) [#/Vol] 3.71 {x10E12/L} below low threshold See Below TD-Doyfwpayke-UE [facility] Work Phone: Comment on above: Reference Range: 4.5 0 - 5.90 Ordering Provider: Elías BOWEN 04620 Rh immune globulin screen (Bld) [Interp] Positive QT-Ksepmkhoxp-CX [facility] Work Phone: Comment on above: Ordering Provider: Terri GAUTAM KWADWO 12896 WBC (Bld) [#/Vol] 6.4 {x10E9/L} 4.4 - 11.3 MG-C ardiology-CM [facility] Work Phone: Comment on above: Ordering Provider: Elías BOWEN 99933 WBC (Bld) [#/Vol] 0.0 {/100_WBC} 0.0-0.0 MG- Cardiology-CM [facility] Work Phone: Comment on above: Ordering Provider: Elías BOWEN 29516 Heparin assay, UFHon 05-14-2 020 Heparin unfractionated Chromogenic method Qn (PPP) 0.5 {IU/mL} ZC-Grsyyphncq-OR [facility] Work Phone: Comment on above: The therapeutic refe rence range for UFH may be either 0.3-0.6 IU/mL or 0.3-0.7 IU/mL based on the clinical setting for anticoagulant therapy and the associated nomogram used. For heparin dosing guidelines based on clinical scenario and Heparin Assay results, please refer to [facility] and [facility] Guidelines for Anticoagulation therapy available on the [facility] intranet at:https://[facility].org/Pharmacy/Pages/[place]_ ospitals_Guidelines_for_Anticoagu.aspx Ordering Provider: Terri GAUTAM KWADWO 62382 Heparin unfractionated Chromogenic method Qn (PPP) 0.7 {IU/mL} WQ-Gqvltjykwc-KM [facility] Work Phone: Comment on above: The therapeutic refe rence range for UFH may be either 0.3-0.6 IU/mL or 0.3-0.7 IU/mL based on the clinical setting for anticoagulant therapy and the associated nomogram used. For heparin dosing guidelines based on clinical scenario and Heparin Assay results, please refer to local Pharmacy and the [facility] Guidelines for Anticoagulation therapy available on the [facility] intranet at:https://[facility].org/Pharmacy/Pages/[place]_ ospitals_Guidelines_for_Anticoagu.aspx Ordering Provider: Terri BURKETT 70536 Heparin unfractionated Chromogenic method Qn (PPP) 0.9 {IU/mL} ZA-Czqefvovaa-SY [facility] Work Phone: Comment on above: The therapeutic refe rence range for UFH may be either 0.3-0.6 IU/mL or 0.3-0.7 IU/mL based on the clinical setting for anticoagulant therapy and the associated nomogram used. For heparin dosing guidelines based on clinical scenario and Heparin Assay results, please refer to local Pharmacy and the [facility] Guidelines for Anticoagulation therapy available on the [facility] intranet at:https://[facility].org/Pharmacy/Pages/[place]_ [place]_Guidelines_for_Anticoagu.aspx Ordering Provider: eTrri BURKETT 02074 Magnesium, Serumon 0 Magnesium [Mass/Vol] 1.65 mg/dL See Below ED-Pgqblkhnpx-BZ [facility] Work Phone: Comment on above: Reference Range: 1.6 0 - 2.40 Ordering Provider: Elías BOWEN 81861 Metabolic Panelon 08-19-2019 Calcium.ionized (Bld) [Moles/Vol] 1.19 mmol/L See Below MG-Cardiology- CM [facility] Work Phone: Comment on above: Reference Range: 1.1 0 - 1.33 Chloride [Moles/Vol] 104 mmol/L 98 - 107 XP-Uuptdsegjp-ES [facility] Work Phone: Glucose [Mass/Vol] 118 mg/dL above high threshold 74 - 99 JR-Rgdnitcyxj-OV [facility] Work Phone: Lactate [Moles/Vol] 1.4 mmol/L 0.4 - 2.0 MG-Ca rdiology-CM [facility] Work Phone: Potassium [Moles/Vol] 4.1 mmol/L 3.5 - 5.3 SR-Wqtfryqtgh-DL [facility] Work Phone: Sodium [Moles/Vol] 132 mmol/L below low threshold 136 - 145 PF-Tpkajoginb-XN [facility] Work Phone: Calcium.ionized (Bld) [Moles/Vol] 0.86 mmol/L below low threshold See Below KQ-Xardemuevz-OJ [facility] Work Phone: Comment on above: Reference Range: 1.1 0 - 1.33 Chloride [Moles/Vol] 102 mmol/L 98 - 107 MR-Asfzciiltg-XI [facility] Work Phone: Glucose [Mass/Vol] 133 mg/dL above high threshold 74 - 99 FR-Xveyfxkhrh-WQ [facility] Work Phone: Lactate [Moles/Vol] 1.3 mmol/L 0.4 - 2.0 MG-Ca rdiology-CM [facility] Work Phone: Potassium [Moles/Vol] 4.2 mmol/L 3.5 - 5.3 JA-Xmwubeotno-QW [facility] Work Phone: Sodium [Moles/Vol] 131 mmol/L below low threshold 136 - 145 BP-Tzdlciylta-TI [facility] Work Phone: Calcium.ionized (Bld) [Moles/Vol] 1.17 mmol/L See Below MG-Cardiology- CM [facility] Work Phone: Comment on above: Reference Range: 1.1 0 - 1.33 Chloride [Moles/Vol] 102 mmol/L 98 - 107 ZY-Zihqpbsetq-HC [facility] Work Phone: Glucose [Mass/Vol] 95 mg/dL 74 - 99 MG-Car diology-CM [facility] Work Phone: Lactate [Moles/Vol] 0.9 mmol/L 0.4 - 2.0 MG-Ca rdiology-CM [facility] Work Phone: Potassium [Moles/Vol] 4.5 mmol/L 3.5 - 5.3 YX-Rgandtnkmn-MG [facility] Work Phone: Sodium [Moles/Vol] 130 mmol/L below low threshold 136 - 145 WV-Sumhqmwtwo-TP [facility] Work Phone: Otheron 08-19-2019 Anion gap (Bld) [Moles/Vol] 9 mmol/L below low threshold 10 - 25 DY-Kbdpscjysr-DB [facility] Work Phone: CO2 (BldMV) [Partial pressure] 37 {mmHg} MG-Cardiology -CM [facility] Work Phone: Oxygen (BldMV) [Partial pressure] 35 {mmHg} MG-Cardiology -CM [facility] Work Phone: pH (BldMV) 7.41 1 MG-Cardiology- CM [facility] Work Phone: -0.9 mmol/L MG-Cardiology -CM [facility] Work Phone: 23.5 mmol/L MG-Cardiology -CM [facility] Work Phone: 73 % MG-Cardiology- CM [facility] Work Phone: Positive Critically abnormal FW-Esvskuvyez-GM [facility] Work Phone: Comment on above: UNFRACTIONATED HEPAR IN LOW DOSE 73 % UNFRACTIONATED HEPARIN HIGH DOSE 0 % ANTI-PLATELET FACTOR 4 ANTIBODY IS DETECTEDBY CLARISSE ASSAY.WHILE A POSITIVE REACTION OBTAINED USINGTHIS ASSAY MAY INDICATE THE PRESENCE OF AHEPARIN-ASSOCIATED ANTIBODY, THE DETECTIONOF SUCH ANTIBODIES, HOWEVER, DOES NOTCONFIRM THE DIAGNOSIS OF HEPARIN-INDUCEDTHROMBOCYTOPENIA (HIT).IF THE CLINICAL SUSPICION FOR HEPARININDUCED THROMBOCYTOPENIA IS HIGH, CONSIDERPERFORMING THE SEROTONIN RELEASE ASSAY.THESE RESULTS SHOULD BE USED IN CONJUNCTIONWITH CLINICAL FINDINGS.CLINICAL CORRELATION IS RECOMMENDED.ANPT4 CALLED TO DR NAJERA, 08/20/2019 15:[address] Elías CRUZ, 08/20/2019 15:07 92 1 MG-Cardiology- CM [facility] Work Phone: Comment on above: ANPT4 CALLED TO [address] Elías CRUZ, 08/20/2019 15:07 0.276 {OD_UNITS} MG-Cardi ology-CM [facility] Work Phone: Comment on above: ANPT4 CALL[address] Elías CRUZ, 08/20/2019 15:07 1.970 {OD_UNITS} Abnormal <0.400 MG-Cardi ology-CM [facility] Work Phone: Comment on above: ANPT4 CALL[address] Elías CRUZ, 08/20/2019 15:07 SEE BELOW MG-Cardiology- CM [facility] Work Phone: Comment on above: A positive result re quires release of serotoninfrom target platelets in the presence ofpatients serum and low dose (0.1 U/ml) heparinof >20%, together with inhibition of release(<20%) with high dose (100 U/ml) heparin.Results obtained with this patient's serum werePOSITIVE and 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 It has not been cleared or approvedby the FDA. However the FDA has determined thatsuch clearance or approval is not necessary.The test has been validated in house and isused for clinical purposes. It should bot beregarded as investigational or for research.Our Laboratory is certified under the ClinicalLaboratory Improvement Amendments of 1988(CLIA) as qualified to perform high complexityclinical laboratory testing. 146 {SECONDS} 89 - 169 MG-Cardiolo gy-CM [facility] Work Phone: Comment on above: Note new reference neeraj medrano as of 07/10/2018. Target ACT range will vary based on the patient population, clinical status, and surgical intervention occurring. Anion gap (Bld) [Moles/Vol] 9 mmol/L below low threshold 10 - 25 XY-Eqmzuhqwpl-TG [facility] Work Phone: CO2 (BldMV) [Partial pressure] 39 {mmHg} MG-Cardiology -CM [facility] Work Phone: Oxygen (BldMV) [Partial pressure] 42 {mmHg} MG-Cardiology -CM [facility] Work Phone: pH (BldMV) 7.41 1 MG-Cardiology- CM [facility] Work Phone: 80 % MG-Cardiology- CM [facility] Work Phone: 24.7 mmol/L MG-Cardiology -CM [facility] Work Phone: 0.1 mmol/L MG-Cardiology- CM [facility] Work Phone: Interpreted by: LLYFUG93/14/20 09:49MRN: [id number] Name: KIRA SEBLE STUDY:CHEST 1 VIEW; 08/19/2019 7:40 am INDICATION:Follow-up of Cleveland-Donna catheter and & IABP position. COMPARISON:Chest radiograph dated August 18, 2019. ORDERING CLINICIAN:EDI BOWEN FINDINGS:AP radiograph of the chest was provided. Cleveland-Donna catheter is present with the tip of the catheter probablywithin the main pulmonary artery. Tip of the aortic balloon pump islocated within the descending thoracic aorta just proximal to theaortic arch at the level of pulmonary arteries. CARDIOMEDIASTINAL SILHOUETTE:Cardiac silhouette is moderately enlarged. The thoracic aorta istortuous. LUNGS:The lungs are expanded. There are prominent bronchovascular markingswith perihilar interstitial consolidations. No large pleuraleffusions or pneumothorax is visualized. ABDOMEN:No remarkable upper abdominal findings. BONES:No acute osseous changes. IMPRESSION:1. Radiographic findings suggest persistent pulmonary edema. Electronically signed by: JAXON 08/19/19 09:49 Normal KF-Eminniwnwh-EU [facility] Work Phone: Comment on above: Ordering Provider: Elías BOWEN [id number] Anion gap (Bld) [Moles/Vol] 8 mmol/L below low threshold 10 - 25 SV-Pskopwbjnb-QL [facility] Work Phone: CO2 (BldMV) [Partial pressure] 34 {mmHg} MG-Cardiology -CM [facility] Work Phone: Oxygen (BldMV) [Partial pressure] 39 {mmHg} MG-Cardiology -CM [facility] Work Phone: pH (BldMV) 7.46 1 MG-Cardiology- CM [facility] Work Phone: 0.6 mmol/L MG-Cardiology- CM [facility] Work Phone: 24.2 mmol/L MG-Cardiology -CM [facility] Work Phone: 79 % MG-Cardiology- CM [facility] Work Phone: Erythrocyte distribution width (RBC) [Ratio] 15.7 % above high threshold See Below FE-Qftwlfcfks-UF [facility] Work Phone: Comment on above: Reference Range: 11. 5 - 14.5 Ordering Provider: Elías BOWEN 92285 MCHC (RBC) [Mass/Vol] 30.2 g/dL below low threshold See Below SE-Ufpqatsyzy-AQ [facility] Work Phone: Comment on above: Reference Range: 32. 0 - 36.0 Ordering Provider: Elías BOWEN 38756 Pathologist Review Anti PF4o n 08-19-2019 Pathologist Review Anti PF4 R.MAITTA EJ-Ywkkwttezn-HA [facility] Work Phone: Comment on above: By her/his signature above, the Pathologist listed as making the final interpretation certifies that she/he has personally reviewed this case. Renal Function Panelon 08-18 Albumin BCP dye [Mass/Vol] 2.7 g/dL below low threshold 3.4 - 5.0 BF-Krczcvasvj-SW [facility] Work Phone: Comment on above: Ordering Provider: Elías LAZARO ANDRÉS 86059 Anion gap [Moles/Vol] 11 mmol/L 10 - 20 MN-Oghqaxedxc-IF [facility] Work Phone: Comment on above: Ordering Provider: Elías RACGeneva ANDRÉS 89218 Calcium [Mass/Vol] 8.1 mg/dL below low threshold 8.6 - 10.6 DA-Mgnwwftjtw-DL [facility] Work Phone: Comment on above: Ordering Provider: Elías RACGeneva ANDRÉS 28637 Chloride [Moles/Vol] 102 mmol/L 98 - 107 MF-Tjpwznleyo-SK [facility] Work Phone: Comment on above: Ordering Provider: Elías RACGeneva ANDRÉS 56485 CO2 [Moles/Vol] 23 mmol/L 21 - 32 MG-Cardio logy-CM [facility] Work Phone: Comment on above: Ordering Provider: Elías RACGeneva ANDRÉS 69204 Creatinine [Mass/Vol] 0.98 mg/dL See Below LE-Jfjphoymzh-CO [facility] Work Phone: Comment on above: Reference Range: 0.5 0 - 1.30 Ordering Provider: Elías RACGeneva ANDRÉS 31808 Glucose [Mass/Vol] 120 mg/dL above high threshold 74 - 99 AF-Crztzpryby-WT [facility] Work Phone: Comment on above: Ordering Provider: Elías RACY ANDRÉS 34462 Phosphate [Mass/Vol] 2.5 mg/dL 2.5 - 4.9 QY-Iednchbbsu-SQ [facility] Work Phone: Comment on above: The performance duane acteristics of phosphorus testing in heparinized plasma have been validated by the individual laboratory site where testing is performed. Testing on heparinized plasma is not approved by the FDA; however, such approval is not necessary. Ordering Provider: Elías RACY ANDRÉS 87924 Potassium [Moles/Vol] 4.4 mmol/L 3.5 - 5.3 TV-Vluinwhbjj-TU [facility] Work Phone: Comment on above: Ordering Provider: Elías Rodriguez Sodium [Moles/Vol] 132 mmol/L below low threshold 136 - 145 WH-Cljhcjmoeh-RL [facility] Work Phone: Comment on above: Ordering Provider: Elías Rodriguez304 Urea nitrogen [Mass/Vol] 16 mg/dL 6 - 23 XA-Dfdmqrdfbe-FJ [facility] Work Phone: Comment on above: Ordering Provider: Elías Rodriguez Renal Function Panel >60 >60 GA-Aqjcndcbkm-DB [facility] Work Phone: Comment on above: CALCULATIONS OF MARY MATED GFR ARE PERFORMED USING THE MDRD STUDY EQUATION FOR THE IDMS-TRACEABLE CREATININE METHODS. CLIN CHEM 2007;53:[id number] Ordering Provider: Elías Rodriguez Alcohol, Urineon 08-18-2019 Ethanol Unsp time (U) [Mass/Vol] <10 <20 AS-Vfareksowf-EP [facility] Work Phone: Comment on above: Urines containing contreras gars and contaminated with microorganisms may yield afalse positive result due to fermentation of sugar to alcohol. Ordering Provider: Elías Rodriguez Ferritin, Serumon 08-18-2019 Ferritin [Mass/Vol] 151 ug/L 20 - 300 MG-Ca rdiology-CM [facility] Work Phone: Comment on above: Ordering Provider: Elías Rodriguez Hematologyon 08-18-2019 Hematocrit (Bld) [Volume fraction] 33.0 % below low threshold See Below XH-Daigwqaxnf-BK [facility] Work Phone: Comment on above: Reference Range: 41. 0 - 52.0 Hemoglobin (Bld) [Mass/Vol] 11.2 g/dL below low threshold See Below SX-Aczvbhoaxx-EH [facility] Work Phone: Comment on above: Reference Range: 13. 5 - 17.5 Hematocrit (Bld) [Volume fraction] 35.0 % below low threshold See Below WH-Xpwbzjodnz-CO [facility] Work Phone: Comment on above: Reference Range: 41. 0 - 52.0 Hemoglobin (Bld) [Mass/Vol] 11.9 g/dL below low threshold See Below CT-Ivamxkhnxt-AQ [facility] Work Phone: Comment on above: Reference Range: 13. 5 - 17.5 aPTT Coag (PPP) [Time] 31 {sec} 28 - 38 IR-Wkdkldivds-YN [facility] Work Phone: Comment on above: THE APTT IS NO LONGE R USED FOR MONITORING UNFRACTIONATED HEPARIN THERAPY. FOR MONITORING HEPARIN THERAPY, USE THE HEPARIN ASSAY. Ordering Provider: Elías BOWEN 23943 INR Coag (PPP) [Relative time] 1.9 {INR} above high threshold 0.9 - 1.1 IV-Iwtrvhqbrt-HT [facility] Work Phone: Comment on above: Ordering Provider: Elías BOWEN 53219 PT Coag (PPP) [Time] 21.4 {sec} above high threshold 9.7 - 12.7 CS-Mcuumnbqug-RY [facility] Work Phone: Comment on above: Ordering Provider: Elías BOWEN 43382 Hematocrit (Bld) [Volume fraction] 33.0 % below low threshold See Below JR-Gdcousozfu-CI [facility] Work Phone: Comment on above: Reference Range: 41. 0 - 52.0 Hemoglobin (Bld) [Mass/Vol] 11.2 g/dL below low threshold See Below DA-Sojkqxdqgk-MN [facility] Work Phone: Comment on above: Reference Range: 13. 5 - 17.5 Hematocrit (Bld) [Volume fraction] 35.0 % below low threshold See Below RN-Crvjxxrkcd-NA [facility] Work Phone: Comment on above: Reference Range: 41. 0 - 52.0 Hemoglobin (Bld) [Mass/Vol] 11.9 g/dL below low threshold See Below TY-Sbctdakast-GR [facility] Work Phone: Comment on above: Reference Range: 13. 5 - 17.5 Hematocrit (Bld) [Volume fraction] 36.2 % below low threshold See Below XQ-Youjyesarg-NE [facility] Work Phone: Comment on above: Reference Range: 41. 0 - 52.0 Ordering Provider: Elías BOWEN 64425 Hemoglobin (Bld) [Mass/Vol] 12.2 g/dL below low threshold See Below ET-Rlqyvtujvq-KT [facility] Work Phone: Comment on above: Reference Range: 13. 5 - 17.5 Ordering Provider: Elías BOWEN 35572 MCV (RBC) [Entitic vol] 88 fL 80 - 100 FQ-Pjtufdqgpr-QE [facility] Work Phone: Comment on above: Ordering Provider: Elías BOWEN 54568 Platelets (Bld) [#/Vol] 116 {x10E9/L} below low threshold 150 - 450 VG-Ykmechhvxm-EC [facility] Work Phone: Comment on above: Ordering Provider: Elías MARTINEZAB 62737 RBC (Bld) [#/Vol] 4.11 {x10E12/L} below low threshold See Below IM-Mmnrunlvwv-IB [facility] Work Phone: Comment on above: Reference Range: 4.5 0 - 5.90 Ordering Provider: Elías MARTINEZAB 62265 WBC (Bld) [#/Vol] 5.4 {x10E9/L} 4.4 - 11.3 MG-C ardiology-CM [facility] Work Phone: Comment on above: Ordering Provider: Elías LAZARO ANDRÉS 48497 WBC (Bld) [#/Vol] 0.0 {/100_WBC} 0.0-0.0 MG- Cardiology-CM [facility] Work Phone: Comment on above: Ordering Provider: Elías MARTINEZAB 43622 Hematocrit (Bld) [Volume fraction] 22.0 % below low threshold See Below NF-Uopfzwacri-WH [facility] Work Phone: Comment on above: Reference Range: 41. 0 - 52.0 Hemoglobin (Bld) [Mass/Vol] 7.5 g/dL below low threshold See Below XD-Mnzbhliboc-OK [facility] Work Phone: Comment on above: Reference Range: 13. 5 - 17.5 Heparin assay, UFHon 020 Heparin unfractionated Chromogenic method Qn (PPP) 0.8 {IU/mL} CC-Cweyfvfzha-YA [facility] Work Phone: Comment on above: The therapeutic refe rence range for UFH may be either 0.3-0.6 IU/mL or 0.3-0.7 IU/mL based on the clinical setting for anticoagulant therapy and the associated nomogram used. For heparin dosing guidelines based on clinical scenario and Heparin Assay results, please refer to local Pharmacy and the [facility] Guidelines for Anticoagulation therapy available on the [facility] intranet at:[email or web address]_ [email or web address]_[email or web address].aspx Ordering Provider: Terri BURKETT 61307 Heparin unfractionated Chromogenic method Qn (PPP) <0.1 JL-Kmzrwhfgig-OY [facility] Work Phone: Comment on above: The therapeutic refe rence range for UFH may be either 0.3-0.6 IU/mL or 0.3-0.7 IU/mL based on the clinical setting for anticoagulant therapy and the associated nomogram used. For heparin dosing guidelines based on clinical scenario and Heparin Assay results, please refer to local Pharmacy and the [facility] Guidelines for Anticoagulation therapy available on the [facility] intranet at:[email or web address]_ [email or web address]_[email or web address].aspx Ordering Provider: Terri BURKETT 02596 Magnesium, Serumon 0 Magnesium [Mass/Vol] 2.08 mg/dL See Below MC-Zyjrtybfzf-FY [facility] Work Phone: Comment on above: Reference Range: 1.6 0 - 2.40 Ordering Provider: Elías BOWEN 82633 Metabolic Panelon 08-18-2019 Calcium.ionized (Bld) [Moles/Vol] 1.18 mmol/L See Below MG-Cardiology- CM [facility] Work Phone: Comment on above: Reference Range: 1.1 0 - 1.33 Chloride [Moles/Vol] 102 mmol/L 98 - 107 QN-Zizyoqizhy-NT [facility] Work Phone: Glucose [Mass/Vol] 118 mg/dL above high threshold 74 - 99 DC-Vhbteipfli-AJ [facility] Work Phone: Lactate [Moles/Vol] 1.3 mmol/L 0.4 - 2.0 MG-Ca rdiology-CM [facility] Work Phone: Potassium [Moles/Vol] 4.2 mmol/L 3.5 - 5.3 AE-Clhvdgxrue-KH [facility] Work Phone: Sodium [Moles/Vol] 130 mmol/L below low threshold 136 - 145 ND-Xzmipnwhxh-NG [facility] Work Phone: Calcium.ionized (Bld) [Moles/Vol] 1.19 mmol/L See Below MG-Cardiology- CM [facility] Work Phone: Comment on above: Reference Range: 1.1 0 - 1.33 Chloride [Moles/Vol] 101 mmol/L 98 - 107 OK-Ymloeecsfn-IL [facility] Work Phone: Glucose [Mass/Vol] 110 mg/dL above high threshold 74 - 99 YV-Fhhfxtrzzz-HX [facility] Work Phone: Lactate [Moles/Vol] 1.2 mmol/L 0.4 - 2.0 MG-Ca rdiology-CM [facility] Work Phone: Potassium [Moles/Vol] 4.2 mmol/L 3.5 - 5.3 DW-Lxywfviqcs-KT [facility] Work Phone: Sodium [Moles/Vol] 131 mmol/L below low threshold 136 - 145 ER-Vfuuypighf-ZG [facility] Work Phone: Glucose [Mass/Vol] 120 mg/dL above high threshold 74 - 99 FS-Lexthriejk-JJ [facility] Work Phone: Lactate [Moles/Vol] 1.6 mmol/L 0.4 - 2.0 MG-Ca rdiology-CM [facility] Work Phone: Calcium.ionized (Bld) [Moles/Vol] 1.21 mmol/L See Below MG-Cardiology- CM [facility] Work Phone: Comment on above: Reference Range: 1.1 0 - 1.33 Chloride [Moles/Vol] 98 mmol/L 98 - 107 BF-Cxnezlajhk-EC [facility] Work Phone: Glucose [Mass/Vol] 97 mg/dL 74 - 99 MG-Car diology-CM [facility] Work Phone: Lactate [Moles/Vol] 1.0 mmol/L 0.4 - 2.0 MG-Ca rdiology-CM [facility] Work Phone: Potassium [Moles/Vol] 4.7 mmol/L 3.5 - 5.3 QY-Sjenllceuh-IQ [facility] Work Phone: Sodium [Moles/Vol] 130 mmol/L below low threshold 136 - 145 OM-Tsccoxcuvx-FU [facility] Work Phone: Calcium.ionized (Bld) [Moles/Vol] 1.19 mmol/L See Below MG-Cardiology- CM [facility] Work Phone: Comment on above: Reference Range: 1.1 0 - 1.33 Glucose [Mass/Vol] 118 mg/dL above high threshold 74 - 99 DO-Gmoovnejcz-RM [facility] Work Phone: Lactate [Moles/Vol] 1.3 mmol/L 0.4 - 2.0 MG-Ca rdiology-CM [facility] Work Phone: Potassium [Moles/Vol] 4.2 mmol/L 3.5 - 5.3 BQ-Etzsgwkjsm-VK [facility] Work Phone: Sodium [Moles/Vol] 129 mmol/L below low threshold 136 - 145 OH-Danpkuuvwy-LF [facility] Work Phone: Calcium.ionized (Bld) [Moles/Vol] 1.19 mmol/L See Below MG-Cardiology- CM [facility] Work Phone: Comment on above: Reference Range: 1.1 0 - 1.33 Chloride [Moles/Vol] 104 mmol/L 98 - 107 EN-Xnfslapwap-RL [facility] Work Phone: Glucose [Mass/Vol] 101 mg/dL above high threshold 74 - 99 VR-Asbbeadtkx-FG [facility] Work Phone: Lactate [Moles/Vol] 1.1 mmol/L 0.4 - 2.0 MG-Ca rdiology-CM [facility] Work Phone: Potassium [Moles/Vol] 4.6 mmol/L 3.5 - 5.3 ST-Tvltebapod-UW [facility] Work Phone: Sodium [Moles/Vol] 132 mmol/L below low threshold 136 - 145 IG-Vvybmlbhjw-KW [facility] Work Phone: Nicotine+Metabolites, Urineo n 08-18-2019 Anabasine (U) [Mass/Vol] <3 LG-Nrlsjdjkfx-CJ [facility] Work Phone: Comment on above: Ordering Provider: Elías BOWEN 53300 Cotinine (U) [Mass/Vol] <5 IN-Nvfjkmehwn-TX [facility] Work Phone: Comment on above: Ordering Provider: Elías BOWEN 52638 Nicotine (U) [Mass/Vol] <2 GN-Jtbwerzhoh-KV [facility] Work Phone: Comment on above: INTERPRETIVE INFORMA TION: Nicotine and Metabolites, Urine, QuantitativeMethodology: Quantitative Liquid Chromatography-Tandem Mass SpectrometryPositive cutoff:Nicotine 2 ng/mLCotinine 5 ng/kF1-SN-Hggjsyrf 50 ng/mLNornicotine 2 ng/mLAnabasine 3 ng/mLFor medical purposes only; not valid for forensic use. This test is designed to evaluate recent use of nicotine-containing products. Passive and active exposure cannot be discriminated definitively, although a cutoff of 100 ng/mL cotinine is frequently used for surgery qualification purposes. For smoking cessation programs or compliance testing, the absence of expected drug(s) and/or drug metabolite(s) may indicate non-compliance, inappropriate timing of specimen collection relative to drug administration, poor drug absorption, diluted/adulterated urine, or limitations of testing. The concentration value must be greater than or equal to the cutoff to be reported as positive. Anabasine is included as a biomarker of tobacco use, versus nicotine replacement. Interpretive questions should be directed to the laboratory. Test developed and characteristics determined by [employer]. See Compliance Statement B: [employer]/CSPerformed by [employer],[address] [place] [address] acx.[employer] [facility], Bull Murray MD, Lab. Director Ordering Provider: Elías BOWEN 17392 Nornicotine (U) [Mass/Vol] <2 HY-Gufqqvmwpe-FB [facility] Work Phone: Comment on above: Ordering Provider: Elías BOWEN 21351 Gmoto-7-Pomblculnxa nine (U) [Mass/Vol] <50 MG-Cardiolog y-CM [facility] Work Phone: Comment on above: Ordering Provider: Elías Rodriguez Otheron 08-18-2019 Anion gap (Bld) [Moles/Vol] 7 mmol/L below low threshold 10 - 25 YB-Rxfncuhepa-AD [facility] Work Phone: CO2 (BldMV) [Partial pressure] 35 {mmHg} MG-Cardiology -CM [facility] Work Phone: Oxygen (BldMV) [Partial pressure] 39 {mmHg} MG-Cardiology -CM [facility] Work Phone: pH (BldMV) 7.46 1 MG-Cardiology- CM [facility] Work Phone: 78 % MG-Cardiology- CM [facility] Work Phone: 1.3 mmol/L MG-Cardiology- CM [facility] Work Phone: 24.9 mmol/L MG-Cardiology -CM [facility] Work Phone: Anion gap (Bld) [Moles/Vol] 10 mmol/L 10 - 25 FF-Ugvmyvhlpr-AG [facility] Work Phone: CO2 (BldMV) [Partial pressure] 37 {mmHg} MG-Cardiology -CM [facility] Work Phone: Oxygen (BldMV) [Partial pressure] 41 {mmHg} MG-Cardiology -CM [facility] Work Phone: pH (BldMV) 7.43 1 MG-Cardiology- CM [facility] Work Phone: 24.6 mmol/L MG-Cardiology -CM [facility] Work Phone: 75 % MG-Cardiology- CM [facility] Work Phone: 0.5 mmol/L MG-Cardiology- CM [facility] Work Phone: Amphetamines Screen Ql (U) Negative NEGATIVE JO-Zmrourkgxl-ZN [facility] Work Phone: Comment on above: CUTOFF LEVEL: 500 NG /ML Cross-reactivity has been reported with high concentrations of the following drugs: buproprion, chloroquine, chlorpromazine, ephedrine, mephentermine, fenfluramine, phentermine, phenylpropanolamine, pseudoephedrine, and propranolol. Ordering Provider: Elías Rodriguez Benzoylecgonine Screen Ql (U) Negative NEGATIVE VN-Dgsflaukcj-ZW [facility] Work Phone: Comment on above: CUTOFF LEVEL: 150 NG /ML Ordering Provider: Elías BOWEN 68438 Methadone Screen Ql (U) Negative NEGATIVE NY-Iwjdwtajzz-JM [facility] Work Phone: Comment on above: CUTOFF LEVEL: 150 NG /ML The metabolite H-kyype-nymwdtyecaptnq (LAAM) is not detected by this method in concentrations that would be found in the urine of patients on LAAM therapy. Ordering Provider: Elías BOWEN 51469 Opiates Screen Ql (U) Negative NEGATIVE MR-Hrwxmprtsp-TA [facility] Work Phone: Comment on above: CUTOFF LEVEL: 300 NG /ML The opiate screen does not detect fentanyl, meperidine, or tramadol. Oxycodone is not consistently detected (refer to Oxycodone Screen, Urine result). Ordering Provider: Elías BOWEN 97493 Oxycodone+Oxymorpho ne Screen Ql (U) Negative NEGATIVE OK-Qtbmjynepd-L M [facility] Work Phone: Comment on above: CUTOFF LEVEL: 100 NG /ML This test will accurately detect both oxycodone and oxymorphone. Ordering Provider: Elías Rodriguez SEE BELOW MG-Cardiology- CM [facility] Work Phone: Comment on above: Drug screen results are presumptive and should not be used to assess compliance with prescribed medication. Contact the performing [facility] laboratory to add-on definitive confirmatory testing if clinically indicated. .Toxicology screening results are reported qualitatively. The concentration must be greater than or equal to the cutoff to be reported as positive. The concentration at which the screening test can detect an individual drug or metabolite varies. The absence of expected drug(s) and/or drug metabolite(s) may indicate non-compliance, inappropriate timing of specimen collection relative to drug administration, poor drug absorption, diluted/adulterated urine, or limitations of testing. For medical purposes only; not valid for forensic use. .Interpretive questions should be directed to the laboratory medical directors. Ordering Provider: Elías BOWEN 00137 Interpreted by: KEISHA08/18/19 15:38MRN: [id number] Name: SEBLE MALONE STUDY:CHEST 1 VIEW; 08/18/2019 1:35 pm INDICATION:Cleveland Repositioning. COMPARISON:08/18/2019 ORDERING CLINICIAN:MEGAN RAJPUT FINDINGS:Right IJ [place]-Donna catheter is terminating in the left main pulmonaryartery. The cardiac silhouette size is enlarged, stable. Redemonstration of mild increased interstitial markings of the lungssuggestive of mild edema. No pleural effusion, focal consolidation orpneumothorax. No acute osseous abnormality. Again seen partially imaged distended stomach. Consider decompressionby NG tube. IMPRESSION:As described above. Electronically signed by: KEISHA 08/18/19 15:38 Normal AK-Jxpltidrsh-[facility] Work Phone: Interpreted by: KEISHA08/18/19 15:37MRN: [id number] Name: SEBLE MALONE STUDY:CHEST 1 VIEW; 08/18/2019 1:34 pm INDICATION:sgc placement after minipulation. COMPARISON:08/18/2019 7:56 a.m. ORDERING CLINICIAN:EDI BOWEN FINDINGS:Right IJ [place]-Donna catheter is terminating in the left main pulmonaryartery. The cardiac silhouette size is persistently enlarged. Slightly increased interstitial markings of upper lungs. There is nosizable pleural effusion, focal consolidation or pneumothorax. Partially imaged stomach is slightly distended. IMPRESSION:1. Interval advancement of the [place]-Donna catheter as described above.2. Unchanged enlarged cardiac silhouette size.3. Mild increased interstitial markings of upper lungs suggestive ofcomponent of mild edema.4. Gaseous distension of the stomach, partially imaged. Considerdecompression. Electronically signed by: KEISHA 08/18/19 15:37 Normal OL-Cuchkixcsc-DG [employer] Work Phone: Comment on above: Ordering Provider: Elías BOWEN 46327 Anion gap (Bld) [Moles/Vol] 8 mmol/L below low threshold 10 - 25 AK-Gtskpxevqs-JF [facility] Work Phone: CO2 (BldMV) [Partial pressure] 36 {mmHg} MG-Cardiology -CM [facility] Work Phone: pH (BldMV) 7.45 1 MG-Cardiology- CM [facility] Work Phone: 25.0 mmol/L MG-Cardiology -CM [facility] Work Phone: 81 % MG-Cardiology- CM [facility] Work Phone: 1.2 mmol/L MG-Cardiology- CM [facility] Work Phone: Anion gap (Bld) [Moles/Vol] 11 mmol/L 10 - 25 UX-Okuawqxume-DY [facility] Work Phone: CO2 (BldMV) [Partial pressure] 38 {mmHg} MG-Cardiology -CM [facility] Work Phone: Oxygen (BldMV) [Partial pressure] 31 {mmHg} MG-Cardiology -CM [facility] Work Phone: pH (BldMV) 7.44 1 MG-Cardiology- CM [facility] Work Phone: 25.8 mmol/L MG-Cardiology -CM [facility] Work Phone: 66 % MG-Cardiology- CM [facility] Work Phone: 1.6 mmol/L MG-Cardiology- CM [facility] Work Phone: Interpreted by: BHARGAVI KEATING08/18/19 08:52MRN: [id number] Name: SEBLE MALONE STUDY:CHEST 1 VIEW; 08/18/2019 7:58 am INDICATION:swan. COMPARISON:08/17/2019 ORDERING CLINICIAN:JOESPH BURKETT FINDINGS:AP supine portable chest in comparison to previous exam on 08/17/2019reveals mild cardiomegaly. There is a right IJ [place]-Donna catheterwith its tip in the junction between right and left main pulmonaryarteries. Both lungs are clear without definite infiltrates orconsolidation. Both costophrenic angles are sharp. IMPRESSION:1. No evidence of acute cardiopulmonary process. Mild cardiomegaly,stable.2. Right IJ [place]-Donna catheter with its tip in the junction betweenright and left main pulmonary arteries.Electronically signed by: NATASHA KEATING 08/18/19 08:52 Normal VG-Fmdauxneec-GE [facility] Work Phone: Comment on above: Ordering Provider: Terri BURKETT 55761 Anion gap (Bld) [Moles/Vol] 7 mmol/L below low threshold 10 - 25 LY-Oxxyoddmpl-VV [facility] Work Phone: CO2 (BldMV) [Partial pressure] 39 {mmHg} MG-Cardiology -CM [facility] Work Phone: Oxygen (BldMV) [Partial pressure] 36 {mmHg} MG-Cardiology -CM [facility] Work Phone: pH (BldMV) 7.43 1 MG-Cardiology- CM [facility] Work Phone: 1.5 mmol/L MG-Cardiology- CM [facility] Work Phone: 70 % MG-Cardiology- CM [facility] Work Phone: 25.9 mmol/L MG-Cardiology -CM [facility] Work Phone: Erythrocyte distribution width (RBC) [Ratio] 14.8 % above high threshold See Below GF-Ezgotrbnel-PH [facility] Work Phone: Comment on above: Reference Range: 11. 5 - 14.5 Ordering Provider: Elías BOWEN 25370 MCHC (RBC) [Mass/Vol] 33.7 g/dL See Below QV-Prskfcardg-MO [facility] Work Phone: Comment on above: Reference Range: 32. 0 - 36.0 Ordering Provider: Elías BOWEN 00051 Interpreted by: KEISHA08/18/19 15:36MRN: [id number] Name: SEBLE MALONE STUDY:CHEST 1 VIEW; 08/17/2019 10:30 pm INDICATION:CHF. COMPARISON:None. ORDERING CLINICIAN:EDI BOWEN FINDINGS:There is a right IJ approach [place]-Donna catheter with its distal tipoverlying the main pulmonary artery. The cardiomediastinal silhouette is enlarged. No focal consolidations, pleural effusions or pneumothorax areidentified. There are no acute osseous abnormalities. IMPRESSION:1. Right IJ approach [place]-Donna catheter as described above.2. Enlargement of the cardiomediastinal silhouette. I personally reviewed the images/study and I agree with the findingsas stated. This study was interpreted at [place], [place].Electronically signed by: KEISHA 08/18/19 15:36 Normal YU-Celolieiso-YX [facility] Work Phone: Comment on above: Ordering Provider: Elías BOWEN 78502 Anion gap (Bld) [Moles/Vol] 7 mmol/L below low threshold 10 - 25 ZT-Hkbrfwjbov-UM [facility] Work Phone: CO2 (BldMV) [Partial pressure] 34 {mmHg} MG-Cardiology -CM [facility] Work Phone: Oxygen (BldMV) [Partial pressure] 33 {mmHg} MG-Cardiology -CM [facility] Work Phone: pH (BldMV) 7.48 1 MG-Cardiology- CM [facility] Work Phone: 25.3 mmol/L MG-Cardiology -CM [facility] Work Phone: 71 % MG-Cardiology- CM [facility] Work Phone: 1.8 mmol/L MG-Cardiology- CM [facility] Work Phone: Renal Function Panelon 08-17 Chloride [Moles/Vol] 100 mmol/L 98 - 107 QG-Jtuwqhfrxi-SN [facility] Work Phone: Comment on above: Ordering Provider: Elías LAZARO ANDRÉS 75418 Albumin BCP dye [Mass/Vol] 2.7 g/dL below low threshold 3.4 - 5.0 UC-Iwgsbiylfp-RM [facility] Work Phone: Comment on above: Ordering Provider: Elías RACGeneva ANDRÉS 13180 Anion gap [Moles/Vol] 12 mmol/L 10 - 20 RX-Gnpyqwzbqo-IM [facility] Work Phone: Comment on above: Ordering Provider: Elías LAZARO ANDRÉS 89348 Calcium [Mass/Vol] 8.3 mg/dL below low threshold 8.6 - 10.6 MK-Wtjuxqybxx-OP [facility] Work Phone: Comment on above: Ordering Provider: Elías RACGeneva ANDRÉS 44544 CO2 [Moles/Vol] 25 mmol/L 21 - 32 MG-Cardio logy-CM [facility] Work Phone: Comment on above: Ordering Provider: Elías RACGeneva ANDRÉS 29646 Creatinine [Mass/Vol] 1.06 mg/dL See Below AK-Xawjmevobv-BW [facility] Work Phone: Comment on above: Reference Range: 0.5 0 - 1.30 Ordering Provider: Elías RACGeneva ANDRÉS 78484 Glucose [Mass/Vol] 119 mg/dL above high threshold 74 - 99 RS-Dpcwvmkmic-ZB [facility] Work Phone: Comment on above: Ordering Provider: Elías RACGeneva ANDRÉS 17066 Phosphate [Mass/Vol] 3.5 mg/dL 2.5 - 4.9 TF-Wwnecykeeu-SC [facility] Work Phone: Comment on above: The performance duane acteristics of phosphorus testing in heparinized plasma have been validated by the individual laboratory site where testing is performed. Testing on heparinized plasma is not approved by the FDA; however, such approval is not necessary. Ordering Provider: Elías Rodriguez Potassium [Moles/Vol] 4.5 mmol/L 3.5 - 5.3 FD-Ezqwfxxjts-RP [facility] Work Phone: Comment on above: Ordering Provider: Elías Rodriguez Sodium [Moles/Vol] 132 mmol/L below low threshold 136 - 145 VM-Htoxqugydi-KP [facility] Work Phone: Comment on above: Ordering Provider: Elías Rodriguez Urea nitrogen [Mass/Vol] 20 mg/dL 6 - 23 VN-Cglgvqrqog-QA [facility] Work Phone: Comment on above: Ordering Provider: Elías Rodriguez Renal Function Panel >60 >60 FZ-Bmldjnmsbe-IG [facility] Work Phone: Comment on above: Ordering Provider: Elías Rodriguez CALCULATIONS OF MARY MATED GFR ARE PERFORMED USING THE MDRD STUDY EQUATION FOR THE IDMS-TRACEABLE CREATININE METHODS. CLIN CHEM 2007;53:766-72 Urinalysison 08-18-2019 Barbiturates Screen Ql (U) Negative NEGATIVE FD-Aiipgtjmkt-NK [facility] Work Phone: Comment on above: CUTOFF LEVEL: 200 NG /ML Ordering Provider: Elías Rodriguez Benzodiazepines Ql (U) Positive Abnormal NEGATIVE TN-Mcmcuhnqtk-KE [facility] Work Phone: Comment on above: CUTOFF LEVEL: 200 NG /ML Ordering Provider: Elías Rodriguez Cannabinoids Screen Ql (U) Positive Abnormal NEGATIVE RM-Gjubxfkyby-OK [facility] Work Phone: Comment on above: CUTOFF LEVEL: 50 NG/ ML Ordering Provider: Elías Rodriguez Phencyclidine Ql (U) Negative NEGATIVE KI-Xegqqunakn-QT [facility] Work Phone: Comment on above: CUTOFF LEVEL: 25 NG/ ML Cross-reactivity has been reported with dextromethorphan. Ordering Provider: Elías BOWEN 98932 Anti Nuclear Antibody (refle xes ARAM panel if Positive)on 08-17-2019 Nuclear Ab Hep2 substrate Ql (S) Negative NEGATIVE GG-Wadflsgfmf-M M [facility] Work Phone: Comment on above: Ordering Provider: Elías BOWEN 76287 Nuclear Ab Hep2 substrate Ql (S) Canceled GW-Mnmvvrfdnx-F M [facility] Work Phone: Comment on above: TEST LIZ WITH REFLEX TO ARAM WAS CANCELLED, 08/18/2019 07:57 DUPLICATE ORDER. see order #[id number].Ordering Provider: EDI BOWEN 19276 Bilirubin, Serum Direct - Co njugatedon 08-17-2019 Bilirubin.direct [Mass/Vol] 0.2 mg/dL 0.0 - 0.3 AZ-Azgzlaqwnj-XA [facility] Work Phone: Comment on above: Ordering Provider: Elías BOWEN 83777 Calcium, Ionized Levelon Calcium, Ionized Level 1.18 mmol/L See Below DK-Glhzqitjxp-XG [facility] Work Phone: Comment on above: Reference Range: 1.1 0 - 1.33 The performance characteristics of ionized calcium tested in heparinized plasma or serum have been validated by the individual laboratory site where testing is performed. Testing on heparinized plasma or serum is not approved by the FDA; however, such approval is not necessary. Ordering Provider: Elías BOWEN 91473 Cardiacon 08-17-2019 Natriuretic peptide B (Bld) [Mass/Vol] 1061 pg/mL above high threshold 0 - 99 EU-Euxynkpzqr-GS [facility] Work Phone: Comment on above: . <100 pg/mL - Heart failure [id number] pg/mL - Intermediate probability of acute heart. failure exacerbation. Correlate with clinical. context and patient history. >=300 pg/mL - Heart Failure likely. Correlate with clinical. context and patient history. Biotin interference may cause falsely decreased results. Patients taking a Biotin dose of up to 5 mg/day should refrain from taking Biotin for 24 hours before sample collection. Providers may contact their local laboratory for further information. Ordering Provider: Elías BOWEN 24108 Complete Blood Count + Diffarvin issa 08-17-2019 Basophils (Bld) [#/Vol] 0.02 {x10E9/L} See Below HB-Mpcymekcwk-HL [facility] Work Phone: Comment on above: Reference Range: 0.0 0 - 0.10 Ordering Provider: Elías Rodriguez Basophils/100 WBC (Bld) 0.3 % 0.0 - 2.0 PY-Vbjnomtbpk-FH [facility] Work Phone: Comment on above: Ordering Provider: Elías Rodriguez Eosinophils (Bld) [#/Vol] 0.06 {x10E9/L} See Below TF-Amlhjxyots-FS [facility] Work Phone: Comment on above: Reference Range: 0.0 0 - 0.70 Ordering Provider: Elías Rodriguez Eosinophils/100 WBC (Bld) 0.9 % 0.0 - 6.0 ZH-Hfmhnjjgui-DZ [facility] Work Phone: Comment on above: Ordering Provider: Elías Rodriguez Erythrocyte distribution width (RBC) [Ratio] 14.5 % See Below SJ-Xpljukezam-EZ [facility] Work Phone: Comment on above: Reference Range: 11. 5 - 14.5 Ordering Provider: Elías Rodriguez Hematocrit (Bld) [Volume fraction] 33.8 % below low threshold See Below VW-Dbnlmxkvdi-JH [facility] Work Phone: Comment on above: Reference Range: 41. 0 - 52.0 Ordering Provider: Elías BOWEN 60044 Hemoglobin (Bld) [Mass/Vol] 11.9 g/dL below low threshold See Below PD-Vzjorkamqx-HD [facility] Work Phone: Comment on above: Reference Range: 13. 5 - 17.5 Ordering Provider: Elías Rodriguez Lymphocytes (Bld) [#/Vol] 1.35 {x10E9/L} See Below KO-Wsfmoauveu-EQ [facility] Work Phone: Comment on above: Reference Range: 1.2 0 - 4.80 Ordering Provider: Elías Rodriguez Lymphocytes/100 WBC (Bld) 19.4 % See Below UF-Drhozyumiz-IX [facility] Work Phone: Comment on above: Reference Range: 13. 0 - 44.0 Ordering Provider: Elías Rodriguez MCHC (RBC) [Mass/Vol] 35.2 g/dL See Below NG-Tbxtvdpcqt-SB [facility] Work Phone: Comment on above: Reference Range: 32. 0 - 36.0 Ordering Provider: Elías Rodriguez MCV (RBC) [Entitic vol] 83 fL 80 - 100 NT-Zybhbwhxgs-DO [facility] Work Phone: Comment on above: Ordering Provider: Elías Rodriguez Monocytes (Bld) [#/Vol] 1.22 {x10E9/L} above high threshold See Below ZX-Pdjzbieiul-UG [facility] Work Phone: Comment on above: Reference Range: 0.1 0 - 1.00 Ordering Provider: Elías Rodriguez Monocytes/100 WBC (Bld) 17.5 % 2.0 - 10.0 RN-Ajbwgsgcye-HG [facility] Work Phone: Comment on above: Ordering Provider: Elías Rodriguez Neutrophils (Bld) [#/Vol] 4.27 {x10E9/L} See Below BK-Qjqirhsxkq-VI [facility] Work Phone: Comment on above: Reference Range: 1.2 0 - 7.70 Ordering Provider: Elías Rodriguez Neutrophils/100 WBC (Bld) 61.2 % See Below FO-Zukkaemerz-JL [facility] Work Phone: Comment on above: Reference Range: 40. 0 - 80.0 Ordering Provider: Elías Rodriguez Platelets (Bld) [#/Vol] 132 {x10E9/L} below low threshold 150 - 450 VL-Yshszzztnj-EO [facility] Work Phone: Comment on above: Ordering Provider: Elías Rodriguez RBC (Bld) [#/Vol] 4.08 {x10E12/L} below low threshold See Below JQ-Ootladoapn-XJ [facility] Work Phone: Comment on above: Reference Range: 4.5 0 - 5.90 Ordering Provider: Elías Rodriguez WBC (Bld) [#/Vol] 0.0 {/100_WBC} 0.0-0.0 MG- Cardiology-CM [facility] Work Phone: Comment on above: Ordering Provider: Elías Rodriguez WBC (Bld) [#/Vol] 7.0 {x10E9/L} 4.4 - 11.3 MG-C ardiology-CM [facility] Work Phone: Comment on above: Ordering Provider: Elías Rodriguez Complete Blood Count + Differential 0.7 % 0.0 - 0.9 HR-Zfdqsuhwct-OU [facility] Work Phone: Comment on above: Immature Granulocyte Count (IG) includes promyelocytes, myelocytes and metamyelocytes but does not include bands. Percent differential counts (%) should be interpreted in the context of the absolute cell counts (cells/L). Ordering Provider: Elías Rodriguez HIV Antigen/Antibody Screeno n 08-17-2019 HIV Antigen/Antibody Screen NONREACTIVE See Below VY-Qgbvhqkwxq-WO [facility] Work Phone: Comment on above: SOURCE: Reference Ra nge: NONREACTIVE HIV Ag/Ab screen is performed using the [employer] HIV Ag/Ab Combo assay which detects the presence of HIV p24 antigen as well as antibodies to HIV-1 (Group M and O) and HIV-2. Ordering Provider: Elías NEHAGeneva ANDRÉS Michael Hematologyon 08-17-2019 aPTT Coag (PPP) [Time] 32 {sec} 28 - 38 CU-Nltmvcbwzi-IB [facility] Work Phone: Comment on above: THE APTT IS NO LONGE R USED FOR MONITORING UNFRACTIONATED HEPARIN THERAPY. FOR MONITORING HEPARIN THERAPY, USE THE HEPARIN ASSAY. Ordering Provider: Elías BOWEN 15877 INR Coag (PPP) [Relative time] 2.3 {INR} above high threshold 0.9 - 1.1 LA-Owabklitxd-SN [facility] Work Phone: Comment on above: Ordering Provider: Elías BOWEN 26383 PT Coag (PPP) [Time] 25.4 {sec} above high threshold 9.7 - 12.7 KR-Vkqlaovxpd-YD [facility] Work Phone: Comment on above: Ordering Provider: Elías Rodriguez Lactate, Levelon 08-17-2019 Lactate [Moles/Vol] 1.0 mmol/L 0.4 - 2.0 MG-Ca rdiology-CM [facility] Work Phone: Comment on above: Venipuncture immedia tely after or during the administration of Metamizole may lead to falsely low results. Testing should be performed immediately prior to Metamizole dosing. Ordering Provider: Elías BOWEN 05369 Lactate [Moles/Vol] Canceled MG-Ca rdiology-CM [facility] Work Phone: Comment on above: Venipuncture immedia tely after or during the administration of Metamizole may lead to falsely low results. Testing should be performed immediately prior to Metamizole dosing. TEST LACTATE WAS CAN CELLED, 08/18/2019 12:22 DUPLICATE ORDER.Ordering Provider: EDI BOWEN 97987 Lipid Panelon 08-17-2019 Cholesterol [Mass/Vol] 158 mg/dL 0 - 199 DJ-Fspcmrjpra-RF [facility] Work Phone: Comment on above: . AGE DESIRABLE BORD FLORENCE HIGH HIGH 0-19 Y 0 - 169 170 - 199 >/= 200 20-24 Y 0 - 189 190 - 224 >/= 225 >24 Y 0 - 199 200 - 239 >/= 240 All ranges are based on fasting samples. Specific therapeutic targets will vary based on patient-specific cardiac risk.. Pediatric guidelines reference:Pediatrics 2011, 128(S5). Adult guidelines reference: NCEP ATPIII Guidelines, IVY 2001, 258:2486-97. Venipuncture immediately after or during the administration of Metamizole may lead to falsely low results. Testing should be performed immediately prior to Metamizole dosing. Ordering Provider: Elías BOWEN 53314 Cholesterol in HDL [Mass/Vol] 25.5 mg/dL Abnormal AT-Btqgyhtnyy-YP [facility] Work Phone: Comment on above: . AGE VERY LOW LOW N ORMAL HIGH 0-19 Y < 35 < 40 40-45 ---- 20- 24 Y ---- < 40 >45 ---- >24 Y ---- < 40 40-60 >60. Ordering Provider: Elías BOWEN 89267 Cholesterol in LDL [Mass/Vol] 115 mg/dL above high threshold 0 - 99 QA-Xcoaehllfq-MP [facility] Work Phone: Comment on above: . NEAR BORD AGE FELICIANO RABLE OPTIMAL HIGH HIGH VERY HIGH 0-19 Y 0 - 109 --- 110-129 >/= 130 ---- 20-24 Y 0 - 119 --- 120-159 >/= 160 ---- >24 Y 0 - 99 100-129 130-159 160-189 >/=190. Ordering Provider: Elías BOWEN 96850 Cholesterol.total/C holesterol in HDL [Mass ratio] 6.2 {ratio} Abnormal VW-Qjtfqpbwrl-AP [facility] Work Phone: Comment on above: REF VALUESDESIRABLE < 3.4HIGH RISK > 5.0 Ordering Provider: Elías BOWEN 71432 Triglyceride [Mass/Vol] 87 mg/dL 0 - 149 SV-Hzymtagxzk-TS [facility] Work Phone: Comment on above: . AGE DESIRABLE BORD FLORENCE HIGH HIGH VERY HIGH 0 D-90 D 19 - 174 ---- ---- ----91 D- 9 Y 0 - 74 75 - 99 >/= 100 ---- 10-19 Y 0 - 89 90 - 129 >/= 130 ---- 20-24 Y 0 - 114 115 - 149 >/= 150 ---- >24 Y 0 - 149 150 - 199 200- 499 >/= 500. Venipuncture immediately after or during the administration of Metamizole may lead to falsely low results. Testing should be performed immediately prior to Metamizole dosing. Ordering Provider: Elías BOWEN 63441 Lipid Panel 17 mg/dL 0 - 40 MG-Cardiology -CM [facility] Work Phone: Comment on above: Ordering Provider: Elías BOWEN 28151 Magnesium, Serumon 0 Magnesium [Mass/Vol] 1.64 mg/dL See Below JN-Kylsetwvwq-IR [facility] Work Phone: Comment on above: Reference Range: 1.6 0 - 2.40 Ordering Provider: Elías BOWEN 96565 Metabolic Panelon 08-17-2019 ALP [Catalytic activity/Vol] 136 U/L above high threshold 33 - 120 QF-Ljaesvufoc-MG [facility] Work Phone: Comment on above: Ordering Provider: Elías BOWEN 67573 Anion gap [Moles/Vol] 13 mmol/L 10 - 20 ZZ-Iserkztenl-YA [facility] Work Phone: Comment on above: Ordering Provider: Elías MARTINEZAB 87150 Bilirubin [Mass/Vol] 0.7 mg/dL 0.0 - 1.2 TM-Qepfbkxxba-II [facility] Work Phone: Comment on above: Ordering Provider: Elías LAZARO ANDRÉS 62935 Calcium [Mass/Vol] 8.6 mg/dL 8.6 - 10.6 MG-Car diology-CM [facility] Work Phone: Comment on above: Ordering Provider: Elías LAZARO ANDRÉS 26918 Chloride [Moles/Vol] 99 mmol/L 98 - 107 AY-Tqakdqzwmf-FK [facility] Work Phone: Comment on above: Ordering Provider: Elías LAZARO ANDRÉS 14314 CO2 [Moles/Vol] 25 mmol/L 21 - 32 MG-Cardio logy-CM [facility] Work Phone: Comment on above: Ordering Provider: Elías TEJAS MARTINEZAB 22680 Creatinine [Mass/Vol] 1.11 mg/dL See Below QE-Ccikrzyxzv-TE [facility] Work Phone: Comment on above: Reference Range: 0.5 0 - 1.30 Ordering Provider: Elías MARTINEZAB 58790 Glucose [Mass/Vol] 92 mg/dL 74 - 99 MG-Car diology-CM [facility] Work Phone: Comment on above: Ordering Provider: Elías LAZARO ANDRÉS 07613 Iron [Mass/Vol] Canceled MG-Cardio logy-CM [facility] Work Phone: Comment on above: TEST IRON + TIBC WAS CANCELLED, 08/18/2019 09:41 DUPLICATE ORDER [id number].Ordering Provider: EDI ANDRÉS 43588 Iron [Mass/Vol] 37 ug/dL 35 - 150 MG-Cardio logy-CM [facility] Work Phone: Comment on above: Ordering Provider: Elías LAZARO ANDRÉS 69450 Potassium [Moles/Vol] 4.7 mmol/L 3.5 - 5.3 LZ-Kgqapksoug-XY [facility] Work Phone: Comment on above: Ordering Provider: Elías LAZARO ANDRÉS 16491 Protein [Mass/Vol] 6.1 g/dL below low threshold 6.4 - 8.2 MH-Skahlahtuo-DK [facility] Work Phone: Comment on above: Ordering Provider: Elías RACGeneva ANDRÉS 57366 Sodium [Moles/Vol] 132 mmol/L below low threshold 136 - 145 EY-Rmbuvrozzt-GZ [facility] Work Phone: Comment on above: Ordering Provider: Elías LAZARO ANDRÉS 64813 Urea nitrogen [Mass/Vol] 22 mg/dL 6 - 23 HV-Vlgsdsecun-WL [facility] Work Phone: Comment on above: Ordering Provider: Elías RACGeneva ANDRÉS 95393 Otheron 08-17-2019 Albumin BCP dye [Mass/Vol] 2.9 g/dL below low threshold 3.4 - 5.0 LB-Dgzazdqvat-ZG [facility] Work Phone: Comment on above: Ordering Provider: Elías Rodriguez ALT With P-5'-P [Catalytic activity/Vol] 111 U/L above high threshold 10 - 52 CF-Miogtfepgq-RQ [facility] Work Phone: Comment on above: Patients treated wit h Sulfasalazine may generate falsely decreased results for ALT. Ordering Provider: Elías Rodriguez AST With P-5'-P [Catalytic activity/Vol] 36 U/L 9 - 39 HR-Exesdqvjet-KU [facility] Work Phone: Comment on above: Ordering Provider: Elías Rodriguez Iron binding capacity [Mass/Vol] 324 ug/dL 240 - 445 MG-Cardiolog y-CM [facility] Work Phone: Comment on above: Ordering Provider: Elías Rodriguez Iron binding capacity [Mass/Vol] Canceled MG-Cardiolog y-CM [facility] Work Phone: Comment on above: TEST IRON + TIBC WAS CANCELLED, 08/18/2019 09:41 DUPLICATE ORDER [id number].Ordering Provider: EDI Rodriguez >60 >60 MG-Cardiology- CM [facility] Work Phone: Comment on above: Ordering Provider: Elías Rodriguez CALCULATIONS OF MARY MATED GFR ARE PERFORMED USING THE MDRD STUDY EQUATION FOR THE IDMS-TRACEABLE CREATININE METHODS. CLIN CHEM 2007;53:766-72 11 % below low threshold 25 - 45 RW-Gvljicgwjr-BJ [facility] Work Phone: Comment on above: Ordering Provider: Elías Rodriguez Phosphorus, Serumon 08-17-19 20 Phosphate [Mass/Vol] 3.6 mg/dL 2.5 - 4.9 EC-Hllmifqxjv-BX [facility] Work Phone: Comment on above: The performance duane acteristics of phosphorus testing in heparinized plasma have been validated by the individual laboratory site where testing is performed. Testing on heparinized plasma is not approved by the FDA; however, such approval is not necessary. Ordering Provider: Elías BOWEN 96796 Renal Function Panelon 08-16 Albumin BCP dye [Mass/Vol] Canceled TJ-Sddreootfz-AJ [facility] Work Phone: Comment on above: TEST RENAL FUNCTION PANEL WAS CANCELLED, 08/18/2019 09:41 DUPLICATE ORDER [id number].Ordering Provider: EDI ANDRÉS 63771 Anion gap [Moles/Vol] Canceled RQ-Aelrqutpqi-UL [facility] Work Phone: Comment on above: TEST RENAL FUNCTION PANEL WAS CANCELLED, 08/18/2019 09:41 DUPLICATE ORDER [id number].Ordering Provider: EDI BOWEN 63179 Calcium [Mass/Vol] Canceled MG-Car diology-CM [facility] Work Phone: Comment on above: TEST RENAL FUNCTION PANEL WAS CANCELLED, 08/18/2019 09:41 DUPLICATE ORDER [id number].Ordering Provider: EDI ANDRÉS 26348 Chloride [Moles/Vol] Canceled UO-Hsktajttyo-YN [facility] Work Phone: Comment on above: TEST RENAL FUNCTION PANEL WAS CANCELLED, 08/18/2019 09:41 DUPLICATE ORDER [id number].Ordering Provider: EDI ANDRÉS 65033 CO2 [Moles/Vol] Canceled MG-Cardio logy-CM [facility] Work Phone: Comment on above: TEST RENAL FUNCTION PANEL WAS CANCELLED, 08/18/2019 09:41 DUPLICATE ORDER [id number].Ordering Provider: EDI ANDRÉS 09268 Creatinine [Mass/Vol] Canceled MD-Zgxdasvgyq-NT [facility] Work Phone: Comment on above: TEST RENAL FUNCTION PANEL WAS CANCELLED, 08/18/2019 09:41 DUPLICATE ORDER [id number].Ordering Provider: EDI ANDRÉS 73837 Glucose [Mass/Vol] Canceled MG-Car diology-CM [facility] Work Phone: Comment on above: TEST RENAL FUNCTION PANEL WAS CANCELLED, 08/18/2019 09:41 DUPLICATE ORDER [id number].Ordering Provider: EDI Rodriguez Phosphate [Mass/Vol] Canceled EQ-Sbqsxoypky-KW [facility] Work Phone: Comment on above: The performance duane acteristics of phosphorus testing in heparinized plasma have been validated by the individual laboratory site where testing is performed. Testing on heparinized plasma is not approved by the FDA; however, such approval is not necessary. TEST RENAL FUNCTION PANEL WAS CANCELLED, 08/18/2019 09:41 DUPLICATE ORDER [id number].Ordering Provider: EDI Rodriguez Potassium [Moles/Vol] Canceled UH-Ifcujohpez-NZ [facility] Work Phone: Comment on above: TEST RENAL FUNCTION PANEL WAS CANCELLED, 08/18/2019 09:41 DUPLICATE ORDER [id number].Ordering Provider: EDI Rodriguez Sodium [Moles/Vol] Canceled MG-Car diology-CM [facility] Work Phone: Comment on above: TEST RENAL FUNCTION PANEL WAS CANCELLED, 08/18/2019 09:41 DUPLICATE ORDER [id number].Ordering Provider: EDI Rodriguez Urea nitrogen [Mass/Vol] Canceled OZ-Upizdokoeo-IF [facility] Work Phone: Comment on above: TEST RENAL FUNCTION PANEL WAS CANCELLED, 08/18/2019 09:41 DUPLICATE ORDER [id number].Ordering Provider: EDI Rodriguez Renal Function Panel Canceled FZ-Dnkddsnaja-NO [facility] Work Phone: Comment on above: TEST IRON + TIBC WAS CANCELLED, 08/18/2019 09:41 DUPLICATE ORDER [id number].Ordering Provider: EDI Rodriguez CALCULATIONS OF MARY MATED GFR ARE PERFORMED USING THE MDRD STUDY EQUATION FOR THE IDMS-TRACEABLE CREATININE METHODS. CLIN CHEM 2007;53:766-72 TEST RENAL FUNCTION PANEL WAS CANCELLED, 08/18/2019 09:41 DUPLICATE ORDER [id number].Ordering Provider: EDI Rodriguez SOURCE: HIV Ag/Ab sc reen is performed using the [employer] HIV Ag/Ab Combo assay which detects the presence of HIV p24 antigen as well as antibodies to HIV-1 (Group M and O) and HIV-2. TEST HIV ANTIGEN/ANT IBODY SCREEN WAS CANCELLED, 08/18/2019 09:41 DUPLICATE ORDER [id number].Ordering Provider: EDI Rodriguez TSH - Thyroid Stimulating Ho rmone, Serumon 08-17-2019 TSH Qn 2.15 {mIU/L} See Below -Cardiolog y-CM [facility] [employer] Work Phone: Comment on above: Reference Range: 0.4 4 - 3.98 Note new pediatric reference range as of 06/08/2019. TSH testing is performed using different testing methodology at [facility] than at other system hospitals. Direct result comparisons should only be made within the same method. Ordering Provider: Elías Rodriguez304 Thyroidon 08-17-2019 TSH Qn Canceled -Cardiology- [employer] Work Phone: Comment on above: Note new pediatric r eference range as of 06/08/2019. TSH testing is performed using different testing methodology at [facility] than at other system hospitals. Direct result comparisons should only be made within the same method. TEST TSH WITH REFLEX TO FREE T4 IF ABNORMAL WAS CANCELLED, 08/18/2019 09:41 DUPLICATE ORDER [id number].Ordering Provider: EDI Rodriguez Troponin I, Serumon 08-17-19 20 Troponin I.cardiac [Mass/Vol] 0.02 ng/mL See Below IS-Qkhbhzhmlr-AY [facility] [employer] Work Phone: Comment on above: Reference Range: 0.0 0 - 0.03LESS THAN 0.04 NG/ML: NEGATIVEREPEAT TESTING IN THREE TO SIX HOURSIF CLINICALLY INDICATED.0.04 - 0.5 NG/ML: CONSISTENT WITH POSSIBLECARDIAC DAMAGE AND POSSIBLE INCREASEDCLINICAL RISK.SERIAL MEASUREMENTS MAY HELP ASSESS EXTENT OFMYOCARDIAL DAMAGE.>0.5 NG/ML: CONSISTENT WITH CARDIAC DAMAGE,INCREASED CLINICAL RISK AND MYOCARDIALINFARCTION. SERIAL MEASUREMENTS MAY HELPASSESS EXTENT OF MYOCARDIAL DAMAGE..Note: Troponin I testing is performed using different testing methodology at [facility] than at other [facility]. Direct result comparisons should only be made within the same method.. Biotin interference may cause falsely decreased results. Patients taking a Biotin dose of up to 5 mg/day should refrain from taking Biotin for 24 hours before sample collection. Providers may contact their laboratory for further information. Ordering Provider: Elías BOWEN 79942 Vital Signs Date Time Vital Sign Value Performing Clinician Facility 01-23-2025 16:17-0400 Diastolic Blood Pressure Non-Invasive 81 mm[Hg] FLORESITA INMAN MD [facility] 01-23-2025 16:17-0400 Heart rate 84 /min FLORESITA INMAN MD [address] [place] [address] 01-23-2025 16:17-0400 Respiratory rate 18 /min FLORESITA INMAN MD [address] [place] [address] 01-23-2025 16:17-0400 Systolic Blood Pressure Non-Invasive 109 mm[Hg] FLORESITA INMAN MD [facility] 01-23-2025 14:54-0400 Body temperature 97.34 [degF] FLORESITA INMAN MD [facility] 01-23-2025 14:54-0400 Body weight 105.8 kg FLORESITA INMAN MD [facility] 01-23-2025 14:54-0400 Diastolic Blood Pressure Non-Invasive 81 mm[Hg] FLORESITA INMAN MD [facility] 01-23-2025 14:54-0400 Heart rate 78 /min FLORESITA INMAN MD [address] [place] [address] 01-23-2025 14:54-0400 Respiratory rate 18 /min FLORESITA INMAN MD [facility] 01-23-2025 14:54-0400 Systolic Blood Pressure Non-Invasive 113 mm[Hg] FLORESITA NIMAN MD [facility] 11-23-2021 11:16-0400 2.1 1 No PCP None [facility] Work Phone: Comment on above: [email or web address] 11-07-2021 14:13-0400 2.7 1 No PCP None [facility] Work Phone: Comment on above: IOINR3 10-31-2021 14:41-0400 1.8 1 No PCP None [facility] Work Phone: Comment on above: IOINR3 09-28-2021 11:43-0400 2.5 1 No PCP None [facility] Work Phone: Comment on above: IOIN 09-07-2021 11:35-0400 Body temperature 97.88 [degF] BALJIT EDMONDS MD [facility] 09-07-2021 11:35-0400 diastolic 80 mm[Hg] BALJIT EDMONDS MD [facility] 09-07-2021 11:35-0400 Heart rate 60 /min BALJIT EDMONDS MD [facility] 09-07-2021 11:35-0400 Respiratory rate 16 /min BALJIT EDMONDS MD [facility] 09-07-2021 11:35-0400 systolic 110 mm[Hg] BALJIT EDMONDS MD [facility] 09-07-2021 11:11-0400 diastolic 81 mm[Hg] BALJIT EDMONDS MD [facility] 09-07-2021 11:11-0400 Heart rate 66 /min BALJIT EDMONDS MD [address] [place] [address] 09-07-2021 11:11-0400 systolic 109 mm[Hg] BALJIT EDMONDS MD [address] [place] [address] 09-07-2021 10:54-0400 diastolic 84 mm[Hg] BALJIT EDMONDS MD [address] [place] [address] 09-07-2021 10:54-0400 Heart rate 64 /min BALJIT EDMONDS MD [address] [place] [address] 09-07-2021 10:54-0400 systolic 128 mm[Hg] BALJIT EDMONDS MD [address] [place] [address] 09-07-2021 10:36-0400 Respiratory rate 18 /min BALJIT EDMONDS MD [address] [place] [address] 09-07-2021 08:10-0400 Body height 180.3 cm BALJIT EDMONDS MD [address] [place] [address] 09-07-2021 08:10-0400 Body temperature 97.7 [degF] BALJIT EDMONDS MD [address] [place] [address] 09-07-2021 08:10-0400 Body weight 100.8 kg BALJIT EDMONDS MD [address] [place] [address] 09-07-2021 08:10-0400 Body weight 31.01 kg/m2 BALJIT EDMONDS MD [address] [place] [address] 09-07-2021 08:10-0400 Respiratory rate 16 /min BALJIT EDMONDS MD [address] [place] [address] 08-28-2021 13:37-0400 Body height 177.8 cm No PCP None [facility] Work Phone: 08-28-2021 13:37-0400 Body mass index (BMI) [Ratio] 32.05 kg/m2 No PCP None [facility] Work Phone: 08-28-2021 13:37-0400 Body surface area Derived from formula 2.19 m2 No PCP None QO-Uvstnxho[facility] [address] Work Phone: 08-28-2021 13:37-0400 Body temperature 97.2 [degF] No PCP None T[facility]kn[facility] [place] [address] Work Phone: 08-28-2021 13:37-0400 Body weight 101.33 kg No PCP None [facility] [address] Work Phone: 08-28-2021 13:37-0400 Diastolic blood pressure 71 mm[Hg] No PCP None VR[facility]Nicejpcy[facility] [address] Work Phone: 08-28-2021 13:37-0400 Heart rate 73 /min No PCP None KU-Pepoalld[facility]bl[facility] [address] Work Phone: 08-28-2021 13:37-0400 SaO2% (BldA) [Mass fraction] 96 % No PCP None BW[facility]orzmliw[facility]dr[facility] [address] Work Phone: 08-28-2021 13:37-0400 Systolic blood pressure 104 mm[Hg] No PCP None PX-Genqybdc-[facility] [address] Work Phone: 08-24-2021 12:02-0400 2.5 1 No PCP None [facility] Work Phone: Comment on above: IOINCandy 08-10-2021 11:22-0400 2.4 1 No PCP None [facility] Work Phone: Comment on above: [email or web address] 07-27-2021 11:27-0400 2.6 1 No PCP None [facility] Work Phone: Comment on above: [email or web address] 07-20-2021 11:02-0400 2.5 1 No PCP None [facility] Work Phone: Comment on above: IOINR3 07-11-2021 15:33-0400 1.9 1 No PCP None [facility] Work Phone: Comment on above: [email or web address] 07-06-2021 11:33-0400 1.5 1 No PCP None [facility] Work Phone: Comment on above: IOINR3 07-03-2021 11:20-0400 5 1 No PCP None IQ-Nrgjobfagy-Lf stefanie Work Phone: Comment on above: IOINR3 06-19-2021 11:09-0400 3 1 No PCP None [facility] Work Phone: Comment on above: [email or web address] 06-05-2021 11:28-0500 2.3 1 No PCP None [facility] Work Phone: Comment on above: IOINR3 05-29-2021 11:05-0500 2.9 1 No PCP None [facility] Work Phone: Comment on above: [email or web address] 05-22-2021 11:23-0500 1.8 1 No PCP None [facility] Work Phone: Comment on above: [email or web address] 05-15-2021 11:05-0500 4 1 No PCP None [facility] Work Phone: Comment on above: IOINR3 04-27-2021 11:16-0500 2.8 1 No PCP None [facility] Work Phone: Comment on above: IOINR3 04-26-2021 14:00-0500 Diastolic blood pressure 72 mm[Hg] DR JESSIE SEVILLA MD [facility] 04-26-2021 14:00-0500 Heart rate 76 /min DR JESSIE SEVILLA MD [facility] 04-26-2021 14:00-0500 Mean blood pressure 83 mm[Hg] DR JESSIE SEVILLA MD [facility] 04-26-2021 14:00-0500 Systolic blood pressure 106 mm[Hg] DR JESSIE SEVILLA MD [facility] 04-26-2021 12:50-0500 Body temperature 97.52 [degF] DR JESSIE SEVILLA MD [facility] 04-26-2021 12:50-0500 Diastolic blood pressure 69 mm[Hg] DR JESSIE SEVILLA MD [facility] 04-26-2021 12:50-0500 Heart rate 81 /min DR JESSIE SEVILLA MD [facility] 04-26-2021 12:50-0500 Mean blood pressure 78 mm[Hg] DR JESSIE SEVILLA MD [facility] 04-26-2021 12:50-0500 Respiratory rate 16 /min DR JESSIE SEVILLA MD [facility] 04-26-2021 12:50-0500 Systolic blood pressure 95 mm[Hg] DR JESSIE SEVILLA MD [facility] 04-17-2021 10:18-0500 2.4 1 No PCP None [facility] Work Phone: Comment on above: [email or web address] 04-11-2021 09:33-0500 1.8 1 No PCP None [facility] Work Phone: Comment on above: IOINR3 04-03-2021 13:30-0500 4.2 1 No PCP None [facility] Work Phone: Comment on above: IOINR3 03-21-2021 11:09-0500 3.1 1 No PCP None [facility] Work Phone: Comment on above: [email or web address] 02-21-2021 14:04-0500 3 1 No PCP None [facility] Work Phone: Comment on above: [facility] 02-20-2021 13:34-0500 Body mass index (BMI) [Ratio] 31.5 kg/m2 No PCP None EA-Bpvixbwoak-Ylesli n [facility] [address] Work Phone: 02-20-2021 13:34-0500 Body surface area Derived from formula 2.17 m2 No PCP None WS-Nedjsuoeab-Meywsz n [facility] [address] Work Phone: 02-20-2021 13:34-0500 Body temperature 97.9 [degF] No PCP None CX-Tsniiwytmt-N hagrin [facility] [address] Work Phone: 02-20-2021 13:34-0500 Body weight 99.57 kg No PCP None JO-Pitujapmck-Iy agrin [facility] [address] Work Phone: 02-20-2021 13:34-0500 Diastolic blood pressure 85 mm[Hg] No PCP None HP-Wsgpgfxigw-Cumijl n [facility] [address] Work Phone: 02-20-2021 13:34-0500 Heart rate 76 /min No PCP None KX-Oucwzcjcgu-Hf [facility] [address] Work Phone: 02-20-2021 13:34-0500 Respiratory rate 18 /min No PCP None FU-Tqykuxntps-P hagrin [facility] [address] Work Phone: 02-20-2021 13:34-0500 SaO2% (BldA) [Mass fraction] 97 % No PCP None NL-Njxkycnbve-Xbkjbm [facility] [address] Work Phone: 02-20-2021 13:34-0500 Systolic blood pressure 125 mm[Hg] No PCP None AA-Dkorctkhor-Knwlqy [facility] [address] Work Phone: 02-20-2021 13:34-0500 0 1 No PCP None EB-Jjdbmdkhvl-Ag [facility] [address] Work Phone: Comment on above: PainScale 01-23-2021 11:20-0400 2.8 1 No PCP None BM-Vbxetstjzp-Xe stefanie [address] [place] Work Phone: Comment on above: IOINR3 01-16-2021 11:57-0400 3.1 1 No PCP None [facility] Work Phone: Comment on above: IOINR3 12-15-2020 11:22-0400 2.4 1 No PCP None [facility] Work Phone: Comment on above: IOINR3 11-10-2020 11:01-0400 2.8 1 No PCP None [facility] Work Phone: Comment on above: IOINR3 10-13-2020 10:58-0400 2.6 1 No PCP None [facility] Work Phone: Comment on above: IOHIR3 09-15-2020 10:53-0400 2 1 No PCP [facility] Comment on above: IOINR3 09-12-2020 15:52-0400 Body mass index (BMI) [Ratio] 32.59 kg/m2 No PCP None BV[facility]clsqiwy[facility] [place] [address] Work Phone: 09-12-2020 15:52-0400 Body surface area Derived from formula 2.2 m2 No PCP None XQ-Ysrkdrjh-ByvegrnAsh[facility] [place] [address] Work Phone: 09-12-2020 15:52-0400 Body temperature 98.1 [degF] No PCP None DL[facility]Xoycueqy-[facility] [place] [address] Work Phone: 09-12-2020 15:52-0400 Body weight 103.03 kg No PCP None MP-Ioyktcbm-[facility]fef[facility] [place] [address] Work Phone: 09-12-2020 15:52-0400 Diastolic blood pressure 73 mm[Hg] No PCP None BH-Dcqnfshc-[facility]zhpvzpAsh[facility] [place] [address] Work Phone: 09-12-2020 15:52-0400 Heart rate 83 /min No PCP None HK[facility]Zfgsswjc-[facility]frr[facility] [place] [address] Work Phone: 09-12-2020 15:52-0400 Respiratory rate 18 /min No PCP None OP-Zbgtsjoq-KbuAlt[facility] [place] [address] Work Phone: 09-12-2020 15:52-0400 SaO2% (BldA) [Mass fraction] 96 % No PCP None BS-Rcgkheke-BnmajbnSan[facility] 3[address] Work Phone: 09-12-2020 15:52-0400 Systolic blood pressure 106 mm[Hg] No PCP None CJ-Cqamrclp-IrzrlkuSan[facility] [address] Work Phone: 09-12-2020 15:52-0400 0 1 No PCP None NE[facility]bbnxhbd-[facility] [place] [address] Work Phone: Comment on above: PainScale 08-17-2020 10:52-0400 2.9 1 No PCP None TC-Gltwlrnv-Xdnh [facility] [address] Work Phone: Comment on above: IOINR3 05-19-2020 12:34-0500 inr 2.1875 1 [facility]tico[facility] Monitoring [facility] Work Phone: Comment on above: Target INR range 05-19-2020 12:34-0500 inr 2.5 1 [facility] Anticoagulation Monitoring [facility] Work Phone: Comment on above: IO INR 05-12-2020 12:54-0500 inr 2.1875 1 [facility] Anticoagulation Monitoring [facility] Work Phone: Comment on above: Target INR range 05-12-2020 12:54-0500 inr 2.3 1 [facility] Anticoagulation Monitoring [facility] Work Phone: Comment on above: IO INR 05-05-2020 13:54-0500 inr 2.1875 1 [facility] Anticoagulation Monitoring [facility] Work Phone: Comment on above: Target INR range 05-05-2020 13:54-0500 inr 3.4 1 [facility] Anticoagulation Monitoring [facility] Work Phone: Comment on above: IO INR 04-28-2020 13:39-0500 inr 2.1875 1 [facility] Anticoagulation Monitoring [facility] Work Phone: Comment on above: Target INR range 04-28-2020 13:39-0500 inr 2.7 1 [facility]: Comment on above: IO INR 04-21-2020 13:16-0500 inr 2.1875 1 [facility] Anticoagulation Monitoring [facility] Work Phone: Comment on above: Target INR range 04-21-2020 13:16-0500 inr 3.8 1 [facility] Anticoagulation Monitoring [facility] Work Phone: Comment on above: IO INR 02-16-2020 15:19-0500 inr 2.1875 1 Eiran Gorodeski MU-Scuqelnkjn-PO C [facility] [address] [place] Work Phone: Comment on above: Target INR range 02-16-2020 15:19-0500 inr 2.5 1 Eiran Gorodeski IA-Dgaobspqgz-TT C [facility] [address] [place] Work Phone: Comment on above: IO INR 02-09-2020 13:42-0500 inr 2.1875 1 Eiran Gorodeski DE-Fpjyupphth-AP C [facility] [address] [place] Work Phone: Comment on above: Target INR range 02-09-2020 13:42-0500 inr 2 1 Eiran Gorodeski EY-Vxermauqct-DB C [facility] [address] [place] Work Phone: Comment on above: IO INR 02-03-2020 13:44-0400 inr 2.1875 1 Eiran Gorodeski ZS-Cpygibwqfq-CA C [facility] [address] [place] Work Phone: Comment on above: Target INR range 02-03-2020 13:44-0400 inr 1.6 1 Eiran Gorodeski CB-Cikklbesrv-MH C [facility] [address] [place] Work Phone: Comment on above: IO INR 01-25-2020 14:00-0400 inr 2.1875 1 Eiran Gorodeski BI-Frserfbruu-QO C [facility] [address] [place] Work Phone: Comment on above: Target INR range 01-25-2020 14:00-0400 inr 1.8 1 Eikristy Silvermanodeski QG-Uwwtqhdqlz-RD C [facility] [address] [place] Work Phone: Comment on above: IO INR 08-20-2019 13:33-0400 Body temperature 37.0 {degrees} Eiran Andraodeski TE-Teehpszojf-NOM [facility] Work Phone: Comment on above: NOTE: PATIENT RESULTS ARE NOT CORRECTED FOR TEMPERATURE. 08-20-2019 07:21-0400 Body temperature 37.0 {degrees} Eiran Andraodeski OB-Zicgdgmidt-SYC [facility] Work Phone: Comment on above: NOTE: PATIENT RESULTS ARE NOT CORRECTED FOR TEMPERATURE. 08-20-2019 02:38-0400 Body temperature 37.0 {degrees} Eiran Andraodeski UK-Lfpsasjypc-YDL [facility] Work Phone: Comment on above: NOTE: PATIENT RESULTS ARE NOT CORRECTED FOR TEMPERATURE. 08-19-2019 19:59-0400 Body temperature 37.0 {degrees} Eiran Andraodeski RH-Hgkqlzncsl-YOY [facility] Work Phone: Comment on above: NOTE: PATIENT RESULTS ARE NOT CORRECTED FOR TEMPERATURE. 08-19-2019 12:33-0400 Body temperature 37.0 {degrees} Eiran Andraodeski VS-Zjtcywogcs-KWX [facility] Work Phone: Comment on above: NOTE: PATIENT RESULTS ARE NOT CORRECTED FOR TEMPERATURE. 08-19-2019 06:03-0400 Body temperature 37.0 {degrees} Eiran Gorodeski CE-Ueywlecwib-MIY [facility] Work Phone: Comment on above: NOTE: PATIENT RESULTS ARE NOT CORRECTED FOR TEMPERATURE. 08-18-2019 22:07-0400 Body temperature 37.0 {degrees} Eiran Gorodeski CC-Pbflxgkvvv-LTS [facility] Work Phone: Comment on above: NOTE: PATIENT RESULTS ARE NOT CORRECTED FOR TEMPERATURE. 08-18-2019 16:45-0400 Body temperature 37.0 {degrees} Eiran Gorodeski YQ-Uhvhpmsnov-DBW [facility] Work Phone: Comment on above: NOTE: PATIENT RESULTS ARE NOT CORRECTED FOR TEMPERATURE. 08-18-2019 10:59-0400 Body temperature 37.0 {degrees} [place] SQ-Catshqdvhj-ZJQ [facility] Work Phone: Comment on above: NOTE: PATIENT RESULTS ARE NOT CORRECTED FOR TEMPERATURE. 08-18-2019 07:48-0400 Body temperature 37.0 {degrees} [place] RJ-Cmhgsnckvy-CGW [facility] Work Phone: Comment on above: NOTE: PATIENT RESULTS ARE NOT CORRECTED FOR TEMPERATURE. 08-18-2019 00:13-0400 Body temperature 37.0 {degrees} [place] JO-Hkmzudlrid-UFO [facility] Work Phone: Comment on above: NOTE: PATIENT RESULTS ARE NOT CORRECTED FOR TEMPERATURE. Encounters Encounter Date Encounter Type Care Provider Facility Start: 01-23-2025 End: 01-23-2025 Emergency department patient visit FLORESITA INMAN MD [facility] Start: 01-11-2025 ambulatory NATE CARRINGTON DO Faci lity:[facility] Start: 12-31-2024 ambulatory NATE E ZEB DO Faci lity:A Start: 12-22-2024 End: 12-22-2024 ambulatory NATE E ZEB DO Facility:[facility] Start: 12-22-2024 End: 12-22-2024 Patient encounter procedure BALJIT EDMONDS MD [facility] Start: 10-22-2024 End: 10-22-2024 Emergency department patient visit JESUS CHAO MD [facility] Start: 10-18-2024 End: 10-18-2024 Emergency department patient visit KRYSTEN MCADAMS MD [facility] Start: 08-20-2024 ambulatory NATE CARRINGTON DO Faci lity:[facility] Start: 06-18-2024 End: 06-18-2024 ambulatory BALJIT EDMONDS MD Facility[place] [place] Start: 01-30-2024 ambulatory BALJIT EDMONDS MD Facili ty[facility] Start: 01-23-2023 End: 01-24-2023 ambulatory BALJIT EDMONDS MD Facility:A Start: 01-23-2023 End: 01-23-2023 Patient encounter procedure BALJIT EDMONDS MD [facility] Start: 01-02-2023 End: 01-03-2023 ambulatory BALJIT EDMONDS MD Facility:B Start: 01-02-2023 End: 01-02-2023 Patient encounter procedure BALJIT EDMONDS MD [facility] Start: 11-28-2022 End: 11-29-2022 ambulatory MARY JANE KENDRICK APRN-QC TECH Facility:B Start: 11-28-2022 End: 11-28-2022 Patient encounter procedure NATE CARRINGTON DO [facility] Start: 03-08-2022 End: 03-09-2022 ambulatory NATE CARRINGTON DO Facility:B Start: 03-08-2022 End: 03-08-2022 Patient encounter procedure NATE CARRINGTON DO [facility] Start: 03-08-2022 End: 03-08-2022 Well adult monitoring check done NATE CARRINGTON DO [facility] Start: 11-23-2021 Patient encounter procedure No PCP None [facility] Work Phone: Start: 11-07-2021 Patient encounter procedure No PCP None [facility] Work Phone: Start: 10-31-2021 Patient encounter procedure No PCP None [facility] Work Phone: Start: 10-25-2021 End: 10-25-2021 Patient encounter procedure BALJIT EDMONDS MD [facility] Start: 09-28-2021 End: 09-28-[address] KATT GUADALUPE MD [facility] Start: 09-07-2021 End: 09-07-2021 SAME DAY STAY BALJIT EMDONDS MD [facility] Start: 08-28-2021 Office outpatient visit 40 minutes No PCP None HI-Zgxmzsuq-YpxsxpjChi [facility] [address] Work Phone: Start: 08-24-2021 Patient encounter procedure No PCP None [facility] Work Phone: Start: 08-15-2021 Rx Renewal No PCP None MG-Cardiol ogy-[facility] [address] [place] Work Phone: Start: 08-10-2021 Patient encounter procedure No PCP None [facility] Work Phone: Start: 07-20-2021 Patient encounter procedure No PCP None [facility] Work Phone: Start: 07-11-2021 Patient encounter procedure No PCP None [facility] Work Phone: Start: 07-06-2021 Patient encounter procedure No PCP None [facility] Work Phone: Start: 07-03-2021 Patient encounter procedure No PCP None QM-Hugbqtfvev-Kkekjw Work Phone: Start: 06-19-2021 Patient encounter procedure No PCP None [facility] Work Phone: Start: 05-29-2021 Patient encounter procedure No PCP None [facility] Work Phone: Start: 05-22-2021 Patient encounter procedure No PCP None [facility] Work Phone: Start: 05-18-2021 End: 05-18-2021 Patient encounter procedure BALJIT EDMONDS MD [facility] Start: 05-15-2021 Patient encounter procedure No PCP None [facility] Work Phone: Start: 05-04-2021 End: 05-04-2021 Patient encounter procedure BALJIT EDMONDS MD [facility] Start: 04-27-2021 Patient encounter procedure No PCP None [facility] Work Phone: Start: 04-26-2021 End: 04-26-2021 Emergency department patient visit DR JESSIE SEVILLA MD [facility] Start: 04-11-2021 Patient encounter procedure No PCP None [facility] Work Phone: Start: 04-10-2021 Patient encounter procedure No PCP None [facility] Work Phone: Start: 04-03-2021 Patient encounter procedure No PCP None [facility] Work Phone: Start: 02-21-2021 Patient encounter procedure No PCP None WI-Yrnvdpyppg-FzmrbyqChi [facility] [address] Work Phone: Start: 02-20-2021 Office outpatient visit 40 minutes No PCP None CN-Lmfxftzkvw-AoxiyzhChi [facility] [address] Work Phone: Start: 01-23-2021 Patient encounter procedure No PCP None PW-Gkilexlnrh-Rahlxl [address] [place] Work Phone: Start: 01-16-2021 Patient encounter procedure No PCP None [facility] Work Phone: Start: 12-15-2020 Patient encounter procedure No PCP None [facility] Work Phone: Start: 11-14-2020 Rx Renewal No PCP None MG-Cardiol ogy-CMC [facility] [address] [place] Work Phone: Start: 11-10-2020 Patient encounter procedure No PCP None [facility] Work Phone: Start: 10-13-2020 Patient encounter procedure No PCP None [facility] Work Phone: Start: 09-15-2020 Patient encounter procedure No PCP None [facility] Work Phone: Start: 09-12-2020 Office outpatient visit 40 minutes No PCP None DG-Lgrpyokz-GpmrpdaChi [facility] [address] Work Phone: Start: 06-09-2020 End: 01-15-2021 Lab-Standing Order BALJIT EDMONDS MD [facility] Start: 05-19-2020 Patient encounter procedure [facility] Work Phone: Start: 05-12-2020 Patient encounter procedure [facility] Work Phone: Start: 05-05-2020 Patient encounter procedure [facility] Work Phone: Start: 04-28-2020 Patient encounter procedure [facility] Work Phone: Start: 04-21-2020 Patient encounter procedure [facility] Work Phone: Start: 04-18-2020 Patient encounter procedure [facility] Work Phone: Start: 04-11-2020 Patient encounter procedure [facility] Work Phone: Start: 03-15-2020 Patient encounter procedure [facility] Work Phone: Start: 03-01-2020 Patient encounter procedure [facility] Work Phone: Start: 02-16-2020 Patient encounter procedure Eiran Gorodeski GF-Cjsrbkfqxn-OPX [facility] [address] [place] Work Phone: Start: 02-09-2020 Patient encounter procedure Eiran Gorodeski PY-Nflsjtmdqt-EIY [facility] [place] Work Phone: Start: 02-03-2020 Patient encounter procedure Eiran Gorodeski NA-Fdkswirsso-LTT [facility] [place] Work Phone: Start: 01-25-2020 Patient encounter procedure Eiran Gorodeski LV-Gsllnhbeyh-ZHL [facility] [place] Work Phone: Start: 01-17-2020 Patient encounter procedure Eiran Gorodeski OZ-Tdyprolhpo-SLD [facility] [place] Work Phone: Start: 01-12-2020 Patient encounter procedure Eiran Gorodeski FN-Eglqsdjsyl-KJM [facility] [place] Work Phone: Start: 01-11-2020 Patient encounter procedure Eiran Gorodeski WJ-Dbzzbsfjlz-SXR [facility] [place] Work Phone: Start: 01-07-2020 Patient encounter procedure Eiran Gorodeski QU-Mekwtoipfp-UYA [facility] [place] Work Phone: Start: 12-29-2019 Patient encounter procedure Eiran Gorodeski AB-Uvlxwpmiro-CFC [facility] [place] Work Phone: Start: 12-24-2019 Patient encounter procedure Eiran Gorodeski NK-Nbhwnmzjgj-IMV [facility] [place] Work Phone: Start: 12-17-2019 Patient encounter procedure [place] AT-Wkqbtlgags-UHJ [facility] [place] Work Phone: Start: 12-10-2019 Patient encounter procedure [place] JE-Tghojyfjzg-KVU [facility] [place] Work Phone: Start: 12-03-2019 Patient encounter procedure [place] GY-Tdroqodmob-KJM [facility] [place] Work Phone: Start: 11-26-2019 Patient encounter procedure [place] NM-Jhwqdedetu-ZNZ [facility] [place] Work Phone: Start: 11-19-2019 Patient encounter procedure [place] WN-Vekerqdhis-DRI [facility] [place] Work Phone: Start: 11-18-2019 Patient encounter procedure [place] BZ-Xjcdldrcao-IRR [facility] [place] Work Phone: Start: 11-17-2019 Patient encounter procedure [place] XC-Abgfwhbrrt-CBX [facility] [place] Work Phone: Start: 11-16-2019 Patient encounter procedure [place] UM-Nunznmzdcv-KPN [facility] [place] Work Phone: Start: 11-12-2019 Patient encounter procedure [place] IA-Fnakjoefmi-LXC [facility] [place] Work Phone: Start: 11-09-2019 Patient encounter procedure [place] AZ-Pczrubhida-SKK [facility] [place] Work Phone: Start: 10-13-2019 Patient encounter procedure Eikristy Silvermanodeski SR-Brocqlyqgd-HCE [facility] [address] [place] Work Phone: Start: 09-02-2019 Patient encounter procedure Eiran Andraodeski IV-Drxvbtxwgx-QOE [facility] [place] Work Phone: Patient encounter status No PCP None [facility] Work Phone: End: 02-20-2021 Patient encounter status No PCP None UG-Jlqlxlazlc-Kdjzwhy [facility] [address] Work Phone: Procedures Date Procedure Procedure Detail Performing Clinician Start: 10-25-2021 Echocardiography NATE CARRINGTON DO Comment on above: 1. Left ventricle: T he cavity size is mildly increased. Wall thickness is normal. Systolic function is severely reduced. The estimated ejection fraction is 20-25%. Severe hypokinesis of the anteroseptal, anterior, and anterolateral myocardium. Grade I diastolic dysfunction. 2. Ventricular septum: Septal motion is dyssynergic Start: 09-26-2021 Cardiovascular stress testing NATE CARRINGTON DO Start: 09-07-[address] KATT GUADALUPE MD Comment on above: SUMMARY: Mean right atrial pressure is 6 mmHg Right ventricular pressure is 33/6 mmHg Pulmonary artery pressure is 33/15 mmHg, mean pulmonary artery pressure is 21 mmHg Pulmonary capillary wedge pressure is 12 mmHg Blood pressure is 110/74, mean blood pressure is 86 mmHg Heart rate is 64 bpm 98% on room air TPG is 9 DPG 3 Pulmonary artery saturation 73% CO 6 L/min, CI 2.64 L/min/m2 SVR 1066 PVR 1.5 Watters unit. RECOMMENDATIONS: 1. Normal hemodynamics. 2. Conveyed to Dr Osei. INDICATIONS: Heart failure, unspecified (I50.9) Start: 05-18-2021 Electrocardiographic monitor and recorder, device (physical object) DR KATT GUADALUPE MD Comment on above: 3 day Start: 04-07-2021 Echocardiography BALJIT EDMONDS MD Comment on above: Summary: 1. Left ventricle: The cavity size is increased. Wall thickness is normal. Systolic function is severely reduced. The estimated ejection fraction is 20-25%. Grade I diastolic dysfunction. 2. Mitral valve: There is mild regurgitation. 3. Right ventricle: Systolic function is mildly reduced. The RV systolic pressure by Doppler is 27 mm Hg. 4. Right atrium: The atrium is mildly dilated. The estimated right atrial pressure is 3 mm Hg. Start: 03-22-2020 Cardiovascular stres s test using pharmacologic stress agent BALJIT EDMONDS MD Comment on above: Impression: Moderate cardiac limitation to exercise. Value is improved as compared to before. Patient has gained some weight since last time we evaluated him 5 months ago. His predicted VO2 value therefore is lower by about 3 mL/kg/min and now 31.6 mL/kg/min. Low O2 pulse noted. VE/VCO2 value has improved. Baseline heart rate is now less than 100. Normal blood pressure and heart rate response to exercise. Recommendations: Continue with medical management and optimize guideline directed medical therapy for heart failure. Discussed with the advanced heart failure team at [facility]. Ventilatory class: Class III Gandhi class: B Start: 03-17-2020 Cardiac catheterization BALJIT EDMONDS MD Comment on above: SUMMARY: Mean right atrial pressure 3 mmHg, A wave 4 mmHg, V wave 7 mmHg RV pressure 35/3 mmHg PA pressure 35/16 mmHg, Mean PAP 22 mmHg Mean PCWP 12 mmHg, A wave 13 mmHg, V wave 14 mmHg Blood pressure 110/68, HR 90 BPM, Systemic O2 saturation 100% Hgb 12.4 CO 6.2 LPM, CI 2.8 LPM/m^2 PA saturation 73.8% SVC saturation 71.5% PCW saturation 93.4% TPG 10 DPG 4 PVR 1.6 Watters SVR 1019 Dynes RA-Wedge Ratio 0.25 PA pulsatility index 6.33 RVSWI 684. IMPRESSIONS: Normal hemodynamics Start: 01-19-2020 Automatic defibrilla tor procedure BALJIT EDMONDS MD Comment on above: Subcutaneous ICD (S- ICD) implanted by Dr. Clemente on 01/19/2020 at [facility]. S-CD generator is a [employer] MRI S-ICD model #A219, seial #[id number]. S-ICD electrode is a [employer] S-ICD subcutaneous electrode model #3501, serial #[id number]. Start: 01-07-2020 Assay of free thyroxine [place] Start: 01-07-2020 Assay of thyroid sti mulating hormone tsh [place] Start: 01-07-2020 Calcitonin [facility] [place] Start: 01-07-2020 Microsomal antibodies each [place] Start: 01-07-2020 Thyroid stimulating immune globulins tsi [place] Start: 12-21-2019 Echocardiography BALJIT EDMONDS MD Comment on above: (12/21/19) Summary: 1. Left ventricle: The cavity size is moderately to markedly increased. Wall thickness is normal. Systolic function is severely reduced. The estimated ejection fraction is 15% +/- 5%. Severe diffuse hypokinesis. Diastolic dysfunction is present. 2. Aortic valve: There is trivial regurgitation. 3. Mitral valve: There is moderate to severe regurgitation. 4. Left atrium: The atrium is markedly dilated. 5. Right ventricle: The cavity size is increased. Systolic function is moderately to markedly reduced. The RV systolic pressure by Doppler is 51 mm Hg. 6. Tricuspid valve: There is moderate-severe regurgitation. 7. Right atrium: The atrium is dilated. The estimated right atrial pressure is 3 mm Hg. 8. Inferior vena cava: The IVC is normal-sized Start: 08-18-2019 Echocardiography [place] Plan of Treatment Date Care Activity Detail Author Start: 12-21-2021 Patient encounter procedure ANTIONEOAItz, Provider: RUBI CARDIO RADHA MESSINA, Status: Pen, Time: 11:15 AM [facility] Work Phone: Start: 11-23-2021 Patient encounter procedure HEYDIVCOAG, Provider: RUBI CARDIO RADHA MESSINA, Status: Pen, Time: 11:15 AM [facility] Work Phone: Start: 11-07-2021 Patient encounter procedure HEYDIVCOAG, Provider: RUBI CARDIO COAItz TYLERMGCAR Itzel, Status: Pen, Time: 2:15 PM [facility] Work Phone: Start: 10-26-2021 Patient encounter procedure HEYDIVCOAG, Provider: RUBI CARDIO TEODORO TYLERMGCAR Itzel, Status: Pen, Time: 11:30 AM [facility] Work Phone: Start: 09-20-2021 Patient encounter procedure HEYDIVCOAG, Provider: [facility] CARDIO [facility] D, Status: Pen, Time: 11:30 AM [facility] Work Phone: Start: 08-28-2021 FUV, Provider: [place], Status: Pen, Time: 1:20 PM FUV, Provider: [place], Status: Pen, Time: 1:20 PM [facility] Work Phone: Start: 08-24-2021 Patient encounter procedure FUVCOAG, Provider: MED CARDIO [facility]MGCAR D, Status: Pen, Time: 11:30 AM [facility] Work Phone: Start: 08-22-2021 Patient encounter procedure FUVCOAG, Provider: [facility]MGC[facility] D, Status: Pen, Time: 11:15 AM RX-Ezgpimeawh-AHV [facility] [place] Work Phone: Start: 07-27-2021 Patient encounter procedure FUVCOAG, Provider: RUBI CARDIO [facility] D, Status: Pen, Time: 11:15 AM [facility] Work Phone: Start: 07-20-2021 Patient encounter procedure FUVCOAG, Provider: RUBI CARDIO [facility] D, Status: Pen, Time: 11:00 AM [facility] Work Phone: Start: 07-11-2021 Patient encounter procedure FUVCOAG, Provider: [facility]MGC[facility] D, Status: Pen, Time: 3:30 PM [facility] Work Phone: Start: 07-06-2021 Patient encounter procedure FUVCOAG, Provider: RUBI CARDIO [facility] D, Status: Pen, Time: 11:15 AM [facility]pvrl[facility]zjfu[facility] Work Phone: Start: 07-03-2021 Patient encounter procedure FUVCOAG, Provider: [facility] D, Status: Pen, Time: 11:15 AM [facility] Work Phone: Start: 06-05-2021 Patient encounter procedure FUVCOAG, Provider: RUBI CARDIO TEODORO TYLERMGCAR D, Status: Pen, Time: 11:15 [facility] Start: 05-29-2021 Patient encounter procedure FUVCOAG, Provider: RUBI CARDIO TEODORO TYLERMGCAR Itzel, Status: Pen, Time: 11:00 AM [facility] Work Phone: Start: 05-22-2021 Patient encounter procedure FUVCOAG, Provider: RUBI CARDIO MG SIDDHARTHCAR Itzel, Status: Pen, Time: 11:00 AM [facility] Work Phone: Start: 05-15-2021 Patient encounter procedure FUVCOAG, Provider: RUBI CARDIO MG SIDDHARTHCAR Itzel, Status: Pen, Time: 11:00 AM [facility] Work Phone: Start: 04-10-2021 Patient encounter procedure FUVCOAG, Provider: MG ANNACAR Itzel, Status: Pen, Time: 11:00 [facility] Start: 03-21-2021 Patient encounter procedure FUVCOAG, Provider: RUBI CARDIO TEODORO RIZVIEMELYNMGCAR Itzel, Status: Pen, Time: 11:15 AM [facility] Start: 03-15-2021 FUV, Provider: [place], Status: Pen, Time: 11:00 AM FUV, Provider: [place], Status: Pen, Time: 11:00 AM [facility] Work Phone: Start: 02-20-2021 Patient encounter procedure FUVCOAG, Provider: RUBI CARDIO TEODORO RIZVIEMELYNMGCAR D, Status: Pen, Time: 11:00 AM AY-Tfbtjfmvpo-[facility] [address] [place] Work Phone: Start: 01-23-2021 Patient encounter procedure FUVCOAG, Provider[facility], Status: Pen, Time: 11:00 AM [facility] Work Phone: Start: 01-12-2021 Patient encounter procedure FUVCOAG, Provider: RUBI CARDIO [facility]MGCAR D, Status: Pen, Time: 11:15 AM [facility] Work Phone: Start: 12-08-2020 Patient encounter procedure FUVCOAG, Provider: RUBI CARDIO COAG [facility],MGCAR D, Status: Pen, Time: 11:00 AM [facility] Work Phone: Start: 11-10-2020 Patient encounter procedure FUVCOAG, Provider: RUBI CARDIO COAG [facility]MGCAR D, Status: Pen, Time: 11:00 AM [facility] Work Phone: Start: 10-13-2020 Patient encounter procedure FUVCOAG, Provider: RUBI CARDIO COAG [facility],MGCAR D, Status: Pen, Time: 10:45 AM [facility] Work Phone: Start: 09-15-2020 Patient encounter procedure FUVCOAG, Provider: RUBI CARDIO COAG [facility],MGCAR D, Status: Pen, Time: 10:45 AM [facility] Work Phone: Immunizations Immunization Date Immunization Notes Care Provider [facility] 02-21-2022 influenza, injectabl e, quadrivalent, contains preservative; Translations: [Fluarix PF Quadrivalent ] NATE CARRINGTON DO [facility] 02-01-2021 SARS-CoV-2 (COVID-19 ) [id number] vaccine NATE CARRINGTON DO [facility] 07-24-2020 tetanus toxoid, redu bee diphtheria toxoid, and acellular pertussis vaccine, adsorbed NATE CARRINGTON DO [facility] 07-10-2020 COVID-19, mRNA, LNP- S, PF, 100 mcg/ 0.5 mL dose; Translations: [Moderna COVID-19 Vaccine] BALJIT EDMONDS MD [facility] 06-12-2020 COVID-19, mRNA, LNP- S, PF, 100 mcg/ 0.5 mL dose; Translations: [Moderna COVID-19 Vaccine] BALJIT EDMONDS MD [facility] Payers Date Payer Category Payer Medicaid [id number] 2024 Medicaid [id number] 2024 Private Health Insurance [id number] 2022 Private Health Insurance [id number] 2022 Medicare [id number] 1973 Unknown [id number] 2.16.8 [id number]. 1973 Unknown [id number] 2.16.8 40.1.304721.3.579.2. 1973 Unknown [id number] 2.16.8 40.1.845454.3.579.2. 1973 Unknown [id number] 2.16.8 40.1.049793.3.579.2. 1973 Unknown [id number] 2.16.8 40.1.939127.3.579.2. 1973 Unknown [id number] 2.16. [id number] 1973 Unknown [id number] 2.16. [id number] 1973 Unknown [id number] 2.16. [id number] 1973 Unknown [id number] 2.16. [id number] 1973 Unknown [id number] 2.16. [id number] 1973 Unknown [id number] 2.16. [id number] 1973 Unknown [id number] 2.16.8 40.1.091457.3.579.2.627 1973 Unknown [id number] 2.16.8 40.1.487443.3.579.2. 1973 Unknown [id number] 2.16.8 [id number] 1973 Unknown [id number] 2.16. [id number] Unknown Social History Date Type Detail Facility Assertion Tobacco smoking consumption unknown (finding) VI-Ssrbcwgzau-XZQ [facility] Work Phone: Former smoker Former smoker [facility] Work Phone: Comment on above: Started smoking Jorge Alberto k [employer] Milds around age 16 - 18 (socially). Quit May 2019.; Start: 03-10-2020 Ex-smoker (finding) [facility] Sex Assigned At Male [facility] Sexual Orientation [facility] ospital [facility] Start: 08-04-2019 Sex Male (finding) [facility] Start: 01-23-2025 Not applicable (qualifier value) [facility] NEGATED: Highlighted row - - AB-Iiehuxvyhb-IQN [facility] [address] [place] Work Phone: Functional Status Date Assessment Result Facility 01-23-2025 Functional Status Pamella Al banegas 01-23-2025 [facility] 09-07-2021 Functional Status Ambulating in room [facility] 09-07-2021 [facility] NE[facility]: Highlighted row Functional performance Functional status health issues are not documented Disease PR-Vnovfmfhhm-VPB [facility] Work Phone: Mental Status Date Assessment Result Facility 01-23-2025 Mental Status Orientation [address] 09-07-2021 Mental Status Orientation [address] 09-07-2021 Mental Status [facility] NEGATED: Highlighted row Cognitive function [Interpretation] Cognitive status health issues are not documented Disease YP-Doetmnhghe-VOG [facility] Work Phone: Clinical Notes 08-09-2019 to 01-23-2025 Note Date & Type Note Facility 01-23-2025 Hospital Discharg e instructions Patient Education 01/23/2025 16:04:44 Abscess, Incision And Drainage Abscess (Incision & Drainage) An abscess is sometimes called a boil. It happens when bacteria get trapped under the skin and start to grow. Pus forms inside the abscess as the body responds to the bacteria. An abscess can happen with an insect bite, ingrown hair, blocked oil gland, pimple, cyst, or puncture wound. Your healthcare provider has drained the pus from your abscess. If the abscess pocket was large, your healthcare provider may have put in gauze packing. Your provider will need to remove it on your next visit. He or she may also replace it at that time. You may not need antibiotics to treat a simple abscess, unless the infection is spreading into the skin around the wound (cellulitis). The wound will take about 1 to 2 weeks to heal, depending on the size of the abscess. Healthy tissue will grow from the bottom and sides of the opening until it seals over. Home care These tips can help your wound heal: The wound may drain for the first 2 days. Cover the wound with a clean dry dressing. Change the dressing if it becomes soaked with blood or pus. If a gauze packing was placed inside the abscess pocket, you may be told to remove it yourself. You may do this in the shower. Once the packing is removed, you should wash the area in the shower, or clean the area as directed by your provider. Continue to do this until the skin opening has closed. Make sure you wash your hands after changing the packing or cleaning the wound. If you were prescribed antibiotics, take them as directed until they are all gone. You may use acetaminophen or ibuprofen to control pain, unless another pain medicine was prescribed. If you have liver disease or ever had a stomach ulcer, talk with your doctor before using these medicines. Follow-up care Follow up with your healthcare provider, or as advised. If a gauze packing was put in your wound, it should be removed in 1 to 2 days. Check your wound every day for any signs that the infection is getting worse. The signs are listed below. When to seek medical advice Call your healthcare provider right away if any of these occur: Increasing redness or swelling Red streaks in the skin leading away from the wound Increasing local pain or swelling Continued pus draining from the wound 2 days after treatment Fever of 100.4 F (38 C) or higher, or as directed by your healthcare provider Boil returns when you are at home [phone] [employer]. [address] [place] [address]. All rights reserved. This information is not intended as a substitute for professional medical care. Always follow your healthcare professional's instructions. Follow Up Care 01/23/2025 14:53:52 With:NATE CARRINGTON DO Address: [address] [place] [address] [place] [address] [phone] When:2-4 days [facility] 01-23-2025 Emergency department Discharge summary Discharge Instructions Thank you for allowing [facility] to assist you with your healthcare needs. The following is important discharge information regarding your hospital visit. Diagnosis from Today's Visit Abscess Nausea What to Do Next Instructions from Your Care Team No qualifying data available. Post Acute Orders No qualifying data available. You Need to Schedule the Following Appointments Follow Up with NATE CARRINGTON DO When:Within 2-4 days Where:[address] [facility] [place] [address] [phone] Allergies Effient heparin Low Platelet Medications Please ask your primary doctor or pharmacist before taking any other medication not listed, including over the counter drugs, herbal medications, vitamins and or supplements as they may interact with your home medications. What How Much When Why Instructions Last Dose New sulfamethoxazole-trimethoprim (Bactrim DS 800 mg-160 mg oral tablet) 1 tab(s) by mouth Two (2) times a day Duration: 7 Days Printed Prescription Changed ondansetron (ondansetron 4 mg oral tablet, disintegrating) 1 tab(s) by mouth Three (3) times a day as needed for Nausea Nausea Irritable bowel syndrome with diarrhea Duration: 10 Days Changed ondansetron (ondansetron 4 mg oral tablet, disintegrating) 1 tab(s) by mouth Every 6 hours as needed for Nausea/Vomiting Printed Prescription Changed ondansetron (Zofran ODT use ondansetron oral tablet, disintegrating ) 4 Milligram by mouth Every 6 hours as needed for as needed for nausea/vomiting Duration: 3 Days Unchanged acetaminophen (acetaminophen 325 mg oral capsule) 1 cap by mouth Every 4 hours as needed for as needed for pain Unchanged apixaban (Eliquis 5 mg oral tablet) 1 tab(s) by mouth Two (2) times a day Afib Unchanged atorvastatin (atorvastatin 40 mg oral tablet) 1 tab(s) by mouth Once a day Unchanged azelastine nasal (azelastine 137 mcg/ inh (0.1%) nasal spray) 2 spray(s) Intranasal Two (2) times a day Unchanged carvedilol (Coreg 25 mg oral tablet) 1 tab(s) by mouth Twice daily with meals Unchanged cholecalciferol (Vitamin D3 50 mcg (2000 intl units) oral tablet) 1 tab(s) by mouth Every day Vitamin D insufficiency Unchanged clotrimazole topical (clotrimazole 1% topical cream) 1 application Topical Two (2) times a day Jock itch Duration: 14 Days Tinea Cruris Unchanged dapagliflozin (Farxiga 10 mg oral tablet) 1 tab(s) by mouth Once a day Unchanged dicyclomine (dicyclomine 20 mg oral tablet) 1 tab(s) by mouth Four (4) times a day as needed for As needed for abdominal discomfort Duration: 3 Days Unchanged dicyclomine (dicyclomine 20 mg oral tablet) 1 tab(s) by mouth Four (4) times a day IBS -diarrhea 30 to 60 minutes before meals Unchanged ferrous sulfate (ferrous sulfate 325 mg (65 mg elemental iron) oral delayed release tablet) 1 tab(s) by mouth Three (3) times a day Unchanged fexofenadine (fexofenadine 180 mg oral tablet) 1 tab(s) by mouth Every day Nasal congestion Environmental allergies Unchanged fluticasone nasal (Flonase 50 mcg/ inh nasal spray) 2 spray(s) each nostril Once a day (in the morning) Unchanged furosemide (furosemide 20 mg oral tablet) 1 tab(s) by mouth Once a day Unchanged loperamide (Imodium A-D 2 mg oral tablet) 1 tab(s) by mouth Every 6 hours IBS -diarrhea Take 40 min before meals. Not to exceed 8 capsules, or 16 mg, in 24 hours Unchanged magnesium glycinate (magnesium glycinate 100 mg oral capsule) 4 cap by mouth Daily at bedtime Irritable bowel syndrome with diarrhea Hypomagnesemia Unchanged magnesium oxide (magnesium oxide 400 mg oral tablet) See instructions 1 tab(s) Oral qDay 30 day(s) Unchanged montelukast (montelukast 10 mg oral tablet) 1 tab(s) by mouth Once a day call for refills if working well! Unchanged rifaximin (Xifaxan 550 mg oral tablet) 1 tab(s) by mouth Three (3) times a day Irritable bowel syndrome with diarrhea Duration: 14 Days Unchanged rifaximin (Xifaxan 550 mg oral tablet) 1 tab(s) by mouth Three (3) times a day IBS -diarrhea Duration: 14 Days Unchanged sacubitril-valsartan (Entresto 97 mg-103 mg oral tablet) 1 tab(s) by mouth Two (2) times a day Unchanged spironolactone (spironolactone 25 mg oral tablet) 1 tab(s) by mouth Once a day Please take this list to your next doctor s visit. Bring all medications you take, including over the counter medications, herbals and other supplements with you to your doctor s visit. Patients and families are reminded to discard old lists and to update any records with all medication providers or retail pharmacies. Education Materials Abscess (Incision & Drainage) An abscess is sometimes called a boil. It happens when bacteria get trapped under the skin and start to grow. Pus forms inside the abscess as the body responds to the bacteria. An abscess can happen with an insect bite, ingrown hair, blocked oil gland, pimple, cyst, or puncture wound. Your healthcare provider has drained the pus from your abscess. If the abscess pocket was large, your healthcare provider may have put in gauze packing. Your provider will need to remove it on your next visit. He or she may also replace it at that time. You may not need antibiotics to treat a simple abscess, unless the infection is spreading into the skin around the wound (cellulitis). The wound will take about 1 to 2 weeks to heal, depending on the size of the abscess. Healthy tissue will grow from the bottom and sides of the opening until it seals over. Home care These tips can help your wound heal: The wound may drain for the first 2 days. Cover the wound with a clean dry dressing. Change the dressing if it becomes soaked with blood or pus. If a gauze packing was placed inside the abscess pocket, you may be told to remove it yourself. You may do this in the shower. Once the packing is removed, you should wash the area in the shower, or clean the area as directed by your provider. Continue to do this until the skin opening has closed. Make sure you wash your hands after changing the packing or cleaning the wound. If you were prescribed antibiotics, take them as directed until they are all gone. You may use acetaminophen or ibuprofen to control pain, unless another pain medicine was prescribed. If you have liver disease or ever had a stomach ulcer, talk with your doctor before using these medicines. Follow-up care Follow up with your healthcare provider, or as advised. If a gauze packing was put in your wound, it should be removed in 1 to 2 days. Check your wound every day for any signs that the infection is getting worse. The signs are listed below. When to seek medical advice Call your healthcare provider right away if any of these occur: Increasing redness or swelling Red streaks in the skin leading away from the wound Increasing local pain or swelling Continued pus draining from the wound 2 days after treatment Fever of 100.4 F (38 C) or higher, or as directed by your healthcare provider Boil returns when you are at home 3611-0610 [employer]. [address] [place] [address]. All rights reserved. This information is not intended as a substitute for professional medical care. Always follow your healthcare professional's instructions. Additional Information VACCINATE! IT SAVES LIVES! Members of the community who have not yet received the COVID-19 vaccine and would like to receive it can visit one of [facility] vaccine clinics. There are many vaccine clinic locations within the [facility]. For locations and available times, please visit [email or web address] It is important to note that some COVID mobile vaccine clinics are held outdoors and may be canceled in rainy or stormy conditions. To learn more about pediatric vaccinations (ages 5-11), we invite you to visit the [facility] webpage. [email or web address] To learn more about the COVID-19 vaccine, we invite you to visit the CDC website for a list of frequently asked questions. https://www.cdc.gov/coronavirus/ 2019-ncov/vaccines/faq.html [facility] Patient Portal Access Instructions: Stay connected with your healthcare team and access your personal medical information anytime with the [employer] Patient Portal. If you would like a full copy of your medical records please contact the [facility] Medical Records Department Friday through Friday between 8a.m. and 4:30p.m. Please follow the directions below to access the portal: 1.Access the email account you provided upon registration to the hospital.2.Look for an invitation email from [facility].3.Open the email and access the invitation link: Accept Invitation to [employer]4.Fill in the required jeffers to create your account. To access your account, visit [email or web address] or scan the QR code above. Click the blue button labeled Access Patient Portal and then log in with the username and password that you created in the steps above. You can then view a summary of results, a summary of your visits, and the ability to download your summaries to your computer or send the information securely to a physician. Remember that your healthcare information is confidential, so carefully consider who you will allow to register on the [facility] Patient Portal for access to your information. You can also access the [facility] Patient Portal on the [employer] 3 giles. Simply click on Health Records under Health Data and then click on the [employer] logo. HOW TO SAFELY DISPOSE OF PRESCRIPTION MEDICATIONS Please use one of the following methods to safely dispose of your unused medications. 1.Use a drug disposal kit: the drug disposal pouch allows you to safely discard your old and unused drugs. Ask your nurse to give you one when you are discharged.2.Visit a local take-back location: Many local pharmacies and police departments have programs that collect old and unwanted prescription drugs. Call your local pharmacy or go to http://NetIQ.Fashionspace/3M1Ng9f to find one close to you.3.Make use of household items: Use cat litter or old coffee grounds to dispose medications if other options are not available. Mix your drugs with these household products, seal them in an airtight container and throw it into the garbage. Call [facility]: [phone] to be sure your drugs can be disposed of in this way. Some medicines may require a different approach.4.Never flush your medications down the toilet. IF YOU HAVE BEEN PRESCRIBED AN OPIOIDS FOR PAIN If you have been prescribed an opioid (such as hydrocodone, oxycodone or morphine), it is critical to understand the possible side effects and risks of opioid pain medications. Even when taken as directed, opioids can have several side effects including: Tolerance, meaning you might need to take more of a medication for the same pain relief. Nausea, vomiting and/or constipation. Sleepiness, dizziness, dry mouth, confusion, depression or itching. Physical dependence, meaning you have withdrawal symptoms when a medication is stopped ? this can develop within a few days. KNOW YOUR RESPONSIBILITIES It is important to know exactly how much and how often to take the opioid pain medications you are prescribed. Never take opioids in higher amounts or more often than prescribed. Do not combine opioids with alcohol or other drugs that cause drowsiness, such as benzodiazepines, also known as benzos, including diazepam and alprazolam, muscle relaxants or sleep aids. Never sell or share prescription opioids. This is illegal. Store opioids in a secure place and out of reach of others (including children, family, friends and visitors). The last page(s) of this document has been signed and retained as a CHART COPY Signatures Patient Education Materials Abscess, Incision And Drainage Medication Leaflets My discharge plan and instructions have been reviewed and explained to me and I,KIRA JESSIE Cindy understand my current condition and have read and understand these discharge instructions. I have received a written copy of the plan/instructions. If I have questions, I am aware that I should contact my doctor. 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 (Verified) [id number] ORIGINAL HISTORY: Chest pain COMPARISON: 28 November 2020 FINDINGS: An electronic device is unchanged. The lungs are clear. The pulmonary vasculature is unremarkable in appearance. IMPRESSION: Clear lungs. Interpreted by: Nasim Titus MD Preliminary Report By: Nasim Titus MD Electronically signed By Nasim Titus MD Dictated Date: 01/23/2025 3:46:09 PM Prelim Date: 01/23/2025 3:46:39 PM Sign Date: 01/23/2025 3:46:39 PM Ordering Provider: FLORESITA INMAN [id number] Note* Exam Date Time Procedure Performing Provider Status 01/23/25 3:30 PM EKG (ED) - FLORESITA LOWRY MD; Auth (Verified) ECG Final Report ATRIAL-PACED COMPLEXES PAIRED VENTRICULAR PREMATURE COMPLEXES Electronic Signature: FLORESITA INMAN MD 01/23/2025 15:51:04 [id number] Hospital Discharge instructions Patient Education 10/22/2024 13:42:02 Abdominal Pain Abdominal Pain Abdominal pain is pain in the stomach or belly area. Everyone has this pain from time to time. In many cases it goes away on its own. But abdominal pain can sometimes be due to a serious problem, such as appendicitis. So it s important to know when to get help. Causes of abdominal pain There are many possible causes of abdominal pain. Common causes in adults include: Constipation, diarrhea, or gas Stomach acid flowing back up into the esophagus (acid reflux or heartburn) Severe acid reflux, called GERD (gastroesophageal reflux disease) A sore in the lining of the stomach or small intestine (peptic ulcer) Inflammation of the gallbladder, liver, or pancreas Gallstones or kidney stones Appendicitis Intestinal blockage An internal organ pushing through a muscle or other tissue (hernia) Urinary tract infections In women, menstrual cramps, fibroids, ovarian cysts, pelvic inflammatory disease, or endometriosis Inflammation or infection of the intestines, including Crohn's disease and ulcerative colitis Irritable bowel syndrome Diagnosing the cause of abdominal pain Your healthcare provider will give you a physical exam help find the cause of your pain. If needed,you will have tests. Belly pain has many possible causes. So it can be hard to find the reason for your pain. Giving details about your pain can help. Tell your provider where and when you feel the pain, and what makes it better or worse. Also let your provider know if you have other symptoms such as: Fever Tiredness Upset stomach (nausea) Vomiting Changes in bathroom habits Blood in the stool or black, tarry stool Weight loss that you can't explain (involuntary weight loss?) Also report any family history of stomach or intestinal problems, or cancers. Tell your provider about all your alcohol use and drug use. Tell your provider about all medicines you use, including herbs, vitamins, and supplements. Treating abdominal pain Some causes of pain need emergency medical treatment right away. These include appendicitis or a bowel blockage. Other problems can be treated with rest, fluids, or medicines. Your healthcare provider can give you specific instructions for treatment or self-care based on what is causing your pain. If you have vomiting or diarrhea, sip water or other clear fluids. When you are ready to eat solid foods again, start with small amounts of lwyt-es-nwizmd, low- fat foods. These include apple sauce, toast, or crackers. When to get medical care Call 911 or go to the hospital right away if you: Can t pass stool and are vomiting Are vomiting blood or have bloody diarrhea or black, tarry diarrhea Have chest, neck, or shoulder pain Feel like you might pass out Have pain in your shoulder blades with nausea Have sudden, severe belly pain Have new, severe pain unlike any you have felt before Have a belly that is rigid, hard, and hurts to touch Call your healthcare provider if you have: Pain for more than 5 days Bloating for more than 2 days Diarrhea for more than 5 days A fever of 100.4 F (38 C) or higher, or as directed by your healthcare provider Pain that gets worse Weight loss for no reason Continued lack of appetite Blood in your stool How to prevent abdominal pain Here are some tips to help prevent abdominal pain: Eat smaller amounts of food at each meal. Don't eat greasy, fried, or other high-fat foods. Don't eat foods that give you gas. Exercise regularly. Drink plenty of fluids. To help prevent GERD symptoms: Quit smoking. Reduce alcohol and foods that increase stomach acid. Don't use aspirin or audv-tme-oatwwtz pain and fever medicines, if possible. This includes nonsteroidal anti-inflammatory drugs (NSAIDs). Lose excess weight. Finish eating at least 2 hours before you go to bed or lie down. Raise the head of your bed. 1614-9198 [employer]. [address] [place] [address]. All rights reserved. This information is not intended as a substitute for professional medical care. Always follow yourhealthcare professional's instructions. Follow Up Care 10/22/2024 11:38:11 With:KOREY PRITCHETT MD Address: [address] [facility] [address] [place] [address]- [phone] When:2-4 days [facility] 07-18-2025 Note Discharge Instructions Thank you for allowing [facility] to assist you with your healthcare needs. The following is importantdischarge information regarding your hospital visit. Diagnosis from Today's Visit Abdominal pain Vomiting What to Do Next Instructions from Your Care Team No qualifying data available. Post Acute Orders No qualifying data available. You Need to Schedule the Following Appointments Follow Up with KOREY PRITCHETT MD When:Within 2-4 days Where:[address] [facility] [address] [place] [address] [phone] Allergies Effient heparin Low Platelet Medications Please ask your primary doctor or pharmacist before taking any other medication not listed, including over the counter drugs, herbal medications, vitamins and or supplements as they may interact withyour home medications. What How Much When Why Instructions Last Dose Changed ondansetron (Zofran 4 mg oral tablet) 1 tab(s) by mouth Every 8 hours as needed for Nausea/Vomiting Duration: 7 Days Printed Prescription Changed ondansetron (Zofran ODT use ondansetron oral tablet, disintegrating ) 4 Milligram by mouth Every 6 hours as needed for as needed for nausea/vomiting Duration: 3 Days Unchanged acetaminophen (acetaminophen 325 mg oral capsule) 1 cap by mouth Every 4 hours as needed for as needed for pain Unchanged apixaban (Eliquis 5 mg oral tablet) 1 tab(s) by mouth Two (2) times a day Afib Unchanged atorvastatin (atorvastatin 40 mg oral tablet) 1 tab(s) by mouth Once a day Unchanged azelastine nasal (azelastine 137 mcg/ inh (0.1%) nasal spray) 2 spray(s) Intranasal Two (2) times a day Unchanged carvedilol (Coreg 25 mg oral tablet) 1 tab(s) by mouth Twice daily with meals Unchanged clotrimazole topical (clotrimazole 1% topical cream) 1 application Topical Two (2) times a day Jock itch Duration: 14 Days Tinea Cruris Unchanged dapagliflozin (Farxiga 10 mg oral tablet) 1 tab(s) by mouth Once a day Unchanged dicyclomine (dicyclomine 20 mg oral tablet) 1 tab(s) by mouth Four (4) times a day as needed for As needed for abdominal discomfort Duration: 3 Days Unchanged dicyclomine (dicyclomine 20 mg oral tablet) 1 tab(s) by mouth Four (4) times a day IBS -diarrhea 30 to 60 minutes before meals Unchanged ferrous sulfate (ferrous sulfate 325 mg (65 mg elemental iron) oral delayed release tablet) 1 tab(s) by mouth Three (3) times a day Unchanged fexofenadine (fexofenadine 180 mg oral tablet) 1 tab(s) by mouth Every day Nasal congestion Environmental allergies Unchanged fluticasone nasal (Flonase 50 mcg/ inh nasal spray) 2 spray(s) each nostril Once a day (in the morning) Unchanged furosemide (furosemide 20 mg oral tablet) 1 tab(s) by mouth Once a day Unchanged loperamide (Imodium A-D 2 mg oral tablet) 1 tab(s) by mouth Every 6 hours IBS -diarrhea Take 40 min before meals. Not to exceed 8 capsules, or 16 mg, in 24 hours Unchanged magnesium oxide (magnesium oxide 400 mg oral tablet) See instructions TAKE 1 TABLET BY MOUTH EVERY DAY Unchanged montelukast (montelukast 10 mg oral tablet) 1 tab(s) by mouth Once a day call for refills if working well! Unchanged rifaximin (Xifaxan 550 mg oral tablet) 1 tab(s) by mouth Three (3) times a day IBS -diarrhea Duration: 14 Days Unchanged sacubitril-valsartan (Entresto 97 mg-103 mg oral tablet) 1 tab(s) by mouth Two (2) times a day Unchanged spironolactone (spironolactone 25 mg oral tablet) 1 tab(s) by mouth Once a day Please take this list to your next doctor s visit. Bring all medications you take, including over the counter medications, herbals and other supplements with you to your doctor s visit. Patients and families are reminded to discard old lists and to update any records with all medication providers or retail pharmacies. Medication Leaflets ondansetron (oral) (on JASON se patsy) What is the most important information I should know about ondansetron? Tell your doctor about all your other medicines. Some drugs should not be used with ondansetron. What is ondansetron? Ondansetron is used to prevent nausea and vomiting that may happen with certain cancer medicines (chemotherapy), or after surgery, or radiation treatment . Ondansetron may be used for purposes not listed in this medication guide. What should I discuss with my health care provider before taking ondansetron? You should not use ondansetron if you are allergic to it or similar medicines (dolasetron, granisetron, palonosetron). Some drugs should not be used with ondansetron. Your treatment plan may change if you also use apomorphine. Tell your doctor if you have or have ever had: an electrolyte imbalance (such as low blood levels of potassium or magnesium); congestive heart failure, slow heartbeats; heart rhythm disorder such as long QT syndrome (in you or a family member); an obstruction in the stomach or intestines, a change in bowel habits; a surgery on your stomach or intestines; or severe liver disease. The orally disintegrating tablet may contain phenylalanine and could be harmful if you have phenylketonuria (PKU). Tell your doctor if you also use stimulant medicine, opioid medicine, herbal products, or medicine for depression, mental illness, Parkinson's disease, migraine headaches, serious infections, or prevention of nausea and vomiting. An interaction with ondansetron could cause a serious condition called serotonin syndrome. Tell your doctor if you are or . Ondansetron is not approved for use by anyone younger than 4 years old. How should I take ondansetron? Follow all directions on your prescription label and read all medication guides or instruction sheets. Use the medicine exactly as directed. Ondansetron is usually taken just before surgery, chemotherapy, or radiation treatment. Follow yourdoctor's dosing instructions very carefully. Measure liquid medicine with the supplied measuring device (not a kitchen spoon). To take the orally disintegrating tablet: Keep the tablet in its blister pack until you are ready to take it. Open the package and peel back the foil. Use dry hands to remove the orally disintegrating tablet and place it in your mouth. Do not push a tablet through the foil or you may damage the tablet. Allow the orally disintegrating tablet to dissolve in your mouth without chewing. Do not swallow whole. Store in the original container at room temperature away from moisture, heat, and light. Store liquid medicine in an upright position. What happens if I miss a dose? Ondansetron is used when needed. If you are on a dosing schedule, skip any missed dose. Do not use two doses at one time. What happens if I overdose? Seek emergency medical attention or call the Poison Help line at . What should I avoid while taking ondansetron? Follow your doctor's instructions about any restrictions on food, beverages, or activity. What are the possible side effects of ondansetron? Get emergency medical help if you have signs of an allergic reaction: hives, difficult breathing, swelling of your face, lips, tongue, or throat. Seek medical attention right away if you have symptoms of serotonin syndrome such as: agitation, hallucinations, fever, sweating, shivering, fast heart rate, muscle stiffness, twitching, loss of coordination, nausea, vomiting, or diarrhea. Seek emergency medical help if you have signs of a heart attack: chest pain that spreads to your jaw or shoulder, nausea, and sweating. Call your doctor at once if you have: severe stomach pain, bloating, constipation, or any change in bowel habits; or dizziness, feeling lightheaded, fainting, slow, fast, or uneven heartbeats. Common side effects may include: diarrhea or constipation; headache; shortness of breath, rapid breathing, fast heartbeats; or feeling unwell, tiredness. This is not a complete list of side effects and others may occur. Call your doctor for medical advice about side effects. You may report side effects to FDA at 1-528-YXX-3770. What other drugs will affect ondansetron? Ondansetron can cause a serious heart problem. Your risk may be higher if you also use certain other medicines for infections, asthma, heart problems, high blood pressure, depression, mental illness,cancer, malaria, or HIV. Many drugs can affect ondansetron. This includes prescription and usav-qid-rnpxknf medicines, vitamins, and herbal products. Not all possible interactions are listed here. Tell your doctor about all other medicines you use. Where can I get more information? Your doctor or pharmacist can provide more information about ondansetron. Remember, keep this and all other medicines out of the reach of children, never share your medicines with others, and use this medication only for the indication prescribed. Every effort has been made to ensure that the information provided by [employer]') is accurate, up-to-date, and complete, but no guarantee is made to that effect. Drug information contained herein may be time sensitive. [employer] information has been compiled for use by healthcare practitioners and consumers in the [place] and therefore [employer] does not warrant that uses outside of the [place] are appropriate, unless specifically indicated otherwise. [employer] drug information does not endorse drugs, diagnose patients or recommend therapy. [employer] drug information isan informational resource designed to assist licensed healthcare practitioners in caring for their p atients and/or to serve consumers viewing this service as a supplement to, and not a substitute for, the expertise, skill, knowledge and judgment of healthcare practitioners. The absence of a warningfor a given drug or drug combination in no way should be construed to indicate that the drug or drug combination is safe, effective or appropriate for any given patient. [employer] does not assume any responsibility for any aspect of healthcare administered with the aid of information [employer] provides. The information contained herein is not intended to cover all possible uses, directions, precautions, warnings, drug interactions, allergic reactions, or adverse effects. If you have questions about the drugs you are taking, check with your doctor, nurse or pharmacist. Copyright 7899-8106 [employer]. Version: 17.. Revision Date: 12/30/2023. Education Materials Abdominal Pain Abdominal pain is pain in the stomach or belly area. Everyone has this pain from time to time. In many cases it goes away on its own. But abdominal pain can sometimes be due to a serious problem, such as appendicitis. So it s important to know when to get help. Causes of abdominal pain There are many possible causes of abdominal pain. Common causes in adults include: Constipation, diarrhea, or gas Stomach acid flowing back up into the esophagus (acid reflux or heartburn) Severe acid reflux, called GERD (gastroesophageal reflux disease) A sore in the lining of the stomach or small intestine (peptic ulcer) Inflammation of the gallbladder, liver, or pancreas Gallstones or kidney stones Appendicitis Intestinal blockage An internal organ pushing through a muscle or other tissue (hernia) Urinary tract infections In women, menstrual cramps, fibroids, ovarian cysts, pelvic inflammatory disease, or endometriosis Inflammation or infection of the intestines, including Crohn's disease and ulcerative colitis Irritable bowel syndrome Diagnosing the cause of abdominal pain Your healthcare provider will give you a physical exam help find the cause of your pain. If needed,you will have tests. Belly pain has many possible causes. So it can be hard to find the reason for your pain. Giving details about your pain can help. Tell your provider where and when you feel the pain, and what makes it better or worse. Also let your provider know if you have other symptoms such as: Fever Tiredness Upset stomach (nausea) Vomiting Changes in bathroom habits Blood in the stool or black, tarry stool Weight loss that you can't explain (involuntary weight loss?) Also report any family history of stomach or intestinal problems, or cancers. Tell your provider about all your alcohol use and drug use. Tell your provider about all medicines you use, including herbs, vitamins, and supplements. Treating abdominal pain Some causes of pain need emergency medical treatment right away. These include appendicitis or a bowel blockage. Other problems can be treated with rest, fluids, or medicines. Your healthcare provider can give you specific instructions for treatment or self-care based on what is causing your pain. If you have vomiting or diarrhea, sip water or other clear fluids. When you are ready to eat solid foods again, start with small amounts of jlql-os-erceou, low- fat foods. These include apple sauce, toast, or crackers. When to get medical care Call 911 or go to the hospital right away if you: Can t pass stool and are vomiting Are vomiting blood or have bloody diarrhea or black, tarry diarrhea Have chest, neck, or shoulder pain Feel like you might pass out Have pain in your shoulder blades with nausea Have sudden, severe belly pain Have new, severe pain unlike any you have felt before Have a belly that is rigid, hard, and hurts to touch Call your healthcare provider if you have: Pain for more than 5 days Bloating for more than 2 days Diarrhea for more than 5 days A fever of 100.4 F (38 C) or higher, or as directed by your healthcare provider Pain that gets worse Weight loss for no reason Continued lack of appetite Blood in your stool How to prevent abdominal pain Here are some tips to help prevent abdominal pain: Eat smaller amounts of food at each meal. Don't eat greasy, fried, or other high-fat foods. Don't eat foods that give you gas. Exercise regularly. Drink plenty of fluids. To help prevent GERD symptoms: Quit smoking. Reduce alcohol and foods that increase stomach acid. Don't use aspirin or dpyk-taf-xaabxcs pain and fever medicines, if possible. This includes nonsteroidal anti-inflammatory drugs (NSAIDs). Lose excess weight. Finish eating at least 2 hours before you go to bed or lie down. Raise the head of your bed. 7282-4345 [employer]. [address] [place] [address], [place] [address]. All rights reserved. This information is not intended as a substitute for professional medical care. Always follow yourhealthcare professional's instructions. Additional Information VACCINATE! IT SAVES LIVES! Members of the community who have not yet received the COVID-19 vaccine and would like to receive it can visit one of [facility] vaccine clinics. There are many vaccine clinic locations within the [facility]. For locations and available times, please visit [email or web address]/. It is important to note that some COVID mobile vaccine clinics are held outdoors and may be canceled in rainy or stormy conditions. To learn more about pediatric vaccinations (ages 5-11), we invite you to visit the [facility] webpage. [email or web address] learn more about the COVID-19 vaccine, we invite you to visit the CDC website for a list of frequently asked questions. https://www.cdc.gov/coronavirus/2019-ncov/vaccines/faq.html [facility] Patient Portal Access Instructions: Stay connected with your healthcare team and access your personal medical information anytime with the [employer] Patient Portal. If you would like a full copy of your medical records please contact the [facility] Medical Records Department Friday through Friday between 8a.m. and 4:30p.m. Please follow the directions below to access the portal: 1.Access the email account you provided upon registration to the hospital.2.Look for an invitation email from [facility].3.Open the email and access the invitation link: Accept Invitation to [facility]4.Fill in the required jeffers to create your account. Sign into [email or web address] with your username and password that you created in the above steps to stay up to date. You can then view a summary of results, a summary of your visits, and the ability to download your summaries to your computer or send the information securely to a physician. Remember that your healthcare information is confidential, so carefully consider who you will allow to register on the [employer] Patient Portal for access to your information. You can also access the [employer] Patient Portal on the [employer] giles. Simply click on Health Records under UserTesting and then click on the [employer] logo. HOW TO SAFELY DISPOSE OF PRESCRIPTION MEDICATIONS Please use one of the following methods to safely dispose of your unused medications. 1.Use a drug disposal kit: the drug disposal pouch allows you to safely discard your old and unuseddrugs. Ask your nurse to give you one when you are discharged.2.Visit a local take-back location: Many local pharmacies and police departments have programs that collect old and unwanted prescriptiondrugs. Call your local pharmacy or go to http://NetIQ.Fashionspace/4F3Wo0h to find one close to you.3.Make use of household items: Use cat litter or old coffee grounds to dispose medications if other options arenot available. Mix your drugs with these household products, seal them in an airtight container andthrow it into the garbage. Call [facility]: [phone] to be sure your drugs can be disposed of in this way. Some medicines may require a different approach.4.Never flush your medications down the toilet. IF YOU HAVE BEEN PRESCRIBED AN OPIOIDS FOR PAIN If you have been prescribed an opioid (such as hydrocodone, oxycodone or morphine), it is critical to understand the possible side effects and risks of opioid pain medications. Even when taken as directed, opioids can have several side effects including: Tolerance, meaning you might need to take more of a medication for the same pain relief. Nausea, vomiting and/or constipation. Sleepiness, dizziness, dry mouth, confusion, depression or itching. Physical dependence, meaning you have withdrawal symptoms when a medication is stopped ? this can develop within a few days. KNOW YOUR RESPONSIBILITIES It is important to know exactly how much and how often to take the opioid pain medications you are prescribed. Never take opioids in higher amounts or more often than prescribed. Do not combine opioids with alcohol or other drugs that cause drowsiness, such as benzodiazepines, also known as benzos,including diazepam and alprazolam, muscle relaxants or sleep aids. Never sell or share prescriptionopioids. This is illegal. Store opioids in a secure place and out of reach of others (including children, family, friends and visitors). The last page(s) of this document has been signed and retained as a CHART COPY Signatures Patient Education Materials Abdominal Pain Medication Leaflets ondansetron (oral) My discharge plan and instructions have been reviewed and explained to me and I,JESSIE MALONE understand my current condition and have read and understand these discharge instructions. I have received a written copy of the plan/instructions. If I have questions, I am aware that I should contact my doctor. 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 Allergy to or side effect of a food or medicine Severe stress or worry (anxiety) Other illnesses It is often hard to pinpoint an exact cause, even with testing. Vomiting and diarrhea often go awaywithin a day or two without problems. If they continue, though, they can lead to too much loss of fluid (dehydration). This can be serious if not treated. Home care Medicines You may use acetaminophen or NSAID medicines like ibuprofen or naproxen to control fever, unless another medicine was prescribed. If you have chronic liver or kidney disease, talk with your healthcare provider before using these medicines. Also talk with your provider if you've had a stomach ulcer or gastrointestinal bleeding. Don't give aspirin to anyone under 18 years of age who is ill with a fever because it may cause severe disease or . Don't use NSAID medicines if you are already taking one for another condition (like arthritis) or are on aspirin (such as for heart disease or after a stroke) Nzqb-fel-zlzdwgv medicines for diarrhea, nausea, and vomiting are generally OK unless you have bleeding, fever, or severe abdominal pain. General care If symptoms are severe, rest at home for the next 24 hours, or until you are feeling better. Washing your hands with soap and water, or using alcohol-based hand airport operations coordinator is the best way to stop the spread of infection. Wash your hands after touching anyone who is sick. Wash your hands after using the toilet and before meals. Clean the toilet after each use. Dry your hands with a single use towel. Caffeine, tobacco, and alcohol can make the diarrhea, cramping, and pain worse. Remember, caffeine not only is in coffee, but also is in chocolate, some energy drinks, and teas. Diet Water and clear liquids are important so you don't get dehydrated. Drink a small amount at a time. Don't guzzle down the drinks. That may increase your nausea, make cramping worse, and cause the drinks to come back up. Sports drinks may also help if you are healthy and not too dehydrated. They have too much sugar andnot enough electrolytes and can sometimes make things worse. Also, don't drink beverages that are too acidic, like orange juice and grape juice. If you are very dehydrated, commercially available products called oral rehydration solutions are best. Food Don't force yourself to eat, especially if you have cramps, diarrhea, or vomiting. Eat just a little at a time, and then wait a few minutes before you try to eat more. Don't eat fatty, greasy, spicy, or fried foods. Don't eat dairy products if you have diarrhea. They can make it worse. During the first 24 hours (the first full day), follow the diet below: Beverages: Oral rehydration solutions, sports drinks, soft drinks without caffeine, mineral water, and decaffeinated tea and coffee Soups: Clear broth, consomm , and bouillon Desserts: Plain gelatin, popsicles, and fruit juice bars During the next 24 hours (the second day), you may add the following to the above if you are better. If not, continue what you did the first day: Hot cereal, plain toast, bread, rolls, crackers Plain noodles, rice, mashed potatoes, chicken noodle or rice soup Unsweetened canned fruit (avoid pineapple), bananas Limit fat intake to less than 15 grams per day by avoiding margarine, butter, oils, mayonnaise, sauces, gravies, fried foods, peanut butter, meat, poultry, and fish. Limit fiber. Avoid raw or cooked vegetables, fresh fruits (except bananas) and bran cereals. Limit caffeine and chocolate. No spices or seasonings except salt. During the next 24 hours: Gradually resume a normal diet, as you feel better and your symptoms improve. If at any time your symptoms start getting worse again, go back to clear liquids until you feel better. Food preparation If you have diarrhea, you should not prepare food for others. When preparing foods, wash your handsbefore and after. Wash your hands or use alcohol-based airport operations coordinator after using cutting boards, countertops, and knives that have been in contact with raw food. Dry your hands with a single use towel. Keep uncooked meats away from cooked and rvfto-gx-hta foods. Follow-up care Follow up with your healthcare provider, or as advised. Call if you don't get better in the next 2 to 3 days. If a stool (diarrhea) sample was taken, or cultures done, you will be told if they are positive, or if your treatment needs to be changed. You may call as directed for the results. If X-rays were taken, you will be notified of any new findings that may affect your care Call 911 Call 911 if any of these occur: Trouble breathing Chest pain Confusion Severe drowsiness or trouble awakening Fainting or loss of consciousness Rapid heart rate Seizure Stiff neck Severe weakness, dizziness, or lightheadedness When to seek medical advice Call your healthcare provider right away if any of these occur: Bloody or black vomit or stools Severe, steady abdominal pain or any abdominal pain that is getting worse Severe headache or stiff neck An inability to hold down even sips of liquids for more than 12 hours Vomiting that lasts more than 24 hours Diarrhea that lasts more than 24 hours Fever of 100.4 F (38.0 C) or higher, or as directed by your healthcare provider Yellowish color to your skin or the whites of your eyes Signs of dehydration, such as dry mouth, little urine (less than every 6 hours), or very dark urine [id number] [employer]. [address] [place] [address], [place] [address]. All rights reserved. This information is not intended as a substitute for professional medical care. Always follow yourhealthcare professional's instructions. 10/18/2024 14:47:03 Abdominal Pain Abdominal Pain Abdominal pain is pain in the stomach or belly area. Everyone has this pain from time to time. In many cases it goes away on its own. But abdominal pain can sometimes be due to a serious problem, such as appendicitis. So it s important to know when to get help. Causes of abdominal pain There are many possible causes of abdominal pain. Common causes in adults include: Constipation, diarrhea, or gas Stomach acid flowing back up into the esophagus (acid reflux or heartburn) Severe acid reflux, called GERD (gastroesophageal reflux disease) A sore in the lining of the stomach or small intestine (peptic ulcer) Inflammation of the gallbladder, liver, or pancreas Gallstones or kidney stones Appendicitis Intestinal blockage An internal organ pushing through a muscle or other tissue (hernia) Urinary tract infections In women, menstrual cramps, fibroids, ovarian cysts, pelvic inflammatory disease, or endometriosis Inflammation or infection of the intestines, including Crohn's disease and ulcerative colitis Irritable bowel syndrome Diagnosing the cause of abdominal pain Your healthcare provider will give you a physical exam help find the cause of your pain. If needed,you will have tests. Belly pain has many possible causes. So it can be hard to find the reason for your pain. Giving details about your pain can help. Tell your provider where and when you feel the pain, and what makes it better or worse. Also let your provider know if you have other symptoms such as: Fever Tiredness Upset stomach (nausea) Vomiting Changes in bathroom habits Blood in the stool or black, tarry stool Weight loss that you can't explain (involuntary weight loss?) Also report any family history of stomach or intestinal problems, or cancers. Tell your provider about all your alcohol use and drug use. Tell your provider about all medicines you use, including herbs, vitamins, and supplements. Treating abdominal pain Some causes of pain need emergency medical treatment right away. These include appendicitis or a bowel blockage. Other problems can be treated with rest, fluids, or medicines. Your healthcare provider can give you specific instructions for treatment or self-care based on what is causing your pain. If you have vomiting or diarrhea, sip water or other clear fluids. When you are ready to eat solid foods again, start with small amounts of xcnk-lz-hlcrya, low- fat foods. These include apple sauce, toast, or crackers. When to get medical care Call 911 or go to the hospital right away if you: Can t pass stool and are vomiting Are vomiting blood or have bloody diarrhea or black, tarry diarrhea Have chest, neck, or shoulder pain Feel like you might pass out Have pain in your shoulder blades with nausea Have sudden, severe belly pain Have new, severe pain unlike any you have felt before Have a belly that is rigid, hard, and hurts to touch Call your healthcare provider if you have: Pain for more than 5 days Bloating for more than 2 days Diarrhea for more than 5 days A fever of 100.4 F (38 C) or higher, or as directed by your healthcare provider Pain that gets worse Weight loss for no reason Continued lack of appetite Blood in your stool How to prevent abdominal pain Here are some tips to help prevent abdominal pain: Eat smaller amounts of food at each meal. Don't eat greasy, fried, or other high-fat foods. Don't eat foods that give you gas. Exercise regularly. Drink plenty of fluids. To help prevent GERD symptoms: Quit smoking. Reduce alcohol and foods that increase stomach acid. Don't use aspirin or vedn-lrh-wunzgzb pain and fever medicines, if possible. This includes nonsteroidal anti-inflammatory drugs (NSAIDs). Lose excess weight. Finish eating at least 2 hours before you go to bed or lie down. Raise the head of your bed. [id number] [employer]. [address] [place] [address], [place] [address]. All rights reserved. This information is not intended as a substitute for professional medical care. Always follow yourhealthcare professional's instructions. Follow Up Care 10/18/2024 10:52:45 With:NATE CARRINGTON Address: [address] [facility] [place] [address]- [phone] Business (1) When:2-4 days Comments:Schedule appointment for close follow-up if symptoms persist.Start with clear liquids and slowly advance your diet as tolerated.Use Tylenol, Advil or Aleve for pain as needed.Use dicyclomine as prescribed for abdominal discomfort unrelieved with nnfn-dym-vxjbduh medications and Zofran for nausea and vomiting as needed.Use pjua-uad-kcqsiwu antidiarrheals like Imodium AD as needed.Return to the ED if symptoms worsen. [facility] 07-14-2025 Note Discharge Instructions Thank you for allowing [facility] to assist you with your healthcare needs. The following is importantdischarge information regarding your hospital visit. Diagnosis from Today's Visit Lower abdominal pain, unspecified Vomiting and diarrhea What to Do Next Instructions from Your Care Team No qualifying data available. Post Acute Orders No qualifying data available. You Need to Schedule the Following Appointments Follow Up with NATE CARRINGTON When:Within 2-4 days Where:[address] [facility] [place] [address]- [phone] Business (1) Additional Information: Schedule appointment for close follow-up if symptoms persist. Start with clear liquids and slowly advance your diet as tolerated. Use Tylenol, Advil or Aleve for pain as needed. Use dicyclomine as prescribed for abdominal discomfort unrelieved with neur-dio-aiejchj medicationsand Zofran for nausea and vomiting as needed. Use wkng-fau-yytimkg antidiarrheals like Imodium AD as needed. Return to the ED if symptoms worsen. Allergies Effient heparin Low Platelet Medications Please ask your primary doctor or pharmacist before taking any other medication not listed, including over the counter drugs, herbal medications, vitamins and or supplements as they may interact withur home medications. What How Much When Why Instructions Last Dose New ondansetron (Zofran ODT use ondansetron oral tablet, disintegrating ) 4 Milligram by mouth Every 6 hours as needed for as needed for nausea/vomiting Duration: 3 Days Printed Prescription Changed dicyclomine (dicyclomine 20 mg oral tablet) 1 tab(s) by mouth Four (4) times a day IBS -diarrhea 30 to 60 minutes before meals Changed dicyclomine (dicyclomine 20 mg oral tablet) 1 tab(s) by mouth Four (4) times a day as needed for As needed for abdominal discomfort Duration: 3 Days Printed Prescription Unchanged acetaminophen (acetaminophen 325 mg oral capsule) 1 cap by mouth Every 4 hours as needed for as needed for pain Unchanged apixaban (Eliquis 5 mg oral tablet) 1 tab(s) by mouth Two (2) times a day Afib Unchanged atorvastatin (atorvastatin 40 mg oral tablet) 1 tab(s) by mouth Once a day Unchanged azelastine nasal (azelastine 137 mcg/ inh (0.1%) nasal spray) 2 spray(s) Intranasal Two (2) times a day Unchanged carvedilol (Coreg 25 mg oral tablet) 1 tab(s) by mouth Twice daily with meals Unchanged clotrimazole topical (clotrimazole 1% topical cream) 1 application Topical Two (2) times a day Jock itch Duration: 14 Days Tinea Cruris Unchanged dapagliflozin (Farxiga 10 mg oral tablet) 1 tab(s) by mouth Once a day Unchanged ferrous sulfate (ferrous sulfate 325 mg (65 mg elemental iron) oral delayed release tablet) 1 tab(s) by mouth Three (3) times a day Unchanged fexofenadine (fexofenadine 180 mg oral tablet) 1 tab(s) by mouth Every day Nasal congestion Environmental allergies Unchanged fluticasone nasal (Flonase 50 mcg/ inh nasal spray) 2 spray(s) each nostril Once a day (in the morning) Unchanged furosemide (furosemide 20 mg oral tablet) 1 tab(s) by mouth Once a day Unchanged loperamide (Imodium A-D 2 mg oral tablet) 1 tab(s) by mouth Every 6 hours IBS -diarrhea Take 40 min before meals. Not to exceed 8 capsules, or 16 mg, in 24 hours Unchanged magnesium oxide (magnesium oxide 400 mg oral tablet) See instructions TAKE 1 TABLET BY MOUTH EVERY DAY Unchanged montelukast (montelukast 10 mg oral tablet) 1 tab(s) by mouth Once a day call for refills if working well! Unchanged rifaximin (Xifaxan 550 mg oral tablet) 1 tab(s) by mouth Three (3) times a day IBS -diarrhea Duration: 14 Days Unchanged sacubitril-valsartan (Entresto 97 mg-103 mg oral tablet) 1 tab(s) by mouth Two (2) times a day Unchanged spironolactone (spironolactone 25 mg oral tablet) 1 tab(s) by mouth Once a day Please take this list to your next doctor s visit. Bring all medications you take, including over the counter medications, herbals and other supplements with you to your doctor s visit. Patients and families are reminded to discard old lists and to update any records with all medication providers or retail pharmacies. Medication Leaflets dicyclomine (oral/injection) (mansoor limon) What is the most important information I should know about dicyclomine? Many drugs can affect dicyclomine. Tell your doctor about all your current medicines. What is dicyclomine? Dicyclomine is used to treat functional bowel or irritable bowel syndrome. Dicyclomine may also be used for purposes not listed in this medication guide. What should I discuss with my healthcare provider before taking dicyclomine? You should not use dicyclomine if you are allergic to it, or if you have: glaucoma; a bladder obstruction or other urination problems; a blockage in your digestive tract (stomach or intestines); severe ulcerative colitis; gastroesophageal reflux disease (GERD); a serious heart condition and active bleeding; myasthenia gravis; or if you are a baby. Not approved for use by anyone younger than 18 years old. Dicyclomine should never be given to a child younger than 6 months old. Tell your doctor if you have ever had: heart problems or high blood pressure; a stroke; ulcerative colitis; an ileostomy or colostomy; an enlarged prostate; or liver or kidney disease. Older adults may be more sensitive to the effects of this medicine. Tell your doctor if you are . Do not breastfeed. How should I take dicyclomine? Follow all directions on your prescription label and read all medication guides or instruction sheets. Your doctor may occasionally change your dose. Use the medicine exactly as directed. Dicyclomine oral is taken by mouth. Measure liquid medicine with the supplied syringe or a dose-measuring device (not a kitchen spoon). Dicyclomine injection is given in a muscle if you are unable to take the medicine by mouth. Call your doctor if your symptoms do not improve after 2 weeks. Store at room temperature away from moisture and heat. What happens if I miss a dose? Skip the missed dose and use your next dose at the regular time. Do not use two doses at one time. What happens if I overdose? Seek emergency medical attention or call the Poison Help line at . Overdose can cause nausea, vomiting, dilated pupils, weakness or loss of movement in any part of your body, trouble swallowing, fainting, or seizure (convulsions). What should I avoid while taking dicyclomine? May cause dizziness or blurred vision. Avoid driving or hazardous activity until you know how this medicine will affect you. Avoid becoming overheated or dehydrated during exercise and in hot weather. Dicyclomine can decrease sweating and you may be more prone to heat stroke. Tell your doctor if you have a fever while taking dicyclomine. Avoid using an antacid. Antacids can make it harder for your body to absorb dicyclomine oral. What are the possible side effects of dicyclomine? Get emergency medical help if you have signs of an allergic reaction: hives; difficult breathing; swelling of your face, lips, tongue, or throat. Call your doctor at once if you have: fast or slow heartbeats, pounding heartbeats or fluttering in your chest; confusion, agitation, hallucinations, unusual thoughts or behavior; problems with memory or speech; problems with balance or muscle movement; diarrhea, severe constipation, or worsening of bowel symptoms; trouble swallowing; bruising, swelling, or pain where a dicyclomine injection was given; or dehydration --dizziness, confusion, feeling very thirsty, less urination or sweating. Confusion and mood or behavior changes may be more likely in older adults. Common side effects may include: drowsiness, dizziness, weakness, nervousness; blurred vision; dry mouth; or nausea. This is not a complete list of side effects and others may occur. Call your doctor for medical advice about side effects. You may report side effects to FDA at 8-001-FYZ-7338. What other drugs will affect dicyclomine? Using dicyclomine with other drugs that make you drowsy can worsen this effect. Ask your doctor before using opioid medication, a sleeping pill, a muscle relaxer, or medicine for anxiety or seizures. Tell your doctor about all your current medicines. Many drugs can affect dicyclomine, especially: bronchodilator asthma medication; cold or allergy medicine (Benadryl and others); glaucoma medication; heart medication; medicine to treat depression, anxiety, mood disorders, or mental illness; medicine to treat overactive bladder; medicine to treat Parkinson's disease; or medicine to treat stomach problems, motion sickness, or irritable bowel syndrome. This list is not complete and many other drugs may affect dicyclomine. This includes prescription and vbry-qbx-varskrl medicines, vitamins, and herbal products. Not all possible drug interactions arelisted here. Where can I get more information? Your pharmacist can provide more information about dicyclomine. Remember, keep this and all other medicines out of the reach of children, never share your medicines with others, and use this medication only for the indication prescribed. Every effort has been made to ensure that the information provided by [employer]. [employer] is accurate, up-to-date, and complete, but no guarantee is made to that effect. Drug information contained herein may be time sensitive. [employer] information has been compiled for use by healthcare practitioners and consumers in the [place] and therefore [employer] does not warrant that uses outside of the [place] are appropriate, unless specifically indicated otherwise. [employer] drug information does not endorse drugs, diagnose patients or recommend therapy. [employer] drug information isan informational resource designed to assist licensed healthcare practitioners in caring for their p atients and/or to serve consumers viewing this service as a supplement to, and not a substitute for, the expertise, skill, knowledge and judgment of healthcare practitioners. The absence of a warningfor a given drug or drug combination in no way should be construed to indicate that the drug or drug combination is safe, effective or appropriate for any given patient. [employer] does not assume any responsibility for any aspect of healthcare administered with the aid of information [employer] provides. The information contained herein is not intended to cover all possible uses, directions, precautions, warnings, drug interactions, allergic reactions, or adverse effects. If you have questions about the drugs you are taking, check with your doctor, nurse or pharmacist. Copyright 6671-3975 [employer]. Version: 8.02. Revision Date: 08/25/2024. ondansetron (oral) (on JASON se patsy) What is the most important information I should know about ondansetron? Tell your doctor about all your other medicines. Some drugs should not be used with ondansetron. What is ondansetron? Ondansetron is used to prevent nausea and vomiting that may happen with certain cancer medicines (chemotherapy), or after surgery, or radiation treatment . Ondansetron may be used for purposes not listed in this medication guide. What should I discuss with my health care provider before taking ondansetron? You should not use ondansetron if you are allergic to it or similar medicines (dolasetron, granisetron, palonosetron). Some drugs should not be used with ondansetron. Your treatment plan may change if you also use apomorphine. Tell your doctor if you have or have ever had: an electrolyte imbalance (such as low blood levels of potassium or magnesium); congestive heart failure, slow heartbeats; heart rhythm disorder such as long QT syndrome (in you or a family member); an obstruction in the stomach or intestines, a change in bowel habits; a surgery on your stomach or intestines; or severe liver disease. The orally disintegrating tablet may contain phenylalanine and could be harmful if you have phenylketonuria (PKU). Tell your doctor if you also use stimulant medicine, opioid medicine, herbal products, or medicine for depression, mental illness, Parkinson's disease, migraine headaches, serious infections, or prevention of nausea and vomiting. An interaction with ondansetron could cause a serious condition called serotonin syndrome. Tell your doctor if you are or . Ondansetron is not approved for use by anyone younger than 4 years old. How should I take ondansetron? Follow all directions on your prescription label and read all medication guides or instruction sheets. Use the medicine exactly as directed. Ondansetron is usually taken just before surgery, chemotherapy, or radiation treatment. Follow yourdoctor's dosing instructions very carefully. Measure liquid medicine with the supplied measuring device (not a kitchen spoon). To take the orally disintegrating tablet: Keep the tablet in its blister pack until you are ready to take it. Open the package and peel back the foil. Use dry hands to remove the orally disintegrating tablet and place it in your mouth. Do not push a tablet through the foil or you may damage the tablet. Allow the orally disintegrating tablet to dissolve in your mouth without chewing. Do not swallow whole. Store in the original container at room temperature away from moisture, heat, and light. Store liquid medicine in an upright position. What happens if I miss a dose? Ondansetron is used when needed. If you are on a dosing schedule, skip any missed dose. Do not use two doses at one time. What happens if I overdose? Seek emergency medical attention or call the Poison Help line at . What should I avoid while taking ondansetron? Follow your doctor's instructions about any restrictions on food, beverages, or activity. What are the possible side effects of ondansetron? Get emergency medical help if you have signs of an allergic reaction: hives, difficult breathing, swelling of your face, lips, tongue, or throat. Seek medical attention right away if you have symptoms of serotonin syndrome such as: agitation, hallucinations, fever, sweating, shivering, fast heart rate, muscle stiffness, twitching, loss of coordination, nausea, vomiting, or diarrhea. Seek emergency medical help if you have signs of a heart attack: chest pain that spreads to your jaw or shoulder, nausea, and sweating. Call your doctor at once if you have: severe stomach pain, bloating, constipation, or any change in bowel habits; or dizziness, feeling lightheaded, fainting, slow, fast, or uneven heartbeats. Common side effects may include: diarrhea or constipation; headache; shortness of breath, rapid breathing, fast heartbeats; or feeling unwell, tiredness. This is not a complete list of side effects and others may occur. Call your doctor for medical advice about side effects. You may report side effects to FDA at 9-693-LGJ-0782. What other drugs will affect ondansetron? Ondansetron can cause a serious heart problem. Your risk may be higher if you also use certain other medicines for infections, asthma, heart problems, high blood pressure, depression, mental illness,cancer, malaria, or HIV. Many drugs can affect ondansetron. This includes prescription and bisl-ctx-ihvjlfj medicines, vitamins, and herbal products. Not all possible interactions are listed here. Tell your doctor about all other medicines you use. Where can I get more information? Your doctor or pharmacist can provide more information about ondansetron. Remember, keep this and all other medicines out of the reach of children, never share your medicines with others, and use this medication only for the indication prescribed. Every effort has been made to ensure that the information provided by [employer] is accurate, up-to-date, and complete, but no guarantee is made to that effect. Drug information contained herein may be time sensitive. [employer] information has been compiled for use by healthcare practitioners and consumers in the [place] and therefore [employer] does not warrant that uses outside of the [place] are appropriate, unless specifically indicated otherwise. [employer] drug information does not endorse drugs, diagnose patients or recommend therapy. [employer] drug information isan informational resource designed to assist licensed healthcare practitioners in caring for their p atients and/or to serve consumers viewing this service as a supplement to, and not a substitute for, the expertise, skill, knowledge and judgment of healthcare practitioners. The absence of a warningfor a given drug or drug combination in no way should be construed to indicate that the drug or drug combination is safe, effective or appropriate for any given patient. [employer] does not assume any responsibility for any aspect of healthcare administered with the aid of information [employer] provides. The information contained herein is not intended to cover all possible uses, directions, precautions, warnings, drug interactions, allergic reactions, or adverse effects. If you have questions about the drugs you are taking, check with your doctor, nurse or pharmacist. Copyright 2553-2922 [employer]. Version: 17.. Revision Date: 12/30/2023. Education Materials Nonspecific Vomiting and Diarrhea (Adult) Vomiting and diarrhea can have many causes, including: Helping your body get rid of harmful substances Gastroenteritis caused by viruses, parasites, bacteria, or toxins. Allergy to or side effect of a food or medicine Severe stress or worry (anxiety) Other illnesses It is often hard to pinpoint an exact cause, even with testing. Vomiting and diarrhea often go awaywithin a day or two without problems. If they continue, though, they can lead to too much loss of fluid (dehydration). This can be serious if not treated. Home care Medicines You may use acetaminophen or NSAID medicines like ibuprofen or naproxen to control fever, unless another medicine was prescribed. If you have chronic liver or kidney disease, talk with your healthcare provider before using these medicines. Also talk with your provider if you've had a stomach ulcer or gastrointestinal bleeding. Don't give aspirin to anyone under 18 years of age who is ill with a fever because it may cause severe disease or . Don't use NSAID medicines if you are already taking one for another condition (like arthritis) or are on aspirin (such as for heart disease or after a stroke) Opom-pns-atahhxz medicines for diarrhea, nausea, and vomiting are generally OK unless you have bleeding, fever, or severe abdominal pain. General care If symptoms are severe, rest at home for the next 24 hours, or until you are feeling better. Washing your hands with soap and water, or using alcohol-based hand airport operations coordinator is the best way to stop the spread of infection. Wash your hands after touching anyone who is sick. Wash your hands after using the toilet and before meals. Clean the toilet after each use. Dry your hands with a single use towel. Caffeine, tobacco, and alcohol can make the diarrhea, cramping, and pain worse. Remember, caffeine not only is in coffee, but also is in chocolate, some energy drinks, and teas. Diet Water and clear liquids are important so you don't get dehydrated. Drink a small amount at a time. Don't guzzle down the drinks. That may increase your nausea, make cramping worse, and cause the drinks to come back up. Sports drinks may also help if you are healthy and not too dehydrated. They have too much sugar andnot enough electrolytes and can sometimes make things worse. Also, don't drink beverages that are too acidic, like orange juice and grape juice. If you are very dehydrated, commercially available products called oral rehydration solutions are best. Food Don't force yourself to eat, especially if you have cramps, diarrhea, or vomiting. Eat just a little at a time, and then wait a few minutes before you try to eat more. Don't eat fatty, greasy, spicy, or fried foods. Don't eat dairy products if you have diarrhea. They can make it worse. During the first 24 hours (the first full day), follow the diet below: Beverages: Oral rehydration solutions, sports drinks, soft drinks without caffeine, mineral water, and decaffeinated tea and coffee Soups: Clear broth, consomm , and bouillon Desserts: Plain gelatin, popsicles, and fruit juice bars During the next 24 hours (the second day), you may add the following to the above if you are better. If not, continue what you did the first day: Hot cereal, plain toast, bread, rolls, crackers Plain noodles, rice, mashed potatoes, chicken noodle or rice soup Unsweetened canned fruit (avoid pineapple), bananas Limit fat intake to less than 15 grams per day by avoiding margarine, butter, oils, mayonnaise, sauces, gravies, fried foods, peanut butter, meat, poultry, and fish. Limit fiber. Avoid raw or cooked vegetables, fresh fruits (except bananas) and bran cereals. Limit caffeine and chocolate. No spices or seasonings except salt. During the next 24 hours: Gradually resume a normal diet, as you feel better and your symptoms improve. If at any time your symptoms start getting worse again, go back to clear liquids until you feel better. Food preparation If you have diarrhea, you should not prepare food for others. When preparing foods, wash your handsbefore and after. Wash your hands or use alcohol-based airport operations coordinator after using cutting boards, countertops, and knives that have been in contact with raw food. Dry your hands with a single use towel. Keep uncooked meats away from cooked and zeric-on-oyv foods. Follow-up care Follow up with your healthcare provider, or as advised. Call if you don't get better in the next 2 to 3 days. If a stool (diarrhea) sample was taken, or cultures done, you will be told if they are positive, or if your treatment needs to be changed. You may call as directed for the results. If X-rays were taken, you will be notified of any new findings that may affect your care Call 911 Call 911 if any of these occur: Trouble breathing Chest pain Confusion Severe drowsiness or trouble awakening Fainting or loss of consciousness Rapid heart rate Seizure Stiff neck Severe weakness, dizziness, or lightheadedness When to seek medical advice Call your healthcare provider right away if any of these occur: Bloody or black vomit or stools Severe, steady abdominal pain or any abdominal pain that is getting worse Severe headache or stiff neck An inability to hold down even sips of liquids for more than 12 hours Vomiting that lasts more than 24 hours Diarrhea that lasts more than 24 hours Fever of 100.4 F (38.0 C) or higher, or as directed by your healthcare provider Yellowish color to your skin or the whites of your eyes Signs of dehydration, such as dry mouth, little urine (less than every 6 hours), or very dark urine [phone] [employer]. [address] [place] [address]. All rights reserved. This information is not intended as a substitute for professional medical care. Always follow yourhealthcare professional's instructions. Abdominal Pain Abdominal pain is pain in the stomach or belly area. Everyone has this pain from time to time. In many cases it goes away on its own. But abdominal pain can sometimes be due to a serious problem, such as appendicitis. So it s important to know when to get help. Causes of abdominal pain There are many possible causes of abdominal pain. Common causes in adults include: Constipation, diarrhea, or gas Stomach acid flowing back up into the esophagus (acid reflux or heartburn) Severe acid reflux, called GERD (gastroesophageal reflux disease) A sore in the lining of the stomach or small intestine (peptic ulcer) Inflammation of the gallbladder, liver, or pancreas Gallstones or kidney stones Appendicitis Intestinal blockage An internal organ pushing through a muscle or other tissue (hernia) Urinary tract infections In women, menstrual cramps, fibroids, ovarian cysts, pelvic inflammatory disease, or endometriosis Inflammation or infection of the intestines, including Crohn's disease and ulcerative colitis Irritable bowel syndrome Diagnosing the cause of abdominal pain Your healthcare provider will give you a physical exam help find the cause of your pain. If needed,you will have tests. Belly pain has many possible causes. So it can be hard to find the reason for your pain. Giving details about your pain can help. Tell your provider where and when you feel the pain, and what makes it better or worse. Also let your provider know if you have other symptoms such as: Fever Tiredness Upset stomach (nausea) Vomiting Changes in bathroom habits Blood in the stool or black, tarry stool Weight loss that you can't explain (involuntary weight loss?) Also report any family history of stomach or intestinal problems, or cancers. Tell your provider about all your alcohol use and drug use. Tell your provider about all medicines you use, including herbs, vitamins, and supplements. Treating abdominal pain Some causes of pain need emergency medical treatment right away. These include appendicitis or a bowel blockage. Other problems can be treated with rest, fluids, or medicines. Your healthcare provider can give you specific instructions for treatment or self-care based on what is causing your pain. If you have vomiting or diarrhea, sip water or other clear fluids. When you are ready to eat solid foods again, start with small amounts of qweb-oo-vtvqai, low- fat foods. These include apple sauce, toast, or crackers. When to get medical care Call 911 or go to the hospital right away if you: Can t pass stool and are vomiting Are vomiting blood or have bloody diarrhea or black, tarry diarrhea Have chest, neck, or shoulder pain Feel like you might pass out Have pain in your shoulder blades with nausea Have sudden, severe belly pain Have new, severe pain unlike any you have felt before Have a belly that is rigid, hard, and hurts to touch Call your healthcare provider if you have: Pain for more than 5 days Bloating for more than 2 days Diarrhea for more than 5 days A fever of 100.4 F (38 C) or higher, or as directed by your healthcare provider Pain that gets worse Weight loss for no reason Continued lack of appetite Blood in your stool How to prevent abdominal pain Here are some tips to help prevent abdominal pain: Eat smaller amounts of food at each meal. Don't eat greasy, fried, or other high-fat foods. Don't eat foods that give you gas. Exercise regularly. Drink plenty of fluids. To help prevent GERD symptoms: Quit smoking. Reduce alcohol and foods that increase stomach acid. Don't use aspirin or mfod-jpw-zosmuee pain and fever medicines, if possible. This includes nonsteroidal anti-inflammatory drugs (NSAIDs). Lose excess weight. Finish eating at least 2 hours before you go to bed or lie down. Raise the head of your bed. 1710-0910 [employer]. [address] [place] [address], [place] [address]. All rights reserved. This information is not intended as a substitute for professional medical care. Always follow yourhealthcare professional's instructions. Additional Information VACCINATE! IT SAVES LIVES! Members of the community who have not yet received the COVID-19 vaccine and would like to receive it can visit one of [facility] vaccine clinics. There are many vaccine clinic locations within the [facility]. For locations and available times, please visit [email or web address] It is important to note that some COVID mobile vaccine clinics are held outdoors and may be canceled in rainy or stormy conditions. To learn more about pediatric vaccinations (ages 5-11), we invite you to visit the [facility] webpage. [email or web address] learn more about the COVID-19 vaccine, we invite you to visit the CDC website for a list of frequently asked questions. https://www.cdc.gov/coronavirus/2019-ncov/vaccines/faq.html [facility] Patient Portal Access Instructions: Stay connected with your healthcare team and access your personal medical information anytime with the [facility] Patient Portal. If you would like a full copy of your medical records please contact the [facility] Medical Records Department Friday through Friday between 8a.m. and 4:30p.m. Please follow the directions below to access the portal: 1.Access the email account you provided upon registration to the hospital.2.Look for an invitation email from [facility].3.Open the email and access the invitation link: Accept Invitation to [facility]4.Fill in the required jeffers to create your account. Sign into [email or web address] with your username and password that you created in the above steps to stay up to date. You can then view a summary of results, a summary of your visits, and the ability to download your summaries to your computer or send the information securely to a physician. Remember that your healthcare information is confidential, so carefully consider who you will allow to register on the [facility] Patient Portal for access to your information. You can also access the [facility] Patient Portal on the [employer] giles. Simply click on Health Records under UserTesting and then click on the [employer] logo. HOW TO SAFELY DISPOSE OF PRESCRIPTION MEDICATIONS Please use one of the following methods to safely dispose of your unused medications. 1.Use a drug disposal kit: the drug disposal pouch allows you to safely discard your old and unuseddrugs. Ask your nurse to give you one when you are discharged.2.Visit a local take-back location: Many local pharmacies and police departments have programs that collect old and unwanted prescriptiondrugs. Call your local pharmacy or go to http://NetIQ.Fashionspace/7A7Fu9z to find one close to you.3.Make use of household items: Use cat litter or old coffee grounds to dispose medications if other options arenot available. Mix your drugs with these household products, seal them in an airtight container andthrow it into the garbage. Call [facility]: [phone] to be sure your drugs can be disposed of in this way. Some medicines may require a different approach.4.Never flush your medications down the toilet. IF YOU HAVE BEEN PRESCRIBED AN OPIOIDS FOR PAIN If you have been prescribed an opioid (such as hydrocodone, oxycodone or morphine), it is critical to understand the possible side effects and risks of opioid pain medications. Even when taken as directed, opioids can have several side effects including: Tolerance, meaning you might need to take more of a medication for the same pain relief. Nausea, vomiting and/or constipation. Sleepiness, dizziness, dry mouth, confusion, depression or itching. Physical dependence, meaning you have withdrawal symptoms when a medication is stopped ? this can develop within a few days. KNOW YOUR RESPONSIBILITIES It is important to know exactly how much and how often to take the opioid pain medications you are prescribed. Never take opioids in higher amounts or more often than prescribed. Do not combine opioids with alcohol or other drugs that cause drowsiness, such as benzodiazepines, also known as benzos,including diazepam and alprazolam, muscle relaxants or sleep aids. Never sell or share prescriptionopioids. This is illegal. Store opioids in a secure place and out of reach of others (including children, family, friends and visitors). The last page(s) of this document has been signed and retained as a CHART COPY Signatures Patient Education Materials Vomiting and Diarrhea, Nonspecific (Adult) Abdominal Pain Medication Leaflets dicyclomine (oral/injection), ondansetron (oral) My discharge plan and instructions have been reviewed and explained to me and I,JESSIE MALONE understand my current condition and have read and understand these discharge instructions. I have received a written copy of the plan/instructions. If I have questions, I am aware that I should contact my doctor. 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 Multiplanar reformatted images are provided for review. Automated exposure control, iterative reconstruction, and/or weight based adjustment of the mA/kV was utilized to reduce the radiation dose to as low as reasonably achievable. COMPARISON: None HISTORY: ORDERING SYSTEM PROVIDED HISTORY: Reason for Exam: Abdominal pain, acute, nonlocalized. no hx of cancer. Abdominal pain, acute, nonlocalized FINDINGS: The included lung bases are clear. There is no visible pleural or pericardial effusion. The heart is normal in size. Subcentimeter hepatic cysts noted. The spleen, adrenal glands, and pancreas are within normal limits. No filling defects seen in the gallbladder. The kidneys enhance symmetrically. A small hiatal hernia noted. The large and small bowel demonstrate no obstruction. Scattered colonic diverticula noted. No free intraperitoneal fluid or gas is identified. The aorta is normal in caliber. There is mild atherosclerosis of the larger arteries. There is no lymphadenopathy. No filling defects seen in the urinary bladder. There is no fracture or aggressive osseous lesion. Degenerative changes are present in the spine. Small fat containing hernia noted near the umbilicus. A a partially visualized precordial defibrillator seen. IMPRESSION: 1. No acute inflammatory changes 2. Small hiatal hernia. 3. Diverticulosis. No evidence of diverticulitis. 4. Subcentimeter hepatic cysts. 5. Small fat-containing umbilical hernia. Interpreted by: Eyad Wang MD Preliminary Report By: Eyad Wang MD Electronically signed By Eyad Wang MD Dictated Date: 10/18/2024 2:35:08 PM Prelim Date: 10/18/2024 2:42:29 PM Sign Date: 10/18/2024 2:42:29 PM Ordering Provider: [facility]10-19-2023 Note Clinical description: CHF Medications: Carvedilol 25 mg bid Age: 47 Race: Black Ht/Wt: 70 inches/ 237 pounds BSA: 2.24 Tobacco product: Cigarettes Years smoked: Packs/day: Years quit: 1.5 EKG: ECG shows normal sinus rhythm normal axis narrow QRS duration occasional PVCs are noted. With exercise no significant arrhythmias are noted. No significant ST changes are noted. Baseline heart rate: 81 bpm Maximum heart rate: 123 bpm which represents 71% of a maximum predicted heart rate of 171bpm Baseline blood pressure: 126/82 mmHg Maximum blood pressure: 128/68 mmHg Protocol: Aston Exercise time: 14:00 minutes Reason for termination of exercise: Overall fatigue and shortness of breath Isabel score: 17 PULMONARY DATA: MVV (L/min): 118 which represents 76% of predicted value of 154 VE BTPS at VO2 max (L/min): 66.8 FEV1 (L): 2.96 which represents 87% of a predicted value of 3.38 L FVC (L): 3.39 which represents 79% of a predicted value of 4.24 L PETCO2 at baseline: 37 PETCO2 VO2 max: 39 Oxygen saturation at rest: 94% Oxygen saturation at VO2 max: 93% Vd/Vt at rest: 0.32 Vd/Vt at VO2 max: 0.19 Breathing reserve: 43.6% METABOLIC DATA: VO2 max ml/kg/min: 19.0 ml/kg/min which represents 67% of predicted value of 28.5 ml/kg/min. Total VO2 was 2041 mL/min which represents 67% of predicted value of 3061 mL/min RER: 1.13 VE/VCO2 slope: 25.4 VO2 at AT (mL/kg/min): 14.3 O2 pulse at VO2 max (mL/beat): 17 which represents 93% of predicted value of 18 Patient exercised for a total of 5.4 METS Clothing Busheler notes: Patient gave a great effort and truly exercised to maximal capacity. Reports no chest pain. Nurse reported PVC's at rest, no PVC's during exercise. Patient seemed to havea blunted BP response to exercise. Impression: Mild to moderate cardiac limitation to exercise. No pulmonary limitation noted. Ventilatory class: I Gandhi class: B Digitally Signed by Gigi Dugan Digitally Signed by BALJIT EDMONDS MD on 01/23/2023 04:51 PM [id number]* Exam Date Time Procedure Performing Provider Status 01/02/23 9:07 AM Echocardiogram, Adult ([facility]) Auth (Verified) [facility] 06-03-2022 Hospital Discharge instructions Patient Education 09/07/2021 11:51:16 3- Heart Cath/PCI radial (01/2018) (CUSTOM) HEART CATHETERIZATION Discharge Instructions DIET Drink plenty of fluids for the next 48 hours to help your kidneys flush the heart cath dye out of your system ACTIVITY For the next 48 hours: Do not deep bend over head first Do not lift, push, or pull anything over 5 pounds WOUND CARE Keep the dressing on your procedure site for the next 24 hours and then apply a band-aid for 3-4 days Change the Band-Aid daily or if it gets wet/soiled AFTER YOU GO HOME, CALL YOUR DOCTOR FOR: Any increase in bruising or tenderness from the procedure site Any redness, pus, or other signs of infection at the site A temperature above 100.5 Severe pain at the site DIAL 911 AND RETURN TO THE HOSPITAL FOR: Any bleeding from the procedure site. The site may be bruised or tender, but it should not be bleeding at any time. If your site begins to bleed, hold firm pressure on it and dial 911 to return to the hospital Any increase in swelling at the procedure site. An increase in swelling could mean the area is bleeding under the skin. Hold firm pressure to the site and dial 911 to return to the hospital Document Released: 03/24/2006 Document Revised: 03/10/2013 Document Reviewed: 03/25/2014 ExitCare Patient Information 2015 [employer]. This information is not intended to replace advicegiven to you by your health care provider. Make sure you discuss any questions you have with your health care provider. 09/07/2021 11:24:42 Moderate Conscious Sedation, Adult, Care After Moderate Conscious Sedation, Adult, Care After These instructions provide you with information about caring for yourself after your procedure. Your health care provider may also give you more specific instructions. Your treatment has been plannedaccording to current medical practices, but problems sometimes occur. Call your health care provider if you have any problems or questions after your procedure. What can I expect after the procedure? After your procedure, it is common: To feel sleepy for several hours. To feel clumsy and have poor balance for several hours. To have poor judgment for several hours. To vomit if you eat too soon. Follow these instructions at home: For at least 24 hours after the procedure: Do not: ?Participate in activities where you could fall or become injured. ?Drive. ?Use heavy machinery. ?Drink alcohol. ?Take sleeping pills or medicines that cause drowsiness. ?Make important decisions or sign legal documents. ?Take care of children on your own. Rest. Eating and drinking Follow the diet recommended by your health care provider. If you vomit: ?Drink water, juice, or soup when you can drink without vomiting. ?Make sure you have little or no nausea before eating solid foods. General instructions Have a responsible adult stay with you until you are awake and alert. Take tjjh-dba-ejdrtga and prescription medicines only as told by your health care provider. If you smoke, do not smoke without supervision. Keep all follow-up visits as told by your health care provider. This is important. Contact a health care provider if: You keep feeling nauseous or you keep vomiting. You feel light-headed. You develop a rash. You have a fever. Get help right away if: You have trouble breathing. This information is not intended to replace advice given to you by your health care provider. Make sure you discuss any questions you have with your health care provider. Document Released: 01/12/2014 Document Revised: 03/06/2018 Document Reviewed: 07/13/2016 [employer] Patient Education 2020 [employer]. Follow Up Care 08/28/2021 15:32:29 With:BALJIT EDMONDS MD Address: [address] [facility] [place] [address]- [phone] When:09/28/2021 10:00:00 [facility] 01-20-2022 Hospital Discharge instructions Patient Education 04/26/2021 14:28:00 Foot Sprain Foot Sprain A sprain is a stretching or tearing of the ligaments that hold a joint together. There are usually no broken bones. Sprains generally take from 3 to 6 weeks to heal. A sprain may be treated with a splint, walking cast, or special boot. Mild sprains may not need any additional support. Home care The following guidelines will help you care for your injury at home: Keep your leg elevated when sitting or lying down. This is very important during the first 48 hoursto reduce swelling. Stay off the injured foot as much as possible until you can walk on it without pain. If needed, you may use crutches during the first week for this purpose. Crutches can be rentedat many pharmacies or surgical/orthopedic supply stores. You may be given a cast shoe to wear to prevent movement in your foot. If not, you can use a sandalor any shoe that does not put pressure on the injured area until the swelling and pain go away. If using a sandal, be careful not to hit your foot against anything, since another injury could make the sprain worse. Apply an ice pack over the injured area for 15 to 20 minutes every 3 to 6 hours. You should do thisfor the first 24 to 48 hours. You can make an ice pack by filling a plastic bag that seals at the top with ice cubes and then wrapping it with a thin towel. Continue to use ice packs for relief of pain and swelling as needed. As the ice melts, try not to get the wrap, splint, or cast wet. After 48 hours, apply heat from a warm shower or bath for 20 minutes several times daily. Alternating ice andheat may also be helpful. You may use fzby-grw-neqhodx pain medicine to control pain, unless another medicine was prescribed.If you have chronic liver or kidney disease or ever had a stomach ulcer or gastrointestinal bleeding, talk with your healthcare provider before using these medicines. If you were given a splint or cast, keep it dry. Bathe with your splint or cast well out of the water, protected with 2 large plastic bags, sealed with tape or rubber-bands at the top end. If a fiberglass splint or cast gets wet, you can dry it with a math and science division chair on cool setting. You may return to sports after healing, when you can run without pain. Follow-up care Follow up with your healthcare provider as directed. Sometimes fractures don t show up on the firstX-ray. Bruises and sprains can sometimes hurt as much as a fracture. These injuries can take time to heal completely. If your symptoms don t improve or they get worse, talk with your healthcare provider. You may need a repeat X-ray or other tests. When to seek medical advice Call your healthcare provider right away if any of these occur: The plaster cast or splint gets wet or soft The fiberglass cast or splint gets wet and does not dry for 24 hours Pain or swelling increases, or redness appears A bad odor comes from within the cast Fever of 100.4 F (38 C) or above lasting for 24 to 48 hours, or as advised Chills Toes on the injured foot become cold, blue, numb, or tingly [id number] [employer]. [address] [place] [address]. All rights reserved. This information is not intended as a substitute for professional medical care. Always follow yourhealthcare professional's instructions. Follow Up Care 04/26/2021 12:21:20 With:Call Physician Referral Address:Unknown When:2-4 days [facility] 11-24-2021 History of Present illness Narrative* 45 year old male here for heart failure follow-up. * PM/SHx: NICM, DVT, HIT, PE * Social Hx: Former smoker quit 6 months ago, denies ETOH, illicit drug use * Family Hx: Mother- CHF * Interval Hx: * Currently denies chest pain, palpitations, shortness of breath, orthopnea, PND. No edema noted in BLE. Patient denies headaches, dizziness or recent falls. * Paitent states dyspnea on exertion when walking up his apartment stairs. * Hospitalizations: Last hospitalization in October 2019 for advanced therapies workout. * Medication adherence: Take as prescribed * Diet adherence: Follows regular diet * Exercise: Workout 1 hour at the gym 3-4 times a week, and walks. [facility] [address] Work Phone: [phone]) 482-682511-17-2021 History of Present illness Narrative* Patient identification verified with 2 patient identifiers. * Anticoagulation Monitoring Service: [facility]. * Enrollment/Re-enrollment date: October 13, 2021. * The patient is being seen as a follow-up for anticoagulation monitoring. * Target INR 2-3. Monitoring practitioner Shi Grove MD. * Date Warfarin Begun: October 31, 2019. * INR monitoring is per [facility] protocol. 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 * The patient is currently taking warfarin Tablet strength and color: 5 mg(Manati) * Interval History: * Patient was last seen: January 23, 2021. * Previous INR was 2.8. * Incoming total weekly dose 42.5 mg. * [facility] INR: [facility] INR 3. * Since last visit, the patient reports no bleeding. * The patient did not experience clinically relevant bleeding. * The patient did not experience other minor bleeding. * Since last visit, the patient has not experienced a thrombotic event. * The patient reports no change in medication. * He reports no change in alcohol consumption. * He reports no change in Vitamin K consumption. * The patient has taken Warfarin as directed. * Management: The patient's INR is within target range. Will maintain dose. * The patient is not currently being bridged. * Next follow up appointment in 4 week(s). * Outgoing total weekly dose 42.5 mg. * Patient instructed to call in interim with questions, concerns and changes. Anticoagulation Monitoring Service-[facility] Work Phone: [phone] History of Present illness Narrative* Patient identification verified with 2 patient identifiers. * Anticoagulation Monitoring Service: [facility]. * Enrollment/Re-enrollment date: October 13, 2021. * The patient is being seen as a follow-up for anticoagulation monitoring. * Target INR 2-3. Monitoring practitioner Shi Grove MD. * Date Warfarin Begun: October 31, 2019. * INR monitoring is per [facility] protocol. 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 * The patient is currently taking warfarin Tablet strength and color: 5 mg(Manati) * Interval History: * Patient was last seen: January 16, 2021. * Previous INR was 3.1. * Incoming total weekly dose 42.5 mg. * Today's Clinic INR: [facility] INR 2.8. * Since last visit, the patient reports no bleeding. * The patient did not experience clinically relevant bleeding. * The patient did not experience other minor bleeding. * Since last visit, the patient has not experienced a thrombotic event. * The patient reports no change in medication. * He reports no change in alcohol consumption. * He reports no change in Vitamin K consumption. * The patient has taken Warfarin as directed. * Management: The patient's INR is within target range. Will maintain dose. * The patient is not currently being bridged. * Next follow up appointment in 4 week(s). * Outgoing total weekly dose 42.5 mg. * Patient instructed to call in interim with questions, concerns and changes. Patient educated on interactions between medications and warfarin. Patient educated on dietary consistency in vitamin k consumption. Patient educated on affects of alcohol consumption while taking warfarin. Patient educatedon signs of bleeding/clotting. Patient educated on compliance with dosing, follow up appointments, and prescribed plan of care. [facility] [address] [place] Work Phone: [phone]) [phone] History of Present illness Narrative* Patient identification verified with 2 patient identifiers. * Anticoagulation Monitoring Service: [facility]. * Enrollment/Re-enrollment date: October 31, 2020. * Re-enrollment fax was sent to Shi Grove MD * The patient is being seen as a follow-up for anticoagulation monitoring. * Patient had CBC on November 06, 2019: H&H 15.6/45.8 * Patient referred to [facility] by Eddie Whitlock MD * Target INR 2-3. Monitoring practitioner Shi Grove MD. * Date Warfarin Begun: October 31, 2019. * INR monitoring is per [facility] protocol. 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 * The patient is currently taking warfarin Tablet strength and color: 5 mg(Manati) * Interval History: * Patient was last seen: October 13, 2020. * Previous INR was 2.6. * Incoming total weekly dose 42.5 mg. * Today's Clinic INR: [facility] INR 2.8. * Since last visit, the patient reports no bleeding. * The patient did not experience clinically relevant bleeding. * The patient did not experience other minor bleeding. * Since last visit, the patient has not experienced a thrombotic event. * The patient reports no change in medication. * He reports no change in alcohol consumption. * He reports no change in Vitamin K consumption. * The patient has taken Warfarin as directed. * Management: The patient's INR is within target range. Will maintain dose. * Next follow up appointment in 4 week(s). * Outgoing total weekly dose 42.5 mg. * Patient instructed to call in interim with questions, concerns and changes. Patient educated on interactions between medications and warfarin. Anticoagulation Monitoring Service-[place] Work Phone: [phone] History of Present illness Narrative* 45 year old male here for heart failure follow-up. * PM/SHx: NICM, DVT, HIT, PE * Social Hx: Former smoker quit 6 months ago, denies ETOH, illicit drug use * Family Hx: Mother- CHF * Interval Hx: * denies fatigue, chest pain, palpitations, shortness of breath, dyspnea on exertion, orthopnea, PND.No edema noted in BLE. * Denies headaches, dizziness, falls. * Hospitalizations: Last hospitalization in October 2019 for advanced therapies workout. * Medication adherence: Take as prescribed * Diet adherence: Follows regular diet * Exercise: Workout 1 hour at the gym 3-4 times a week, and walks. [facility] [address] Work Phone: [phone] History of Present illness Narrative* Patient identification verified with 2 patient identifiers. * Anticoagulation Monitoring Service: [facility]. * Enrollment/Re-enrollment date: October 31, 2020. * The patient is being seen as a follow-up for anticoagulation monitoring. * Patient had CBC on November 06, 2019: H&H 15.6/45.8 * Patient referred to [facility] by Eddie Whitlock MD * Target INR 2-3. Monitoring practitioner Shi Grove MD. * Date Warfarin Begun: October 31, 2019. * INR monitoring is per [facility] protocol. 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 * The patient is currently taking warfarin Tablet strength and color: 5 mg(Manati) * Interval History: * Patient was last seen: August 17, 2020. * Previous INR was 2.9. * Incoming total weekly dose 42.5 mg. * Today's Clinic INR: [facility] INR 2. * Since last visit, the patient reports no bleeding. * The patient did not experience clinically relevant bleeding. * The patient did not experience other minor bleeding. * Since last visit, the patient has not experienced a thrombotic event. * The patient reports no change in medication. * He reports no change in alcohol consumption. * He reports no change in Vitamin K consumption. * The patient has taken Warfarin as directed. * Management: The patient's INR is within target range. Will maintain dose. * Next follow up appointment in 4 week(s). * Outgoing total weekly dose 42.5 mg. * Patient instructed to call in interim with questions, concerns and changes. Patient educated on dietary consistency in vitamin k consumption. Patient educated on signs of bleeding/clotting. [facility]tico[facility] Work Phone: [phone] History of Present illness Narrative* Patient identification verified with 2 patient identifiers. * Anticoagulation Monitoring Service: [facility]. * Enrollment/Re-enrollment date: October 13, 2021. * The patient is being seen as a follow-up for anticoagulation monitoring. * Patient had CBC on November 06, 2019: H&H 15.6/45.8 * Patient referred to [facility] by Eddie Whitlock MD * Target INR 2-3. Monitoring practitioner Shi Grove MD. * Date Warfarin Begun: October 31, 2019. * INR monitoring is per [facility] protocol. 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 * The patient is currently taking warfarin Tablet strength and color: 5 mg(Manati) * Interval History: * Patient was last seen: November 10, 2020. * Previous INR was 2.8. * Incoming total weekly dose 42.5 mg. * [facility] Clinic INR: [facility] INR 2.4. * Since last visit, the patient reports no bleeding. * The patient did not experience clinically relevant bleeding. * The patient did not experience other minor bleeding. * Since last visit, the patient has not experienced a thrombotic event. * Patient was evaluated at the end of November at the [facility] for nausea and vomiting and dehydration. Patient reports that he was given a PRN anti-nausea medication and discharged home. Patient states that several days later patient was re-evaluated in [facility] for same symptoms and give IV hydration and discharged home. * The patient reports a change in medication. Patient reports that his dose of Coreg was doubled approximately 10 days ago. * He reports no change in alcohol consumption. * He reports no change in Vitamin K consumption. * The patient has taken Warfarin as directed. * Management: The patient's INR is within target range. Will maintain dose. * Next follow up appointment in 4 week(s). * Outgoing total weekly dose 42.5 mg. * Patient instructed to call in interim with questions, concerns and changes. Patient educated on interactions between medications and warfarin. Patient educated on signs of bleeding/clotting. Patient educated on compliance with dosing, follow up appointments, and prescribed plan of care. Anticoagulation Monitoring [facility] [employer] Phone: [phone] History of Present illness Narrative* Patient identification verified with 2 patient identifiers. * Anticoagulation Monitoring Service: [facility]. * Enrollment/Re-enrollment date: October 13, 2021. * The patient is being seen as a follow-up for anticoagulation monitoring. * Patient had CBC on November 06, 2019: H&H 15.6/45.8 * Patient referred to [facility] by Eddie Whitlock MD * Target INR 2-3. Monitoring practitioner Shi Grove MD. * Date Warfarin Begun: October 31, 2019. * INR monitoring is per [facility] protocol. 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 * The patient is currently taking warfarin Tablet strength and color: 5 mg(Manati) * Interval History: * Patient was last seen: December 15, 2020. * Previous INR was 2.4. * Incoming total weekly dose 42.5 mg. * Today's Clinic INR: [facility] INR 3.1. * Since last visit, the patient reports no bleeding. * The patient did not experience clinically relevant bleeding. * The patient did not experience other minor bleeding. * Since last visit, the patient has not experienced a thrombotic event. * The patient reports no change in medication. * He reports no change in alcohol consumption. * He reports no change in Vitamin K consumption. * The patient did not take Warfarin as directed. He took an extra tablet by mistake. PT TOOK 7.5MG MAURISIO 5MG DAY. * Management: The patient's INR is supratherapeutic. Will maintain current dose. * Next follow up appointment in 1 week(s). IF THERAPEUTIC AT NEXT VISIT PT MAY RTC IN 4 WEEKS. * Outgoing total weekly dose 42.5 mg. * Patient instructed to call in interim with questions, concerns and changes. Patient educated on compliance with dosing, follow up appointments, and prescribed plan of care. [facility]ticoagulation Monitoring [facility] [employer] Phone: [phone] History of Present illness Narrative* Patient identification verified with 2 patient identifiers. * Anticoagulation Monitoring Service: [facility]. * Enrollment/Re-enrollment date: October 13, 2021. * The patient is being seen as a follow-up for anticoagulation monitoring. * Patient had CBC on November 06, 2019: H&H 15.6/45.8 * Patient referred to [facility] by Eddie Whitlock MD * Target INR 2-3. Monitoring practitioner Shi Grove MD. * Date Warfarin Begun: October 31, 2019. * INR monitoring is per [facility] protocol. 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 * The patient is currently taking warfarin Tablet strength and color: 5 mg(Manati) * Interval History: * Patient was last seen: March 21, 2021. * Previous INR was 3.1. TWD of warfarin was maintained at time of last appointment. * Incoming total weekly dose 42.5 mg. * Today's Clinic INR: [facility] INR 4.2. * Since last visit, the patient reports no bleeding. * The patient did not experience clinically relevant bleeding. * The patient did not experience other minor bleeding. * Since last visit, the patient has not experienced a thrombotic event. * The patient reports a change in medication. * The patient stopped or started OTC and/or herbal medication. Patient reports that he has been taking ibuprofen/PRN; advised patient to switch to acetaminophen. * He reports no change in alcohol consumption. * He reports no change in Vitamin K consumption. * The patient has taken Warfarin as directed. * Management: The patient's INR is supratherapeutic. Hold 2 doses. Will decrease dose per protocol byapproximately 15%. * Next follow up appointment in 1 week(s). * Outgoing total weekly dose 37.5 mg. * Patient instructed to call in interim with questions, concerns and changes. Patient educated on interactions between medications and warfarin. Patient educated on signs of bleeding/clotting. Patient educated on compliance with dosing, follow up appointments, and prescribed plan of care. [facility]ticoagulation Monitoring [facility] [employer] Phone: [phone] History of Present illness Narrative* Patient identification verified with 2 patient identifiers. * Anticoagulation Monitoring Service: [facility]. * Enrollment/Re-enrollment date: October 13, 2021. * The patient is being seen as a follow-up for anticoagulation monitoring. * Patient had CBC on November 06, 2019: H&H 15.6/45.8 * Patient referred to [facility] by Eddie Whitlock MD * Target INR 2-3. Monitoring practitioner Shi Grove MD. * Date Warfarin Begun: October 31, 2019. * INR monitoring is per [facility] protocol. 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 * The patient is currently taking warfarin Tablet strength and color: 5 mg(Manati) * Interval History: * Patient was last seen: April 02, 2021. * Previous INR was 4.2. * Incoming total weekly dose 42.5 mg. * Today's Clinic INR: [facility] INR . * Since last visit, the patient reports no bleeding. * The patient did not experience clinically relevant bleeding. * The patient did not experience other minor bleeding. * Since last visit, the patient has not experienced a thrombotic event. * The patient reports a change in medication. * The patient stopped or started OTC and/or herbal medication. Patient reports that he has been taking ibuprofen/PRN; advised patient to switch to acetaminophen. * He reports no change in alcohol consumption. * He reports no change in Vitamin K consumption. * The patient has taken Warfarin as directed. * Management: The patient's INR is supratherapeutic. Hold 2 doses. Will decrease dose per protocol byapproximately 15%. * Next follow up appointment in 1 week(s). * Outgoing total weekly dose 37.5 mg. * Patient instructed to call in interim with questions, concerns and changes. Patient educated on interactions between medications and warfarin. Patient educated on signs of bleeding/clotting. Patient educated on compliance with dosing, follow up appointments, and prescribed plan of care. [facility]tico[facility] Monitoring [facility] [facility] Phone: [phone] History of Present illness Narrative* Patient identification verified with 2 patient identifiers. * Anticoagulation Monitoring Service: [facility]. * Enrollment/Re-enrollment date: October 11, 2021. * The patient is being seen as a follow-up for anticoagulation monitoring. * Patient had CBC on November 06, 2019: H&H 15.6/45.8 * Patient referred to [facility] by Eddie Whitlock MD * Target INR 2-3. Monitoring practitioner Shi Grove MD. * Date Warfarin Begun: October 31, 2019. * INR monitoring is per [facility] protocol. 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 * The patient is currently taking warfarin Tablet strength and color: 5 mg(Manati) * Interval History: * Patient was last seen: April 17, 2021. * Previous INR was 2.4. * Incoming total weekly dose 37.5 mg. * Today's Clinic INR: [facility] INR 2.8. * Since last visit, the patient reports no bleeding. * The patient did not experience clinically relevant bleeding. * The patient did not experience other minor bleeding. * Since last visit, the patient has not experienced a thrombotic event. * The patient reports a change in medication. Patient reports that he will begin taking Farxiga 10mg/daily; He has not yet heard back doctor when he should start. * He reports no change in alcohol consumption. * He reports no change in Vitamin K consumption. * The patient has taken Warfarin as directed. * Management: The patient's INR is within target range. Will maintain dose. * Next follow up appointment in 2 week(s). * Outgoing total weekly dose 37.5 mg. * Patient instructed to call in interim with questions, concerns and changes. Patient educated on interactions between medications and warfarin. Patient educated on signs of bleeding/clotting. Anticoagulation Monitoring [facility] [facility] Phone: [phone] History of Present illness Narrative* Patient identification verified with 2 patient identifiers. * Anticoagulation Monitoring Service: [facility]. * Enrollment/Re-enrollment date: October 11, 2021. * The patient is being seen as a follow-up for anticoagulation monitoring. * Patient had CBC on November 06, 2019: H&H 15.6/45.8 * Patient referred to [facility] by Eddie Whitlock MD * Target INR 2-3. Monitoring practitioner Shi Grove MD. * Date Warfarin Begun: October 31, 2019. * INR monitoring is per [facility] protocol. 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 * The patient is currently taking warfarin Tablet strength and color: 5 mg(Manati) * Interval History: * Patient was last seen: April 27, 2021. * Previous INR was 2.8. * Incoming total weekly dose 37.5 mg. * Today's Clinic INR: [facility] INR 4.0. * Since last visit, the patient reports no bleeding. * The patient did not experience clinically relevant bleeding. * The patient did not experience other minor bleeding. * Since last visit, the patient has not experienced a thrombotic event. * The patient reports a change in medication. Pt started taking Farxiga this past week. * He reports no change in alcohol consumption. * He reports no change in Vitamin K consumption. Pt states his salad intake has decreased this past week. * The patient has taken Warfarin as directed. * Management: The patient's INR is supratherapeutic. Hold 2 doses. Will decrease dose per protocol byapproximately * Next follow up appointment in 2 week(s). * Outgoing total weekly dose 37.5 mg. * Patient instructed to call in interim with questions, concerns and changes. Patient educated on interactions between medications and warfarin. Patient educated on signs of bleeding/clotting. Anticoagulation Monitoring [facility] Work Phone: [phone] History of Present illness Narrative* Patient identification verified with 2 patient identifiers. * Anticoagulation Monitoring Service: [facility]. * Enrollment/Re-enrollment date: October 11, 2021. * The patient is being seen as a follow-up for anticoagulation monitoring. * Patient had CBC on November 06, 2019: H&H 15.6/45.8 * Patient referred to [facility] by Eddie Whitlock MD * Target INR 2-3. Monitoring practitioner Shi Grove MD. * Date Warfarin Begun: October 31, 2019. * INR monitoring is per [facility] protocol. 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 * The patient is currently taking warfarin Tablet strength and color: 5 mg(Manati) * Interval History: * Patient was last seen: May 15, 2021. * Previous INR was 4. * Incoming total weekly dose 35 mg. * Today's Clinic INR: [facility] INR 1.8. * Since last visit, the patient reports no bleeding. * The patient did not experience clinically relevant bleeding. * The patient did not experience other minor bleeding. * Since last visit, the patient has not experienced a thrombotic event. * The patient reports no change in medication. Pt started taking Farxiga this past week. * He reports no change in alcohol consumption. * He reports no change in Vitamin K consumption. * The patient has taken Warfarin as directed. * Management: The patient's INR is subtherapeutic. Will increase dose per protocol by approximately 5%. * Next follow up appointment in 1 week(s). * Outgoing total weekly dose 37.5 mg. * Patient instructed to call in interim with questions, concerns and changes. Patient educated on interactions between medications and warfarin. Patient educated on signs of bleeding/clotting. Anticoagulation Monitoring [facility] Work Phone: [phone] History of Present illness Narrative* Patient identification verified with 2 patient identifiers. * Anticoagulation Monitoring Service: [facility]. * Enrollment/Re-enrollment date: October 11, 2021. * The patient is being seen as a follow-up for anticoagulation monitoring. * Patient had CBC on November 06, 2019: H&H 15.6/45.8 * Patient referred to [facility] by Eddie Whitlock MD * Target INR 2-3. Monitoring practitioner Shi Grove MD. * Date Warfarin Begun: October 31, 2019. * INR monitoring is per [facility] protocol. 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 * The patient is currently taking warfarin Tablet strength and color: 5 mg(Manati) * Interval History: * Patient was last seen: May 22, 2021. * Previous INR was 1.8. * Incoming total weekly dose 37.5 mg. * Today's Clinic INR: [facility] INR 2.9. * Since last visit, the patient reports no bleeding. * The patient did not experience clinically relevant bleeding. * The patient did not experience other minor bleeding. * Since last visit, the patient has not experienced a thrombotic event. * The patient reports no change in medication. Pt started taking Farxiga this past week 2weeks ago. * He reports no change in alcohol consumption. * He reports no change in Vitamin K consumption. * The patient has taken Warfarin as directed. * Management: The patient's INR is within target range. Will maintain dose. * Next follow up appointment in 1 week(s). * Outgoing total weekly dose 37.5 mg. * Patient instructed to call in interim with questions, concerns and changes. Patient educated on interactions between medications and warfarin. Patient educated on signs of bleeding/clotting. Anticoagulation Monitoring Service-[employer] Phone: [phone] History of Present illness Narrative* Patient identification verified with 2 patient identifiers. * Anticoagulation Monitoring Service: [facility]. * Enrollment/Re-enrollment date: October 11, 2021. * The patient is being seen as a follow-up for anticoagulation monitoring. * Patient had CBC on November 06, 2019: H&H 15.6/45.8 * Patient referred to [facility] by Eddie Whitlock MD * Target INR 2-3. Monitoring practitioner Shi Grove MD. * Date Warfarin Begun: October 31, 2019. * INR monitoring is per [facility] protocol. 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 * The patient is currently taking warfarin Tablet strength and color: 5 mg(Manati) * Interval History: * Patient was last seen: June 05, 2021. * Previous INR was 2.3. * Incoming total weekly dose 37.5 mg. * Today's Clinic INR: [facility] INR 3. * Since last visit, the patient reports no bleeding. * The patient did not experience clinically relevant bleeding. * The patient did not experience other minor bleeding. * Since last visit, the patient has not experienced a thrombotic event. * The patient reports no change in medication. * He reports no change in alcohol consumption. * He reports no change in Vitamin K consumption. * The patient has taken Warfarin as directed. * Management: The patient's INR is within target range. Will maintain dose. * Next follow up appointment in 2 week(s). * Outgoing total weekly dose 37.5 mg. * Patient instructed to call in interim with questions, concerns and changes. Patient educated on interactions between medications and warfarin. Patient educated on signs of bleeding/clotting. Anticoagulation Monitoring Service-[employer] Phone: [phone] History of Present illness Narrative* Patient identification verified with 2 patient identifiers. * Anticoagulation Monitoring Service: [facility]. * Enrollment/Re-enrollment date: October 11, 2021. * The patient is being seen as a follow-up for anticoagulation monitoring. * Patient had CBC on November 06, 2019: H&H 15.6/45.8 * Patient referred to [facility] by Eddie Whitlock MD * Target INR 2-3. Monitoring practitioner Shi Grove MD. * Date Warfarin Begun: October 31, 2019. * INR monitoring is per [facility] protocol. 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 * The patient is currently taking warfarin Tablet strength and color: 5 mg(Manati) * Interval History: * Patient was last seen: June 19, 2021. * Previous INR was 3. * Incoming total weekly dose 37.5 mg. * Today's Clinic INR: [facility] INR 5.0. * Since last visit, the patient reports no bleeding. * The patient did not experience clinically relevant bleeding. * The patient did not experience other minor bleeding. * Since last visit, the patient has not experienced a thrombotic event. * The patient reports no change in medication. * He reports a change in alcohol consumption. Pt had mixed drinks last night. He stated he typically does not drink alcohol during the week. * He reports no change in Vitamin K consumption. * The patient has taken Warfarin as directed. * Management: The patient's INR is supratherapeutic. The INR is greater than 5, Dr. Grove was contacted and discussed plan. Hold 2 doses. Will maintain current dose. Dr. Grove notified of INR result via [employer]. He agrees with dosing and POC. * Next follow up appointment in 3 day(s). * Outgoing total weekly dose 37.5 mg. * Patient instructed to call in interim with questions, concerns and changes. Patient educated on interactions between medications and warfarin. Patient educated on signs of bleeding/clotting. [facility] [facility] Phone: [phone] History of Present illness Narrative* Patient identification verified with 2 patient identifiers. * Anticoagulation Monitoring Service: [facility]. * Enrollment/Re-enrollment date: October 12, 2023. * The patient is being seen as a follow-up for anticoagulation monitoring. * Patient had CBC on November 06, 2019: H&H 15.6/45.8 * Patient referred to [facility] by Eddie Whitlock MD * Target INR 2-3. Monitoring practitioner Shi Grove MD. * Date Warfarin Begun: October 31, 2019. * INR monitoring is per [facility] protocol. 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 * The patient is currently taking warfarin Tablet strength and color: 5 mg(Manati) * Interval History: * Patient was last seen: July 03, 2021. * Previous INR was 5. Two doses of warfarin were held and TWD was maintained at time of last appointment per orders received directly from Dr. Grove. * Incoming total weekly dose 37.5 mg. * Today's Clinic INR: [facility] INR 1.5. * Since last visit, the patient reports no bleeding. * The patient did not experience clinically relevant bleeding. * The patient did not experience other minor bleeding. * Since last visit, the patient has not experienced a thrombotic event. * The patient reports a change in medication. * The patient stopped or started OTC and/or herbal medication. Patient reports that he has been taking OTC allergy medications and Tylenol PM. * He reports a change in alcohol consumption. Previously supratherapeutic INR thought to be results of alcohol consumption on evening prior to POCT appointment. * He reports no change in Vitamin K consumption. * The patient has taken Warfarin as directed. See above notations. * Management: The patient's INR is subtherapeutic. Will maintain dose. * Next follow up appointment in 3-5 day(s). * Outgoing total weekly dose 37.5 mg. * Patient instructed to call in interim with questions, concerns and changes. Patient educated on interactions between medications and warfarin. Patient educated on affects of alcohol consumption whiletaking warfarin. Patient educated on signs of bleeding/clotting. Patient educated on compliance with dosing, follow up appointments, and prescribed plan of care. Anticoagulation Monitoring [facility] Work Phone: [phone] History of Present illness Narrative* Patient identification verified with 2 patient identifiers. * Anticoagulation Monitoring Service: [facility]. * Enrollment/Re-enrollment date: October 12, 2023. * The patient is being seen as a follow-up for anticoagulation monitoring. * Patient had CBC on November 06, 2019: H&H 15.6/45.8 * Patient referred to [facility] by Eddie Whitlock MD * Target INR 2-3. Monitoring practitioner Shi Grove MD. * Date Warfarin Begun: October 31, 2019. * INR monitoring is per [facility] protocol. 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 * The patient is currently taking warfarin Tablet strength and color: 5 mg(Manati) * Interval History: * Patient was last seen: July 06, 2021. * Previous INR was 1.5. * Incoming total weekly dose 37.5 mg. * Today's Clinic INR: [facility] INR 1.9. * Since last visit, the patient reports no bleeding. * The patient did not experience clinically relevant bleeding. * The patient did not experience other minor bleeding. * Since last visit, the patient has not experienced a thrombotic event. * The patient reports a change in medication. * The patient stopped or started OTC and/or herbal medication. Patient reports that he has been taking OTC allergy medications and Tylenol PM. * He reports no change in alcohol consumption. * He reports no change in Vitamin K consumption. * The patient has taken Warfarin as directed. See above notations. * Management: The patient's INR is subtherapeutic. Will increase dose per protocol by approximately 5%. * Next follow up appointment in 1 week(s). * Outgoing total weekly dose 40 mg. * Patient instructed to call in interim with questions, concerns and changes. Patient educated on interactions between medications and warfarin. Patient educated on affects of alcohol consumption whiletaking warfarin. Patient educated on signs of bleeding/clotting. Patient educated on compliance with dosing, follow up appointments, and prescribed plan of care. Anticoagulation Monitoring [facility] Work Phone: [phone] History of Present illness Narrative* Patient identification verified with 2 patient identifiers. * Anticoagulation Monitoring Service: [facility]. * Enrollment/Re-enrollment date: October 12, 2023. * The patient is being seen as a follow-up for anticoagulation monitoring. * Patient had CBC on November 06, 2019: H&H 15.6/45.8 * Patient referred to [facility] by Eddie Whitlock MD * Target INR 2-3. Monitoring practitioner Shi Grove MD. * Date Warfarin Begun: October 31, 2019. * INR monitoring is per [facility] protocol. 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 * The patient is currently taking warfarin Tablet strength and color: 5 mg(Manati) * Interval History: * Patient was last seen: July 11, 2021. * Previous INR was 1.9. * Incoming total weekly dose 40 mg. * Today's Clinic INR: [facility] INR 2.5. * Since last visit, the patient reports no bleeding. * The patient did not experience clinically relevant bleeding. * The patient did not experience other minor bleeding. * Since last visit, the patient has not experienced a thrombotic event. * The patient reports a change in medication. * The patient stopped or started OTC and/or herbal medication. Patient reports that he has been taking OTC allergy medications and Tylenol PM. * He reports no change in alcohol consumption. * He reports no change in Vitamin K consumption. * The patient has taken Warfarin as directed. * Management: The patient's INR is within target range. Will maintain dose. * Next follow up appointment in 1 week(s). * Outgoing total weekly dose 40 mg. * Patient instructed to call in interim with questions, concerns and changes. Patient educated on interactions between medications and warfarin. Patient educated on affects of alcohol consumption whiletaking warfarin. Patient educated on signs of bleeding/clotting. Patient educated on compliance with dosing, follow up appointments, and prescribed plan of care. [facility] Work Phone: [phone] History of Present illness Narrative* Patient identification verified with 2 patient identifiers. * Anticoagulation Monitoring Service: [facility]. * Enrollment/Re-enrollment date: October 12, 2023. * The patient is being seen as a follow-up for anticoagulation monitoring. * Patient had CBC on November 06, 2019: H&H 15.6/45.8 * Patient referred to [facility] by Eddie Whitlock MD * Target INR 2-3. Monitoring practitioner Shi Grove MD. * Date Warfarin Begun: October 31, 2019. * INR monitoring is per [facility] protocol. 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 * The patient is currently taking warfarin Tablet strength and color: 5 mg(Manati) * Interval History: * Patient was last seen: July 27, 2021. * Previous INR was 2.6. * Incoming total weekly dose 40 mg. * Today's Clinic INR: [facility] INR 2.4. * Since last visit, the patient reports no bleeding. * The patient did not experience clinically relevant bleeding. * The patient did not experience other minor bleeding. * Since last visit, the patient has not experienced a thrombotic event. * The patient reports no change in medication. * He reports no change in alcohol consumption. * He reports no change in Vitamin K consumption. * The patient has taken Warfarin as directed. * Management: The patient's INR is within target range. Will maintain dose. * Next follow up appointment in 2 week(s). * Outgoing total weekly dose 40 mg. * Patient instructed to call in interim with questions, concerns and changes. [facility] [employer] Phone: [phone] History of Present illness Narrative* Patient identification verified with 2 patient identifiers. * Anticoagulation Monitoring Service: [facility]. * Enrollment/Re-enrollment date: October 13, 2021. * The patient is being seen as a follow-up for anticoagulation monitoring. * Patient had CBC on November 06, 2019: H&H 15.6/45.8 * Patient referred to [facility] by Eddie Whitlock MD * Target INR 2-3. Monitoring practitioner Shi Grove MD. * Date Warfarin Begun: October 31, 2019. * INR monitoring is per [facility] protocol. 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 * The patient is currently taking warfarin Tablet strength and color: 5 mg(Manati) * Interval History: * Patient was last seen: August 10, 2021. * Previous INR was 2.4. * Incoming total weekly dose 40 mg. * Today's Clinic INR: [facility] INR 2.5. * Since last visit, the patient reports no bleeding. * The patient did not experience clinically relevant bleeding. * The patient did not experience other minor bleeding. * Since last visit, the patient has not experienced a thrombotic event. * The patient reports no change in medication. * He reports no change in alcohol consumption. * He reports no change in Vitamin K consumption. * The patient has taken Warfarin as directed. * Management: The patient's INR is within target range. Will maintain dose. * Next follow up appointment in 4 week(s). * Outgoing total weekly dose 40 mg. * Patient instructed to call in interim with questions, concerns and changes. Patient educated on signs of bleeding/clotting. Patient educated on compliance with dosing, follow up appointments, and prescribed plan of care. [facility] Work Phone: [phone] History of Present illness Narrative* Patient identification verified with 2 patient identifiers. * Anticoagulation Monitoring Service: [facility]. * Enrollment/Re-enrollment date: October 03, 2022. * The patient is being seen as a follow-up for anticoagulation monitoring. * Patient had CBC on November 06, 2019: H&H 15.6/45.8 * Patient referred to [facility] by Eddie Whitlock MD * Target INR 2-3. Monitoring practitioner Shi Grove MD. * Date Warfarin Begun: October 31, 2019. * INR monitoring is per [facility] protocol. 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 * The patient is currently taking warfarin Tablet strength and color: 5 mg(Manati) * Interval History: * Patient was last seen: September 28, 2021. * Previous INR was 2.5. * Incoming total weekly dose 40 mg. * Today's Clinic INR: [facility] INR 1.8. * Since last visit, the patient reports no bleeding. * The patient did not experience clinically relevant bleeding. * The patient did not experience other minor bleeding. * Since last visit, the patient has not experienced a thrombotic event. * The patient reports no change in medication. * He reports no change in alcohol consumption. * He reports no change in Vitamin K consumption. * The patient did not take Warfarin as directed. He reports a dose was missed since last visit. Patient reports that he is unsure as to whether or not he took his dose of warfarin two evenings ago; this could be contributing to depression in INR. * Management: The patient's INR is subtherapeutic. Will maintain dose. * Next follow up appointment in 1 week(s). * Outgoing total weekly dose 40 mg. * Patient instructed to call in interim with questions, concerns and changes. Patient educated on signs of bleeding/clotting. Patient educated on compliance with dosing, follow up appointments, and prescribed plan of care. [facility] Work Phone: [phone] History of Present illness Narrative* Patient identification verified with 2 patient identifiers. * Anticoagulation Monitoring Service: [facility]. * Enrollment/Re-enrollment date: October 03, 2022. * The patient is being seen as a follow-up for anticoagulation monitoring. * Patient had CBC on November 06, 2019: H&H 15.6/45.8 * Patient referred to [facility] by Eddie Whitlock MD * Target INR 2-3. Monitoring practitioner Shi Grove MD. * Date Warfarin Begun: October 31, 2019. * INR monitoring is per [facility] protocol. 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 * The patient is currently taking warfarin Tablet strength and color: 5 mg(Manati) * Interval History: * Patient was last seen: October 31, 2021. * Previous INR was 1.8. TWD of warfarin was maintained at time of last appointment. * Incoming total weekly dose 40 mg. * Today's Clinic INR: [facility] INR 2.7. * Since last visit, the patient reports no bleeding. * The patient did not experience clinically relevant bleeding. * The patient did not experience other minor bleeding. * Since last visit, the patient has not experienced a thrombotic event. * The patient reports no change in medication. * He reports no change in alcohol consumption. * He reports no change in Vitamin K consumption. * The patient has taken Warfarin as directed. * Management: The patient's INR is within target range. Will maintain dose. * Next follow up appointment in 2 week(s). * Outgoing total weekly dose 40 mg. * Patient instructed to call in interim with questions, concerns and changes. [facility] [employer] Phone: [phone] History of Present illness Narrative* Patient identification verified with 2 patient identifiers. * Anticoagulation Monitoring Service: [facility]. * Enrollment/Re-enrollment date: October 03, 2022. * The patient is being seen as a follow-up for anticoagulation monitoring. * Patient had CBC on November 06, 2019: H&H 15.6/45.8 * Patient referred to [facility] by Eddie Whitlock MD * Target INR 2-3. Monitoring practitioner Shi Grove MD. * Date Warfarin Begun: October 31, 2019. * INR monitoring is per [facility] protocol. 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 * The patient is currently taking warfarin Tablet strength and color: 5 mg(Manati) * Interval History: * Patient was last seen: November 07, 2021. * Previous INR was 2.7. * Incoming total weekly dose 40 mg. * Today's Clinic INR: [facility] INR 2.1. * Since last visit, the patient reports no bleeding. * The patient did not experience clinically relevant bleeding. * The patient did not experience other minor bleeding. * Since last visit, the patient has not experienced a thrombotic event. * The patient reports no change in medication. * He reports no change in alcohol consumption. * He reports no change in Vitamin K consumption. * The patient has taken Warfarin as directed. * Management: The patient's INR is within target range. Will maintain dose. * Next follow up appointment in 4 week(s). * Outgoing total weekly dose 40 mg. * Patient instructed to call in interim with questions, concerns and changes. [facility] Phone: [phone] History of Present illness Narrative* 44 year old male here for heart failure follow-up. Accompanied by his mother. 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 * He has not been hospitalized in the last 6 months. * He denies chest pain, palpitations, shortness of breath, dyspnea on exertion, orthopnea, PND. No edema noted in BLE. * Denies headaches, dizziness, falls. * His activity tolerance has improved. He walks on a treadmill for exercise. * The patient presents with. The patient's last LV ejection fraction was 15%. Echo 12/21/19. He has nosignificant interval events. * Symptoms: improved lower extremity edema, improved dyspnea on exertion, denies fatigue, denies exercise intolerance, denies orthopnea and denies paroxysmal nocturnal dyspnea. [facility] [address] Work Phone: chief complaint Narrative - ReportedSEBLE MALONE is being seen for a 8 month follow-up of heart failure and a routine medication evaluation.[facility] [address] Work Phone: chief complaint Narrative - ReportedSEBLE MALONE is being seen for a 5 month follow-up of heart failure and a routine medication evaluation.[facility] [address] Work Phone: chief complaint Narrative - ReportedSEBLE MALONE is being seen for a 5 month follow-up of heart failure and a routine medication evaluation.[facility] [address] Work Phone: Evaluation + Plan note Future Appointments Appointment Date:02/27/2021 10:15:00 AM Scheduled Provider: Location:[facility] Appointment Type:CV Remote Procedure Future Scheduled Tests Laboratory* Complete Blood Count 08/29/20 * Complete Metabolic Panel 08/29/20 [facility] Evaluation + Plan note Future Appointments Appointment Date:05/04/2021 08:00:00 AM Scheduled Provider: Location:[facility] Appointment Type:CV Procedure - AOH Echo Appointment Date:05/18/2021 11:00:00 AM Scheduled Provider: Location:[facility] Appointment Type:CV OV Appointment Date:06/25/2021 09:30:00 AM Scheduled Provider: Location:[facility] Appointment Type:CV Office Procedure ICD Appointment Date:07/03/2021 10:00:00 AM Scheduled Provider: Location:[facility] Appointment Type:CV Remote Procedure HM Appointment Date:09/25/2021 08:45:00 AM Scheduled Provider: Location:[facility] Appointment Type:CV Remote Procedure HM Future Scheduled Tests Laboratory* Basic Metabolic Panel 01/29/21 * Hepatic Function Panel 01/29/21 * N-Terminal proBNP 01/29/21 * Complete Blood Count 08/29/20 * Complete Metabolic Panel 08/29/20 [facility] evaluation + Plan note Future Appointments Appointment Date:05/18/2021 11:00:00 AM Scheduled Provider: Location:[facility] Appointment Type:CV OV Appointment Date:06/25/2021 09:30:00 AM Scheduled Provider: Location:[facility] Appointment Type:CV Office Procedure ICD Appointment Date:07/03/2021 10:00:00 AM Scheduled Provider: Location:[facility] Appointment Type:CV Remote Procedure HM Appointment Date:09/25/2021 08:45:00 AM Scheduled Provider: Location:[facility] Appointment Type:CV Remote Procedure HM Future Scheduled Tests Laboratory* Basic Metabolic Panel 01/29/21 * Hepatic Function Panel 01/29/21 * N-Terminal proBNP 01/29/21 * Complete Blood Count 08/29/20 * Complete Metabolic Panel 08/29/20 [facility] evaluation + Plan note Future Appointments Appointment Date:06/25/2021 09:30:00 AM Scheduled Provider: Location:[facility] Appointment Type:CV Office Procedure ICD Appointment Date:07/03/2021 10:00:00 AM Scheduled Provider: Location:[facility] Appointment Type:CV Remote Procedure HM Appointment Date:09/25/2021 08:45:00 AM Scheduled Provider: Location:[facility] Appointment Type:CV Remote Procedure HM Future Scheduled Tests Laboratory* Basic Metabolic Panel 01/29/21 * Hepatic Function Panel 01/29/21 * N-Terminal proBNP 01/29/21 * Complete Blood Count 08/29/20 * Complete Metabolic Panel 08/29/20 [facility] evaluation + Plan note Future Appointments Appointment Date:09/25/2021 08:45:00 AM Scheduled Provider: Location:[facility] Appointment Type:CV Remote Procedure HM Appointment Date:09/26/2021 12:00:00 PM Scheduled Provider: Location:[facility] Appointment Type:HL Metabolic Stress Testing Appointment Date:09/28/2021 10:00:00 AM Scheduled Provider: Location:[facility] Appointment Type:CV OV Future Scheduled Tests Laboratory* Basic Metabolic Panel 08/28/21 * Complete Blood Count 08/28/21 [facility] Evaluation + Plan note Future Appointments Appointment Date:10/01/2021 07:30:00 AM Scheduled Provider: Location:[facility] Appointment Type:CV Procedure - AOH Echo Appointment Date:10/04/2021 11:15:00 AM Scheduled Provider:SYLVESTER MC Location:[facility] Appointment Type:CV OV Appointment Date:10/18/2021 02:45:00 PM Scheduled Provider: Location:[facility] Appointment Type:CV OV Appointment Date:11/02/2021 10:15:00 AM Scheduled Provider: Location:[facility] Appointment Type:CV OV Appointment Date:01/03/2022 09:00:00 AM Scheduled Provider: Location:[facility] Appointment Type:CV Remote Procedure HM Future Scheduled Tests Laboratory* Basic Metabolic Panel 08/28/21 * Complete Blood Count 08/28/21 [facility] Evaluation + Plan note Future Appointments Appointment Date:11/21/2021 03:00:00 PM Scheduled Provider:NATE CARRINGTON DO Location:[facility] Appointment Type:PC FAMILY LIVING EDUCATOR Appointment Date:11/27/2021 09:00:00 AM Scheduled Provider: Location:[facility] Appointment Type:CV OV Appointment Date:01/30/2022 09:00:00 AM Scheduled Provider: Location:[facility] Appointment Type:CV Remote Procedure HM Future Scheduled Tests Laboratory* Basic Metabolic Panel 08/28/21 * Complete Blood Count 08/28/21 [facility] Evaluation + Plan note Future Appointments Appointment Date:04/16/2022 10:15:00 AM Scheduled Provider: Location:[facility] Appointment Type:CV OV Appointment Date:05/17/2022 01:15:00 PM Scheduled Provider: Location:[facility] Appointment Type:CV Remote Procedure HM Future Scheduled Tests Laboratory* LDL-Cholesterol, Direct 11/21/21 * Basic Metabolic Panel 08/28/21 * Prostate Specific Antigen 11/21/21 * Thyroid Stimulating Hormone 11/21/21 * Free T4 11/21/21 * Complete Blood Count 08/28/21 * Lipid Profile 11/21/21 * Microalbumin Level Urine 11/21/21 * Vitamin D Level 11/21/21 [facility] Evaluation + Plan note Future Appointments Appointment Date:12/17/2022 09:30:00 AM Scheduled Provider: Location:[facility] Appointment Type:CV Office Procedure ICD Appointment Date:03/18/2023 01:30:00 PM Scheduled Provider: Location:[facility] Appointment Type:CV Remote Procedure HM Appointment Date:06/17/2023 03:00:00 PM Scheduled Provider: Location:[facility] Appointment Type:CV Remote Procedure HM Appointment Date:09/16/2023 03:00:00 PM Scheduled Provider: Location:[facility] Appointment Type:CV Remote Procedure HM Diagnostic Tests Pending * LDL-Cholesterol, Direct 11/28/22 Future Scheduled Tests Laboratory* Basic Metabolic Panel 04/03/22 * Basic Metabolic Panel 05/04/22 * Basic Metabolic Panel 06/04/22 * Basic Metabolic Panel 07/02/22 * Basic Metabolic Panel 08/02/22 * Basic Metabolic Panel 09/01/22 * Basic Metabolic Panel 10/02/22 * Basic Metabolic Panel 11/01/22 * Basic Metabolic Panel 12/02/22 * Basic Metabolic Panel 01/02/23 * Basic Metabolic Panel 02/01/23 * Basic Metabolic Panel 03/04/23 * Hepatic Function Panel 04/03/22 * Hepatic Function Panel 05/04/22 * Hepatic Function Panel 06/04/22 * Hepatic Function Panel 07/02/22 * Hepatic Function Panel 08/02/22 * Hepatic Function Panel 09/01/22 * Hepatic Function Panel 10/02/22 * Hepatic Function Panel 11/01/22 * Hepatic Function Panel 01/02/23 * Hepatic Function Panel 02/01/23 * Hepatic Function Panel 03/04/23 * N-Terminal proBNP 04/03/22 * N-Terminal proBNP 05/04/22 * N-Terminal proBNP 06/04/22 * N-Terminal proBNP 07/02/22 * N-Terminal proBNP 08/02/22 * N-Terminal proBNP 09/01/22 * N-Terminal proBNP 10/02/22 * N-Terminal proBNP 11/01/22 * N-Terminal proBNP 01/02/23 * N-Terminal proBNP 02/01/23 * N-Terminal proBNP 03/04/23 [facility] Evaluation + Plan note Future Appointments Appointment Date:01/15/2023 12:00:00 PM Scheduled Provider: Location:[facility] Appointment Type:HL Metabolic Stress Testing Appointment Date:03/18/2023 01:30:00 PM Scheduled Provider: Location:[facility] Appointment Type:CV Remote Procedure HM Appointment Date:06/17/2023 03:00:00 PM Scheduled Provider: Location:[facility] Appointment Type:CV Remote Procedure HM Appointment Date:09/16/2023 03:00:00 PM Scheduled Provider: Location:[facility] Appointment Type:CV Remote Procedure Future Scheduled Tests Laboratory* Basic Metabolic Panel 04/03/22 * Basic Metabolic Panel 05/04/22 * Basic Metabolic Panel 06/04/22 * Basic Metabolic Panel 07/02/22 * Basic Metabolic Panel 08/02/22 * Basic Metabolic Panel 09/01/22 * Basic Metabolic Panel 10/02/22 * Basic Metabolic Panel 11/01/22 * Basic Metabolic Panel 12/02/22 * Basic Metabolic Panel 01/02/23 * Basic Metabolic Panel 02/01/23 * Basic Metabolic Panel 03/04/23 * Hepatic Function Panel 04/03/22 * Hepatic Function Panel 05/04/22 * Hepatic Function Panel 06/04/22 * Hepatic Function Panel 07/02/22 * Hepatic Function Panel 08/02/22 * Hepatic Function Panel 09/01/22 * Hepatic Function Panel 10/02/22 * Hepatic Function Panel 11/01/22 * Hepatic Function Panel 01/02/23 * Hepatic Function Panel 02/01/23 * Hepatic Function Panel 03/04/23 * N-Terminal proBNP 04/03/22 * N-Terminal proBNP 05/04/22 * N-Terminal proBNP 06/04/22 * N-Terminal proBNP 07/02/22 * N-Terminal proBNP 08/02/22 * N-Terminal proBNP 09/01/22 * N-Terminal proBNP 10/02/22 * N-Terminal proBNP 11/01/22 * N-Terminal proBNP 01/02/23 * N-Terminal proBNP 02/01/23 * N-Terminal proBNP 03/04/23 [facility] Evaluation + Plan note Future Appointments Appointment Date:03/18/2023 01:30:00 PM Scheduled Provider: Location:[facility] Appointment Type:CV Remote Procedure Appointment Date:06/17/2023 03:00:00 PM Scheduled Provider: Location:[facility] Appointment Type:CV Remote Procedure Appointment Date:09/16/2023 03:00:00 PM Scheduled Provider: Location:[facility] Appointment Type:CV Remote Procedure Future Scheduled Tests Laboratory* Basic Metabolic Panel 04/03/22 * Basic Metabolic Panel 05/04/22 * Basic Metabolic Panel 06/04/22 * Basic Metabolic Panel 07/02/22 * Basic Metabolic Panel 08/02/22 * Basic Metabolic Panel 09/01/22 * Basic Metabolic Panel 10/02/22 * Basic Metabolic Panel 11/01/22 * Basic Metabolic Panel 12/02/22 * Basic Metabolic Panel 01/02/23 * Basic Metabolic Panel 02/01/23 * Basic Metabolic Panel 03/04/23 * Hepatic Function Panel 04/03/22 * Hepatic Function Panel 05/04/22 * Hepatic Function Panel 06/04/22 * Hepatic Function Panel 07/02/22 * Hepatic Function Panel 08/02/22 * Hepatic Function Panel 09/01/22 * Hepatic Function Panel 10/02/22 * Hepatic Function Panel 11/01/22 * Hepatic Function Panel 01/02/23 * Hepatic Function Panel 02/01/23 * Hepatic Function Panel 03/04/23 * N-Terminal proBNP 04/03/22 * N-Terminal proBNP 05/04/22 * N-Terminal proBNP 06/04/22 * N-Terminal proBNP 07/02/22 * N-Terminal proBNP 08/02/22 * N-Terminal proBNP 09/01/22 * N-Terminal proBNP 10/02/22 * N-Terminal proBNP 11/01/22 * N-Terminal proBNP 01/02/23 * N-Terminal proBNP 02/01/23 * N-Terminal proBNP 03/04/23 [facility] Evaluation + Plan note Future Appointments Appointment Date:10/21/2024 02:45:00 PM Scheduled Provider: Location:[facility] Appointment Type:CV Remote Procedure Appointment Date:12/10/2024 09:00:00 AM Scheduled Provider:NATE CARRINGTON DO Location:[facility] Appointment Type:PC Wellness Medicare Future Scheduled Tests Laboratory* Prostate Specific Antigen 08/09/24 [facility] evaluation + Plan note Future Appointments Appointment Date:10/25/2024 01:15:00 PM Scheduled Provider: Location:[facility] Appointment Type:CV Remote Procedure HM Appointment Date:12/10/2024 09:00:00 AM Scheduled Provider:NATE CARRINGTON DO Location:[facility] Appointment Type:PC Wellness Medicare Future Scheduled Tests Laboratory* Prostate Specific Antigen 08/09/24 [facility] evaluation + Plan note Future Appointments Appointment Date:01/11/2025 08:00:00 AM Scheduled Provider: Location:[facility] Appointment Type:Echo - Echocardiogram Adult Appointment Date:01/14/2025 11:30:00 AM Scheduled Provider: Location:[facility] Appointment Type:CV OV Appointment Date:01/31/2025 02:30:00 PM Scheduled Provider: Location:[facility] Appointment Type:CV Office Procedure ICD Appointment Date:05/09/2025 01:45:00 PM Scheduled Provider: Location:[facility] Appointment Type:CV Remote Procedure HM Future Scheduled Tests Radiology* XR Spine Cervical w/ Obliques 5 Views 12/10/24 [facility] evaluation + Plan note Future Appointments Appointment Date:01/11/2025 08:00:00 AM Scheduled Provider: Location:[facility] Appointment Type:Echo - Echocardiogram Adult Appointment Date:01/14/2025 11:30:00 AM Scheduled Provider: Location:[facility] Appointment Type:CV OV Appointment Date:01/31/2025 02:30:00 PM Scheduled Provider: Location:[facility] Appointment Type:CV Office Procedure ICD Appointment Date:05/09/2025 01:45:00 PM Scheduled Provider: Location:[facility] Appointment Type:CV Remote Procedure HM Diagnostic Tests Pending * Vitamin B1 (Thiamine), Blood 12/22/24 * Vitamin B6, Plasma 12/22/24 Future Scheduled Tests Radiology* XR Spine Cervical w/ Obliques 5 Views 12/10/24 [facility] Evaluation + Plan note Future Appointments Appointment Date:01/31/2025 02:30:00 PM Scheduled Provider: Location:[facility] Appointment Type:CV Office Procedure ICD Appointment Date:02/17/2025 08:00:00 AM Scheduled Provider: Location:[facility] Appointment Type:OT Outpatient Functional Capacity Evalua Appointment Date:02/17/2025 08:00:00 AM Scheduled Provider: Location:[facility] Appointment Type:OT Outpatient Functional Capacity Evalua Appointment Date:05/09/2025 01:45:00 PM Scheduled Provider: Location:[facility] Appointment Type:CV Remote Procedure HM Future Scheduled Tests Laboratory* TSH with Reflex to FT4 01/11/25 * Basic Metabolic Panel 01/11/25 * Magnesium Level 01/11/25 * Complete Blood Count 01/11/25 Radiology* XR Spine Cervical w/ Obliques 5 Views 12/10/24 [facility] History of Present illness Narrative* Patient identification verified with 2 patient identifiers. * Anticoagulation Monitoring Service: [facility]. * Enrollment/Re-enrollment date: October 31, 2020. * Re-enrollment fax was sent to Shi Grove MD * The patient is being seen as a follow-up for anticoagulation monitoring. * Patient had CBC on November 06, 2019: H&H 15.6/45.8 * Patient referred to [facility] by Eddie Whitlock MD * Target INR 2-3. Monitoring practitioner Shi Grove MD. * Date Warfarin Begun: October 31, 2019. * INR monitoring is per [facility] protocol. 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 * The patient is currently taking warfarin Tablet strength and color: 5 mg(Manati) * Interval History: * Patient was last seen: September 15, 2020. * Previous INR was 2. * Incoming total weekly dose 42.5 mg. * Today's Clinic INR: [facility] INR 2.6. * Since last visit, the patient reports no bleeding. * The patient did not experience clinically relevant bleeding. * The patient did not experience other minor bleeding. * Since last visit, the patient has not experienced a thrombotic event. * The patient reports a change in medication. Patient reports that his dose of Coreg was increased from 3.125mg/BID to 6.25mg/BID approximately 3 weeks ago. * He reports no change in alcohol consumption. * He reports no change in Vitamin K consumption. * The patient has taken Warfarin as directed. * Management: The patient's INR is within target range. Will maintain dose. * Next follow up appointment in 4 week(s). * Outgoing total weekly dose 42.5 mg. * Patient instructed to call in interim with questions, concerns and changes. Patient educated on interactions between medications and warfarin. [facility] Work Phone: History of Present illness Narrative* Patient identification verified with 2 patient identifiers. * Anticoagulation Monitoring Service: [facility]. * Enrollment/Re-enrollment date: October 13, 2021. * Re-enrollment fax was sent to Shi Grove MD * The patient is being seen as a follow-up for anticoagulation monitoring. * Patient had CBC on November 06, 2019: H&H 15.6/45.8 * Patient referred to [facility] by Eddie Whitlock MD * Target INR 2-3. Monitoring practitioner Shi Grove MD. * Date Warfarin Begun: October 31, 2019. * INR monitoring is per [facility] protocol. 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 * The patient is currently taking warfarin Tablet strength and color: 5 mg(Manati) * Interval History: * Patient was last seen: August 24, 2021. * Previous INR was 2.5. * Incoming total weekly dose 40 mg. * Today's Clinic INR: [facility] INR 2.5. * Since last visit, the patient reports no bleeding. * The patient did not experience clinically relevant bleeding. * The patient did not experience other minor bleeding. * Since last visit, the patient has not experienced a thrombotic event. * The patient reports no change in medication. * He reports no change in alcohol consumption. * He reports no change in Vitamin K consumption. * The patient has taken Warfarin as directed. * Management: The patient's INR is within target range. Will maintain dose. * Next follow up appointment in 4 week(s). * Outgoing total weekly dose 40 mg. * Patient instructed to call in interim with questions, concerns and changes. Patient educated on signs of bleeding/clotting. [facility] Work Phone: Hospital course Narrative No data available for this section [facility] Hospital Discharge instructions No data available for this section [facility] Progress note No data available for this section [facility] Family History No Family History Records Found Mother Name Dates Details Family history of cardiac pa cemaker(V17.49, Z82.49) Status:Active Mother Name Dates Details Family history of cardiac pa cemaker(V17.49, Z82.49) Status:Active Unknown Family Member Name Dates Details Family history of cardiac pa cemaker: Mother(V17.49, Z82.49) Status:Active Unknown Family Member Name Dates Details Family history of cardiac pa cemaker: Mother(V17.49, Z82.49) Status:Active Unknown Family Member Name Dates Details Family history of cardiac pa cemaker: Mother(V17.49, Z82.49) Status:Active Unknown Family Member Name Dates Details Family history of cardiac pa cemaker: Mother(V17.49, Z82.49) Status:Active Unknown Family Member Name Dates Details Family history of cardiac pa cemaker: Mother(V17.49, Z82.49) Status:Active Unknown Family Member Name Dates Details Family history of cardiac pa cemaker: Mother(V17.49, Z82.49) Status:Active Unknown Family Member Name Dates Details Family history of cardiac pa cemaker: Mother(V17.49, Z82.49) Status:Active Unknown Family Member Name Dates Details Family history of cardiac pa cemaker: Mother(V17.49, Z82.49) Status:Active Unknown Family Member Name Dates Details Family history of cardiac pa cemaker: Mother(V17.49, Z82.49) Status:Active Unknown Family Member Name Dates Details Family history of cardiac pa cemaker: Mother(V17.49, Z82.49) Status:Active Unknown Family Member Name Dates Details Family history of cardiac pa cemaker: Mother(V17.49, Z82.49) Status:Active Unknown Family Member Name Dates Details Family history of cardiac pa cemaker: Mother(V17.49, Z82.49) Status:Active Unknown Family Member Name Dates Details Family history of cardiac pa cemaker: Mother(V17.49, Z82.49) Status:Active Unknown Family Member Name Dates Details Family history of cardiac pa cemaker: Mother(V17.49, Z82.49) Status:Active Unknown Family Member Name Dates Details Family history of cardiac pa cemaker: Mother(V17.49, Z82.49) Status:Active Unknown Family Member Name Dates Details Family history of cardiac pa cemaker: Mother(V17.49, Z82.49) Status:Active Unknown Family Member Name Dates Details Family history of cardiac pa cemaker: Mother(V17.49, Z82.49) Status:Active Unknown Family Member Name Dates Details Family history of cardiac pa cemaker: Mother(V17.49, Z82.49) Status:Active Unknown Family Member Name Dates Details Family history of cardiac pa cemaker: Mother(V17.49, Z82.49) Status:Active Unknown Family Member Name Dates Details Family history of cardiac pa cemaker: Mother(V17.49, Z82.49) Status:Active Unknown Family Member Name Dates Details Family history of cardiac pa cemaker: Mother(V17.49, Z82.49) Status:Active Unknown Family Member Name Dates Details Family history of cardiac pa cemaker: Mother(V17.49, Z82.49) Status:Active Unknown Family Member Name Dates Details Family history of cardiac pa cemaker: Mother(V17.49, Z82.49) Status:Active Unknown Family Member Name Dates Details Family history of cardiac pa cemaker: Mother(V17.49, Z82.49) Status:Active Summary Purpose Advance Directives No Advanced Directives Records FoundNo Advanced Directives Records FoundNo Advanced Directives Records FoundNo Advanced Directives Records FoundNo Advanced Directives Records FoundNo Advanced Directives Records FoundNo Advanced Directives Records Found Additional Source Comments (unrecognized sect ion and content) No Status Records FoundNo Status Records FoundNo Status Records FoundNo Status Records FoundNo Status Records FoundNo Status Records FoundNo Status Records Found INFORMATION SOURCE (unrecogn ized section and content) DATE CREATED AUTHOR 01/26/2021 [facility] DATE CREATED AUTHOR AUTHOR'S ORGANIZ ATION 05/27/2021 [facility] DATE CREATED AUTHOR AUTHOR'S ORGANIZ ATION 11/29/2021 [employer] DATE CREATED AUTHOR AUTHOR'S ORGANIZ ATION 02/03/2023 [facility] DATE CREATED AUTHOR AUTHOR'S ORGANIZ ATION 01/08/2025 [facility] DATE CREATED AUTHOR AUTHOR'S ORGANIZ ATION 01/13/2025 [facility] DATE CREATED AUTHOR AUTHOR'S ORGANIZ ATION 01/24/[address] [facility] Care Team (unrecognized sect ion and content) Care Team Personnel Name: VJ CLEMENTE MD Position: P4 Physician - Cardiology Member Role: Pool Nurse Address: Address: [address] [place] [address] Name: BALJIT EDMONDS MD Position: P4 Physician - Cardiology Member Role: Salon Receptionist Address: Address: [address] [place] [address] Name: NATE CARRINGTON DO Position: P4 Physician - Primary Care Member Role: Primary Care Physician Address: Address: [address] [place], [place] [id number] [place] [address] Care Team Related Persons Name: KAIT MALONE Name: KAIT MALONE Name: BABAR MALONE Care Team Personnel Name: VJ CLEMENTE MD Position: P4 Physician - Cardiology Med Service: Active Provider Member Role: Pool Nurse Address: Address: [address] [place] [address] Name: BALJIT EDMONDS MD Position: P4 Physician - Cardiology Med Service: Active Provider Member Role: Salon Receptionist Address: Address: [address] [facility] [address] Care Team Related Persons Name: KAIT MALONE Name: KAIT MALONE Name: BABAR MALONE Patient Care team informatio n (unrecognized section and content) Care Team Personnel Name: VJ CLEMENTE MD Position: P4 Physician - Cardiology Member Role: Pool Nurse Address: Address: [address] [facility] [address] [place], [place] [address] Name: BALJIT EDMONDS MD Position: P4 Physician - Cardiology Member Role: Salon Receptionist Address: Address: [address] [facility] [address] [place] [address]- Name: NATE CARRINGTON DO Position: P4 Physician - Primary Care Member Role: Primary Care Physician Address: Address: [address] [place], [place] [address] Care Team Related Persons Name: KAIT MALONE Name: KAIT MALONE Name: BABAR MALONE FOR RECORDS PERTAINING TO PATIENTS WHO ARE OR HAVE BEEN ENROLLED IN A CHEMICAL DEPENDENCY/SUBSTANCEABUSE PROGRAM, SOME INFORMATION MAY BE OMITTED. This clinical summary was aggregated from multiple sources. Caution should be exercised in using it in the provision of clinical care. This summary normalizes information from multiple sources, and as a consequence, information in this document may materially change the coding, format and clinical context of patient data. In addition, data may be omitted in some cases. CLINICAL DECISIONS SHOULD BE BASED ON THE PRIMARY CLINICAL RECORDS. [facility]. provides no warranty or guarantee of the accuracy or completeness of information in this document.
[2025-01-24] MEDS: 0.9% Normal Saline (1000mL) 1,000 ML 999 ML IV (20:17)
--- NOTE | 2025-01-24 20:22 | EX.ED.GENINJ ---
HPI History of Present Illness Chief Complaint: Nausea/Vomiting/Diarrhea Narrative Narrative: Chief complaint and HPI: 49-year-old male with past medical history of-year-old male ICD, HTN on anticoagulation warfarin One presents for evaluation of nausea, vomiting, diarrhea. Onset of symptoms approximately 1 week. Emesis and diarrhea is nonbloody. Endorses decreased p.o. intake secondary to symptoms. States that several days ago he developed a abscess below his right breast. Went to [place] emergency department and had an incision and drainage with packing placed. Was placed on antibiotics but has been unable to take them secondary to the nausea. He denies any fever, chills, shortness of breath, chest pain, dysuria. States he has some mild abdominal pain. Review of systems: See HPI Medications: As listed on the chart Allergies: As listed on the chart PFSH: Per chart Vital signs: As listed on the chart. Reviewed. Physical exam: Gen: A&O x3, NAD Head: Normocephalic, atraumatic Eyes: No sclera icterus, conjunctiva clear ENT: Mildly dry mucous membranes Neck: Trachea midline, full range of motion CV: RRR, no murmurs, patient has packing placed in his recent I&D abscess-packing was removed-no purulence or drainage from the site, site healing well - no fluctuance/erythema/redness Resp: Lungs CTA BL, no w/r/c GI: Abd soft, non-distended, minimally tender to palpation, no r/r/g Musc: Full ROM, no deformity Skin: Warm, dry Neuro: Alert, oriented, grossly intact, sensation intact Psych: Cooperative, appropriate mood and affect [facility] Medical History ICD (implantable cardioverter-defibrillator) in place Left-sided heart failure Home Medications ?Medication ?Instructions ?Recorded ?Last Taken ?Type atorvastatin 40 mg tablet 40 mg PO DAILY 11/24/20 Unknown History carvedilol 6.25 mg tablet 9.175 mg PO BID 11/24/20 Unknown History digoxin 125 mcg (0.125 mg) tablet 125 mcg PO DAILY 11/24/20 Unknown History ferrous sulfate 325 mg (65 mg 325 mg PO DAILY 11/24/20 Unknown History iron) tablet furosemide 20 mg tablet 20 mg PO DAILY 11/24/20 Unknown History isosorbide dinitrate 10 mg tablet 10 mg PO DAILY 11/24/20 Unknown History magnesium oxide 400 mg (241.3 mg 40 mg PO DAILY 11/24/20 Unknown History magnesium) tablet ondansetron 4 mg disintegrating 4 mg PO TID PRN nausea and 11/24/20 Unknown Rx tablet vomiting 3 days #9 tabs promethazine 25 mg tablet 25 mg PO TID PRN nausea and 11/24/20 Unknown Rx vomiting #9 tabs sacubitril 97 mg-valsartan 103 mg 1 tab PO BID 11/24/20 Unknown History tablet (Entresto) spironolactone 25 mg tablet 25 mg PO DAILY 11/24/20 Unknown History warfarin 5 mg tablet 7.5 mg PO DAILY 11/24/20 Unknown History Allergy/AdvReac Type Severity Reaction Status Date / Time heparin Allergy PT UNSURE Verified 01/24/25 18:52 OF REACTION pollen extracts Allergy Shortness Verified 11/24/20 13:48 of breath Family History no significant family his Surgical History Hx of tonsillectomy Social History Smoking Status: Former smoker EXAM Physical Exam Const Vital Signs: 01/24/25 18:52 01/24/25 20:50 01/24/25 22:00 Temperature 97.1 F L Temperature Source Temporal Pulse Rate 83 71 87 Respiratory Rate 18 18 17 Blood Pressure 145/95 H 121/56 H 150/86 H Blood Pressure Mean 111 77 107 Pulse Ox 95 100 Oxygen Delivery Method Room Air MDM MDM MDM Narrative Medical decision making narrative: 49-year-old male with past medical history of-year-old male ICD, HTN on anticoagulation warfarin One presents for evaluation of nausea, vomiting, diarrhea. Onset of symptoms approximately 1 week. States that several days ago he developed a abscess below his right breast. Went to [place] emergency department and had an incision and drainage with packing placed. Was placed on antibiotics but has been unable to take them secondary to the nausea. States packing is supposed to be removed today. Packing was personally reviewed by me. See physical exam findings. I do not think the abscess is related to the nausea, vomiting, diarrhea. Differential diagnosis includes but is not limited to viral gastroenteritis, diverticulitis, appendicitis, pancreatitis, UTI, dehydration, electrolyte abnormality. NS bolus, Zofran ordered for symptoms. Laboratory workup ordered including CT abdomen and pelvis. CBC unremarkable without leukocytosis or anemia. CMP shows hypokalemia of 3.2 without REFUGIO. P.o. potassium ordered. No transaminitis. Lipase unremarkable. UA positive for ketones which is consistent with dehydration. Negative for UTI. CT abdomen pelvis shows mild thickening and inflammation of the sigmoid colon may reflect colitis versus diverticulitis. Scattered small bowel wall inflammation may reflect enteritis. Together, enterocolitis suspected. No obstruction. Given patient has no leukocytosis and no blood in the stool, I suspect viral etiology. Patient p.o. challenged and tolerated this well. Patient stable to discharge home. Recommend him sticking to a liquid diet for the next 2 days, after that advance to soft, after that normal diet as tolerated. Follow-up with primary care physician. Return back to ED if symptoms change or worsen cannot tolerate p.o. intake at home. Recommended taking the antibiotics that were prescribed for him although the recent abscess currently does not look infected. Patient has Zofran at home. Will prescribe Reglan as needed for nausea and vomiting as well. Patient is confirmed understanding the plan. Patient able to discharge home. Impression: 1. Viral enterocolitis 2. Mild dehydration 3. Mild hypokalemia 4. Recent abscess with incision and drainage Lab Data Labs: Laboratory Results - last 24 hr 01/24/25 01/24/25 19:15 20:45 WBC 7.6 RBC 4.71 Hgb 15.1 Hct 42.7 MCV 90.7 MCH 32.1 H MCHC 35.4 RDW Std Deviation 42.2 RDW Coeff of John 12.8 Plt Count 298 MPV 10.1 Immature Gran % (Auto) 0.400 Neut % (Auto) 62.2 Lymph % (Auto) 23.5 [place] % (Auto) 13.0 H Eos % (Auto) 0.4 Baso % (Auto) 0.5 Absolute Neuts (auto) 4.7 Absolute Lymphs (auto) 1.79 Nucleated RBC % 0 Sodium 134 Potassium 3.2 L Chloride 94 L Carbon Dioxide 25.2 Anion Gap 15 BUN 11 Creatinine 1.10 Estim Creat Clear Calc 96.71 Est GFR (MDRD) Non-Af 81 BUN/Creatinine Ratio 10.0 Glucose 114 H Calcium 9.6 Total Bilirubin 0.85 AST 21 ALT 23 Alkaline Phosphatase 134 H Total Protein 8.1 Albumin 4.5 Globulin 3.6 Albumin/Globulin Ratio 1.2 Lipase 25 Urine Color Yellow Urine Clarity Sl. Cloudy Urine pH 7.0 Ur Specific [place] 1.010 Urine Protein 30 H Urine Glucose (UA) 250 H Urine Ketones 50 H Urine Occult Blood 10 H Urine Nitrite Negative Urine Bilirubin Negative Urine Urobilinogen 1 H Ur Leukocyte Esterase Negative Urine RBC 0-5 SEEN Urine WBC 0-5 SEEN Ur Squamous Epith Cells 0-5 SEEN Urine Bacteria RARE Urine Mucus 0 SEEN Radiography Diagnostic Testing: Clinical Impression(s) from Imaging Studies Abdomen/Pelvis CT 01/24/25 20:29 IMPRESSION: Mild thickening and inflammation of the sigmoid colon may reflect colitis versus diverticulitis. Scattered small bowel wall inflammation may reflect enteritis. Together, enterocolitis suspected. No bowel obstruction. Reading Location: [facility] Discharge Plan Triage Chief Complaint: Nausea/Vomiting/Diarrhea ED Provider: Philip Ribera Dx/Rx/DC Orders Prescriptions: No Action isosorbide dinitrate 10 mg tablet 10 mg PO DAILY Patient Comments: TAKE 1 TABLET BY MOUTH EVERY DAY atorvastatin 40 mg tablet 40 mg PO DAILY Patient Comments: TAKE 1 TABLET BY MOUTH EVERY DAY carvedilol 6.25 mg tablet 9.175 mg PO BID Patient Comments: TAKE 1.5 TABLETS BY MOUTH TWICE A DAY spironolactone 25 mg tablet 25 mg PO DAILY Patient Comments: TAKE 1 TABLET BY MOUTH EVERY DAY magnesium oxide 400 mg (241.3 mg magnesium) tablet 40 mg PO DAILY Patient Comments: TAKE 1 TABLET BY MOUTH EVERY DAY ferrous sulfate 325 mg (65 mg iron) tablet 325 mg PO DAILY Patient Comments: TAKE 1 TABLET BY MOUTH THREE TIMES A DAY warfarin 5 mg tablet 7.5 mg PO DAILY Patient Comments: TAKE 1.5 TABLETS BY MOUTH ONCE A DAY OR DIRECTED BY THE COUMADIN CLINIC. digoxin 125 mcg (0.125 mg) tablet 125 mcg PO DAILY Patient Comments: TAKE 1 TABLET BY MOUTH EVERY DAY furosemide 20 mg tablet 20 mg PO DAILY Patient Comments: TAKE 1 TABLET BY MOUTH EVERY DAY NEEDED FOR WEIGHT GAIN Entresto 97-103 mg tablet 1 tab PO BID Patient Comments: TAKE 1 TABLET BY MOUTH TWICE A DAY ondansetron 4 mg tablet,disintegrating 4 mg PO TID PRN (Reason: nausea and vomiting) 3 Days Qty: 9 0RF promethazine 25 mg tablet 25 mg PO TID PRN (Reason: nausea and vomiting) Qty: 9 0RF Primary Care Provider: Nate Mccloud Referrals: Nate Mccloud DO [Primary Care Provider, Medical] Print Language: Emirati
[2025-01-24 20:27] LABS: Hematocrit 42.7 % (40-54); Hemoglobin 15.1 g/dL (13.0-16.5); Immature Granulocytes Count 0.030 X10^3/uL (0.0-0.0); Mean Corp Hgb Conc 35.4 g/dL (32-36); Mean Corpuscular Volume 90.7 fL (80-94); Mean Platelet Vol. 10.1 fl (6.2-12.0); NRBC Flagged by Analyzer 0 % (0-5); Platelet Count 298 K/mm3 (150-450); RBC Distribution Width CV 12.8 % (11.6-14.6); RBC Distribution Width SD 42.2 fl (35.1-43.9); Red Blood Count 4.71 M/mm3 (4.6-6.2); White Blood Count 7.6 K/mm3 (4.4-11.0)
--- NOTE | 2025-01-24 20:29 | CT_ITS ---
PROCEDURE: ABDOMEN/PELVIS W IV CONT ONLY 01/24/2025 REASON FOR EXAM: ABDOMINAL PAIN, NAUSEA AND VOMITING TECHNIQUE: Procedure Code: [id number] Modality: CT Procedure: ABDOMEN/PELVIS W IV CONT ONLY Coronal and Sagittal reconstruction series were provided. CONTRAST: 100 mL of Isovue 370 One or more dose reduction techniques were used (e.g., Automated exposure control, adjustment of the mA and/or kV according to patient size, use of iterative reconstruction technique. RADIATION DOSE SUMMARY: DLP: 1352 mGycm COMPARISON: None FINDINGS: Limited sections of the lung bases demonstrate no focal pulmonary mass or consolidations. The liver, spleen, pancreas, and both adrenal glands demonstrate no acute findings. Scattered subcentimeter hypodensities throughout the liver too small to accurately characterize. The gallbladder is unremarkable. The stomach is unremarkable. Scattered small bowel wall inflammation may reflect enteritis. The appendix is surgically removed. No colonic obstruction. Colonic diverticulosis. Mild thickening of the sigmoid colon may reflect diverticulitis versus colitis. There is no free air or significant free fluid. The kidneys are unremarkable. The urinary bladder is partially distended. The pelvic structures are intact. There is no solid pelvic mass. No significant lymphadenopathy. The aorta and IVC demonstrate no acute findings. Mild atherosclerosis of the abdominal vasculature. Visualized osseous structures demonstrate no acute abnormality. CT/Abdomen/Pelvis W IV Cont ONLY IMPRESSION: Mild thickening and inflammation of the sigmoid colon may reflect colitis versu s diverticulitis. Scattered small bowel wall inflammation may reflect enteritis. Together, enterocolitis suspected. No bow el obstruction. Reading Location: [id number]
[2025-01-24 20:50] VITALS: BP 121/56; PULSE 71; RESP 18
[2025-01-24 20:54] LABS: Mucous, Urine 0 SEEN /hpf (<or=2+)
[2025-01-24 20:56] LABS: AST(SGOT) 21 U/L (<=37); Alanine Aminotransfer ALT/SGPT 23 U/L (<=46); Albumin, Serum 4.5 g/dL (3.5-5.0); Alkaline Phosphatase 134 U/L (40-129); Anion Gap 15 (5-15); BUN 11 mg/dL (4-19); BUN/Creat Ratio 10.0 RATIO (10-20); Calcium,Total 9.6 mg/dL (7.6-11.0); Carbon Dioxide 25.2 mmol/L (21.0-32.0); Chloride 94 mmol/L (98-108); Estimated Creatinine Clearance 96.71 ml/min (50-250); Globulin 3.6 g/dL (2.2-4.2); Glucose 114 mg/dL (70-99); Lipase 25 U/L (13-75); Potassium 3.2 mmol/L (3.3-5.1)
[2025-01-24 21:15] LABS: Color, Urine Yellow (Yellow); Glucose, Dipstick 250 mg/dl (Normal); Ketone-Dipstick 50 mg/dl (Negative); Leukocyte Esterase-Dipstick Negative /ul (Negative); Nitrite-Dipstick Negative (Negative); Occult Blood-Urine 10 /ul (Negative); Protein-Dipstick 30 mg/dl (Negative); Specific Gravity, Urine 1.010 (1.002-1.030); Urine Bilirubin Dipstick Negative (Negative)
[2025-01-24 21:49] LABS: Red Blood Cells-Urine 0-5 SEEN /hpf (0-5); Squamous Epithelial Cells - UA 0-5 SEEN /hpf (0-5)
[2025-01-24 22:00] VITALS: BP 150/86; PULSE 87; RESP 17; O2SAT 100
[2025-01-24] MEDS: Potassium Chloride Oral Soln 20 MEQ/15 ML UDC 40 MEQ PO (22:04)
[2025-01-24 22:30] VITALS: BP 150/86; PULSE 87; RESP 17; TEMP 36.2; O2SAT 100
== END 2025-01-24 22:33 | disposition home or self-care (01) ==
PROVIDERS: Emergency Provider Surgery; Visit Provider Surgery
DX: A09 Infectious gastroenteritis and colitis, unspecified (principal); I11.0 Hypertensive heart disease with heart failure; I50.9 Heart failure, unspecified; E86.0 Dehydration; R11.2 Nausea with vomiting, unspecified; Z87.891 Personal history of nicotine dependence; R19.7 Diarrhea, unspecified; L02.91 Cutaneous abscess, unspecified; E87.6 Hypokalemia; Z79.01 Long term (current) use of anticoagulants; Z95.810 Presence of automatic (implantable) cardiac defibrillator
CPT/HCPCS: 74177; 80053; 81001; 83690; 85025; 96361; 96374; 99283; Q9967; J2405